=== PATIENT | female | born 1975 | race Two or more races ===

== ENCOUNTER 2024-01-29 09:10 | Inpatient (IN) | payer MEDICAID, OTHER ==
[~2024-01-29] VITALS: Ht 152.4 cm; Wt 57.2 kg
[2024-01-29] MEDS: SODIUM CHLORIDE 0.9% 1,000 ML IV ONE (09:15)
[2024-01-29 09:21] VITALS: PULSE 100; RESP 16; O2SAT 98
[2024-01-29 10:23] LABS: Anion Gap 6 (5-15); Calcium 9.6 mg/dL (8.7-10.4); Carbon Dioxide 26 mmol/L (20-30); Chloride 111 mmol/L (98-107); Potassium 4.3 mmol/L (3.5-5.1); Sodium 143 mmol/L (136-145)
[2024-01-29 10:24] LABS: Basophils # (auto) 0 10 ^3/uL (0-0.2); Basophils % (auto) 0.1 % (0.0-2.0); Eosinophils # (auto) 0.1 10 ^3/uL (0-0.8); Eosinophils % (auto) 1.3 % (0.0-7.0); Hematocrit 40.1 % (36.0-46.0); Hemoglobin 13.3 g/dL (12.2-16.2); Lymphocytes # (auto) 2.1 10 ^3/uL (0.4-5.4); Lymphocytes % (auto) 37.9 % (10.0-50.0); Mean Corpuscular Hemoglobin 34.7 pg (28.0-32.0); Mean Corpuscular Hgb Conc. 33.1 g/dL (32.0-36.0); Monocytes # (auto) 0.5 10 ^3/uL (0-1.3); Neutrophils # (auto) 2.8 10 ^3/uL (1.6-8.6); Neutrophils % (auto) 50.7 % (37.0-80.0); Nucleated Red Blood Cells % 0.1 %; Red Blood Cells 3.82 10^6/uL (4.0-5.20); Red Cell Distribution Width 13.2 % (11.8-14.3); White Blood Cell 5.5 10^3/uL (4.4-10.8)
[2024-01-29 10:28] LABS: Glucose 98 mg/dL (74-106)
[2024-01-29 10:30] LABS: BUN/Creatinine Ratio 40.5 (10.0-20.0); Blood Urea Nitrogen 15 mg/dL (9-23)
[2024-01-29] MEDS ORDERED: NITROGLYCERIN 0.4 MG SL TAB SL PRN (12:45)
[2024-01-29] MEDS ORDERED: DOCUSATE SOD 100 MG CAP PO PRN (12:45)
[2024-01-29] MEDS ORDERED: MORPHINE SULFATE INJ 2 MG/ml SYRG IV PRN (12:45)
[2024-01-29] MEDS: PANTOPRAZOLE 40 MG/10 ML VIAL INJ IV ONE (13:00)
[2024-01-29 13:40] VITALS: BP 104/54; PULSE 98; RESP 17; TEMP 98.3; O2SAT 92
[2024-01-29] MEDS: ENOXAPARIN SOD 40 MG/0.4 ML SYRINGE SC SCH (16:07)
[2024-01-29 16:52] VITALS: BP 120/58; PULSE 99; RESP 19; TEMP 98.7; O2SAT 96
[2024-01-29] MEDS: SODIUM CHLORIDE 0.9% 1,000 ML IV SCH (19:04)
[2024-01-29 21:00] VITALS: BP 105/66; PULSE 100; RESP 18; TEMP 98.5; O2SAT 96
[2024-01-30 01:00] VITALS: BP 119/63; PULSE 93; RESP 23; TEMP 98.6; O2SAT 97
[2024-01-30 05:00] VITALS: BP 116/60; PULSE 101; RESP 20; TEMP 98.3; O2SAT 95
[2024-01-30 05:57] LABS: Basophils # (auto) 0 10 ^3/uL (0-0.2); Eosinophils # (auto) 0.1 10 ^3/uL (0-0.8); Eosinophils % (auto) 1.4 % (0.0-7.0); Monocytes # (auto) 0.5 10 ^3/uL (0-1.3); Neutrophils # (auto) 2.3 10 ^3/uL (1.6-8.6)
[2024-01-30 05:59] LABS: Basophils % (auto) 0.3 % (0.0-2.0); Hematocrit 35.3 % (36.0-46.0); Hemoglobin 12.3 g/dL (12.2-16.2); Lymphocytes # (auto) 2.2 10 ^3/uL (0.4-5.4); Lymphocytes % (auto) 42.8 % (10.0-50.0); Mean Corpuscular Hemoglobin 35.4 pg (28.0-32.0); Mean Corpuscular Hgb Conc. 34.9 g/dL (32.0-36.0); Mean Corpuscular Volume 101.6 fL (80.0-100.0); Monocytes % (auto) 10.2 % (0.0-12.0); Neutrophils % (auto) 45.3 % (37.0-80.0); Nucleated Red Blood Cells % 0.2 %; Red Blood Cells 3.48 10^6/uL (4.0-5.20); White Blood Cell 5.1 10^3/uL (4.4-10.8)
[2024-01-30 06:14] LABS: Alanine Aminotransferase 15 U/L (7-40); Alkaline Phosphatase 99 U/L (46-116); Anion Gap 9 (5-15); BUN/Creatinine Ratio 65.5 (10.0-20.0); Blood Urea Nitrogen 19 mg/dL (9-23); Calcium 9.3 mg/dL (8.7-10.4); Carbon Dioxide 24 mmol/L (20-30); Chloride 112 mmol/L (98-107); Glucose 80 mg/dL (74-106); Potassium 3.7 mmol/L (3.5-5.1); Sodium 145 mmol/L (136-145)
[2024-01-30 06:15] LABS: Albumin 3.6 g/dL (3.2-4.8); Aspartate Aminotransferase 10 U/L (13-40); Bilirubin, Total 0.3 mg/dL (0.2-1.0); Total Protein 5.9 g/dL (5.7-8.2)
[2024-01-30 08:39] VITALS: BP 125/71; PULSE 98; RESP 17; TEMP 99.2; O2SAT 95
[2024-01-30] MEDS ORDERED: FOLI-119 PO (09:42)
[2024-01-30] MEDS ORDERED: TRAM50TA2 PO (09:49)
[2024-01-30] MEDS ORDERED: ESOM40CA39 PO (09:49)
[2024-01-30] MEDS ORDERED: LEVE5SOL PO (09:49)
[2024-01-30] MEDS ORDERED: CARB200T39 PO (09:49)
[2024-01-30] MEDS: PANTOPRAZOLE 40 MG/10 ML VIAL INJ IV SCH (10:20)
[2024-01-30 12:43] VITALS: BP 136/71; PULSE 104; RESP 17; TEMP 99.4; O2SAT 97
[2024-01-30] MEDS: GASTROGRAFIN 30 ML SOL ONE (15:35)
[2024-01-30 16:54] VITALS: BP 119/67; PULSE 96; RESP 16; TEMP 99.2; O2SAT 96
[2024-01-30] MEDS: MORPHINE SULFATE INJ 2 MG/ml SYRG IV PRN (20:41)
[2024-01-30 21:00] VITALS: BP 129/62; PULSE 96; RESP 18; TEMP 99; O2SAT 97
[2024-01-31] VITALS (8 sets, daily range): BP systolic 109–137; BP diastolic 54–64; PULSE 64–102; RESP 16–20; TEMP 97.7–99.7; O2SAT 94–100
[2024-01-31] MEDS ORDERED: CLINIMIX PER PHARMACY 0 ML IV SCH (11:15)
[2024-01-31] MEDS: LORazepam 2MG/ML-1ML VIAL ONE (11:51)
[2024-01-31] MEDS: levETIRAcetam 500 mg/100ml 100 ML IV ONE (12:12)
[2024-01-31 13:50] LABS: Alanine Aminotransferase 19 U/L (7-40); Albumin 3.5 g/dL (3.2-4.8); Alkaline Phosphatase 103 U/L (46-116); Anion Gap 19 (5-15); Aspartate Aminotransferase 17 U/L (13-40); BUN/Creatinine Ratio 28.1 (10.0-20.0); Bilirubin, Total 0.4 mg/dL (0.2-1.0); Calcium 8.8 mg/dL (8.7-10.4); Carbon Dioxide 11 mmol/L (20-30); Chloride 111 mmol/L (98-107); Glucose 65 mg/dL (74-106); Magnesium 1.6 mg/dL (1.6-2.6); Phosphorus 2.9 mg/dL (2.4-5.1); Potassium 3.2 mmol/L (3.5-5.1); Sodium 141 mmol/L (136-145)
[2024-01-31 13:51] LABS: Blood Urea Nitrogen 9 mg/dL (9-23); Total Protein 5.8 g/dL (5.7-8.2)
[2024-01-31] MEDS: InsuLIN REG 1unit/0.01ml Soln (100units/ml) SC SCH (18:00)
[2024-01-31] MEDS: MAGNESIUM SULFATE 1GM/100ML 100 ML IV ONE (18:35)
[2024-01-31] MEDS: POTASSIUM PHOSPHATE 22 MEQ in SODIUM CHL 0.9% 100 ML IV ONE (20:11)
[2024-01-31] MEDS: ACCU-CHEK COMFORT CURVE STRIP VI SCH (23:50)
[2024-01-31] MEDS: levETIRAcetam 500 mg/100ml 100 ML IV SCH (23:56)
[2024-02-01] VITALS (8 sets, daily range): BP systolic 104–121; BP diastolic 52–68; PULSE 67–103; RESP 17–21; TEMP 98.5–99.2; O2SAT 95–100
[2024-02-01] MEDS: DEXTROSE (50%) 50ML SYRG IV SCH (00:29)
[2024-02-01] MEDS: AMINO ACID INFUSION IN D10W 1,000 ML IV SCH (00:31)
[2024-02-01 07:52] LABS: Alanine Aminotransferase 27 U/L (7-40); Albumin 3.3 g/dL (3.2-4.8); Alkaline Phosphatase 95 U/L (46-116); Anion Gap 8 (5-15); Aspartate Aminotransferase 43 U/L (13-40); BUN/Creatinine Ratio 25.6 (10.0-20.0); Bilirubin, Total 0.3 mg/dL (0.2-1.0); Blood Urea Nitrogen 10 mg/dL (9-23); Calcium 8.1 mg/dL (8.7-10.4); Carbon Dioxide 19 mmol/L (20-30); Chloride 110 mmol/L (98-107); Glucose 95 mg/dL (74-106); Magnesium 1.6 mg/dL (1.6-2.6); Phosphorus 2.3 mg/dL (2.4-5.1); Potassium 3.9 mmol/L (3.5-5.1); Sodium 137 mmol/L (136-145); Total Protein 5.1 g/dL (5.7-8.2)
[2024-02-01] MEDS: MAGNESIUM SULFATE 1GM/100ML 100 ML IV SCH (13:21)
[2024-02-01] MEDS: POTASSIUM PHOSPHATE 22 MEQ in SODIUM CHL 0.9% 100 ML IV ONE (16:53)
[2024-02-02] VITALS (7 sets, daily range): BP systolic 105–129; BP diastolic 62–68; PULSE 78–98; RESP 18–22; TEMP 98.1–100.3; O2SAT 97–99
[2024-02-02 07:46] LABS: Alanine Aminotransferase 27 U/L (7-40); Alkaline Phosphatase 104 U/L (46-116); Anion Gap 12 (5-15); Calcium 8.4 mg/dL (8.7-10.4); Carbon Dioxide 16 mmol/L (20-30); Chloride 108 mmol/L (98-107); Glucose 111 mg/dL (74-106); Potassium 3.1 mmol/L (3.5-5.1); Sodium 136 mmol/L (136-145)
[2024-02-02 07:47] LABS: BUN/Creatinine Ratio 21.4 (10.0-20.0); Blood Urea Nitrogen 6 mg/dL (9-23); Magnesium 1.9 mg/dL (1.6-2.6)
[2024-02-02 07:48] LABS: Albumin 3.4 g/dL (3.2-4.8); Aspartate Aminotransferase 24 U/L (13-40)
[2024-02-02 07:49] LABS: Bilirubin, Total 0.3 mg/dL (0.2-1.0); Phosphorus 2.2 mg/dL (2.4-5.1); Total Protein 5.9 g/dL (5.7-8.2)
[2024-02-02 10:53] LABS: INR 1.17 (0.9-1.15); Partial Thromboplastin Time 27.3 SEC (24.5-34.5); Prothrombin Time 12.3 sec (9.3-11.8)
[2024-02-02] MEDS ORDERED: LIDOCAINE VISCOUS 2% 15ML UD ONE (14:34)
[2024-02-02] MEDS: ceFAZolin 1GM/50ML 50 ML IV ONE (14:37)
[2024-02-02] MEDS: SUCCINYLCHOLINE CHLORIDE 20 MG/ML 10ML VIAL IV ONE (14:46)
[2024-02-02] MEDS ORDERED: MIDAZOLAM HCL 2MG/2ML 2ml VIAL (1mg/ml) ONE (14:50)
[2024-02-02] MEDS ORDERED: fentaNYL CITRATE 100 MCG/2 ML VL ONE (14:50)
[2024-02-02] MEDS ORDERED: DexAMETHasone SOD PHOS 10MG/1ML VIAL INJ ONE (14:52)
[2024-02-02] MEDS ORDERED: PROPOFOL 10 MG/ML 20 ML IV ONE (14:57)
[2024-02-02] MEDS: POTASSIUM PHOSPHATE 26.4 MEQ in SODIUM CHL 0.9% 100 ML IV ONE (16:00)
[2024-02-03] VITALS (8 sets, daily range): BP systolic 90–130; BP diastolic 52–65; PULSE 86–106; RESP 17–20; TEMP 98.4–100.6; O2SAT 94–100
[2024-02-03] MEDS: ENSURE CLEAR Apple 8oz Carton GT SCH (05:56)
[2024-02-03] MEDS ORDERED: ENSURE CLEAR Apple 8oz Carton PO SCH (06:00)
[2024-02-03 07:26] LABS: Alanine Aminotransferase 30 U/L (7-40); Albumin 3.4 g/dL (3.2-4.8); Alkaline Phosphatase 98 U/L (46-116); Anion Gap 11 (5-15); BUN/Creatinine Ratio 16.1 (10.0-20.0); Blood Urea Nitrogen 5 mg/dL (9-23); Calcium 8.6 mg/dL (8.7-10.4); Carbon Dioxide 17 mmol/L (20-30); Chloride 110 mmol/L (98-107); Glucose 136 mg/dL (74-106); Magnesium 1.6 mg/dL (1.6-2.6); Potassium 2.7 mmol/L (3.5-5.1); Sodium 138 mmol/L (136-145)
[2024-02-03 07:27] LABS: Aspartate Aminotransferase 26 U/L (13-40); Bilirubin, Total 0.2 mg/dL (0.2-1.0); Phosphorus 2.2 mg/dL (2.4-5.1); Total Protein 5.6 g/dL (5.7-8.2)
[2024-02-03] MEDS: POTASSIUM EFFERVESENT TAB 25 MEQ GT ONE (09:16)
[2024-02-03] MEDS: POTASSIUM CHL 20MEQ/100ML 100 ML IV SCH (09:32)
[2024-02-03] MEDS: ONDANSETRON HCL 4 MG/2 ML VIAL IV PRN (09:37)
[2024-02-03] MEDS: MAGNESIUM SULFATE 1GM/100ML 100 ML IV ONE (17:46)
[2024-02-04] MEDS: SODIUM PHOSPHATES 20 MEQ in SODIUM CHL 0.9% 100 ML IV ONE (00:50)
[2024-02-04 05:00] VITALS: BP 131/59; PULSE 93; RESP 16; TEMP 98.4; O2SAT 96
[2024-02-04 06:35] LABS: Alanine Aminotransferase 33 U/L (7-40); Albumin 3.4 g/dL (3.2-4.8); Alkaline Phosphatase 97 U/L (46-116); Anion Gap 9 (5-15); Aspartate Aminotransferase 21 U/L (13-40); Calcium 8.5 mg/dL (8.7-10.4); Carbon Dioxide 21 mmol/L (20-30); Chloride 107 mmol/L (98-107); Glucose 114 mg/dL (74-106); Magnesium 1.8 mg/dL (1.6-2.6); Phosphorus 4.4 mg/dL (2.4-5.1); Sodium 137 mmol/L (136-145)
[2024-02-04 06:36] LABS: BUN/Creatinine Ratio 17.9 (10.0-20.0); Bilirubin, Total 0.2 mg/dL (0.2-1.0); Blood Urea Nitrogen < 5 mg/dL (9-23); Total Protein 5.6 g/dL (5.7-8.2)
[2024-02-04 09:00] VITALS: BP 110/70; PULSE 87; RESP 18; TEMP 99; O2SAT 97
[2024-02-04 13:00] VITALS: BP 110/80; PULSE 109; RESP 20; TEMP 99.1; O2SAT 96
[2024-02-04 16:39] VITALS: BP 96/51; PULSE 91; RESP 14; TEMP 97.8; O2SAT 94
[2024-02-04] MEDS: POTASSIUM CHL 20MEQ/100ML 100 ML IV SCH (17:20)
[2024-02-04] MEDS: LORazepam 2MG/ML-1ML VIAL IV PRN (19:57)
[2024-02-04 20:00] VITALS: RESP 17
[2024-02-04 21:00] VITALS: BP 134/71; PULSE 110; RESP 19; TEMP 98.7; O2SAT 100
[2024-02-05] VITALS (8 sets, daily range): BP systolic 103–136; BP diastolic 54–68; PULSE 77–91; RESP 15–20; TEMP 97.8–99; O2SAT 94–99
[2024-02-05 10:23] LABS: Alanine Aminotransferase 34 U/L (7-40); Albumin 3.6 g/dL (3.2-4.8); Alkaline Phosphatase 95 U/L (46-116); Anion Gap 6 (5-15); Aspartate Aminotransferase 18 U/L (13-40); BUN/Creatinine Ratio 18.5 (10.0-20.0); Bilirubin, Total 0.2 mg/dL (0.2-1.0); Blood Urea Nitrogen 5 mg/dL (9-23); Carbon Dioxide 23 mmol/L (20-30); Chloride 109 mmol/L (98-107); Glucose 109 mg/dL (74-106); Magnesium 1.5 mg/dL (1.6-2.6); Phosphorus 2.8 mg/dL (2.4-5.1); Potassium 3.4 mmol/L (3.5-5.1); Sodium 138 mmol/L (136-145)
[2024-02-05] MEDS ORDERED: GASTROGRAFIN 30 ML SOL ONE (12:32)
[2024-02-05] MEDS: MAGNESIUM SULFATE 1GM/100ML 100 ML IV SCH (14:34)
[2024-02-05] MEDS: POTASSIUM PHOSPHATE 26.4 MEQ in SODIUM CHL 0.9% 100 ML IV ONE (16:42)
[2024-02-05] MEDS: LACTULOSE 20Gm/30ML SOLN GT SCH (19:02)
[2024-02-05] MEDS: ENSURE CLEAR Apple 8oz Carton GT SCH (20:29)
[2024-02-05] MEDS: METOCLOPRAMIDE HCL 5MG/ml INJ 2ml VIAL IV SCH (22:52)
[2024-02-06] VITALS (8 sets, daily range): BP systolic 96–120; BP diastolic 55–67; PULSE 69–99; RESP 17–20; TEMP 97.7–98.6; O2SAT 94–99
[2024-02-06 07:49] LABS: Alanine Aminotransferase 42 U/L (7-40); Albumin 3.5 g/dL (3.2-4.8); Alkaline Phosphatase 88 U/L (46-116); Anion Gap 11 (5-15); Aspartate Aminotransferase 24 U/L (13-40); BUN/Creatinine Ratio 18.8 (10.0-20.0); Bilirubin, Total 0.3 mg/dL (0.2-1.0); Blood Urea Nitrogen 6 mg/dL (9-23); Carbon Dioxide 23 mmol/L (20-30); Chloride 107 mmol/L (98-107); Glucose 103 mg/dL (74-106); Magnesium 2.2 mg/dL (1.6-2.6); Phosphorus 4.2 mg/dL (2.4-5.1); Potassium 3.3 mmol/L (3.5-5.1); Sodium 141 mmol/L (136-145); Total Protein 5.8 g/dL (5.7-8.2)
[2024-02-06] MEDS ORDERED: FLEET ENEMA(ADULT) 135 ML PR PRN (12:15)
[2024-02-06] MEDS: POTASSIUM CHL 20MEQ/100ML 100 ML IV ONE (16:53)
[2024-02-06] MEDS: FLEET ENEMA(ADULT) 135 ML PR SCH (17:38)
[2024-02-07] VITALS (7 sets, daily range): BP systolic 105–126; BP diastolic 65–91; PULSE 69–106; RESP 15–19; TEMP 98.1–99.4; O2SAT 90–99
[2024-02-07 10:24] LABS: Potassium 3.3 mmol/L (3.5-5.1)
[2024-02-07 10:25] LABS: Calcium 9.7 mg/dL (8.7-10.4)
[2024-02-07 10:30] LABS: BUN/Creatinine Ratio 25.7 (10.0-20.0)
[2024-02-07 10:31] LABS: Magnesium 1.7 mg/dL (1.6-2.6)
[2024-02-07 10:32] LABS: Phosphorus 3.7 mg/dL (2.4-5.1)
[2024-02-07] MEDS: LACTULOSE 20Gm/30ML SOLN GT ONE (11:16)
[2024-02-07] MEDS ORDERED: Glucerna 1.2 Cal 1Liter BOTTLE GT SCH (12:00)
[2024-02-07] MEDS: OMEPRAZOLE-SOD BICARB 20 MG POWDER GT SCH (13:40)
[2024-02-07] MEDS: levETIRAcetam 500 MG/5ML ORAL SOLN UD GT SCH (13:41)
[2024-02-07] MEDS: POTASSIUM EFFERVESENT TAB 25 MEQ GT ONE (14:58)
[2024-02-07] MEDS: METOCLOPRAMIDE 10 mg/10ml ORAL soln GT SCH (14:59)
[2024-02-07] MEDS: Osmolite 1.2 Cal One Liter GT SCH (18:30)
[2024-02-07] MEDS: LACTULOSE 20Gm/30ML SOLN GT SCH (22:47)
[2024-02-08] VITALS (8 sets, daily range): BP systolic 95–116; BP diastolic 56–67; PULSE 68–108; RESP 18–22; TEMP 98.1–99.7; O2SAT 93–97
[2024-02-08 06:36] LABS: Basophils # (auto) 0 10 ^3/uL (0-0.2); Eosinophils # (auto) 0.1 10 ^3/uL (0-0.8); Lymphocytes # (auto) 1.3 10 ^3/uL (0.4-5.4); Monocytes # (auto) 0.7 10 ^3/uL (0-1.3); Neutrophils # (auto) 3.2 10 ^3/uL (1.6-8.6); Nucleated Red Blood Cells % 0.1 %
[2024-02-08 06:39] LABS: Basophils % (auto) 0.3 % (0.0-2.0); Eosinophils % (auto) 1.4 % (0.0-7.0); Hematocrit 39.8 % (36.0-46.0); Hemoglobin 13.6 g/dL (12.2-16.2); Lymphocytes % (auto) 24.5 % (10.0-50.0); Mean Corpuscular Hemoglobin 34.9 pg (28.0-32.0); Mean Corpuscular Hgb Conc. 34.3 g/dL (32.0-36.0); Mean Corpuscular Volume 101.7 fL (80.0-100.0); Monocytes % (auto) 13.2 % (0.0-12.0); Neutrophils % (auto) 60.6 % (37.0-80.0); Red Blood Cells 3.91 10^6/uL (4.0-5.20); Red Cell Distribution Width 13.5 % (11.8-14.3); White Blood Cell 5.3 10^3/uL (4.4-10.8)
[2024-02-08 06:58] LABS: Alanine Aminotransferase 65 U/L (7-40); Albumin 3.9 g/dL (3.2-4.8); Alkaline Phosphatase 94 U/L (46-116); Anion Gap 13 (5-15); Aspartate Aminotransferase 48 U/L (13-40); BUN/Creatinine Ratio 22.9 (10.0-20.0); Blood Urea Nitrogen 8 mg/dL (9-23); Calcium 9.5 mg/dL (8.7-10.4); Carbon Dioxide 21 mmol/L (20-30); Chloride 104 mmol/L (98-107); Glucose 72 mg/dL (74-106); Magnesium 1.9 mg/dL (1.6-2.6); Potassium 3.7 mmol/L (3.5-5.1); Sodium 138 mmol/L (136-145)
[2024-02-08 06:59] LABS: Bilirubin, Total 0.3 mg/dL (0.2-1.0); Phosphorus 4.3 mg/dL (2.4-5.1); Total Protein 6.4 g/dL (5.7-8.2)
[2024-02-08] MEDS: SODIUM CHLORIDE 0.9% 1,000 ML IV SCH (18:45)
[2024-02-09 01:00] VITALS: BP 103/62; PULSE 96; RESP 20; TEMP 98.8; O2SAT 95
[2024-02-09 05:00] VITALS: BP 92/60; PULSE 94; RESP 18; TEMP 98.2; O2SAT 94
[2024-02-09 06:48] LABS: Chloride 105 mmol/L (98-107); Potassium 3.5 mmol/L (3.5-5.1); Sodium 138 mmol/L (136-145)
[2024-02-09 06:49] LABS: Anion Gap 10 (5-15); Calcium 9.2 mg/dL (8.7-10.4); Carbon Dioxide 23 mmol/L (20-30)
[2024-02-09 06:54] LABS: Glucose 70 mg/dL (74-106)
[2024-02-09 06:55] LABS: BUN/Creatinine Ratio 22.6 (10.0-20.0); Blood Urea Nitrogen 7 mg/dL (9-23)
[2024-02-09 09:00] VITALS: BP 105/62; PULSE 78; RESP 17; TEMP 98.1; O2SAT 97
[2024-02-09 13:00] VITALS: BP 101/63; PULSE 90; RESP 17; TEMP 98.7; O2SAT 97
[2024-02-09] MEDS: DEXTROSE (50%) 50ML SYRG IV SCH (13:47)
[2024-02-09] MEDS ORDERED: ACCU-CHEK COMFORT CURVE STRIP VI SCH (16:15)
[2024-02-09] MEDS ORDERED: InsuLIN REG 1unit/0.01ml Soln (100units/ml) SC SCH (16:15)
[2024-02-09] MEDS: InsuLIN REG 1unit/0.01ml Soln (100units/ml) SC SCH (16:30)
[2024-02-09] MEDS: ACCU-CHEK COMFORT CURVE STRIP VI SCH (16:30)
[2024-02-09 17:00] VITALS: BP 100/58; PULSE 90; RESP 17; TEMP 98.6; O2SAT 90
[2024-02-09 22:00] VITALS: BP 116/70; PULSE 85; RESP 17; TEMP 98; O2SAT 96
[2024-02-10 01:00] VITALS: BP 110/64; PULSE 87; RESP 18; TEMP 97.4; O2SAT 95
[2024-02-10 05:00] VITALS: BP 110/64; PULSE 77; RESP 19; TEMP 98.5; O2SAT 95
[2024-02-10 09:00] VITALS: BP 111/62; PULSE 87; RESP 18; TEMP 98; O2SAT 97
[2024-02-10 11:20] LABS: Anion Gap 7 (5-15); Carbon Dioxide 26 mmol/L (20-30); Chloride 105 mmol/L (98-107); Potassium 3.4 mmol/L (3.5-5.1); Sodium 138 mmol/L (136-145)
[2024-02-10 11:21] LABS: Calcium 8.8 mg/dL (8.7-10.4)
[2024-02-10 11:26] LABS: Glucose 71 mg/dL (74-106)
[2024-02-10 11:27] LABS: BUN/Creatinine Ratio 19.2 (10.0-20.0); Blood Urea Nitrogen < 5 mg/dL (9-23)
[2024-02-10 13:00] VITALS: BP 113/68; PULSE 88; RESP 18; TEMP 97.8; O2SAT 96
[2024-02-10] MEDS: POTASSIUM CHL 20MEQ/100ML 100 ML IV ONE (16:50)
[2024-02-10 17:00] VITALS: BP 148/77; PULSE 96; RESP 18; TEMP 98.2; O2SAT 98
[2024-02-10 21:00] VITALS: BP 125/72; PULSE 81; RESP 18; TEMP 98.1; O2SAT 98
[2024-02-11] VITALS (7 sets, daily range): BP systolic 102–119; BP diastolic 55–64; PULSE 72–85; RESP 17–21; TEMP 97.6–99; O2SAT 95–99
[2024-02-11 10:54] LABS: Anion Gap 7 (5-15); Carbon Dioxide 27 mmol/L (20-30); Chloride 103 mmol/L (98-107); Potassium 3.7 mmol/L (3.5-5.1); Sodium 137 mmol/L (136-145)
[2024-02-11 10:55] LABS: Calcium 9.1 mg/dL (8.7-10.4)
[2024-02-11 11:00] LABS: Glucose 92 mg/dL (74-106)
[2024-02-11 11:01] LABS: BUN/Creatinine Ratio 17.9 (10.0-20.0); Blood Urea Nitrogen < 5 mg/dL (9-23)
== END 2024-02-11 17:45 | disposition home or self-care (01) | DRG 252 ==
LOC: EDBD 09:10 → ER 09:10 → OVERFLOW 12:40 → CENTRAL 13:34
PROVIDERS: ADMIT Nurse Practitioner Family; ATTEND Internal Medicine
PROC: 0DH63UZ Insertion of Feeding Device into Stomach, Percutaneous Approach (ICD-10-PCS; 2024-02-02)
PROC: 3E0G76Z Introduction of Nutritional Substance into Upper GI, Via Natural or Artificial Opening (ICD-10-PCS; 2024-02-02)
PROC: 0DP6XUZ Removal of Feeding Device from Stomach, External Approach (ICD-10-PCS; principal; 2024-02-02 14:45)
PROC: 02HV33Z Insertion of Infusion Device into Superior Vena Cava, Percutaneous Approach (ICD-10-PCS; 2024-02-07)
PROC: B548ZZA Ultrasonography of Superior Vena Cava, Guidance (ICD-10-PCS; 2024-02-07)
DX: K94.23 Gastrostomy malfunction (principal); E83.39 Other disorders of phosphorus metabolism; G80.0 Spastic quadriplegic cerebral palsy; E87.6 Hypokalemia; G40.909 Epilepsy, unspecified, not intractable, without status epilepticus; K21.9 Gastro-esophageal reflux disease without esophagitis; K44.9 Diaphragmatic hernia without obstruction or gangrene; E83.42 Hypomagnesemia; J98.11 Atelectasis; K59.00 Constipation, unspecified; D53.9 Nutritional anemia, unspecified; Z87.11 Personal history of peptic ulcer disease; Z74.01 Bed confinement status; Q21.0 Ventricular septal defect
CPT/HCPCS: 36415; 71045; 74018; 74021; 74176; 80048; 80053; 80069; 82962; 83735; 84100; 85025; 85610; 85730; 87081; 93971; G0378; J0330; J1100; J1815; J2250; J2405; J2470; J2704; J3480

== ENCOUNTER 2024-02-27 06:51 | Emergency (ER) | payer MEDICAID ==
[~2024-02-27] VITALS: Ht 149.9 cm
[~2024-02-27 06:51] MED LIST: CARB200T39 PO; ESOM40CA39 PO; FOLI-119 PO; LEVE5SOL PO; TRAM50TA2 PO
[2024-02-27 07:49] VITALS: PULSE 117; RESP 20; TEMP 99.5; O2SAT 100
[2024-02-27] MEDS: SODIUM CHLORIDE 0.9% 1,000 ML IV ONE ×2 (08:00→13:35)
[2024-02-27] MEDS: SODIUM CHLORIDE 0.9% 1,000 ML IVB ONE (08:00)
[2024-02-27 08:56] LABS: Basophils # (auto) 0 10 ^3/uL (0-0.2); Basophils % (auto) 0.1 % (0.0-2.0); Eosinophils # (auto) 0 10 ^3/uL (0-0.8); Eosinophils % (auto) 0.2 % (0.0-7.0); Hematocrit 35.2 % (36.0-46.0); Hemoglobin 11.4 g/dL (12.2-16.2); Lymphocytes # (auto) 1.3 10 ^3/uL (0.4-5.4); Lymphocytes % (auto) 17.9 % (10.0-50.0); Mean Corpuscular Hemoglobin 34.2 pg (28.0-32.0); Mean Corpuscular Hgb Conc. 32.3 g/dL (32.0-36.0); Mean Corpuscular Volume 105.8 fL (80.0-100.0); Monocytes # (auto) 0.5 10 ^3/uL (0-1.3); Monocytes % (auto) 7.1 % (0.0-12.0); Neutrophils # (auto) 5.4 10 ^3/uL (1.6-8.6); Neutrophils % (auto) 74.7 % (37.0-80.0); Platelet Count (auto) 305 10^3/uL (140-450); Red Blood Cells 3.33 10^6/uL (4.0-5.20); Red Cell Distribution Width 14.3 % (11.8-14.3); White Blood Cell 7.3 10^3/uL (4.4-10.8)
[2024-02-27 09:15] LABS: Alanine Aminotransferase 21 U/L (7-40); Alkaline Phosphatase 73 U/L (46-116); Anion Gap 3 (5-15); Aspartate Aminotransferase 22 U/L (13-40); Bilirubin, Total 0.2 mg/dL (0.2-1.0); Blood Urea Nitrogen 25 mg/dL (9-23); Calcium 8.2 mg/dL (8.7-10.4); Carbon Dioxide 29 mmol/L (20-30); Chloride 126 mmol/L (98-107); Glucose 92 mg/dL (74-106); Magnesium 2.1 mg/dL (1.6-2.6); Potassium 3.4 mmol/L (3.5-5.1); Sodium 158 mmol/L (136-145); Total Protein 5.1 g/dL (5.7-8.2)
[2024-02-27] MEDS: MORPHINE SULFATE INJ 2 MG/ml SYRG IV ONE (12:45)
[2024-02-27] MEDS: ONDANSETRON HCL 4 MG/2 ML VIAL IV ONE (12:45)
[2024-02-27 15:05] LABS: Urine Bacteria None Seen /hpf (None Seen)
[2024-02-27 15:22] LABS: Urine Blood 1+ /uL (Negative); Urine Clarity Clear (Clear); Urine Color Light-Yellow (Yellow); Urine Mucus FEW (None Seen); Urine Protein, UAD Negative (Negative); Urine Specific Gravity 1.013 (1.001-1.035); Urine Urobilinogen Normal (Negative); Urine WBC 7 /hpf (0 - 5); Urine pH 5.5 (5.0-9.0)
[2024-02-27] MEDS: cefTRIAXone 1GM/50ML D5W 50 ML IV ONE (16:21)
[2024-02-27 16:30] VITALS: BP 104/66; PULSE 80; RESP 20; O2SAT 96
[2024-02-27] MEDS ORDERED: CEFD300C2 PO (16:59)
[2024-02-27] MEDS ORDERED: LORA-655 PO (16:59)
== END 2024-02-27 17:12 | disposition home or self-care (01) ==
LOC: EDBD 06:51 → ER 06:54
DX: G80.9 Cerebral palsy, unspecified (principal); R10.2 Pelvic and perineal pain; E86.0 Dehydration; N39.0 Urinary tract infection, site not specified; E44.0 Moderate protein-calorie malnutrition; G40.909 Epilepsy, unspecified, not intractable, without status epilepticus; Z68.1 Body mass index [BMI] 19.9 or less, adult; Z32.02 Encounter for pregnancy test, result negative
CPT/HCPCS: 36415; 71045; 80053; 81001; 83735; 84443; 84702; 85025; 85379; 93005; 96361; 96365; 96375; 99285; J0696; J2270; J2405; J7030

== ENCOUNTER 2024-03-26 13:41 | Emergency (ER) | payer MEDICAID ==
[~2024-03-26] VITALS: Ht 147.3 cm; Wt 50.0 kg
[~2024-03-26 13:41] MED LIST changes: +CEFD300C2 PO; +LORA-655 PO
[2024-03-26] MEDS ORDERED: ESOM1CAP38 PO (15:28)
[2024-03-26] MEDS ORDERED: BISA5TAB PO (15:28)
[2024-03-26] MEDS ORDERED: CARB300C9 PO (15:28)
[2024-03-26 16:38] VITALS: BP 98/67; PULSE 115; RESP 22; TEMP 97.9; O2SAT 94
== END 2024-03-26 16:47 | disposition home or self-care (01) ==
LOC: ER 13:41
DX: G80.9 Cerebral palsy, unspecified (principal); Z76.0 Encounter for issue of repeat prescription; Z95.0 Presence of cardiac pacemaker; Z79.899 Other long term (current) drug therapy; Z98.890 Other specified postprocedural states

== ENCOUNTER 2024-04-01 12:45 | Emergency (ER) | payer MEDICAID ==
[~2024-04-01 12:45] MED LIST changes: +BISA5TAB PO; +CARB300C9 PO; +ESOM1CAP38 PO
[2024-04-01 19:15] VITALS: PULSE 97; RESP 15; O2SAT 98
[2024-04-01] MEDS: GASTROGRAFIN 30 ML SOL ONE (20:32)
[2024-04-01] MEDS: GASTROGRAFIN 30 ML SOL XX ONE (20:32)
[2024-04-01 21:00] VITALS: BP 93/67; PULSE 98; RESP 16; TEMP 98.1; O2SAT 100
== END 2024-04-01 22:20 | disposition home or self-care (01) ==
LOC: ER 12:45
DX: K56.609 Unspecified intestinal obstruction, unspecified as to partial versus complete obstruction (principal); K21.9 Gastro-esophageal reflux disease without esophagitis; G80.9 Cerebral palsy, unspecified; Z90.49 Acquired absence of other specified parts of digestive tract; Z53.1 Procedure and treatment not carried out because of patient's decision for reasons of belief and group pressure
CPT/HCPCS: 43762; 74018; 99285; Q9963

== ENCOUNTER 2024-04-03 08:38 | Inpatient (IN) | payer MEDICAID ==
[~2024-04-03] VITALS: Ht 165.1 cm; Wt 55.0 kg
[2024-04-03 09:33] VITALS: PULSE 131; RESP 19; O2SAT 99
[2024-04-03 09:48] LABS: Basophils # (auto) 0 10 ^3/uL (0-0.2); Basophils % (auto) 0.2 % (0.0-2.0); Eosinophils # (auto) 0.1 10 ^3/uL (0-0.8); Mean Corpuscular Hgb Conc. 33.7 g/dL (32.0-36.0); Monocytes # (auto) 0.6 10 ^3/uL (0-1.3); Monocytes % (auto) 6.9 % (0.0-12.0); Red Blood Cells 3.91 10^6/uL (4.0-5.20)
[2024-04-03 09:49] LABS: Eosinophils % (auto) 0.8 % (0.0-7.0); Hematocrit 41.1 % (36.0-46.0); Hemoglobin 13.8 g/dL (12.2-16.2); Lymphocytes # (auto) 1.4 10 ^3/uL (0.4-5.4); Lymphocytes % (auto) 15.1 % (10.0-50.0); Mean Corpuscular Hemoglobin 35.4 pg (28.0-32.0); Mean Corpuscular Volume 105.1 fL (80.0-100.0); Neutrophils # (auto) 7.1 10 ^3/uL (1.6-8.6); Nucleated Red Blood Cells % 0.1 %; Platelet Count (auto) 342 10^3/uL (140-450); Red Cell Distribution Width 14.2 % (11.8-14.3); White Blood Cell 9.1 10^3/uL (4.4-10.8)
[2024-04-03 10:10] LABS: Alanine Aminotransferase 18 U/L (7-40); Alkaline Phosphatase 104 U/L (46-116); Anion Gap 10 (5-15); Aspartate Aminotransferase 13 U/L (13-40); BUN/Creatinine Ratio 43.4 (10.0-20.0); Blood Urea Nitrogen 23 mg/dL (9-23); Calcium 9.4 mg/dL (8.7-10.4); Carbon Dioxide 26 mmol/L (20-30); Chloride 115 mmol/L (98-107); Glucose 173 mg/dL (74-106); Potassium 3.6 mmol/L (3.5-5.1); Sodium 151 mmol/L (136-145)
[2024-04-03 10:11] LABS: Bilirubin, Total 0.2 mg/dL (0.2-1.0); Total Protein 6.7 g/dL (5.7-8.2)
[2024-04-03] MEDS: SODIUM CHLORIDE 0.9% 1,000 ML IV ONE ×2 (11:15→12:57)
[2024-04-03] MEDS: cefTRIAXone 1GM/50ML D5W 50 ML IV ONE (11:15)
[2024-04-03] MEDS ORDERED: MORPHINE SULFATE INJ 2 MG/ml SYRG IV PRN (11:30)
[2024-04-03] MEDS ORDERED: NITROGLYCERIN 0.4 MG SL TAB SL PRN (11:30)
[2024-04-03] MEDS ORDERED: BISACODYL 5 MG EC TAB PO PRN (11:30)
[2024-04-03] MEDS: AZITHROMYCIN 500MG/ 250ML 250 ML IV ONE (12:15)
[2024-04-03] MEDS: PANTOPRAZOLE 40 MG/10 ML VIAL INJ IV ONE (12:34)
[2024-04-03] MEDS: SODIUM CHLORIDE 0.9% 1,000 ML IV SCH (13:06)
[2024-04-03 13:20] LABS: Urine Bacteria FEW /hpf (None Seen); Urine Blood Negative /uL (Negative); Urine Mucus FEW (None Seen); Urine Protein, UAD 1+ (Negative); Urine Specific Gravity 1.037 (1.001-1.035); Urine Urobilinogen 4 mg/dL (Negative); Urine WBC 13 /hpf (0 - 5)
[2024-04-03 13:24] LABS: Urine Clarity HAZY (Clear); Urine Color Amber (Yellow)
[2024-04-03] MEDS: GASTROGRAFIN 30 ML SOL ONE ×2 (13:27→20:36)
[2024-04-03 15:31] LABS: Creatinine, Urine 152.21 mg/dL (30.0-125.0)
[2024-04-03] MEDS: LORazepam 2MG/ML-1ML VIAL ONE (18:23)
[2024-04-03] MEDS: LORazepam 2MG/ML-1ML VIAL IV ONE (18:26)
[2024-04-03 19:30] VITALS: PULSE 102; RESP 18; O2SAT 99
[2024-04-03] MEDS: LORazepam 0.5 MG TAB PO SCH (21:07)
[2024-04-03 23:15] VITALS: BP 105/58; PULSE 95; RESP 16; TEMP 97.9; O2SAT 99
[2024-04-04] VITALS (10 sets, daily range): BP systolic 102–115; BP diastolic 48–67; PULSE 70–131; RESP 16–20; TEMP 97.9–99.1; O2SAT 94–100
[2024-04-04] MEDS ORDERED: VANCOMYCIN PER PHARMACY 0 MG IV SCH (06:30)
[2024-04-04 07:09] LABS: Basophils # (auto) 0 10 ^3/uL (0-0.2); Basophils % (auto) 0.2 % (0.0-2.0); Eosinophils # (auto) 0.1 10 ^3/uL (0-0.8); Eosinophils % (auto) 2.3 % (0.0-7.0); Hemoglobin 11.3 g/dL (12.2-16.2); Lymphocytes # (auto) 2.1 10 ^3/uL (0.4-5.4); Monocytes # (auto) 0.6 10 ^3/uL (0-1.3); Monocytes % (auto) 11.3 % (0.0-12.0); White Blood Cell 5.5 10^3/uL (4.4-10.8)
[2024-04-04 07:12] LABS: Hematocrit 33.4 % (36.0-46.0); Lymphocytes % (auto) 38.3 % (10.0-50.0); Mean Corpuscular Hemoglobin 35.9 pg (28.0-32.0); Mean Corpuscular Hgb Conc. 33.9 g/dL (32.0-36.0); Mean Corpuscular Volume 105.8 fL (80.0-100.0); Neutrophils # (auto) 2.7 10 ^3/uL (1.6-8.6); Neutrophils % (auto) 47.9 % (37.0-80.0); Nucleated Red Blood Cells % 0.1 %; Platelet Count (auto) 243 10^3/uL (140-450); Red Blood Cells 3.15 10^6/uL (4.0-5.20)
[2024-04-04 07:17] LABS: Alanine Aminotransferase 14 U/L (7-40); Albumin 3.2 g/dL (3.2-4.8); Alkaline Phosphatase 90 U/L (46-116); Anion Gap 9 (5-15); Aspartate Aminotransferase 13 U/L (13-40); BUN/Creatinine Ratio 30.3 (10.0-20.0); Blood Urea Nitrogen 10 mg/dL (9-23); Calcium 8.9 mg/dL (8.7-10.4); Carbon Dioxide 25 mmol/L (20-30); Chloride 115 mmol/L (98-107); Glucose 70 mg/dL (74-106); Potassium 3.5 mmol/L (3.5-5.1); Sodium 149 mmol/L (136-145)
[2024-04-04 07:18] LABS: Bilirubin, Total 0.3 mg/dL (0.2-1.0); Total Protein 5.4 g/dL (5.7-8.2)
[2024-04-04] MEDS: levETIRAcetam 500 MG/5ML ORAL SOLN UD PO SCH (10:00)
[2024-04-04] MEDS: FOLIC ACID 1 MG TAB PO SCH (10:00)
[2024-04-04] MEDS: PANTOPRAZOLE 40 MG TAB PO SCH (10:00)
[2024-04-04] MEDS ORDERED: PANTOPRAZOLE 40 MG/10 ML VIAL INJ IV SCH (10:00)
[2024-04-04] MEDS ORDERED: AZITHROMYCIN 500MG/ 250ML 250 ML IV SCH (10:00)
[2024-04-04] MEDS: VANCOMYCIN 1GM/200ML PREMIX 200 ML IV ONE (10:04)
[2024-04-04] MEDS: cefTRIAXone 1GM/50ML D5W 50 ML IV SCH (11:46)
[2024-04-04] MEDS: ENOXAPARIN SOD 40 MG/0.4 ML SYRINGE SC SCH (11:47)
[2024-04-04] MEDS: levETIRAcetam 500 MG/5ML ORAL SOLN UD PO ONE (15:15)
[2024-04-04] MEDS: PANTOPRAZOLE 40 MG/10 ML VIAL INJ IV ONE (17:03)
[2024-04-04] MEDS: Jevity 1.2 Cal/Fiber 1 Liter GT SCH (17:06)
[2024-04-04] MEDS: VANCOMYCIN 1GM/200ML PREMIX 200 ML IV SCH (17:06)
[2024-04-04] MEDS: LORazepam 2MG/ML-1ML VIAL IV PRN (18:19)
[2024-04-04] MEDS: levETIRAcetam 500 MG/5ML ORAL SOLN UD GT ONE (18:20)
[2024-04-04] MEDS: ACETAMINOPHEN 325 MG TAB PO PRN (18:27)
[2024-04-04] MEDS: carBAMazepine 200 MG/10 ML Ud ORAL Susp GT SCH (22:09)
[2024-04-04] MEDS: levETIRAcetam 500 MG/5ML ORAL SOLN UD GT SCH (23:29)
[2024-04-05] VITALS (8 sets, daily range): BP systolic 91–118; BP diastolic 51–67; PULSE 70–104; RESP 15–19; TEMP 97.5–98.9; O2SAT 92–99
[2024-04-05 07:52] LABS: Basophils # (auto) 0 10 ^3/uL (0-0.2); Basophils % (auto) 0.2 % (0.0-2.0); Eosinophils # (auto) 0.1 10 ^3/uL (0-0.8); Eosinophils % (auto) 2.1 % (0.0-7.0); Hematocrit 30.9 % (36.0-46.0); Hemoglobin 10.4 g/dL (12.2-16.2); Lymphocytes # (auto) 1.6 10 ^3/uL (0.4-5.4); Mean Corpuscular Hemoglobin 35.4 pg (28.0-32.0); Mean Corpuscular Hgb Conc. 33.7 g/dL (32.0-36.0); Mean Corpuscular Volume 105.1 fL (80.0-100.0); Monocytes # (auto) 0.7 10 ^3/uL (0-1.3); Neutrophils # (auto) 2.4 10 ^3/uL (1.6-8.6); Neutrophils % (auto) 50.7 % (37.0-80.0); Nucleated Red Blood Cells % 0.2 %; Platelet Count (auto) 267 10^3/uL (140-450); Red Blood Cells 2.94 10^6/uL (4.0-5.20); Red Cell Distribution Width 13.6 % (11.8-14.3); White Blood Cell 4.7 10^3/uL (4.4-10.8)
[2024-04-05 08:14] LABS: Anion Gap 12 (5-15); Calcium 8.6 mg/dL (8.7-10.4); Carbon Dioxide 19 mmol/L (20-30); Chloride 112 mmol/L (98-107); Sodium 143 mmol/L (136-145)
[2024-04-05 08:20] LABS: BUN/Creatinine Ratio 20.7 (10.0-20.0); Blood Urea Nitrogen 6 mg/dL (9-23); Glucose 59 mg/dL (74-106)
[2024-04-05] MEDS: PANTOPRAZOLE 40 MG/10 ML VIAL INJ IV SCH (09:29)
[2024-04-05] MEDS ORDERED: POTASSIUM CHLORIDE 40 MEQ in SOD CHL 0.45% 1,000 ML IV SCH (10:00)
[2024-04-05] MEDS ORDERED: levETIRAcetam 500 MG/5ML ORAL SOLN UD PO ONE (10:00)
[2024-04-05] MEDS ORDERED: levETIRAcetam 500 MG/5ML ORAL SOLN UD GT SCH (10:00)
[2024-04-05] MEDS: POTASSIUM EFFERVESENT TAB 25 MEQ GT ONE (12:24)
[2024-04-05 15:13] LABS: Folate (Folic Acid) 18.4 ng/mL (>5.38)
[2024-04-05] MEDS: MAGNESIUM SULFATE 1GM/100ML 100 ML IV ONE (15:53)
[2024-04-05] MEDS: METOCLOPRAMIDE 10 mg/10ml ORAL soln GT ONE (15:59)
[2024-04-05] MEDS: MUPIROCIN 2% OINT 15gm or 22gm FOR MRSA NARES EACHNOSTRI SCH (21:57)
[2024-04-05] MEDS: VANCOMYCIN 1GM/200ML PREMIX 200 ML IV SCH (21:57)
[2024-04-05] MEDS: METOCLOPRAMIDE 10 mg/10ml ORAL soln GT SCH (21:58)
[2024-04-06] VITALS (8 sets, daily range): BP systolic 86–114; BP diastolic 49–60; PULSE 70–98; RESP 16–22; TEMP 97.8–98.7; O2SAT 95–99
[2024-04-06 06:24] LABS: Carbon Dioxide 19 mmol/L (20-30); Chloride 113 mmol/L (98-107); Potassium 3.7 mmol/L (3.5-5.1); Sodium 140 mmol/L (136-145)
[2024-04-06 06:25] LABS: Calcium 8.4 mg/dL (8.7-10.4)
[2024-04-06 06:30] LABS: Glucose 75 mg/dL (74-106)
[2024-04-06 06:32] LABS: Anion Gap 8 (5-15); BUN/Creatinine Ratio 16.7 (10.0-20.0); Blood Urea Nitrogen < 5 mg/dL (9-23)
[2024-04-06 11:10] LABS: Basophils # (auto) 0 10 ^3/uL (0-0.2); Basophils % (auto) 0.2 % (0.0-2.0); Eosinophils # (auto) 0.1 10 ^3/uL (0-0.8); Hemoglobin 11.9 g/dL (12.2-16.2); Monocytes # (auto) 0.5 10 ^3/uL (0-1.3); Neutrophils # (auto) 3.1 10 ^3/uL (1.6-8.6); Nucleated Red Blood Cells % 0.1 %
[2024-04-06 11:13] LABS: Eosinophils % (auto) 2.7 % (0.0-7.0); Hematocrit 34.1 % (36.0-46.0); Mean Corpuscular Hemoglobin 36.1 pg (28.0-32.0); Mean Corpuscular Volume 103.1 fL (80.0-100.0); Monocytes % (auto) 10.9 % (0.0-12.0); Neutrophils % (auto) 65.2 % (37.0-80.0); Platelet Count (auto) 270 10^3/uL (140-450); Red Blood Cells 3.31 10^6/uL (4.0-5.20); Red Cell Distribution Width 14.1 % (11.8-14.3); White Blood Cell 4.8 10^3/uL (4.4-10.8)
[2024-04-06] MEDS: SODIUM CHLORIDE 0.9% 1,000 ML IV SCH ×2 (18:42→22:15)
[2024-04-06] MEDS: SODIUM CHLORIDE 0.9% 500 ML IV ONE (18:43)
[2024-04-06] MEDS: VANCOMYCIN 1GM/200ML PREMIX 200 ML IV SCH (22:59)
[2024-04-07] VITALS (8 sets, daily range): BP systolic 90–116; BP diastolic 48–67; PULSE 94–114; RESP 16–19; TEMP 97.1–98.9; O2SAT 96–98
[2024-04-07] MEDS: SODIUM CHLORIDE 0.9% 1,000 ML IV SCH ×2 (02:45→12:00)
[2024-04-07] MEDS ORDERED: ERGOCALCIFEROL 50,000 UNIT(1.25MG) CAP PO SCH (06:45)
[2024-04-07] MEDS: LORazepam 2MG/ML-1ML VIAL IV ONE (08:51)
[2024-04-07 11:00] LABS: Basophils # (auto) 0 10 ^3/uL (0-0.2); Basophils % (auto) 0.1 % (0.0-2.0); Eosinophils # (auto) 0.1 10 ^3/uL (0-0.8); Hemoglobin 11.2 g/dL (12.2-16.2); Mean Corpuscular Hemoglobin 35.7 pg (28.0-32.0); Red Blood Cells 3.14 10^6/uL (4.0-5.20)
[2024-04-07 11:01] LABS: Eosinophils % (auto) 1.1 % (0.0-7.0); Hematocrit 32.9 % (36.0-46.0); Lymphocytes # (auto) 0.7 10 ^3/uL (0.4-5.4); Lymphocytes % (auto) 12.4 % (10.0-50.0); Monocytes # (auto) 0.5 10 ^3/uL (0-1.3); Monocytes % (auto) 8.8 % (0.0-12.0); Neutrophils # (auto) 4.7 10 ^3/uL (1.6-8.6); Neutrophils % (auto) 77.6 % (37.0-80.0); Platelet Count (auto) 256 10^3/uL (140-450); Red Cell Distribution Width 14.1 % (11.8-14.3)
[2024-04-07 11:06] LABS: Chloride 112 mmol/L (98-107); Potassium 3.2 mmol/L (3.5-5.1); Sodium 142 mmol/L (136-145)
[2024-04-07 11:07] LABS: Anion Gap 8 (5-15); Calcium 8.2 mg/dL (8.7-10.4); Carbon Dioxide 22 mmol/L (20-31)
[2024-04-07 11:12] LABS: BUN/Creatinine Ratio 17.9 (10.0-20.0); Blood Urea Nitrogen < 5 mg/dL (9-23); Glucose 99 mg/dL (74-106)
[2024-04-07] MEDS: diphenhdrAMINE HCL 50 MG/1 ML VL IV ONE (11:55)
[2024-04-07] MEDS: POTASSIUM CHLORIDE 40 MEQ, LIDOCAINE 1% (LOCAL ANESTH.) 4 ML in SODIUM CHL 0.9% 250 ML IV ONE (22:00)
[2024-04-08] VITALS (9 sets, daily range): BP systolic 94–109; BP diastolic 49–60; PULSE 86–100; RESP 14–18; TEMP 97.6–99; O2SAT 94–99
[2024-04-08] MEDS: diphenhdrAMINE HCL 50 MG/1 ML VL IV ONE (01:01)
[2024-04-08 06:09] LABS: Basophils # (auto) 0 10 ^3/uL (0-0.2); Eosinophils # (auto) 0.2 10 ^3/uL (0-0.8); Lymphocytes # (auto) 1.2 10 ^3/uL (0.4-5.4); Neutrophils # (auto) 4.1 10 ^3/uL (1.6-8.6); Nucleated Red Blood Cells % 0.1 %; Red Blood Cells 2.98 10^6/uL (4.0-5.20); White Blood Cell 6.1 10^3/uL (4.4-10.8)
[2024-04-08 06:11] LABS: Basophils % (auto) 0.2 % (0.0-2.0); Eosinophils % (auto) 2.7 % (0.0-7.0); Hematocrit 31.1 % (36.0-46.0); Hemoglobin 10.8 g/dL (12.2-16.2); Mean Corpuscular Hemoglobin 36.4 pg (28.0-32.0); Mean Corpuscular Hgb Conc. 34.9 g/dL (32.0-36.0); Mean Corpuscular Volume 104.4 fL (80.0-100.0); Monocytes # (auto) 0.7 10 ^3/uL (0-1.3); Monocytes % (auto) 11.3 % (0.0-12.0); Neutrophils % (auto) 66.8 % (37.0-80.0); Platelet Count (auto) 243 10^3/uL (140-450)
[2024-04-08 06:17] LABS: Chloride 112 mmol/L (98-107); Potassium 3.5 mmol/L (3.5-5.1); Sodium 142 mmol/L (136-145)
[2024-04-08 06:18] LABS: Anion Gap 6 (5-15); Calcium 8.3 mg/dL (8.7-10.4); Carbon Dioxide 24 mmol/L (20-31)
[2024-04-08 06:23] LABS: Glucose 80 mg/dL (74-106)
[2024-04-08 06:26] LABS: BUN/Creatinine Ratio 17.2 (10.0-20.0); Blood Urea Nitrogen < 5 mg/dL (9-23)
[2024-04-08] MEDS: SODIUM CHLORIDE 0.9% 500 ML IV ONE (10:38)
[2024-04-08] MEDS: diphenhdrAMINE HCL 50 MG/1 ML VL IV PRN (14:01)
[2024-04-09] VITALS (8 sets, daily range): BP systolic 100–105; BP diastolic 48–69; PULSE 95–115; RESP 16–22; TEMP 97.9–99.4; O2SAT 96–99
[2024-04-09] MEDS: methylPREDNISolone SOD SUCC 40 MG/ML VL IV ONE (15:46)
[2024-04-09 16:55] LABS: Chloride 108 mmol/L (98-107); Potassium 4.2 mmol/L (3.5-5.1)
[2024-04-09 16:56] LABS: Anion Gap 5 (5-15); Carbon Dioxide 22 mmol/L (20-31)
[2024-04-09 16:57] LABS: Calcium 8.3 mg/dL (8.7-10.4)
[2024-04-09 17:02] LABS: BUN/Creatinine Ratio 21.4 (10.0-20.0); Blood Urea Nitrogen 6 mg/dL (9-23); Glucose 92 mg/dL (74-106)
[2024-04-09 17:03] LABS: Sodium 135 mmol/L (136-145)
[2024-04-10] VITALS (8 sets, daily range): BP systolic 90–108; BP diastolic 48–61; PULSE 94–115; RESP 18–20; TEMP 98–98.5; O2SAT 94–100
[2024-04-10] MEDS: levoFLOXacin 500MG 100 ML IV SCH (11:01)
[2024-04-10] MEDS: methylPREDNISolone SOD SUCC 40 MG/ML VL IV SCH (11:02)
[2024-04-10 11:05] LABS: Basophils # (auto) 0 10 ^3/uL (0-0.2); Basophils % (auto) 0.1 % (0.0-2.0); Eosinophils # (auto) 0.1 10 ^3/uL (0-0.8); Eosinophils % (auto) 1.1 % (0.0-7.0); Hematocrit 37.6 % (36.0-46.0); Hemoglobin 12.6 g/dL (12.2-16.2); Lymphocytes # (auto) 1.6 10 ^3/uL (0.4-5.4); Lymphocytes % (auto) 17.2 % (10.0-50.0); Mean Corpuscular Hemoglobin 35.9 pg (28.0-32.0); Mean Corpuscular Hgb Conc. 33.4 g/dL (32.0-36.0); Mean Corpuscular Volume 107.4 fL (80.0-100.0); Monocytes # (auto) 0.8 10 ^3/uL (0-1.3); Monocytes % (auto) 8.8 % (0.0-12.0); Neutrophils # (auto) 6.6 10 ^3/uL (1.6-8.6); Neutrophils % (auto) 72.8 % (37.0-80.0); Platelet Count (auto) 305 10^3/uL (140-450); Red Cell Distribution Width 14.8 % (11.8-14.3)
[2024-04-10 11:08] LABS: Chloride 104 mmol/L (98-107); Potassium 4.4 mmol/L (3.5-5.1); Sodium 137 mmol/L (136-145)
[2024-04-10 11:10] LABS: Anion Gap 7 (5-15); Calcium 8.9 mg/dL (8.7-10.4); Carbon Dioxide 26 mmol/L (20-31)
[2024-04-10 11:15] LABS: BUN/Creatinine Ratio 23.5 (10.0-20.0); Blood Urea Nitrogen 8 mg/dL (9-23); Glucose 86 mg/dL (74-106)
[2024-04-10] MEDS: AMOXICILLIN 200MG/5ml ORAL Susp 50ML GT SCH (21:41)
[2024-04-11] VITALS (7 sets, daily range): BP systolic 92–109; BP diastolic 50–65; PULSE 110–118; RESP 16–19; TEMP 97.9–98.7; O2SAT 95–99
[2024-04-11] MEDS: SODIUM CHLORIDE 0.9% 500 ML IV ONE (06:52)
[2024-04-11 08:07] LABS: Hemoglobin 11.3 g/dL (12.2-16.2)
[2024-04-11 08:09] LABS: Hematocrit 33.4 % (36.0-46.0); Mean Corpuscular Hemoglobin 36.6 pg (28.0-32.0); Mean Corpuscular Hgb Conc. 33.7 g/dL (32.0-36.0); Mean Corpuscular Volume 108.5 fL (80.0-100.0); Platelet Count (auto) 323 10^3/uL (140-450); Red Blood Cells 3.08 10^6/uL (4.0-5.20); White Blood Cell 10.6 10^3/uL (4.4-10.8)
[2024-04-11 08:15] LABS: Alanine Aminotransferase 18 U/L (7-40); Alkaline Phosphatase 108 U/L (46-116); Anion Gap 8 (5-15); Aspartate Aminotransferase 16 U/L (13-40); BUN/Creatinine Ratio 22.9 (10.0-20.0); Blood Urea Nitrogen 8 mg/dL (9-23); Calcium 8.6 mg/dL (8.7-10.4); Carbon Dioxide 25 mmol/L (20-31); Chloride 104 mmol/L (98-107); Glucose 113 mg/dL (74-106); Potassium 3.7 mmol/L (3.5-5.1); Sodium 137 mmol/L (136-145)
[2024-04-11 08:16] LABS: Bilirubin, Total < 0.2 mg/dL (0.2-1.0); Total Protein 5.1 g/dL (5.7-8.2)
[2024-04-11 08:19] LABS: Band Neutrophils % (manual) 0; Basophils % (manual) 0 (0.0-2.0); Blast Cells 0; Eosinophils % (manual) 0 (0-7); Metamyelocytes % 0; Myelocytes % 0; Promyelocytes % 0; Reactive Lymphocytes 0
[2024-04-11 11:38] LABS: Lymphocytes % (manual) 9 (10.0-50.0); Monocytes % (manual) 6 (0-12); Platelet Estimate Adequate
[2024-04-12] VITALS (7 sets, daily range): BP systolic 95–107; BP diastolic 45–61; PULSE 91–118; RESP 15–20; TEMP 98.4–99.4; O2SAT 96–98
[2024-04-12 10:14] LABS: Chloride 105 mmol/L (98-107); Potassium 4.3 mmol/L (3.5-5.1); Sodium 138 mmol/L (136-145)
[2024-04-12 10:15] LABS: Anion Gap 5 (5-15); Calcium 8.8 mg/dL (8.7-10.4); Carbon Dioxide 28 mmol/L (20-31)
[2024-04-12 10:20] LABS: BUN/Creatinine Ratio 21.2 (10.0-20.0); Blood Urea Nitrogen 7 mg/dL (9-23); Glucose 103 mg/dL (74-106)
[2024-04-12 10:24] LABS: Basophils # (auto) 0 10 ^3/uL (0-0.2); Basophils % (auto) 0.2 % (0.0-2.0); Eosinophils # (auto) 0.1 10 ^3/uL (0-0.8); Eosinophils % (auto) 1.5 % (0.0-7.0); Hematocrit 33.2 % (36.0-46.0); Hemoglobin 11.4 g/dL (12.2-16.2); Lymphocytes # (auto) 1.3 10 ^3/uL (0.4-5.4); Lymphocytes % (auto) 19.2 % (10.0-50.0); Mean Corpuscular Hemoglobin 36.4 pg (28.0-32.0); Mean Corpuscular Hgb Conc. 34.3 g/dL (32.0-36.0); Mean Corpuscular Volume 106.2 fL (80.0-100.0); Monocytes # (auto) 0.8 10 ^3/uL (0-1.3); Monocytes % (auto) 12.3 % (0.0-12.0); Neutrophils # (auto) 4.5 10 ^3/uL (1.6-8.6); Neutrophils % (auto) 66.8 % (37.0-80.0); Nucleated Red Blood Cells % 0.1 %; Platelet Count (auto) 322 10^3/uL (140-450); Red Blood Cells 3.13 10^6/uL (4.0-5.20); White Blood Cell 6.7 10^3/uL (4.4-10.8)
[2024-04-12] MEDS: DAPTOmycin 250 MG in SODIUM CHL 0.9% 50 ML IV SCH (23:30)
[2024-04-13] VITALS (9 sets, daily range): BP systolic 91–104; BP diastolic 45–53; PULSE 95–111; RESP 16–24; TEMP 97.6–98.7; O2SAT 95–97
[2024-04-13] MEDS ORDERED: VANCOMYCIN PER PHARMACY 0 MG IV SCH (06:30)
[2024-04-13 07:17] LABS: Chloride 106 mmol/L (98-107); Potassium 4.1 mmol/L (3.5-5.1); Sodium 138 mmol/L (136-145)
[2024-04-13 07:18] LABS: Anion Gap 4 (5-15); Carbon Dioxide 28 mmol/L (20-31)
[2024-04-13 07:19] LABS: Calcium 8.7 mg/dL (8.7-10.4)
[2024-04-13 07:23] LABS: BUN/Creatinine Ratio 24.2 (10.0-20.0); Blood Urea Nitrogen 8 mg/dL (9-23); Glucose 100 mg/dL (74-106)
[2024-04-13 07:56] LABS: White Blood Cell 5.9 10^3/uL (4.4-10.8)
[2024-04-13 08:00] LABS: Hematocrit 31.1 % (36.0-46.0); Hemoglobin 10.8 g/dL (12.2-16.2); Mean Corpuscular Hemoglobin 36.7 pg (28.0-32.0); Mean Corpuscular Hgb Conc. 34.8 g/dL (32.0-36.0); Mean Corpuscular Volume 105.5 fL (80.0-100.0); Platelet Count (auto) 308 10^3/uL (140-450); Red Blood Cells 2.95 10^6/uL (4.0-5.20); Red Cell Distribution Width 14.6 % (11.8-14.3)
[2024-04-13 08:13] LABS: Band Neutrophils % (manual) 0; Basophils % (manual) 0 (0.0-2.0); Blast Cells 0; Metamyelocytes % 0; Myelocytes % 0; Promyelocytes % 0; Reactive Lymphocytes 0
[2024-04-13 09:17] LABS: Eosinophils % (manual) 2 (0-7); Lymphocytes % (manual) 30 (10.0-50.0); Monocytes % (manual) 7 (0-12); Platelet Estimate Adequate
[2024-04-13 16:44] LABS: INR 1.02 (0.9-1.15); Partial Thromboplastin Time 30.5 SEC (24.5-34.5); Prothrombin Time 10.8 sec (9.3-11.8)
[2024-04-13] MEDS: cefTRIAXone 2GM/50ML D5W 50 ML IV SCH (18:00)
[2024-04-13] MEDS: SODIUM CHLOR 0.9% PF (SALINE LOCK) 10ML VIAL/SYR IV SCH (22:47)
[2024-04-14] VITALS (8 sets, daily range): BP systolic 96–103; BP diastolic 53–64; PULSE 96–126; RESP 16–53; TEMP 97.9–99.8; O2SAT 95–99
[2024-04-14 08:11] LABS: Anion Gap 6 (5-15); Carbon Dioxide 29 mmol/L (20-31); Chloride 106 mmol/L (98-107); Sodium 141 mmol/L (136-145)
[2024-04-14 08:13] LABS: Calcium 8.8 mg/dL (8.7-10.4)
[2024-04-14 08:17] LABS: Glucose 97 mg/dL (74-106)
[2024-04-14 08:18] LABS: BUN/Creatinine Ratio 24.3 (10.0-20.0); Blood Urea Nitrogen 9 mg/dL (9-23); Magnesium 2.1 mg/dL (1.6-2.6)
[2024-04-14 08:27] LABS: Basophils # (auto) 0 10 ^3/uL (0-0.2); Eosinophils # (auto) 0.1 10 ^3/uL (0-0.8); Lymphocytes # (auto) 1.6 10 ^3/uL (0.4-5.4); Monocytes # (auto) 0.9 10 ^3/uL (0-1.3); Nucleated Red Blood Cells % 0.2 %; White Blood Cell 6.5 10^3/uL (4.4-10.8)
[2024-04-14 08:29] LABS: Basophils % (auto) 0.2 % (0.0-2.0); Eosinophils % (auto) 1.2 % (0.0-7.0); Hematocrit 32.8 % (36.0-46.0); Hemoglobin 11.1 g/dL (12.2-16.2); Lymphocytes % (auto) 24.5 % (10.0-50.0); Mean Corpuscular Volume 105.8 fL (80.0-100.0); Neutrophils # (auto) 3.9 10 ^3/uL (1.6-8.6); Neutrophils % (auto) 60.1 % (37.0-80.0); Platelet Count (auto) 368 10^3/uL (140-450); Red Cell Distribution Width 14.5 % (11.8-14.3)
[2024-04-14] MEDS: SODIUM CHLORIDE 0.9% 1,000 ML IV SCH (19:00)
[2024-04-14] MEDS: levETIRAcetam 1000 mg/100ml 100 ML IV SCH (22:11)
[2024-04-15] VITALS (8 sets, daily range): BP systolic 92–102; BP diastolic 51–54; PULSE 81–103; RESP 17–18; TEMP 97.5–99.3; O2SAT 94–96
[2024-04-15 07:58] LABS: Carbon Dioxide 27 mmol/L (20-31); Potassium 3.8 mmol/L (3.5-5.1); Sodium 140 mmol/L (136-145)
[2024-04-15 07:59] LABS: Basophils # (auto) 0 10 ^3/uL (0-0.2); Eosinophils # (auto) 0.1 10 ^3/uL (0-0.8); Eosinophils % (auto) 2.4 % (0.0-7.0); Hemoglobin 10.4 g/dL (12.2-16.2); Lymphocytes # (auto) 1.8 10 ^3/uL (0.4-5.4); Monocytes # (auto) 0.6 10 ^3/uL (0-1.3); Neutrophils # (auto) 1.9 10 ^3/uL (1.6-8.6); Nucleated Red Blood Cells % 0.1 %; Red Cell Distribution Width 14.3 % (11.8-14.3); White Blood Cell 4.5 10^3/uL (4.4-10.8)
[2024-04-15 08:00] LABS: Calcium 8.7 mg/dL (8.7-10.4)
[2024-04-15 08:03] LABS: Basophils % (auto) 0.2 % (0.0-2.0); Hematocrit 29.8 % (36.0-46.0); Mean Corpuscular Hemoglobin 36.6 pg (28.0-32.0); Mean Corpuscular Hgb Conc. 34.8 g/dL (32.0-36.0); Mean Corpuscular Volume 105.1 fL (80.0-100.0); Monocytes % (auto) 13.3 % (0.0-12.0); Neutrophils % (auto) 43.1 % (37.0-80.0); Platelet Count (auto) 346 10^3/uL (140-450); Red Blood Cells 2.83 10^6/uL (4.0-5.20)
[2024-04-15 08:04] LABS: BUN/Creatinine Ratio 38.5 (10.0-20.0); Blood Urea Nitrogen 10 mg/dL (9-23); Glucose 77 mg/dL (74-106)
[2024-04-15 08:12] LABS: Anion Gap 6 (5-15); Chloride 107 mmol/L (98-107)
[2024-04-16] VITALS (8 sets, daily range): BP systolic 89–117; BP diastolic 50–58; PULSE 78–101; RESP 17–23; TEMP 97.2–98.9; O2SAT 96–100
[2024-04-16 07:00] LABS: Hemoglobin 10.4 g/dL (12.2-16.2)
[2024-04-16 07:02] LABS: Hematocrit 30.4 % (36.0-46.0); Mean Corpuscular Hemoglobin 36.6 pg (28.0-32.0); Mean Corpuscular Hgb Conc. 34.2 g/dL (32.0-36.0); Mean Corpuscular Volume 107.1 fL (80.0-100.0); Platelet Count (auto) 316 10^3/uL (140-450); Red Blood Cells 2.84 10^6/uL (4.0-5.20); Red Cell Distribution Width 14.5 % (11.8-14.3); White Blood Cell 4.3 10^3/uL (4.4-10.8)
[2024-04-16 07:12] LABS: Basophils % (manual) 0 (0.0-2.0); Blast Cells 0; Metamyelocytes % 0; Myelocytes % 0; Promyelocytes % 0; Reactive Lymphocytes 0
[2024-04-16 07:15] LABS: Chloride 108 mmol/L (98-107); Potassium 3.8 mmol/L (3.5-5.1); Sodium 139 mmol/L (136-145)
[2024-04-16 07:16] LABS: Anion Gap 12 (5-15); Carbon Dioxide 19 mmol/L (20-31)
[2024-04-16 07:17] LABS: Calcium 8.5 mg/dL (8.7-10.4)
[2024-04-16 07:21] LABS: Blood Urea Nitrogen 9 mg/dL (9-23)
[2024-04-16 07:25] LABS: Glucose 41 mg/dL (74-106)
[2024-04-16] MEDS ORDERED: CLINIMIX PER PHARMACY 0 ML IV SCH (07:45)
[2024-04-16] MEDS: DEXTROSE (50%) 50ML SYRG IV ONE (07:48)
[2024-04-16 07:59] LABS: Band Neutrophils % (manual) 1; Eosinophils % (manual) 3 (0-7); Lymphocytes % (manual) 41 (10.0-50.0); Macrocytosis Moderate; Monocytes % (manual) 11 (0-12); Platelet Estimate Adequate
[2024-04-16 08:41] LABS: Magnesium 1.8 mg/dL (1.6-2.6)
[2024-04-16 08:42] LABS: Phosphorus 3.6 mg/dL (2.4-5.1)
[2024-04-16] MEDS ORDERED: DEXTROSE (50%) 50ML SYRG IV SCH (10:30)
[2024-04-16] MEDS: SODIUM CHLORIDE 0.9% 250 ML IV ONE (11:36)
[2024-04-16] MEDS: LIDOCAINE 1% (LOCAL ANESTH.) PF 5ml SDV ID ONE (11:36)
[2024-04-16] MEDS: ACCU-CHEK COMFORT CURVE STRIP VI SCH ×2 (11:42→16:15)
[2024-04-16] MEDS: D5W/SOD CHLO 0.9% 1,000 ML IV SCH (11:42)
[2024-04-16] MEDS: InsuLIN REG 1unit/0.01ml Soln (100units/ml) SC SCH ×2 (11:43→16:00)
[2024-04-16] MEDS ORDERED: DEXTROSE (50%) 50ML SYRG IV PRN (15:00)
[2024-04-16] MEDS: AMINO ACID INFUSION IN D10W 1,000 ML IV SCH (16:15)
[2024-04-17] VITALS (8 sets, daily range): BP systolic 90–135; BP diastolic 6–77; PULSE 65–83; RESP 15–20; TEMP 93–98.8; O2SAT 97–100
[2024-04-17 06:44] LABS: Basophils # (auto) 0 10 ^3/uL (0-0.2); Basophils % (auto) 0.2 % (0.0-2.0); Eosinophils # (auto) 0.1 10 ^3/uL (0-0.8); Hematocrit 32.4 % (36.0-46.0); Hemoglobin 11.3 g/dL (12.2-16.2); Monocytes # (auto) 0.8 10 ^3/uL (0-1.3)
[2024-04-17 06:47] LABS: Eosinophils % (auto) 1.4 % (0.0-7.0); Lymphocytes # (auto) 1.6 10 ^3/uL (0.4-5.4); Lymphocytes % (auto) 31.7 % (10.0-50.0); Mean Corpuscular Hemoglobin 36.3 pg (28.0-32.0); Mean Corpuscular Hgb Conc. 34.7 g/dL (32.0-36.0); Mean Corpuscular Volume 104.5 fL (80.0-100.0); Monocytes % (auto) 15.5 % (0.0-12.0); Neutrophils # (auto) 2.7 10 ^3/uL (1.6-8.6); Neutrophils % (auto) 51.2 % (37.0-80.0); Nucleated Red Blood Cells % 0.3 %; Platelet Count (auto) 343 10^3/uL (140-450); White Blood Cell 5.2 10^3/uL (4.4-10.8)
[2024-04-17 07:00] LABS: Alanine Aminotransferase 13 U/L (7-40); Albumin 3.1 g/dL (3.2-4.8); Alkaline Phosphatase 94 U/L (46-116); Anion Gap 8 (5-15); Aspartate Aminotransferase 14 U/L (13-40); BUN/Creatinine Ratio 19.4 (10.0-20.0); Blood Urea Nitrogen 6 mg/dL (9-23); Calcium 8.7 mg/dL (8.7-10.4); Carbon Dioxide 22 mmol/L (20-31); Chloride 106 mmol/L (98-107); Glucose 101 mg/dL (74-106); Magnesium 1.6 mg/dL (1.6-2.6); Sodium 136 mmol/L (136-145)
[2024-04-17 07:01] LABS: Bilirubin, Total 0.2 mg/dL (0.2-1.0); Phosphorus 2.6 mg/dL (2.4-5.1); Total Protein 5.2 g/dL (5.7-8.2)
[2024-04-17] MEDS: POTASSIUM CHL 20MEQ/100ML 100 ML IV SCH (09:12)
[2024-04-17] MEDS: MAGNESIUM SULFATE 1GM/100ML 100 ML IV SCH (09:16)
[2024-04-17] MEDS ORDERED: DEXTROSE (50%) 50ML SYRG IV PRN (11:15)
[2024-04-17] MEDS: InsuLIN REG 1unit/0.01ml Soln (100units/ml) SC SCH (12:00)
[2024-04-17] MEDS: ACCU-CHEK COMFORT CURVE STRIP VI SCH (12:00)
[2024-04-18 01:00] VITALS: BP 90/64; PULSE 92; TEMP 98; O2SAT 99
[2024-04-18 05:00] VITALS: BP 118/61; PULSE 80; RESP 18; TEMP 96.9; O2SAT 96
[2024-04-18 07:46] LABS: Alanine Aminotransferase 21 U/L (7-40); Alkaline Phosphatase 96 U/L (46-116); Calcium 8.5 mg/dL (8.7-10.4); Carbon Dioxide 23 mmol/L (20-31); Chloride 106 mmol/L (98-107); Glucose 123 mg/dL (74-106); Magnesium 1.9 mg/dL (1.6-2.6); Potassium 3.3 mmol/L (3.5-5.1)
[2024-04-18 07:47] LABS: Albumin 3.3 g/dL (3.2-4.8); Anion Gap 7 (5-15); BUN/Creatinine Ratio 23.3 (10.0-20.0); Blood Urea Nitrogen 7 mg/dL (9-23); Sodium 136 mmol/L (136-145)
[2024-04-18 07:48] LABS: Aspartate Aminotransferase 33 U/L (13-40); Bilirubin, Total < 0.2 mg/dL (0.2-1.0); Phosphorus 2.2 mg/dL (2.4-5.1); Total Protein 5.5 g/dL (5.7-8.2)
[2024-04-18 09:00] VITALS: BP 119/68; PULSE 86; RESP 17; TEMP 97.9; O2SAT 94
[2024-04-18] MEDS: traMADol HCL 50 MG TAB PO PRN (11:23)
[2024-04-18 13:00] VITALS: BP 88/46; PULSE 90; RESP 18; TEMP 97.3; O2SAT 95
[2024-04-18 17:00] VITALS: BP 90/47; PULSE 87; RESP 17; TEMP 97.1; O2SAT 96
[2024-04-18] MEDS: POTASSIUM PHOSPHATE 22 MEQ in SODIUM CHL 0.9% 100 ML IV ONE (18:42)
[2024-04-18] MEDS: SODIUM CHLORIDE 0.9% 500 ML IV ONE (19:30)
[2024-04-18 21:00] VITALS: BP 92/52; PULSE 80; RESP 19; TEMP 98.2; O2SAT 95
[2024-04-18] MEDS: POTASSIUM EFFERVESENT TAB 25 MEQ GT ONE (21:20)
[2024-04-19] VITALS (7 sets, daily range): BP systolic 88–114; BP diastolic 50–65; PULSE 89–102; RESP 16–20; TEMP 97.7–98.9; O2SAT 95–99
[2024-04-19 06:11] LABS: Basophils # (auto) 0 10 ^3/uL (0-0.2); Basophils % (auto) 0.4 % (0.0-2.0); Eosinophils # (auto) 0.1 10 ^3/uL (0-0.8); Hemoglobin 10.5 g/dL (12.2-16.2); Mean Corpuscular Hgb Conc. 34.7 g/dL (32.0-36.0); Monocytes # (auto) 0.6 10 ^3/uL (0-1.3); Neutrophils # (auto) 1.5 10 ^3/uL (1.6-8.6); Nucleated Red Blood Cells % 0.2 %; White Blood Cell 4.7 10^3/uL (4.4-10.8)
[2024-04-19 06:14] LABS: Eosinophils % (auto) 2.8 % (0.0-7.0); Hematocrit 30.4 % (36.0-46.0); Lymphocytes # (auto) 2.4 10 ^3/uL (0.4-5.4); Lymphocytes % (auto) 51.7 % (10.0-50.0); Mean Corpuscular Hemoglobin 36.4 pg (28.0-32.0); Mean Corpuscular Volume 104.9 fL (80.0-100.0); Monocytes % (auto) 12.8 % (0.0-12.0); Neutrophils % (auto) 32.3 % (37.0-80.0); Platelet Count (auto) 305 10^3/uL (140-450); Red Blood Cells 2.89 10^6/uL (4.0-5.20)
[2024-04-19 06:20] LABS: Alanine Aminotransferase 22 U/L (7-40); Alkaline Phosphatase 86 U/L (46-116); Anion Gap 7 (5-15); Aspartate Aminotransferase 35 U/L (13-40); Bilirubin, Total < 0.2 mg/dL (0.2-1.0); Blood Urea Nitrogen 6 mg/dL (9-23); Calcium 8.1 mg/dL (8.7-10.4); Carbon Dioxide 22 mmol/L (20-31); Chloride 109 mmol/L (98-107); Glucose 93 mg/dL (74-106); Magnesium 1.7 mg/dL (1.6-2.6); Phosphorus 4.2 mg/dL (2.4-5.1); Sodium 138 mmol/L (136-145); Triglycerides 153 mg/dL (< 150)
[2024-04-19] MEDS: SODIUM CHLORIDE 0.9% 500 ML IV ONE (18:40)
[2024-04-20] VITALS (7 sets, daily range): BP systolic 90–123; BP diastolic 50–69; PULSE 92–113; RESP 17–20; TEMP 97.9–98.9; O2SAT 95–100
[2024-04-20] MEDS: SODIUM CHLORIDE 0.9% 250 ML IV ONE (11:00)
[2024-04-20 12:18] LABS: Basophils # (auto) 0 10 ^3/uL (0-0.2); Basophils % (auto) 0.2 % (0.0-2.0); Calcium 8.9 mg/dL (8.7-10.4); Chloride 103 mmol/L (98-107); Eosinophils # (auto) 0.1 10 ^3/uL (0-0.8); Eosinophils % (auto) 1.3 % (0.0-7.0); Hemoglobin 10.6 g/dL (12.2-16.2); Lymphocytes # (auto) 1.7 10 ^3/uL (0.4-5.4); Lymphocytes % (auto) 30.8 % (10.0-50.0); Mean Corpuscular Hemoglobin 36.1 pg (28.0-32.0); Mean Corpuscular Hgb Conc. 34.2 g/dL (32.0-36.0); Mean Corpuscular Volume 105.3 fL (80.0-100.0); Monocytes # (auto) 0.7 10 ^3/uL (0-1.3); Neutrophils % (auto) 55.7 % (37.0-80.0); Nucleated Red Blood Cells % 0.1 %; Platelet Count (auto) 356 10^3/uL (140-450); Potassium 4.2 mmol/L (3.5-5.1); Red Blood Cells 2.94 10^6/uL (4.0-5.20); Red Cell Distribution Width 14.8 % (11.8-14.3); Sodium 135 mmol/L (136-145); White Blood Cell 5.4 10^3/uL (4.4-10.8)
[2024-04-20 12:19] LABS: Anion Gap 4 (5-15); Carbon Dioxide 28 mmol/L (20-31)
[2024-04-20 12:24] LABS: BUN/Creatinine Ratio 18.5 (10.0-20.0); Blood Urea Nitrogen 5 mg/dL (9-23); Glucose 101 mg/dL (74-106)
[2024-04-21] VITALS (8 sets, daily range): BP systolic 95–110; BP diastolic 48–66; PULSE 84–117; RESP 16–21; TEMP 98.2–98.7; O2SAT 96–98
[2024-04-21 10:57] LABS: Basophils # (auto) 0 10 ^3/uL (0-0.2); Lymphocytes # (auto) 1.4 10 ^3/uL (0.4-5.4)
[2024-04-21 10:59] LABS: Basophils % (auto) 0.4 % (0.0-2.0); Eosinophils # (auto) 0.1 10 ^3/uL (0-0.8); Eosinophils % (auto) 1.2 % (0.0-7.0); Hemoglobin 11.3 g/dL (12.2-16.2); Lymphocytes % (auto) 31.1 % (10.0-50.0); Mean Corpuscular Hemoglobin 36.2 pg (28.0-32.0); Mean Corpuscular Hgb Conc. 34.1 g/dL (32.0-36.0); Monocytes # (auto) 0.5 10 ^3/uL (0-1.3); Monocytes % (auto) 12.1 % (0.0-12.0); Neutrophils # (auto) 2.5 10 ^3/uL (1.6-8.6); Neutrophils % (auto) 55.2 % (37.0-80.0); Nucleated Red Blood Cells % 0.3 %; Platelet Count (auto) 388 10^3/uL (140-450); Red Blood Cells 3.12 10^6/uL (4.0-5.20); Red Cell Distribution Width 15.1 % (11.8-14.3); White Blood Cell 4.5 10^3/uL (4.4-10.8)
[2024-04-21 11:17] LABS: Anion Gap 6 (5-15); Carbon Dioxide 28 mmol/L (20-31); Chloride 101 mmol/L (98-107); Potassium 4.2 mmol/L (3.5-5.1); Sodium 135 mmol/L (136-145)
[2024-04-21 11:23] LABS: BUN/Creatinine Ratio 25.9 (10.0-20.0); Blood Urea Nitrogen 7 mg/dL (9-23); Glucose 108 mg/dL (74-106)
[2024-04-22] VITALS (8 sets, daily range): BP systolic 82–117; BP diastolic 44–81; PULSE 79–102; RESP 16–21; TEMP 97.5–98.4; O2SAT 95–98
[2024-04-23] VITALS (8 sets, daily range): BP systolic 89–117; BP diastolic 50–92; PULSE 88–104; RESP 16–19; TEMP 97.4–99.8; O2SAT 95–99
[2024-04-23 05:25] LABS: Basophils # (auto) 0 10 ^3/uL (0-0.2); Eosinophils # (auto) 0.1 10 ^3/uL (0-0.8); Neutrophils # (auto) 2.1 10 ^3/uL (1.6-8.6)
[2024-04-23 05:27] LABS: Basophils % (auto) 0.6 % (0.0-2.0); Eosinophils % (auto) 2.7 % (0.0-7.0); Hematocrit 36.1 % (36.0-46.0); Hemoglobin 12.4 g/dL (12.2-16.2); Lymphocytes # (auto) 2.2 10 ^3/uL (0.4-5.4); Lymphocytes % (auto) 42.5 % (10.0-50.0); Mean Corpuscular Hemoglobin 36.6 pg (28.0-32.0); Mean Corpuscular Hgb Conc. 34.2 g/dL (32.0-36.0); Mean Corpuscular Volume 107.2 fL (80.0-100.0); Monocytes # (auto) 0.7 10 ^3/uL (0-1.3); Monocytes % (auto) 12.9 % (0.0-12.0); Neutrophils % (auto) 41.3 % (37.0-80.0); Nucleated Red Blood Cells % 0.3 %; Platelet Count (auto) 204 10^3/uL (140-450); Red Blood Cells 3.37 10^6/uL (4.0-5.20); Red Cell Distribution Width 15.2 % (11.8-14.3); White Blood Cell 5.2 10^3/uL (4.4-10.8)
[2024-04-23 05:30] LABS: Anion Gap 6 (5-15); Carbon Dioxide 27 mmol/L (20-31); Chloride 104 mmol/L (98-107); Potassium 4.1 mmol/L (3.5-5.1); Sodium 137 mmol/L (136-145)
[2024-04-23 05:31] LABS: Calcium 9.4 mg/dL (8.7-10.4)
[2024-04-23 05:36] LABS: BUN/Creatinine Ratio 25.8 (10.0-20.0); Blood Urea Nitrogen 8 mg/dL (9-23); Glucose 92 mg/dL (74-106)
[2024-04-24] VITALS (7 sets, daily range): BP systolic 97–112; BP diastolic 55–69; PULSE 96–110; RESP 16–20; TEMP 97.1–99.1; O2SAT 95–100
[2024-04-24 07:02] LABS: Basophils # (auto) 0 10 ^3/uL (0-0.2); Eosinophils # (auto) 0.1 10 ^3/uL (0-0.8); Eosinophils % (auto) 2.2 % (0.0-7.0); Lymphocytes # (auto) 1.6 10 ^3/uL (0.4-5.4); Neutrophils # (auto) 3.9 10 ^3/uL (1.6-8.6); White Blood Cell 6.3 10^3/uL (4.4-10.8)
[2024-04-24 07:04] LABS: Basophils % (auto) 0.4 % (0.0-2.0); Hematocrit 33.3 % (36.0-46.0); Hemoglobin 11.4 g/dL (12.2-16.2); Lymphocytes % (auto) 24.9 % (10.0-50.0); Mean Corpuscular Hemoglobin 36.3 pg (28.0-32.0); Mean Corpuscular Hgb Conc. 34.2 g/dL (32.0-36.0); Mean Corpuscular Volume 106.1 fL (80.0-100.0); Monocytes # (auto) 0.7 10 ^3/uL (0-1.3); Monocytes % (auto) 10.7 % (0.0-12.0); Neutrophils % (auto) 61.8 % (37.0-80.0); Nucleated Red Blood Cells % 0.1 %; Platelet Count (auto) 356 10^3/uL (140-450); Red Blood Cells 3.14 10^6/uL (4.0-5.20); Red Cell Distribution Width 14.9 % (11.8-14.3)
[2024-04-24 07:20] LABS: Anion Gap 6 (5-15); Carbon Dioxide 27 mmol/L (20-31); Chloride 104 mmol/L (98-107); Sodium 137 mmol/L (136-145)
[2024-04-24 07:26] LABS: BUN/Creatinine Ratio 31.4 (10.0-20.0); Blood Urea Nitrogen 11 mg/dL (9-23); Glucose 113 mg/dL (74-106)
[2024-04-25] VITALS (8 sets, daily range): BP systolic 82–100; BP diastolic 51–60; PULSE 93–108; RESP 14–19; TEMP 96.9–98.5; O2SAT 96–100
[2024-04-25] MEDS: IOHEXOL 300 MG/ML 100ML BOTTLE IJ ONE (12:45)
[2024-04-25] MEDS: SODIUM CHLORIDE 0.9% 250 ML IV ONE (18:43)
[2024-04-25] MEDS: Jevity 1.2 Cal/Fiber 1 Liter GT SCH (21:48)
[2024-04-26] VITALS (8 sets, daily range): BP systolic 89–116; BP diastolic 50–78; PULSE 102–111; RESP 13–18; TEMP 97.8–99.3; O2SAT 95–98
[2024-04-26 07:44] LABS: Chloride 107 mmol/L (98-107); Potassium 3.6 mmol/L (3.5-5.1); Sodium 138 mmol/L (136-145)
[2024-04-26 07:45] LABS: Anion Gap 5 (5-15); Calcium 7.9 mg/dL (8.7-10.4); Carbon Dioxide 26 mmol/L (20-31)
[2024-04-26 07:50] LABS: BUN/Creatinine Ratio 38.5 (10.0-20.0); Blood Urea Nitrogen 10 mg/dL (9-23); Glucose 95 mg/dL (74-106)
[2024-04-26] MEDS: FREE WATER GT SCH (19:58)
[2024-04-26] MEDS: SODIUM CHLORIDE 0.9% 250 ML IV ONE (19:59)
[2024-04-27] VITALS (7 sets, daily range): BP systolic 95–120; BP diastolic 56–80; PULSE 97–113; RESP 14–20; TEMP 97–99.1; O2SAT 95–99
[2024-04-27 05:15] LABS: Basophils # (auto) 0 10 ^3/uL (0-0.2); Basophils % (auto) 0.1 % (0.0-2.0); Eosinophils # (auto) 0.2 10 ^3/uL (0-0.8); Eosinophils % (auto) 4.5 % (0.0-7.0); Lymphocytes # (auto) 1.6 10 ^3/uL (0.4-5.4); Lymphocytes % (auto) 34.8 % (10.0-50.0); Mean Corpuscular Hemoglobin 36.6 pg (28.0-32.0); Mean Corpuscular Hgb Conc. 34.3 g/dL (32.0-36.0); Mean Corpuscular Volume 106.7 fL (80.0-100.0); Monocytes # (auto) 0.7 10 ^3/uL (0-1.3); Monocytes % (auto) 15.8 % (0.0-12.0); Neutrophils # (auto) 2.1 10 ^3/uL (1.6-8.6); Neutrophils % (auto) 44.8 % (37.0-80.0); Nucleated Red Blood Cells % 0.1 %; Platelet Count (auto) 338 10^3/uL (140-450); White Blood Cell 4.7 10^3/uL (4.4-10.8)
[2024-04-27 05:21] LABS: Chloride 103 mmol/L (98-107); Potassium 4.3 mmol/L (3.5-5.1); Sodium 136 mmol/L (136-145)
[2024-04-27 05:22] LABS: Anion Gap 5 (5-15); Carbon Dioxide 28 mmol/L (20-31)
[2024-04-27 05:27] LABS: BUN/Creatinine Ratio 26.7 (10.0-20.0); Blood Urea Nitrogen 8 mg/dL (9-23); Glucose 96 mg/dL (74-106)
[2024-04-28 05:00] VITALS: BP 106/57; PULSE 108; RESP 20; TEMP 97.1; O2SAT 96
[2024-04-28 06:55] LABS: Anion Gap 5 (5-15); Carbon Dioxide 28 mmol/L (20-31); Chloride 106 mmol/L (98-107); Potassium 4.1 mmol/L (3.5-5.1); Sodium 139 mmol/L (136-145)
[2024-04-28 06:56] LABS: Calcium 9.1 mg/dL (8.7-10.4)
[2024-04-28 07:01] LABS: BUN/Creatinine Ratio 30.6 (10.0-20.0); Blood Urea Nitrogen 11 mg/dL (9-23); Glucose 96 mg/dL (74-106)
[2024-04-28 07:24] LABS: Basophils # (auto) 0 10 ^3/uL (0-0.2); Basophils % (auto) 0.2 % (0.0-2.0); Eosinophils # (auto) 0.2 10 ^3/uL (0-0.8); Eosinophils % (auto) 3.8 % (0.0-7.0); Hematocrit 32.1 % (36.0-46.0); Hemoglobin 10.9 g/dL (12.2-16.2); Lymphocytes # (auto) 1.5 10 ^3/uL (0.4-5.4); Mean Corpuscular Hemoglobin 36.4 pg (28.0-32.0); Mean Corpuscular Hgb Conc. 34.1 g/dL (32.0-36.0); Mean Corpuscular Volume 106.8 fL (80.0-100.0); Monocytes # (auto) 0.7 10 ^3/uL (0-1.3); Monocytes % (auto) 14.9 % (0.0-12.0); Neutrophils # (auto) 2.2 10 ^3/uL (1.6-8.6); Neutrophils % (auto) 49.1 % (37.0-80.0); Nucleated Red Blood Cells % 0.1 %; Platelet Count (auto) 353 10^3/uL (140-450); Red Blood Cells 3.01 10^6/uL (4.0-5.20); White Blood Cell 4.6 10^3/uL (4.4-10.8)
[2024-04-28 09:00] VITALS: BP 104/55; PULSE 96; RESP 17; TEMP 98.7; O2SAT 94
[2024-04-28 13:00] VITALS: BP 104/58; PULSE 91; RESP 17; TEMP 98; O2SAT 95
[2024-04-28] MEDS: FREE WATER GT SCH (14:00)
[2024-04-28 17:00] VITALS: BP 104/60; PULSE 101; RESP 17; TEMP 98.6; O2SAT 97
[2024-04-28 20:00] VITALS: PULSE 95; RESP 17
[2024-04-28 21:00] VITALS: BP 100/52; PULSE 95; RESP 17; TEMP 97.2; O2SAT 98
[2024-04-29 01:06] VITALS: BP 108/56; PULSE 88; RESP 16; TEMP 97.2; O2SAT 99
[2024-04-29 05:00] VITALS: BP 89/49; PULSE 84; RESP 16; TEMP 98.8; O2SAT 99
[2024-04-29 09:00] VITALS: BP 87/45; PULSE 100; RESP 18; TEMP 97.7; O2SAT 95
[2024-04-29] MEDS ORDERED: SODIUM CHLORIDE 0.9% 500 ML IV ONE (09:15)
[2024-04-29 13:00] VITALS: BP 96/41; PULSE 93; RESP 16; TEMP 97.4; O2SAT 97
[2024-04-29 17:00] VITALS: BP 89/51; PULSE 92; RESP 16; TEMP 97.2; O2SAT 95
[2024-04-29 22:00] VITALS: BP 107/59; PULSE 91; RESP 18; TEMP 97.1; O2SAT 100
[2024-04-30 01:00] VITALS: BP 103/66; PULSE 91; RESP 19; TEMP 97; O2SAT 97
[2024-04-30 05:00] VITALS: BP 114/65; PULSE 86; RESP 19; TEMP 97; O2SAT 97
[2024-04-30 08:44] VITALS: BP 112/64; PULSE 99; RESP 19; TEMP 98.2; O2SAT 100
[2024-04-30 09:36] LABS: Basophils # (auto) 0 10 ^3/uL (0-0.2); Basophils % (auto) 0.2 % (0.0-2.0); Eosinophils # (auto) 0.2 10 ^3/uL (0-0.8); Eosinophils % (auto) 3.3 % (0.0-7.0); Hematocrit 36.3 % (36.0-46.0); Hemoglobin 12.5 g/dL (12.2-16.2); Lymphocytes % (auto) 19.4 % (10.0-50.0); Mean Corpuscular Hemoglobin 36.3 pg (28.0-32.0); Mean Corpuscular Hgb Conc. 34.4 g/dL (32.0-36.0); Mean Corpuscular Volume 105.5 fL (80.0-100.0); Monocytes # (auto) 0.7 10 ^3/uL (0-1.3); Monocytes % (auto) 12.5 % (0.0-12.0); Neutrophils # (auto) 3.4 10 ^3/uL (1.6-8.6); Neutrophils % (auto) 64.6 % (37.0-80.0); Nucleated Red Blood Cells % 0.1 %; Platelet Count (auto) 398 10^3/uL (140-450); Red Blood Cells 3.44 10^6/uL (4.0-5.20); Red Cell Distribution Width 14.5 % (11.8-14.3); White Blood Cell 5.3 10^3/uL (4.4-10.8)
[2024-04-30 09:43] LABS: Chloride 103 mmol/L (98-107); Potassium 4.5 mmol/L (3.5-5.1); Sodium 136 mmol/L (136-145)
[2024-04-30 09:44] LABS: Anion Gap 5 (5-15); Calcium 9.2 mg/dL (8.7-10.4); Carbon Dioxide 28 mmol/L (20-31)
[2024-04-30 09:49] LABS: BUN/Creatinine Ratio 29.4 (10.0-20.0); Blood Urea Nitrogen 10 mg/dL (9-23); Glucose 106 mg/dL (74-106)
[2024-04-30 12:53] VITALS: BP 115/68; PULSE 98; RESP 19; TEMP 96.9; O2SAT 99
[2024-04-30 17:00] VITALS: BP 105/62; PULSE 104; RESP 19; TEMP 99.2; O2SAT 98
[2024-04-30] MEDS: traMADol HCL 50 MG TAB PEG PRN (18:52)
[2024-04-30 21:00] VITALS: BP 110/63; PULSE 101; RESP 18; O2SAT 98
[2024-05-01 05:00] VITALS: BP 106/60; PULSE 82; RESP 18; O2SAT 96
[2024-05-01 09:00] VITALS: BP 151/61; PULSE 103; RESP 20; TEMP 98; O2SAT 97
[2024-05-01 13:00] VITALS: BP 96/55; PULSE 93; RESP 20; TEMP 98.3; O2SAT 97
[2024-05-01 17:00] VITALS: BP 91/60; PULSE 108; RESP 20; TEMP 98.3; O2SAT 98
[2024-05-01 21:00] VITALS: BP 93/48; PULSE 105; RESP 20; O2SAT 94
[2024-05-02 01:00] VITALS: BP 100/56; PULSE 98; RESP 20; O2SAT 99
[2024-05-02 05:00] VITALS: BP 108/62; PULSE 111; RESP 21; TEMP 97; O2SAT 95
[2024-05-02 08:00] VITALS: BP 143/54; PULSE 106; PULSE 71; RESP 18; TEMP 97.8; O2SAT 96; O2SAT 97
[2024-05-02 08:10] LABS: Basophils # (auto) 0 10 ^3/uL (0-0.2); Hemoglobin 11.4 g/dL (12.2-16.2); Lymphocytes # (auto) 1.3 10 ^3/uL (0.4-5.4); Monocytes # (auto) 0.5 10 ^3/uL (0-1.3); Neutrophils # (auto) 1.9 10 ^3/uL (1.6-8.6); Nucleated Red Blood Cells % 0.1 %; White Blood Cell 3.9 10^3/uL (4.4-10.8)
[2024-05-02 08:12] LABS: Basophils % (auto) 0.5 % (0.0-2.0); Eosinophils # (auto) 0.2 10 ^3/uL (0-0.8); Eosinophils % (auto) 3.9 % (0.0-7.0); Hematocrit 33.5 % (36.0-46.0); Lymphocytes % (auto) 34.4 % (10.0-50.0); Mean Corpuscular Hemoglobin 36.6 pg (28.0-32.0); Mean Corpuscular Hgb Conc. 34.1 g/dL (32.0-36.0); Mean Corpuscular Volume 107.1 fL (80.0-100.0); Monocytes % (auto) 12.2 % (0.0-12.0); Platelet Count (auto) 400 10^3/uL (140-450); Red Blood Cells 3.13 10^6/uL (4.0-5.20); Red Cell Distribution Width 14.8 % (11.8-14.3)
[2024-05-02 08:26] LABS: Anion Gap 6 (5-15); Carbon Dioxide 27 mmol/L (20-31); Chloride 103 mmol/L (98-107); Potassium 4.2 mmol/L (3.5-5.1); Sodium 136 mmol/L (136-145)
[2024-05-02 08:27] LABS: Calcium 9.2 mg/dL (8.7-10.4)
[2024-05-02 08:32] LABS: BUN/Creatinine Ratio 24.3 (10.0-20.0); Blood Urea Nitrogen 9 mg/dL (9-23); Glucose 102 mg/dL (74-106)
[2024-05-02 13:00] VITALS: BP 104/59; PULSE 111; RESP 20; TEMP 98.6; O2SAT 96
[2024-05-02 16:49] VITALS: BP 102/52; PULSE 107; RESP 21; TEMP 98; O2SAT 95
[2024-05-02 21:00] VITALS: BP 119/58; PULSE 104; RESP 17; TEMP 98.4; O2SAT 96
[2024-05-03] VITALS (7 sets, daily range): BP systolic 99–109; BP diastolic 49–59; PULSE 92–116; RESP 16–20; TEMP 97.4–98.4; O2SAT 95–96
[2024-05-03 06:20] LABS: Basophils # (auto) 0 10 ^3/uL (0-0.2); Basophils % (auto) 0.3 % (0.0-2.0); Eosinophils # (auto) 0.2 10 ^3/uL (0-0.8); Hemoglobin 11.1 g/dL (12.2-16.2); Lymphocytes # (auto) 1.9 10 ^3/uL (0.4-5.4); Monocytes # (auto) 0.6 10 ^3/uL (0-1.3); Neutrophils # (auto) 2.1 10 ^3/uL (1.6-8.6); White Blood Cell 4.9 10^3/uL (4.4-10.8)
[2024-05-03 06:22] LABS: Eosinophils % (auto) 4.2 % (0.0-7.0); Hematocrit 32.4 % (36.0-46.0); Lymphocytes % (auto) 38.5 % (10.0-50.0); Mean Corpuscular Hemoglobin 36.4 pg (28.0-32.0); Mean Corpuscular Hgb Conc. 34.2 g/dL (32.0-36.0); Mean Corpuscular Volume 106.4 fL (80.0-100.0); Monocytes % (auto) 12.7 % (0.0-12.0); Neutrophils % (auto) 44.3 % (37.0-80.0); Nucleated Red Blood Cells % 0.1 %; Platelet Count (auto) 365 10^3/uL (140-450); Red Blood Cells 3.05 10^6/uL (4.0-5.20); Red Cell Distribution Width 14.6 % (11.8-14.3)
[2024-05-03 06:39] LABS: Alanine Aminotransferase 27 U/L (7-40); Albumin 3.3 g/dL (3.2-4.8); Alkaline Phosphatase 101 U/L (46-116); Anion Gap 6 (5-15); Aspartate Aminotransferase 27 U/L (13-40); BUN/Creatinine Ratio 28.6 (10.0-20.0); Bilirubin, Total < 0.2 mg/dL (0.2-1.0); Blood Urea Nitrogen 10 mg/dL (9-23); Calcium 9.2 mg/dL (8.7-10.4); Carbon Dioxide 27 mmol/L (20-31); Chloride 103 mmol/L (98-107); Glucose 79 mg/dL (74-106); Potassium 4.1 mmol/L (3.5-5.1); Sodium 136 mmol/L (136-145); Total Protein 5.7 g/dL (5.7-8.2)
[2024-05-04 05:00] VITALS: BP 109/62; PULSE 110; RESP 19; TEMP 98.6; O2SAT 96
[2024-05-04 06:19] LABS: Basophils # (auto) 0 10 ^3/uL (0-0.2); Basophils % (auto) 0.2 % (0.0-2.0); Eosinophils # (auto) 0.1 10 ^3/uL (0-0.8); Lymphocytes # (auto) 1.5 10 ^3/uL (0.4-5.4); Monocytes # (auto) 0.7 10 ^3/uL (0-1.3); Nucleated Red Blood Cells % 0.1 %; Red Blood Cells 2.96 10^6/uL (4.0-5.20); White Blood Cell 4.9 10^3/uL (4.4-10.8)
[2024-05-04 06:21] LABS: Eosinophils % (auto) 2.8 % (0.0-7.0); Hematocrit 31.5 % (36.0-46.0); Hemoglobin 10.9 g/dL (12.2-16.2); Lymphocytes % (auto) 31.2 % (10.0-50.0); Mean Corpuscular Hemoglobin 36.9 pg (28.0-32.0); Mean Corpuscular Hgb Conc. 34.7 g/dL (32.0-36.0); Mean Corpuscular Volume 106.5 fL (80.0-100.0); Monocytes % (auto) 14.2 % (0.0-12.0); Neutrophils # (auto) 2.5 10 ^3/uL (1.6-8.6); Neutrophils % (auto) 51.6 % (37.0-80.0); Platelet Count (auto) 389 10^3/uL (140-450); Red Cell Distribution Width 14.2 % (11.8-14.3)
[2024-05-04 06:29] LABS: Anion Gap 3 (5-15); Carbon Dioxide 28 mmol/L (20-31); Chloride 105 mmol/L (98-107); Potassium 4.3 mmol/L (3.5-5.1); Sodium 136 mmol/L (136-145)
[2024-05-04 06:35] LABS: BUN/Creatinine Ratio 21.9 (10.0-20.0); Blood Urea Nitrogen 7 mg/dL (9-23); Glucose 101 mg/dL (74-106)
[2024-05-04 06:36] LABS: Magnesium 1.9 mg/dL (1.6-2.6)
[2024-05-04 09:04] VITALS: BP 95/56; PULSE 113; RESP 20; TEMP 99.8; O2SAT 96
[2024-05-04 13:03] VITALS: BP 103/61; PULSE 98; RESP 20; TEMP 98.8; O2SAT 96
[2024-05-04] MEDS: MAGNESIUM SULFATE 1GM/100ML 100 ML IV ONE (15:05)
[2024-05-04 17:18] VITALS: BP 107/61; PULSE 104; RESP 20; TEMP 98.8; O2SAT 98
[2024-05-04 20:05] VITALS: RESP 18
[2024-05-04 20:53] VITALS: BP 115/52; PULSE 96; RESP 20; TEMP 98; O2SAT 98
[2024-05-05 00:50] VITALS: BP 114/58; PULSE 103; RESP 20; TEMP 97.6; O2SAT 96
[2024-05-05 04:49] VITALS: BP 113/63; PULSE 110; RESP 20; TEMP 98.4; O2SAT 94
[2024-05-05 06:48] LABS: Anion Gap 6 (5-15); Calcium 8.8 mg/dL (8.7-10.4); Carbon Dioxide 27 mmol/L (20-31); Chloride 105 mmol/L (98-107); Potassium 3.9 mmol/L (3.5-5.1); Sodium 138 mmol/L (136-145)
[2024-05-05 06:54] LABS: BUN/Creatinine Ratio 19.4 (10.0-20.0); Blood Urea Nitrogen 7 mg/dL (9-23); Creatine Kinase IFCC < 15 U/L (34-145); Glucose 77 mg/dL (74-106)
[2024-05-05 06:58] LABS: Basophils # (auto) 0 10 ^3/uL (0-0.2); Basophils % (auto) 0.2 % (0.0-2.0); Eosinophils # (auto) 0.1 10 ^3/uL (0-0.8); Eosinophils % (auto) 3.4 % (0.0-7.0); Hematocrit 32.2 % (36.0-46.0); Hemoglobin 10.7 g/dL (12.2-16.2); Lymphocytes # (auto) 1.5 10 ^3/uL (0.4-5.4); Lymphocytes % (auto) 37.4 % (10.0-50.0); Mean Corpuscular Hemoglobin 36.1 pg (28.0-32.0); Mean Corpuscular Hgb Conc. 33.4 g/dL (32.0-36.0); Mean Corpuscular Volume 108.2 fL (80.0-100.0); Monocytes # (auto) 0.5 10 ^3/uL (0-1.3); Monocytes % (auto) 12.5 % (0.0-12.0); Neutrophils # (auto) 1.8 10 ^3/uL (1.6-8.6); Neutrophils % (auto) 46.5 % (37.0-80.0); Nucleated Red Blood Cells % 0.1 %; Platelet Count (auto) 370 10^3/uL (140-450); Red Blood Cells 2.98 10^6/uL (4.0-5.20); Red Cell Distribution Width 14.4 % (11.8-14.3); White Blood Cell 3.9 10^3/uL (4.4-10.8)
[2024-05-05 08:20] VITALS: BP 95/53; PULSE 91; RESP 16; TEMP 98.8; O2SAT 95
[2024-05-05 12:00] VITALS: BP 98/53; PULSE 89; RESP 16; TEMP 98.4; O2SAT 94
[2024-05-05 16:00] VITALS: BP 94/48; PULSE 95; RESP 20; TEMP 98.6; O2SAT 94
[2024-05-05 21:00] VITALS: BP 108/69; PULSE 95; RESP 18; TEMP 97.5; O2SAT 97
[2024-05-05] MEDS: METOCLOPRAMIDE 10 mg/10ml ORAL soln ONE (23:42)
[2024-05-06] VITALS (7 sets, daily range): BP systolic 96–105; BP diastolic 51–72; PULSE 92–105; RESP 17–20; TEMP 97.4–98.3; O2SAT 96–97
[2024-05-06 06:08] LABS: Anion Gap 5 (5-15); Carbon Dioxide 26 mmol/L (20-31); Chloride 107 mmol/L (98-107); Sodium 138 mmol/L (136-145)
[2024-05-06 06:09] LABS: Calcium 8.9 mg/dL (8.7-10.4)
[2024-05-06 06:14] LABS: BUN/Creatinine Ratio 21.2 (10.0-20.0); Blood Urea Nitrogen 7 mg/dL (9-23); Glucose 101 mg/dL (74-106)
[2024-05-06 06:15] LABS: Basophils # (auto) 0 10 ^3/uL (0-0.2); Eosinophils # (auto) 0.1 10 ^3/uL (0-0.8); Nucleated Red Blood Cells % 0.3 %; White Blood Cell 4.1 10^3/uL (4.4-10.8)
[2024-05-06 06:18] LABS: Basophils % (auto) 0.3 % (0.0-2.0); Eosinophils % (auto) 2.9 % (0.0-7.0); Hematocrit 31.1 % (36.0-46.0); Lymphocytes % (auto) 49.7 % (10.0-50.0); Mean Corpuscular Hemoglobin 37.7 pg (28.0-32.0); Mean Corpuscular Hgb Conc. 35.3 g/dL (32.0-36.0); Monocytes # (auto) 0.6 10 ^3/uL (0-1.3); Monocytes % (auto) 14.3 % (0.0-12.0); Neutrophils # (auto) 1.3 10 ^3/uL (1.6-8.6); Neutrophils % (auto) 32.8 % (37.0-80.0); Platelet Count (auto) 364 10^3/uL (140-450); Red Blood Cells 2.91 10^6/uL (4.0-5.20); Red Cell Distribution Width 14.3 % (11.8-14.3)
[2024-05-06] MEDS: cefTRIAXone 2GM/50ML D5W 50 ML IV SCH (20:28)
[2024-05-06] MEDS: DAPTOmycin 250 MG in SODIUM CHL 0.9% 50 ML IV SCH (21:00)
[2024-05-07] VITALS (8 sets, daily range): BP systolic 95–105; BP diastolic 54–64; PULSE 80–102; RESP 17–20; TEMP 98.3–99.1; O2SAT 95–99
[2024-05-07 07:17] LABS: Basophils # (auto) 0 10 ^3/uL (0-0.2); Basophils % (auto) 0.2 % (0.0-2.0); Eosinophils # (auto) 0.1 10 ^3/uL (0-0.8); Hematocrit 32.9 % (36.0-46.0); Hemoglobin 11.2 g/dL (12.2-16.2); Lymphocytes # (auto) 1.4 10 ^3/uL (0.4-5.4); Neutrophils # (auto) 1.7 10 ^3/uL (1.6-8.6); Nucleated Red Blood Cells % 0.1 %
[2024-05-07 07:20] LABS: Eosinophils % (auto) 3.4 % (0.0-7.0); Lymphocytes % (auto) 36.6 % (10.0-50.0); Mean Corpuscular Hemoglobin 37.3 pg (28.0-32.0); Mean Corpuscular Hgb Conc. 34.1 g/dL (32.0-36.0); Mean Corpuscular Volume 109.4 fL (80.0-100.0); Monocytes # (auto) 0.6 10 ^3/uL (0-1.3); Monocytes % (auto) 14.5 % (0.0-12.0); Neutrophils % (auto) 45.3 % (37.0-80.0); Platelet Count (auto) 375 10^3/uL (140-450); Red Cell Distribution Width 14.2 % (11.8-14.3); White Blood Cell 3.9 10^3/uL (4.4-10.8)
[2024-05-07 07:31] LABS: Anion Gap 6 (5-15); Carbon Dioxide 26 mmol/L (20-31); Chloride 105 mmol/L (98-107); Sodium 137 mmol/L (136-145)
[2024-05-07 07:32] LABS: Calcium 9.4 mg/dL (8.7-10.4)
[2024-05-07 07:38] LABS: BUN/Creatinine Ratio 17.6 (10.0-20.0); Blood Urea Nitrogen 6 mg/dL (9-23); Glucose 101 mg/dL (74-106)
[2024-05-08] VITALS (8 sets, daily range): BP systolic 94–117; BP diastolic 51–68; PULSE 81–104; RESP 16–19; TEMP 98.1–98.4; O2SAT 96–100
[2024-05-08 06:31] LABS: Basophils # (auto) 0 10 ^3/uL (0-0.2); Basophils % (auto) 0.3 % (0.0-2.0); Eosinophils # (auto) 0.1 10 ^3/uL (0-0.8); Lymphocytes # (auto) 1.8 10 ^3/uL (0.4-5.4); Mean Corpuscular Hgb Conc. 34.5 g/dL (32.0-36.0); Monocytes # (auto) 0.5 10 ^3/uL (0-1.3); Neutrophils # (auto) 1.8 10 ^3/uL (1.6-8.6)
[2024-05-08 06:34] LABS: Hematocrit 33.7 % (36.0-46.0); Hemoglobin 11.6 g/dL (12.2-16.2); Lymphocytes % (auto) 42.4 % (10.0-50.0); Mean Corpuscular Hemoglobin 37.3 pg (28.0-32.0); Monocytes % (auto) 11.9 % (0.0-12.0); Neutrophils % (auto) 42.4 % (37.0-80.0); Nucleated Red Blood Cells % 0.1 %; Platelet Count (auto) 373 10^3/uL (140-450); Red Blood Cells 3.12 10^6/uL (4.0-5.20); White Blood Cell 4.2 10^3/uL (4.4-10.8)
[2024-05-08 06:38] LABS: Anion Gap 8 (5-15); Carbon Dioxide 25 mmol/L (20-31); Chloride 106 mmol/L (98-107); Potassium 3.9 mmol/L (3.5-5.1); Sodium 139 mmol/L (136-145)
[2024-05-08 06:44] LABS: BUN/Creatinine Ratio 21.9 (10.0-20.0); Blood Urea Nitrogen 7 mg/dL (9-23); Glucose 77 mg/dL (74-106)
[2024-05-08] MEDS ORDERED: MORPHINE SULFATE INJ 2 MG/ml SYRG IV ONE (11:15)
[2024-05-08] MEDS: ONDANSETRON HCL 4 MG/2 ML VIAL IV PRN (16:42)
[2024-05-08] MEDS: D5W/SOD CHL 0.45% 1,000 ML IV SCH (17:37)
[2024-05-08] MEDS: carBAMazepine 200 MG/10 ML Ud ORAL Susp GT SCH (22:00)
[2024-05-08] MEDS: carBAMazepine 200 MG TAB PO SCH (23:36)
[2024-05-09] VITALS (7 sets, daily range): BP systolic 84–103; BP diastolic 44–61; PULSE 78–102; RESP 12–20; TEMP 97.4–99.1; O2SAT 94–97
[2024-05-09] MEDS: SODIUM CHLORIDE 0.9% 250 ML IV ONE ×2 (09:08→09:45)
[2024-05-09 11:07] LABS: Anion Gap 7 (5-15); Carbon Dioxide 24 mmol/L (20-31); Chloride 106 mmol/L (98-107); Potassium 3.9 mmol/L (3.5-5.1); Sodium 137 mmol/L (136-145)
[2024-05-09 11:08] LABS: Calcium 9.1 mg/dL (8.7-10.4)
[2024-05-09 11:13] LABS: BUN/Creatinine Ratio 18.8 (10.0-20.0); Blood Urea Nitrogen 6 mg/dL (9-23); Glucose 72 mg/dL (74-106)
[2024-05-10] VITALS (7 sets, daily range): BP systolic 89–110; BP diastolic 47–66; PULSE 92–110; RESP 16–17; TEMP 97.9–99; O2SAT 93–98
[2024-05-10 07:05] LABS: Basophils # (auto) 0 10 ^3/uL (0-0.2); Eosinophils # (auto) 0 10 ^3/uL (0-0.8); Lymphocytes # (auto) 1.4 10 ^3/uL (0.4-5.4); Monocytes # (auto) 0.5 10 ^3/uL (0-1.3); Neutrophils # (auto) 2.5 10 ^3/uL (1.6-8.6); Red Cell Distribution Width 13.8 % (11.8-14.3); White Blood Cell 4.5 10^3/uL (4.4-10.8)
[2024-05-10 07:09] LABS: Basophils % (auto) 0.1 % (0.0-2.0); Hematocrit 31.6 % (36.0-46.0); Hemoglobin 10.7 g/dL (12.2-16.2); Lymphocytes % (auto) 32.2 % (10.0-50.0); Mean Corpuscular Hemoglobin 36.4 pg (28.0-32.0); Monocytes % (auto) 11.9 % (0.0-12.0); Neutrophils % (auto) 54.8 % (37.0-80.0); Platelet Count (auto) 362 10^3/uL (140-450); Red Blood Cells 2.95 10^6/uL (4.0-5.20)
[2024-05-10 07:12] LABS: Anion Gap 11 (5-15); Calcium 8.8 mg/dL (8.7-10.4); Carbon Dioxide 22 mmol/L (20-31); Chloride 105 mmol/L (98-107); Sodium 138 mmol/L (136-145)
[2024-05-10 07:19] LABS: Glucose 103 mg/dL (74-106)
[2024-05-10 07:20] LABS: BUN/Creatinine Ratio 13.5 (10.0-20.0); Blood Urea Nitrogen < 5 mg/dL (9-23)
[2024-05-10] MEDS: POTASSIUM CHL 20MEQ/100ML 100 ML IV SCH (09:45)
[2024-05-10] MEDS: POTASSIUM CHL 20MEQ/100ML 100 ML IV ONE (17:16)
[2024-05-10] MEDS ORDERED: Jevity 1.2 Cal/Fiber 1 Liter GT SCH (20:00)
[2024-05-10] MEDS: DAPTOmycin 250 MG in SODIUM CHL 0.9% 50 ML IV SCH (21:00)
[2024-05-11 01:06] VITALS: BP 145/81; PULSE 118; RESP 18; TEMP 97.9; O2SAT 99
[2024-05-11 05:00] VITALS: BP 107/76; PULSE 113; RESP 18; TEMP 99; O2SAT 98
[2024-05-11 09:00] VITALS: BP 99/56; PULSE 87; RESP 16; TEMP 97.7; O2SAT 97
[2024-05-11 12:25] LABS: Chloride 104 mmol/L (98-107); Potassium 4.3 mmol/L (3.5-5.1); Sodium 137 mmol/L (136-145)
[2024-05-11 12:28] LABS: Anion Gap 6 (5-15); Carbon Dioxide 27 mmol/L (20-31)
[2024-05-11 12:29] LABS: Calcium 9.6 mg/dL (8.7-10.4)
[2024-05-11 12:34] LABS: BUN/Creatinine Ratio 13.9 (10.0-20.0); Blood Urea Nitrogen < 5 mg/dL (9-23); Glucose 97 mg/dL (74-106)
[2024-05-11 12:57] VITALS: BP 122/65; PULSE 87; RESP 17; TEMP 97.9; O2SAT 93
[2024-05-11 13:00] VITALS: BP 122/65; PULSE 87; RESP 17; TEMP 97.9; O2SAT 93
[2024-05-11] MEDS ORDERED: LEVE100012 PO (17:03)
[2024-05-11] MEDS ORDERED: CARB400T3 PO (17:03)
== END 2024-05-11 18:16 | disposition home or self-care (01) | DRG 720 ==
LOC: ER 08:38 → EDBD 08:38 → TELE 11:27 → TELE-CENTR 23:02 → CENTRAL 04-06 17:14 → TELE-CENTR 04-12 11:24 → CENTRAL 04-15 12:08
PROVIDERS: ADMIT Internal Medicine Geriatric Medicine; ATTEND Internal Medicine Geriatric Medicine
PROC: 05H933Z Insertion of Infusion Device into Right Brachial Vein, Percutaneous Approach (ICD-10-PCS; 2024-04-03)
PROC: B54MZZA Ultrasonography of Right Upper Extremity Veins, Guidance (ICD-10-PCS; 2024-04-03)
PROC: 05H933Z Insertion of Infusion Device into Right Brachial Vein, Percutaneous Approach (ICD-10-PCS; 2024-04-06)
PROC: B54MZZA Ultrasonography of Right Upper Extremity Veins, Guidance (ICD-10-PCS; 2024-04-06)
PROC: 02HV33Z Insertion of Infusion Device into Superior Vena Cava, Percutaneous Approach (ICD-10-PCS; principal; 2024-04-13)
PROC: B548ZZA Ultrasonography of Superior Vena Cava, Guidance (ICD-10-PCS; 2024-04-13)
DX: A41.89 Other specified sepsis (principal); G82.50 Quadriplegia, unspecified; L89.323 Pressure ulcer of left buttock, stage 3; E44.0 Moderate protein-calorie malnutrition; E87.0 Hyperosmolality and hypernatremia; F72 Severe intellectual disabilities; K94.23 Gastrostomy malfunction; G40.209 Localization-related (focal) (partial) symptomatic epilepsy and epileptic syndromes with complex partial seizures, not intractable, without status epilepticus; N39.0 Urinary tract infection, site not specified; E86.0 Dehydration; E87.6 Hypokalemia; K21.9 Gastro-esophageal reflux disease without esophagitis; Z66 Do not resuscitate; E83.42 Hypomagnesemia; K59.00 Constipation, unspecified; R19.00 Intra-abdominal and pelvic swelling, mass and lump, unspecified site; E16.2 Hypoglycemia, unspecified; Z90.49 Acquired absence of other specified parts of digestive tract; L89.151 Pressure ulcer of sacral region, stage 1; Z74.01 Bed confinement status; Z68.1 Body mass index [BMI] 19.9 or less, adult; Z79.899 Other long term (current) drug therapy; Z95.0 Presence of cardiac pacemaker; Z88.8 Allergy status to other drugs, medicaments and biological substances; Z98.2 Presence of cerebrospinal fluid drainage device; Z78.9 Other specified health status
CPT/HCPCS: 36415; 36569; 71045; 72193; 74018; 76856; 76937; 80048; 80053; 80202; 81001; 82306; 82550; 82570; 82607; 82746; 82962; 83605; 83735; 84100; 84132; 84295; 84300; 84439; 84443; 84478; 84702; 85007; 85025; 85027; 85610; 85730; 87040; 87077; 87081; 87086; 87186; 87205; 93005; 93306; 93971; 95819; 96365; 96375; 99291; G0378; J1956; J2001; J2405; J2470; J3480

== ENCOUNTER 2024-05-24 11:51 | Inpatient (IN) | payer MEDICAID ==
[~2024-05-24] VITALS: Ht 152.4 cm; Wt 42.2 kg
[~2024-05-24 11:51] MED LIST changes: +CARB400T3 PO; +LEVE100012 PO
--- NOTE | 2024-05-24 12:09 | ED.PDOC ---
SOB-HPI HPI Comments HPI: POOR HISTORIAN 48-year-old female brought in by ambulance from home for low oxygen/shortness of breath. Pulse ox at home was in the 88%. Patient was placed on supplemental oxygen her oxygenation improved. Per EMS, patient was recently admitted for sepsis. She felt warm to touch with questionable fever. No other acute symptoms. Patient has history of cerebral palsy and quadriplegic nonverbal. Vitals: Temp:98.8 F Heart rate: 112 RR: 14 BP: 92/63 02 sat: 97% on room air PMH:cerebral palsy, seizures, VSD, quadriplegia, GERD, PSH: Cholecystectomy, Hernia Repair, Social history: DENIES tobacco use, DENIES ETOH use, DENIES drug use Meds: CARBAMAZEPINE, TRAMADOL, KEPPRA, PANTOPRAZOLE, Allergies: VANCOMYCIN REVIEW OF SYSTEMS: CONSTITUTIONAL: Denies acute: fever, diaphoresis, chills, generalized weakness. HEAD: Denies acute: headache, photophobia Eyes: Denies acute: Double vision, vision loss, eye pain, eye discharge. EARS: Denies acute: tinnitus, hearing loss, ear discharge, ear pain, THROAT: Denies acute: sore throat, swelling, difficulty swallowing , pain with swallowing, change in voice. NECK: Denies acute: neck pain, neck swelling, stiff neck. HEART: Denies acute : chest pain, palpitations, LUNGS: Denies acute: wheezing, cough, hemoptysis ABDOMEN: Denies acute: abdominal pain, Nausea, Vomiting, diarrhea, melena , hematemesis, hematochezia SKIN: Denies acute: rash, redness, lesions, itchiness. EXTREMITIES: Denies acute: calf pain, numbness, tingling, weakness, denies pain in extremity. Denies acute: Low back pain. Neuro: Denies acute: focal neurological deficit, motor or sensory focal neurological deficit, tremors, seizure like activity, confusion, dizziness, change in mental status, loss of bowel or bladder function, cauda equina like symptoms. : Denies acute: dysuria, hematuria, flank pain, increase in urinary frequency. PSYCH: Denies acute: hallucination, suicidal ideation, homicidal ideation. FEMALE: Denies acute: abnormal vaginal bleeding, foul odor, unusual discharge. PHYSICAL EXAM: General: no acute distress, awake Head: normocephalic, atraumatic. Neck: supple, trachea is midline, no swelling. Throat: Normal phonation. Eyes:, no erythema, no purulent discharge, no proptosis, no icterus. Heart: regular rate, regular rhythm, no significant murmur appreciated. Lungs: no apparent respiratory distress, No wheezing, no rhonchi, no crackles. No stridors Clear to auscultation bilaterally. Abdomen: non tender to palpation, non distended, soft, no guarding, no rebound, + bowel sounds. Neuro: Awake, Skin: no petechia, no purpura, no cyanosis, non-pale, not jaundice. Lower extremities: --no - Pitting edema no deformity, no focal swelling, no calf TTP. Patient has history of cerebral palsy bed ridden with all four extremities noted contractures at baseline. Face: no apparent facial droop. Chief Complaint: Shortness of Breath Time Seen by MD: 11:54 Primary Care Provider: NONE Reviewed notes: Research Anthropologist Notes, Medications, Allergies Information Source: Patient, Emergency Med Personnel Mode of Arrival: EMS Brought in by: EMS Past Medical History PAST MEDICAL HISTORY: GERD, Seizures Past Medical History (Other): CEREBRAL PALSY, Surgical History: Cholecystectomy, Hernia Repair, Pacemaker, Denies all surgeries PAPER REEL OPERATOR History: No Pertinent PAPER REEL OPERATOR History Family History Family History: Unknown Social History Smoker: Non-Smoker Alcohol: Denies ETOH Use Drugs: Denies Drug Use Lives In: Home Was a procedure done? Was a procedure done?: No Differential Dx Differential Diagnosis: Other (DDx include ACS, unstable angina, anxiety, PE, pneumothroax, neoplasm, cardiac ischemia, COPD, asthma, CHF, pleural effusion, tobacco abuse, pneumonia, hypoxia, hypercapnia, anemia., infection/sepsis., pulmonary edema. Asthma, Cardiac tamponade, infection.) X-Ray, Labs, Meds, VS Vital Signs Date Time Temp Pulse Resp B/P (MAP) Pulse Ox O2 Delivery O2 Flow Rate FiO2 05/24/24 15:02 98.3 118 22 93/59 96 0.0 21 98.3 05/24/24 14:00 103 20 98 Room Air* 0 21 05/24/24 13:28 98.3 118 24 93/59 (70) 96 98.3 05/24/24 12:35 117 05/24/24 12:29 14 97 Room Air* 0 21 21 05/24/24 11:59 98.8 112 16 92/63 (73) 95 Lab Test 05/24/24 14:03 05/24/24 12:50 Range/Units Troponin I High Sensitivity < 3 L < 3 L </=34 ng/L White Blood Count 11.6 H 4.4-10.8 10^3/uL Red Blood Count 3.85 L 4.0-5.20 10^6/uL Hemoglobin 14.3 12.2-16.2 g/dL Hematocrit 42.4 36.0-46.0 % Mean Corpuscular Volume 110.2 H 80.0-100.0 fL Mean Corpuscular Hemoglobin 37.1 H 28.0-32.0 pg Mean Corpuscular Hemoglobin Concent 33.6 32.0-36.0 g/dL Red Cell Distribution Width 13.6 11.8-14.3 % Platelet Count 303 140-450 10^3/uL Mean Platelet Volume 7.1 6.9-10.8 fL Neutrophils (%) (Auto) 74.1 37.0-80.0 % Lymphocytes (%) (Auto) 16.8 10.0-50.0 % Monocytes (%) (Auto) 8.2 0.0-12.0 % Eosinophils (%) (Auto) 0.8 0.0-7.0 % Basophils (%) (Auto) 0.1 0.0-2.0 % Neutrophils # (Auto) 8.6 1.6-8.6 10 ^3/uL Lymphocytes # (Auto) 1.9 0.4-5.4 10 ^3/uL Monocytes # (Auto) 0.9 0-1.3 10 ^3/uL Eosinophils # (Auto) 0.1 0-0.8 10 ^3/uL Basophils # (Auto) 0 0-0.2 10 ^3/uL Nucleated Red Blood Cells 0.0 % Sodium Level 150 H 136-145 mmol/L Potassium Level 4.4 3.5-5.1 mmol/L Chloride Level 114 H 98-107 mmol/L Carbon Dioxide Level 31 20-31 mmol/L Anion Gap 5 5-15 Blood Urea Nitrogen 27 H 9-23 mg/dL Creatinine 0.49 L 0.550-1.02 mg/dL Glomerular Filtration Rate Calc 116 >90 mL/min BUN/Creatinine Ratio 55.1 H 10.0-20.0 Serum Glucose 124 H 74-106 mg/dL Lactic Acid Level 2.2 *H 0.4-2.0 mmol/L Calcium Level 9.7 8.7-10.4 mg/dL Magnesium Level 2.3 1.6-2.6 mg/dL Total Bilirubin 0.2 0.2-1.0 mg/dL Aspartate Amino Transferase (AST) 22 13-40 U/L Alanine Aminotransferase (ALT) 28 7-40 U/L Alkaline Phosphatase 143 H 46-116 U/L B-Type Natriuretic Peptide 3.41 0-100 pg/mL Total Protein 6.9 5.7-8.2 g/dL Albumin 4.2 3.2-4.8 g/dL Beta HCG, Quantitative 0.4 L 1.5-4.2 mIU/mL Current Medications Medications (Trade) Dose Ordered Sig/Krysten Route Start Time Stop Time Status Last Admin Albuterol (Ventolin Medneb) 2.5 mg ONCE ONCE NEB 05/24/24 12:15 05/24/24 12:16 DC 05/24/24 12:29 Ipratropium [place] (Atrovent Medneb) 1 mg ONCE ONCE NEB 05/24/24 12:15 05/24/24 12:16 DC 05/24/24 12:29 Methylprednisolone Sodium Succinate (Solu Medrol) 125 mg ONCE ONCE IV 05/24/24 12:15 05/24/24 12:16 DC 05/24/24 12:15 Sodium Chloride 1,000 ml @ 1,000 mls/hr Q1H ONCE IV 05/24/24 12:15 05/24/24 13:15 DC 05/24/24 12:39 Ceftriaxone Sodium 50 ml @ 100 mls/hr ONCE ONCE IV 05/24/24 13:00 05/24/24 13:29 DC 05/24/24 13:35 Lactated Ringer's 1,000 ml @ 75 mls/hr [id number] IV 05/24/24 14:45 05/24/24 15:[address] [address] Ph: [phone] DIAGNOSTIC IMAGING Diagnostic Imaging Report : [id number] Signed PATIENT: PATY CALHOUN ACCT: [id number] UNIT: [id number] : 1975 LOC: ER ROOM / BED: / AGE / SEX: 48 / F ADM STATUS: REG ER SERVICE 1202 ORDERING PHYSICIAN: BRITTANI TRAN DO PROCEDURE(s): CXRP - CHEST PORTABLE REASON: sob ORDER NUMBER(s): [id number], ACCESSION NUMBER(s): [id number] CLINICAL INFORMATION: 48 years old, Female; shortness of breath. TECHNIQUE: Single AP portable chest radiograph was obtained. COMPARISON: XY CHEST PORTABLE on DOS: 04/03/24, XY CHEST PORTABLE on DOS: 02/27/24, XY CHEST XRAY 1 VIEW on DOS: 02/07/24 FINDINGS: Lungs: The patient's chin overlies the lung apices, partially obscuring visualization. No focal consolidation, pneumothorax, or pleural effusion visualized. Cardiac: Heart size is within normal limits. Pulmonary vasculature: Unremarkable. Mediastinum/mayte: Unremarkable. Bones: Left shoulder dislocation, similar in appearance compared to the prior exam. Other: Stimulator device in the left chest wall with leads extending to the left side of the neck. IMPRESSION: 1. No evidence of acute disease in the chest. 2. Left shoulder dislocation, unchanged compared to multiple prior exams. 3. Nonacute findings as described above. ATED BY: DINO EDGAR DO DICTATED DATE/TIME: 05/24/241534 SIGNED BY: DINO EDGAR DO SIGNED DATE/TIME: 05/24/241534 CC: Time of 1ST Reevaluation: 20:45 Reevaluation 1ST: Improved Patient Education/Counseling: Other (PT HAS CEREBRAL PALSY) Family Education/Counseling: No Family Present Comments Patient presented with the above HPI.---respiratory distress---workup was initiated. patient was found with the above mentioned diagnosis. Patient was given: DuoNeb treatment, Solu-Medrol, normal saline bolus, Rocephin 1 g IV for suspected pneumonia Patient ED course and VS have been stabilized. Patient has been reassessed in the ED and remained in a stable condition. Patient has been observed in the ED adequate length of time to insure improvement/stability. patient was admitted to the medicine team for further evaluation and treatment of their presentation. All the reports of any imaging studies that were ordered by myself were reviewed by myself. Departure 1 Departure Time of Disposition: 12:49 Impression: Primary Impression: Hypoxemia Additional Impressions: Fever Hypernatremia Disposition: ADMITTED INPATIENT Admit to: Tele Condition: Guarded Discharged With: Self Critical Care Note Critical Care Time?: Yes (35 min-critical care time only) Heart Score Heart Score: Heart Score Response (Comments) Value History Slightly Suspicious 0 EKG Normal 0 Age 45-64 1 Risk Factors 1 or 2 risk factors 1 Troponin Normal limit 0 Total 2 I personally scribed for BRITTANI TRAN DO ([email or web address]) on 05/24/24 at 12:08. Electronically submitted by Hattie Scott (Estify). I personally scribed for BRITTANI TRAN DO ([email or web address]) on 05/24/24 at 12:45. Electronically submitted by Hattie Scott ([employer]). I personally scribed for BRITTANI TRAN DO ([email or web address]) on 05/24/24 at 20:46. Electronically submitted by Hattie Scott ([employer]). BRITTANI TRAN DO May 24, 2024 12:08
[2024-05-24] MEDS: methylPREDNISolone SOD SUCC 125 MG/2 ML VL IV ONE (12:15)
[2024-05-24] MEDS: IPRATROPIUM BROM 0.5 MG/2.5ML INH SOL NEB ONE (12:29)
[2024-05-24] MEDS: ALBUTEROL SULF 2.5 MG/0.5ML(0.5%) NEB SOLN NEB ONE (12:29)
[2024-05-24] MEDS: SODIUM CHLORIDE 0.9% 1,000 ML IV ONE (12:39)
[2024-05-24 13:12] LABS: Basophils # (auto) 0 10 ^3/uL (0-0.2); Eosinophils # (auto) 0.1 10 ^3/uL (0-0.8)
[2024-05-24 13:14] LABS: Basophils % (auto) 0.1 % (0.0-2.0); Eosinophils % (auto) 0.8 % (0.0-7.0); Hematocrit 42.4 % (36.0-46.0); Hemoglobin 14.3 g/dL (12.2-16.2); Lymphocytes # (auto) 1.9 10 ^3/uL (0.4-5.4); Lymphocytes % (auto) 16.8 % (10.0-50.0); Mean Corpuscular Hemoglobin 37.1 pg (28.0-32.0); Mean Corpuscular Hgb Conc. 33.6 g/dL (32.0-36.0); Mean Corpuscular Volume 110.2 fL (80.0-100.0); Monocytes # (auto) 0.9 10 ^3/uL (0-1.3); Monocytes % (auto) 8.2 % (0.0-12.0); Neutrophils # (auto) 8.6 10 ^3/uL (1.6-8.6); Neutrophils % (auto) 74.1 % (37.0-80.0); Platelet Count (auto) 303 10^3/uL (140-450); Red Blood Cells 3.85 10^6/uL (4.0-5.20); Red Cell Distribution Width 13.6 % (11.8-14.3); White Blood Cell 11.6 10^3/uL (4.4-10.8)
[2024-05-24 13:31] LABS: Alanine Aminotransferase 28 U/L (7-40); Albumin 4.2 g/dL (3.2-4.8); Alkaline Phosphatase 143 U/L (46-116); Anion Gap 5 (5-15); Aspartate Aminotransferase 22 U/L (13-40); BUN/Creatinine Ratio 55.1 (10.0-20.0); Bilirubin, Total 0.2 mg/dL (0.2-1.0); Blood Urea Nitrogen 27 mg/dL (9-23); Calcium 9.7 mg/dL (8.7-10.4); Carbon Dioxide 31 mmol/L (20-31); Chloride 114 mmol/L (98-107); Glucose 124 mg/dL (74-106); Magnesium 2.3 mg/dL (1.6-2.6); Potassium 4.4 mmol/L (3.5-5.1); Sodium 150 mmol/L (136-145); Total Protein 6.9 g/dL (5.7-8.2)
[2024-05-24] MEDS: cefTRIAXone 1GM/50ML D5W 50 ML IV ONE (13:35)
[2024-05-24 13:51] LABS: Lactic Acid w/Reflex 2.2 mmol/L (0.4-2.0)
[2024-05-24 14:00] VITALS: PULSE 103; RESP 20; O2SAT 98
[2024-05-24] MEDS ORDERED: DOCUSATE SOD 100 MG CAP PO PRN (14:45)
[2024-05-24] MEDS ORDERED: ALBUTEROL SULF 2.5 MG/0.5ML(0.5%) NEB SOLN NEB PRN (14:45)
[2024-05-24] MEDS ORDERED: ACETAMINOPHEN 325 MG TAB PO PRN (14:45)
[2024-05-24] MEDS ORDERED: HYDROcodone-ACET 5/325MG TAB PO PRN (14:45)
[2024-05-24] MEDS ORDERED: ONDANSETRON HCL 4 MG/2 ML VIAL IV PRN (14:45)
[2024-05-24] MEDS ORDERED: IPRATROPIUM BROM 0.5 MG/2.5ML INH SOL NEB PRN (14:45)
[2024-05-24 15:02] VITALS: BP 93/59; PULSE 118; RESP 22; TEMP 98.3; O2SAT 96
[2024-05-24] MEDS: LACTATED RINGER'S 1,000 ML IV SCH (15:08)
--- NOTE | 2024-05-24 15:29 | DVHHP2 ---
History of Present Illness Reason for Visit: Acute respiratory failure with hypoxia History of Present Illness The patient is a 48 years old female quadriplegia nonverbal with past medical history of cerebral palsy, seizures, VSD, and GERD who presented to [facility] ED accompanied by sister for evaluation of shortness of breaths. As reported by sister, patient was having difficulty breathing associated with weakness so EMS were called. When director industrial nursing arrived on the scene, the patient's O2 saturation was 88% and was placed on oxygen which improved oxygen saturation to 97% en route to our facility ED. patient was seen and evaluated in the ED, laboratory data shows WBC 11.6, platelets 303, sodium 150, potassium 4.4, BUN 27, creatinine 0.49, GFR 116, glucose 124, troponin 3, lactic acid 2.2 trending down to 1.0, blood pressure 93/59, heart rate 112 trending down to 103, temperature 98.3 F, O2 saturation 97% on oxygen. Patient was started on IV antibiotic regimen Rocephin, given IV fluid lactated ringer, please see medication orders section in the computer. On my assessment, patient remains nonverbal, no diaphoresis, no palpitations, currently on oxygen, no diarrhea, no nausea, no vomiting, no fever, no chills. Patient was admitted for further evaluation and medical management. Past Medical History Cerebral palsy, Seizures, VSD, Quadriplegia, GERD, Past Surgical History Cholecystectomy, Hernia Repair, Family History Reviewed, noncontributory to the management of this case. Past Social History The patient lives at home, denies smoking, alcohol or illicit drugs abuse. Review of Systems Constitutional: Yes: Weakness; No: Fever, Chills, Sweats, Malaise, Other Eyes: No: Pain, Vision change, Conjunctivae inflammation, Eyelid inflammation, Other, Redness ENT: No: Ear pain, Ear discharge, Nose pain, Nose discharge, Nose congestion, Mouth pain, Mouth swelling, Throat pain, Throat swelling, Other Respiratory: Shortness of breath; No: Cough, Dry, SOB with excertion, Wheezing, Hemoptysis, Pleuritic Pain, Sputum, Wheezing, Other Cardiovascular: No: Chest Pain, Palpitations, Orthopnea, Paroxysmal Noc. Dyspnea, Edema, Lt Headedness, Other Gastrointestinal: No: Nausea, Vomiting, Abdominal Pain, Diarrhea, Constipation, Melena, Hematochezia, Other Genitourinary: No Dysuria, No Frequency, No Incontinence, No Hematuria, No Retention, No Other Musculoskeletal: No: other, neck pain, shoulder pain, arm pain, back pain, hand pain, leg pain, foot pain Skin: No: Rash, Lesions, Jaundice, Bruising, Other Neurological: Weakness, Other (Quadriplegia); No: Numbness, Incoordination, Change in speech, Confusion, Seizures Allergies: Coded Allergies: Vancomycin (Verified Adverse Reaction, Unknown, 05/01/24) fever, sweating, erythema from vanco infusion Medications Current Medications Medications Dose Ordered Sig/Krysten Route Start Time Stop Time Status Last Admin Dose Admin Ceftriaxone Sodium 50 ml @ 100 mls/hr DAILY@09 IV 05/25/24 09:00 Methylprednisolone Sodium Succinate 40 mg BID IV 05/24/24 22:00 Albuterol 2.5 mg Q4HPRN PRN NEB 05/24/24 14:45 Ipratropium [place] 0.5 mg Q4HPRN PRN NEB 05/24/24 14:45 Lactated Ringer's 1,000 ml @ 75 mls/hr [id number] IV 05/24/24 14:45 05/24/24 15:08 75 MLS/HR Levetiracetam 100 ml @ 400 mls/hr BID IV 05/24/24 22:00 Lorazepam 0.5 mg Q8HP PRN IV 05/24/24 14:45 Acetaminophen/ Hydrocodone Bitart 1 tab Q4HP PRN PO 05/24/24 14:45 Ondansetron HCl 4 mg Q4HP PRN IV 05/24/24 14:45 Docusate Sodium 100 mg BIDPRN PRN PO 05/24/24 14:45 Acetaminophen 500 mg Q6HP PRN PO 05/24/24 14:45 Exam Vital Signs Vital Signs Date Time Temp Pulse Resp B/P (MAP) Pulse Ox O2 Delivery O2 Flow Rate FiO2 05/24/24 15:02 98.3 118 22 93/59 96 0.0 21 98.3 05/24/24 12:29 Room Air* General Appearance: Alert, Cooperative, No acute distress, Other (Oriented x1) HEENT: Atraumatic, PERRLA, EOMI, Mucous membr. moist/pink Respiratory: Clear to auscultation, Normal air movement Cardiovascular: Regular rate, Normal S1, Normal S2, No murmurs Abdominal: Normal bowel sounds, Soft, No tenderness, No hepatospenomegaly, No masses, Other (G-tube in place) Extremities: No clubbing, No cyanosis, No edema, Normal pulses, No tenderness/swelling Neuro: Normal tone, Sensation intact, Other (Generalized weakness) Psych/Mental Status: Mental status NL, Mood NL Labs/Xrays Labs Test 05/24/24 14:03 05/24/24 12:50 Range/Units Troponin I High Sensitivity < 3 L </=34 ng/L White Blood Count 11.6 H 4.4-10.8 10^3/uL Red Blood Count 3.85 L 4.0-5.20 10^6/uL Hemoglobin 14.3 12.2-16.2 g/dL Hematocrit 42.4 36.0-46.0 % Mean Corpuscular Volume 110.2 H 80.0-100.0 fL Mean Corpuscular Hemoglobin 37.1 H 28.0-32.0 pg Mean Corpuscular Hemoglobin Concent 33.6 32.0-36.0 g/dL Red Cell Distribution Width 13.6 11.8-14.3 % Platelet Count 303 140-450 10^3/uL Mean Platelet Volume 7.1 6.9-10.8 fL Neutrophils (%) (Auto) 74.1 37.0-80.0 % Lymphocytes (%) (Auto) 16.8 10.0-50.0 % Monocytes (%) (Auto) 8.2 0.0-12.0 % Eosinophils (%) (Auto) 0.8 0.0-7.0 % Basophils (%) (Auto) 0.1 0.0-2.0 % Neutrophils # (Auto) 8.6 1.6-8.6 10 ^3/uL Lymphocytes # (Auto) 1.9 0.4-5.4 10 ^3/uL Monocytes # (Auto) 0.9 0-1.3 10 ^3/uL Eosinophils # (Auto) 0.1 0-0.8 10 ^3/uL Basophils # (Auto) 0 0-0.2 10 ^3/uL Nucleated Red Blood Cells 0.0 % Sodium Level 150 H 136-145 mmol/L Potassium Level 4.4 3.5-5.1 mmol/L Chloride Level 114 H 98-107 mmol/L Carbon Dioxide Level 31 20-31 mmol/L Anion Gap 5 5-15 Blood Urea Nitrogen 27 H 9-23 mg/dL Creatinine 0.49 L 0.550-1.02 mg/dL Glomerular Filtration Rate Calc 116 >90 mL/min BUN/Creatinine Ratio 55.1 H 10.0-20.0 Serum Glucose 124 H 74-106 mg/dL Lactic Acid Level 2.2 *H 0.4-2.0 mmol/L Calcium Level 9.7 8.7-10.4 mg/dL Magnesium Level 2.3 1.6-2.6 mg/dL Total Bilirubin 0.2 0.2-1.0 mg/dL Aspartate Amino Transferase (AST) 22 13-40 U/L Alanine Aminotransferase (ALT) 28 7-40 U/L Alkaline Phosphatase 143 H 46-116 U/L B-Type Natriuretic Peptide 3.41 0-100 pg/mL Total Protein 6.9 5.7-8.2 g/dL Albumin 4.2 3.2-4.8 g/dL Beta HCG, Quantitative 0.4 L 1.5-4.2 mIU/mL PATIENT: PATY CALHOUN ACCT: [id number] UNIT: [id number] : 1975 LOC: ER ROOM / BED: / AGE / SEX: 48 / F ADM STATUS: REG ER SERVICE 1202 ORDERING PHYSICIAN: BRITTANI TRAN DO PROCEDURE(s): CXRP - CHEST PORTABLE REASON: sob ORDER NUMBER(s): [id number], ACCESSION NUMBER(s): [id number] CLINICAL INFORMATION: 48 years old, Female; shortness of breath. TECHNIQUE: Single AP portable chest radiograph was obtained. COMPARISON: XY CHEST PORTABLE on DOS: 04/03/24, XY CHEST PORTABLE on DOS: 02/27/24, XY CHEST XRAY 1 VIEW on DOS: 02/07/24 FINDINGS: Lungs: The patient's chin overlies the lung apices, partially obscuring visualization. No focal consolidation, pneumothorax, or pleural effusion visualized. Cardiac: Heart size is within normal limits. Pulmonary vasculature: Unremarkable. Mediastinum/mayte: Unremarkable. Bones: Left shoulder dislocation, similar in appearance compared to the prior exam. Other: Stimulator device in the left chest wall with leads extending to the left side of the neck. IMPRESSION: 1. No evidence of acute disease in the chest. 2. Left shoulder dislocation, unchanged compared to multiple prior exams. 3. Nonacute findings as described above. Assessment/Plan Assessment/Plan Generalized weakness Hypernatremia Leukocytosis, unspecified Acute respiratory distress Plan 1. Admit to telemetry unit 2. Breathing treatment 3. Pain control management 4. IV antibiotic management 5. Management of fluids and electrolytes 6. Consultation for hospitalist 7. Diagnostic test chest x-ray 8. DVT prophylaxis-on SCDs 9. Repeat labs CBC, CMP in a.m. 10. Home medication reviewed and reconciled 11. Continue with current medical management 12. Treatment plan discussed with patient and RN. Patient verbalized understanding. Plan discussed with: Patient, Other (RN) My Orders Orders - LONDON JC DNP Procedure Category Date Status Time Ceftriaxone 1gm/50ml PHA 05/25/24 In Process D5w (Rocephin) 09:00 Methylprednisolone PHA 05/24/24 In Process Sod Succ (Solu Medrol 22:00 Albuterol Medneb PHA 05/24/24 In Process (Ventolin Medneb) 14:45 Ipratropium Medneb PHA 05/24/24 In Process (Atrovent Medneb) 14:45 *Consult CONS 05/24/24 Transmitted / 14:33 Lactated Ringer's PHA 05/24/24 In Process 14:45 Levetiracetam 1000 PHA 05/24/24 In Process Mg/100ml (Levetiracet 22:00 Lorazepam 2mg/Ml Inj PHA 05/24/24 In Process (Ativan Inj) 14:45 Allergies TIFFANY 05/24/24 In Process 14:33 Code Status CODE 05/24/24 Transmitted 14:33 Oxygen Per Hour RT 05/24/24 Transmitted 14:33 Hydrocodone-Acet PHA 05/24/24 In Process 5/325mg Tab ([place] 14:45 Ondansetron Hcl PHA 05/24/24 In Process (Zofran) 14:45 Docusate Sodium PHA 05/24/24 In Process Capsule (Colace 14:45 Fall Risk Precautions TIFFANY 05/24/[address] 14:33 Complete Blood Count LAB 05/25/24 Verified 04:00 Comprehensive LAB 05/25/24 Verified Metabolic Panel 04:00 Cardiac DIET 05/24/24 Transmitted Diet-2gna,Lofat,Lochol Dinner Condition: Serious TIFFANY 05/24/24 In Process 14:33 Acetaminophen Tablet PHA 05/24/24 In Process (Tylenol Tablet) 14:45 Sequential TIFFANY 05/24/24 In Process Compression Device Problem List: (1) Generalized weakness (2) Hypernatremia (3) Acute respiratory distress (4) Leukocytosis, unspecified Date of Service: May 24, 2024 Billing Provider: LONDON JC DNP Common Visit Codes: 08328-[id number] INP/OBS CARE (HIGH) LONDON JC DNP May 24, 2024 15:29
[2024-05-24] MEDS ORDERED: NITROGLYCERIN 0.4 MG SL TAB SL PRN (15:30)
[2024-05-24] MEDS ORDERED: MORPHINE SULFATE INJ 2 MG/ml SYRG IV PRN (15:30)
--- NOTE | 2024-05-24 15:38 | DVH ---
CLINICAL INFORMATION: 48 years old, Female; shortness of breath. TECHNIQUE: Single AP portable chest radiograph was obtained. COMPARISON: XY CHEST PORTABLE on DOS: 04/03/24, XY CHEST PORTABLE on DOS: 02/27/24, XY CHEST XRAY 1 VIE W on DOS: 02/07/24 FINDINGS: Lungs: The patient's chin overlies the lung apices, partially obscuring visualization. No focal cons olidation, pneumothorax, or pleural effusion visualized. Cardiac: Heart size is within normal limits. Pulmonary vasculature: Unremarkable. Mediastinum/mayte: Unremarkable. Bones: Left shoulder dislocation, similar in appearance compared to the prior exam. Other: Stimulator device in the left chest wall with leads extending to the left side of the neck. IMPRESSION: 1. No evidence of acute disease in the chest. 2. Left shoulder dislocation, unchanged compared to multiple prior exams. 3. Nonacute findings as described above.
[2024-05-24 17:45] LABS: COVID19 ANTIGEN SOFIA FIA NEGATIVE (NEGATIVE)
--- NOTE | 2024-05-24 18:57 | DVHINCON2 ---
Date of service: May 24, 2024 Referring Physician ROMAINE Milan. Reason for Consultation Hypoxia History of Present Illness 40-year-old woman history of cerebral palsy, seizure disorder, VSD, quadriplegia, GERD who presented due to hypoxia and shortness of breath. At home per caregiver she was found to have a pulse oximetry reading of 78%. She had bluish lips per family member. She was initiated on supplemental oxygen. EMS was called. She has a recent admission due to sepsis. History obtained from RN, DIRECTOR OF PHILANTHROPY caring for patient. History also obtained from family member at bedside. Pulmonary consultation is called for evaluation of acute hypoxic respiratory failure. Review of systems: 14 point review of systems negative unless otherwise noted above. Past medical history: Cerebral palsy, seizure disorder, VSD, quadriplegia, GERD Past surgical history: Cholecystectomy, hernia repair Medications: Reviewed Allergies: Vancomycin Family history: No family history of premature CAD. No family history of lung disease Social history: Nonsmoker. No alcohol or illicit drug use. Allergies: Coded Allergies: Vancomycin (Verified Adverse Reaction, Unknown, 05/01/24) fever, sweating, erythema from vanco infusion Home Meds Active Scripts Carbamazepine (Carbamazepine Er) 400 Mg Tab, 600 MG PO BID for 30 Days, #60 TAB Prov:MARY FLOWERS RESIDENT 05/11/24 Levetiracetam (Keppra) 1,000 Mg Tab, 1 TAB PO BID for 30 Days, #60 TAB 5 Refills Prov:MARY FLOWERS RESIDENT 05/11/24 Bisacodyl (Ex-Lax Ultra) 5 Mg Tab, 5 MG PO DAILY PRN, #60 TAB 2 Refills Take 2 tablets (10 mg) via G tube Daily Prov:JOHN BENAVIDEZ MD 03/26/24 Carbamazepine (CARBAMAZEPINE ER) 300 Mg Cap, 300 MG PO BID PRN, #120 CAP 2 Refills Take 2 capsules (600 mg) BID (morning and night) via G tube Prov:JOHN BENAVIDEZ MD 03/26/24 Esomeprazole Magnesium (Esomeprazole Magnesium) 40 Mg Cap, 40 MG PO DAILY, #30 CAP 3 Refills Take 1 capsule via G tube every afternoon (3pm) Prov:JOHN BENAVIDEZ MD 03/26/24 Lorazepam (Ativan) 0.5 Mg Tab, 0.5 MG PO BID for 30 Days, #60 TAB Prov:LONG PALACIOS MD 02/27/24 Cefdinir (Cefdinir) 300 Mg Cap, 1 CAP PO BID for 7 Days, #14 CAP Prov:LONG PALACIOS MD 02/27/24 Reported Medications Tramadol Hcl (Tramadol Hcl) 50 Mg Tab, 50 MG PO Q8HP PRN for PAIN SCALE 1 THRU 6, MG 01/30/24 Levetiracetam (Levetiracetam) 100 Mg/Ml Estela, 100 MG PO, ML 01/30/24 Esomeprazole Magnesium Trihydr (Nexium) 40 Mg Cap, 40 MG PO, CAP 01/30/24 Carbamazepine (Carbamazepine Er) 200 Mg Tab, 200 MG PO, TAB 01/30/24 Folic Acid (Folic Acid) 1 Mg Tab, 1 MG PO DAILY for 30 Days, MG 01/30/24 Current Medications Current Medications Medications (Trade) Dose Ordered Sig/Krysten Route PRN Reason Start Time Stop Time Status Last Admin Ceftriaxone Sodium 50 ml @ 100 mls/hr DAILY@09 IV 05/25/24 09:00 Methylprednisolone Sodium Succinate (Solu Medrol) 40 mg BID IV 05/24/24 22:00 Albuterol (Ventolin Medneb) 2.5 mg Q4HPRN PRN NEB SHORTNESS OF BREATH 05/24/24 14:45 Ipratropium [place] (Atrovent Medneb) 0.5 mg Q4HPRN PRN NEB SHORTNESS OF BREATH 05/24/24 14:45 Lactated Ringer's 1,000 ml @ 75 mls/hr [id number] IV 05/24/24 14:45 05/24/24 15:08 Levetiracetam 100 ml @ 400 mls/hr BID IV 05/24/24 22:00 Lorazepam (Ativan Inj) 0.5 mg Q8HP PRN IV ANXIETY 05/24/24 14:45 Acetaminophen/ Hydrocodone Bitart ([place] 5/325MG Tab) 1 tab Q4HP PRN PO MODERATE PAIN (4-6 PAIN SCALE) 05/24/24 14:45 Ondansetron HCl (Zofran) 4 mg Q4HP PRN IV NAUSEA / VOMITING 05/24/24 14:45 Docusate Sodium (Colace Capsule) 100 mg BIDPRN PRN PO FOR CONSTIPATION 05/24/24 14:45 Acetaminophen (Tylenol Tablet) 500 mg Q6HP PRN PO PAIN SCALE 1-3 OR TEMP>100.4 05/24/24 14:45 Nitroglycerin (Ntrostat Sublingual) 0.4 mg Q5MINP PRN SL FOR CHEST PAIN 05/24/24 15:30 Morphine Sulfate 2 mg Q30M PRN IV FOR CHEST PAIN 05/24/24 15:30 Vital Signs Vital Signs Date Time Temp Pulse Resp B/P (MAP) Pulse Ox O2 Delivery O2 Flow Rate FiO2 05/24/24 17:35 103 21 167/83 (111) 98 05/24/24 15:02 98.3 0.0 21 98.3 05/24/24 14:00 Room Air* Physical Exam Gen.: Patient lying in bed in no apparent distress. On supplemental oxygen. Head: Normocephalic, atraumatic Eyes: EOMI/PERRLA. Ears: Normal hearing. Normal anatomy. Neck/trachea: Trachea midline, supple. Nose: Normal external anatomy. Mouth: Moist mucous membranes. Chest: Decreased air entry bilaterally. No wheezing or rhonchi. Cardio vascular: Positive S1, positive S2. Regular rate and rhythm. Abdomen: Positive bowel sounds in all 4 quadrants. Soft, non-tender, non- distended. : Deferred. Rectal: Deferred Skin: Warm, dry. Intact Extremities: 2+ radial pulses bilaterally. No lower extremity edema. Neuro: Awake, alert. No gross motor or sensory deficits. Cranial nerves II through XII intact. Gait not assessed. Contracted Labs/Diagnostic Data Labs Test 05/24/24 16:23 05/24/24 16:10 05/24/24 16:08 05/24/24 12:50 Range/Units SARS-CoV-2 Antigen (Rapid) Negative NEGATIVE Troponin I High Sensitivity < 3 L </=34 ng/L Lactic Acid Level 1.0 0.4-2.0 mmol/L White Blood Count 11.6 H 4.4-10.8 10^3/uL Red Blood Count 3.85 L 4.0-5.20 10^6/uL Hemoglobin 14.3 12.2-16.2 g/dL Hematocrit 42.4 36.0-46.0 % Mean Corpuscular Volume 110.2 H 80.0-100.0 fL Mean Corpuscular Hemoglobin 37.1 H 28.0-32.0 pg Mean Corpuscular Hemoglobin Concent 33.6 32.0-36.0 g/dL Red Cell Distribution Width 13.6 11.8-14.3 % Platelet Count 303 140-450 10^3/uL Mean Platelet Volume 7.1 6.9-10.8 fL Neutrophils (%) (Auto) 74.1 37.0-80.0 % Lymphocytes (%) (Auto) 16.8 10.0-50.0 % Monocytes (%) (Auto) 8.2 0.0-12.0 % Eosinophils (%) (Auto) 0.8 0.0-7.0 % Basophils (%) (Auto) 0.1 0.0-2.0 % Neutrophils # (Auto) 8.6 1.6-8.6 10 ^3/uL Lymphocytes # (Auto) 1.9 0.4-5.4 10 ^3/uL Monocytes # (Auto) 0.9 0-1.3 10 ^3/uL Eosinophils # (Auto) 0.1 0-0.8 10 ^3/uL Basophils # (Auto) 0 0-0.2 10 ^3/uL Nucleated Red Blood Cells 0.0 % Sodium Level 150 H 136-145 mmol/L Potassium Level 4.4 3.5-5.1 mmol/L Chloride Level 114 H 98-107 mmol/L Carbon Dioxide Level 31 20-31 mmol/L Anion Gap 5 5-15 Blood Urea Nitrogen 27 H 9-23 mg/dL Creatinine 0.49 L 0.550-1.02 mg/dL Glomerular Filtration Rate Calc 116 >90 mL/min BUN/Creatinine Ratio 55.1 H 10.0-20.0 Serum Glucose 124 H 74-106 mg/dL Calcium Level 9.7 8.7-10.4 mg/dL Magnesium Level 2.3 1.6-2.6 mg/dL Total Bilirubin 0.2 0.2-1.0 mg/dL Aspartate Amino Transferase (AST) 22 13-40 U/L Alanine Aminotransferase (ALT) 28 7-40 U/L Alkaline Phosphatase 143 H 46-116 U/L B-Type Natriuretic Peptide 3.41 0-100 pg/mL Total Protein 6.9 5.7-8.2 g/dL Albumin 4.2 3.2-4.8 g/dL Beta HCG, Quantitative 0.4 L 1.5-4.2 mIU/mL Assessment Impression: Acute hypoxic respiratory failure Fever Hypernatremia Functional quadriplegia Cerebral palsy Plan: CXR- No acute opacities. No pleural effusion. No Pneumothorax. Saturating well on 2 liters/minute via nasal cannula Keep O2 saturation above 92%. Head of bed elevation Aspiration precautions Antiepileptics Empiric antibiotics Send cultures. Bronchodilators as needed. IV steroids IV fluid hydration GI prophylaxis-Protonix Prognosis: Guarded given multiple comorbidities. Rest of plan per hospitalist and other consultants. Thank you ROMAINE Milna for allowing me to participate in this patient's care. Further recommendations will depend on patient's clinical course. Please do not hesitate to contact me if you have any questions or concerns. This medical document was created using an electronic medical record system with [employer] dictation system. Although this document has been carefully reviewed, there may still be some phonetic and typographical errors. These areas are purely typographical due to imperfections of the software programs, and do not reflect any compromise in the patient's medical care. Plan discussed with: Other (CORINE Arzola, ROMAINE, Sister) LADONNA BALLESTEROS MD May 24, 2024 18:57
[2024-05-24 19:28] VITALS: PULSE 99; RESP 20; O2SAT 99
[2024-05-24 19:50] VITALS: O2SAT 95
--- NOTE | 2024-05-24 20:24 | ECG ---
[facility] Test Date: 2024-05-24 Test Time: 12:35:28 Pat Name: PATY CALHOUN Department: ER Room: 0215T Gender: F User Experience Architect: SHELLEY : 1975 Requested By: BRITTANI TRAN Order Number: [id number] Reading MD: Mustapha Daniels Measurements Intervals [place] Rate: 117 P: 77 W[place]: 148 QRS: 117 QRSD: 93 T: 33 QT: 326 QTc: 455 Interpretive Statements Sinus tachycardia Left posterior fascicular block Baseline wander in lead(s) V3,V4,V5,V6 Electronically Signed On 06-02-2024 12:55:59 PST by Mustapha Daniels Please click the below link to view image of tracing.
[2024-05-24] MEDS: levETIRAcetam 1000 mg/100ml 100 ML IV SCH (22:19)
[2024-05-24] MEDS: methylPREDNISolone SOD SUCC 40 MG/ML VL IV SCH (22:19)
[2024-05-25] MEDS: LORazepam 2MG/ML-1ML VIAL IV PRN (05:04)
[2024-05-25 05:20] VITALS: O2SAT 98
[2024-05-25 08:00] VITALS: PULSE 103; RESP 20; O2SAT 92
[2024-05-25 09:35] LABS: Basophils # (auto) 0 10 ^3/uL (0-0.2); Basophils % (auto) 0.1 % (0.0-2.0); Eosinophils # (auto) 0 10 ^3/uL (0-0.8); Monocytes # (auto) 0.6 10 ^3/uL (0-1.3)
[2024-05-25 09:37] LABS: Eosinophils % (auto) 0.3 % (0.0-7.0); Hematocrit 35.3 % (36.0-46.0); Hemoglobin 11.8 g/dL (12.2-16.2); Lymphocytes # (auto) 2.4 10 ^3/uL (0.4-5.4); Lymphocytes % (auto) 34.5 % (10.0-50.0); Mean Corpuscular Hemoglobin 36.2 pg (28.0-32.0); Mean Corpuscular Hgb Conc. 33.6 g/dL (32.0-36.0); Neutrophils % (auto) 57.1 % (37.0-80.0); Platelet Count (auto) 255 10^3/uL (140-450); Red Blood Cells 3.26 10^6/uL (4.0-5.20); Red Cell Distribution Width 13.1 % (11.8-14.3)
[2024-05-25 09:50] LABS: Alanine Aminotransferase 17 U/L (7-40); Albumin 3.7 g/dL (3.2-4.8); Alkaline Phosphatase 115 U/L (46-116); Anion Gap 8 (5-15); Aspartate Aminotransferase 12 U/L (13-40); BUN/Creatinine Ratio 44.1 (10.0-20.0); Blood Urea Nitrogen 15 mg/dL (9-23); Calcium 9.7 mg/dL (8.7-10.4); Carbon Dioxide 24 mmol/L (20-31); Chloride 115 mmol/L (98-107); Glucose 78 mg/dL (74-106); Potassium 3.6 mmol/L (3.5-5.1); Sodium 147 mmol/L (136-145)
[2024-05-25 09:51] LABS: Bilirubin, Total 0.2 mg/dL (0.2-1.0); Total Protein 6.3 g/dL (5.7-8.2)
[2024-05-25] MEDS: cefTRIAXone 1GM/50ML D5W 50 ML IV SCH (09:57)
[2024-05-25] MEDS: PANTOPRAZOLE 40 MG/10 ML VIAL INJ IV SCH (09:58)
--- NOTE | 2024-05-25 14:43 | DVHPN2 ---
Subjective Patient lethargic, aphasic Reviewed: Care Plan, H&P, Labs, Medications Changes from previous H/P or p: No Changes General: Per HPI Eyes: No Pain, No Vision change, No Conjunctivae inflammation, No Eyelid inflammation, No Other, No Redness ENT: No Ear pain, No Ear discharge, No Nose pain, No Nose discharge, No Nose congestion, No Mouth pain, No Mouth swelling, No Throat pain, No Throat swelling, No Other Cardiovascular: No Chest Pain, No Palpitations, No Orthopnea, No Paroxysmal Noc. Dyspnea, No Edema, No Lt Headedness, No Other Respiratory: No Cough, No Dry; Shortness of breath; No SOB with excertion, No Wheezing, No Hemoptysis, No Pleuritic Pain, No Sputum, No Other Gastrointestinal: No Nausea, No Vomiting, No Abdominal Pain, No Diarrhea, No Constipation, No Melena, No Hematochezia, No Other Genitourinary: No Dysuria, No Frequency, No Incontinence, No Hematuria, No Retention, No Other Musculoskeletal: No other, No neck pain, No shoulder pain, No arm pain, No back pain, No hand pain, No leg pain, No foot pain Skin: No Rash, No Lesions, No Jaundice, No Bruising, No Other Objective Vitals Vital Signs Date Time Temp Pulse Resp B/P (MAP) Pulse Ox O2 Delivery O2 Flow Rate FiO2 05/25/24 10:00 99 20 108/65 (79) 94 05/25/24 08:00 Nasal Cannula* 2 28 05/25/24 08:00 98.2 98.2 Intake/Output Intake and Output 05/25/24 07:00 Intake Total 2550 ml Balance 2550 ml Intake IV Total 2550 ml General Appearance: Alert, Oriented X3, Cooperative, No acute distress HEENT: Atraumatic, PERRLA Lungs: Clear to auscultation, Normal air movement Cardiovascular: Normal S1, Normal S2 Abdomen: Normal bowel sounds Musculoskeletal: Normal sensory function, Normal motor function Neuro: Normal gait, Normal speech Psych/Mental Status: Mental status NL, Mood NL Medications Current Medications Medications Dose Ordered Sig/Krysten Route Start Time Stop Time Status Last Admin Dose Admin Ceftriaxone Sodium 50 ml @ 100 mls/hr DAILY@09 IV 05/25/24 09:00 05/25/24 09:57 100 MLS/HR Methylprednisolone Sodium Succinate 40 mg BID IV 05/24/24 22:00 05/25/24 09:58 40 MG Albuterol 2.5 mg Q4HPRN PRN NEB 05/24/24 14:45 Ipratropium [place] 0.5 mg Q4HPRN PRN NEB 05/24/24 14:45 Lactated Ringer's 1,000 ml @ 75 mls/hr [id number] IV 05/24/24 14:45 05/25/24 04:13 75 MLS/HR Levetiracetam 100 ml @ 400 mls/hr BID IV 05/24/24 22:00 05/25/24 09:59 400 MLS/HR Lorazepam 0.5 mg Q8HP PRN IV 05/24/24 14:45 05/25/24 05:04 0.5 MG Acetaminophen/ Hydrocodone Bitart 1 tab Q4HP PRN PO 05/24/24 14:45 Ondansetron HCl 4 mg Q4HP PRN IV 05/24/24 14:45 Docusate Sodium 100 mg BIDPRN PRN PO 05/24/24 14:45 Acetaminophen 500 mg Q6HP PRN PO 05/24/24 14:45 Nitroglycerin 0.4 mg Q5MINP PRN SL 05/24/24 15:30 Morphine Sulfate 2 mg Q30M PRN IV 05/24/24 15:30 Pantoprazole Sodium 40 mg DAILY IV 05/25/24 10:00 05/25/24 09:58 40 MG Laboratory Results Laboratory Tests 05/25/24 09:28 Chemistry Test 05/25/24 09:28 Albumin 3.7 g/dL (3.2-4.8) Calcium Level 9.7 mg/dL (8.7-10.4) Total Protein 6.3 g/dL (5.7-8.2) LFT Test 05/25/24 09:28 Alanine Aminotransferase (ALT) 17 U/L (7-40) Alkaline Phosphatase 115 U/L (46-116) Aspartate Amino Transferase (AST) 12 U/L (13-40) L Total Bilirubin 0.2 mg/dL (0.2-1.0) Microbiology Microbiology Date/Time Source Procedure Growth Status 05/24/24 12:50 Blood Blood Culture - Preliminary Resulted Labs and/or images reviewed: Labs reviewed by me, Image(s) reviewed by me Assessment/Plan Assessment/Plan Impression: -sepsis -blood culture with Gram-positive cocci, history of MRSA of the wound -cerebral palsy -left shoulder dislocation -aphasia -seizure disorder -GERD -quadriplegia Plan: -thompson cultures -continue IV hydration -start Jevity at 30 mL/hour -pain management -continue Rocephin, add Zyvox -repeat labs in a.m. -PUD, DVT prophylaxis Total time spent with patient discussing and formulating plan of care: 35 minutes. This medical document was created using an electronic medical record system with [employer] dictation system. Although this document has been carefully reviewed, there may still be some phonetic and typographical errors. These areas are purely typographical due to imperfections of the software programs, and do not reflect any compromise in the patient's medical care. Plan discussed with: Patient, Other (RN) My Orders Orders - CHRISTINA PARRY NP Procedure Category Date Status Time Wound Culture W/ Gs TREY 05/25/24 Uncollected 14:36 Basic Metabolic Panel LAB 05/26/24 Verified 04:00 Complete Blood Count LAB 05/25/24 Verified 14:36 Nutritional PHA 05/25/24 Verified Supplements (Jevity 14:45 Linzeolid 600 Mg Ivpb PHA 05/25/24 Verified 22:00 Tramadol Hcl (Ultram) PHA 05/25/24 Verified 14:45 Date of Service: May 25, 2024 Billing Provider: CHRISTINA PARRY NP Common Visit Codes: [id number] INP/OBS CARE(HIGH) CHRISTINA PARRY NP May 25, 2024 14:43
[2024-05-25] MEDS ORDERED: traMADol HCL 50 MG TAB PO PRN (14:45)
[2024-05-25] MEDS ORDERED: Jevity 1.2 Cal/Fiber 1 Liter GT SCH (14:45)
[2024-05-25 15:11] LABS: Basophils # (auto) 0 10 ^3/uL (0-0.2); Eosinophils # (auto) 0 10 ^3/uL (0-0.8); Lymphocytes # (auto) 0.8 10 ^3/uL (0.4-5.4); Lymphocytes % (auto) 14.9 % (10.0-50.0); Monocytes # (auto) 0.1 10 ^3/uL (0-1.3)
[2024-05-25 15:13] LABS: Basophils % (auto) 0.2 % (0.0-2.0); Hematocrit 38.2 % (36.0-46.0); Mean Corpuscular Hemoglobin 37.1 pg (28.0-32.0); Mean Corpuscular Volume 109.2 fL (80.0-100.0); Monocytes % (auto) 2.3 % (0.0-12.0); Neutrophils # (auto) 4.5 10 ^3/uL (1.6-8.6); Neutrophils % (auto) 82.6 % (37.0-80.0); Nucleated Red Blood Cells % 0.1 %; Platelet Count (auto) 263 10^3/uL (140-450); Red Cell Distribution Width 12.7 % (11.8-14.3); White Blood Cell 5.4 10^3/uL (4.4-10.8)
[2024-05-25 17:58] VITALS: O2SAT 99
[2024-05-25 19:41] VITALS: PULSE 86; RESP 18; O2SAT 99
--- NOTE | 2024-05-25 20:03 | DVHPN2 ---
Progress Note - Dictate Date Seen: May 25, 2024 Medical Necessity Reason Pt with a Central, PICC or Fol: No Subjective Patient seen and examined at bedside. Remains on supplemental oxygen Overnight events reviewed. vital signs Vital Sign Date Time Temp Pulse Resp B/P (MAP) Pulse Ox O2 Delivery O2 Flow Rate FiO2 05/25/24 19:45 86 18 90/56 (67) 05/25/24 19:41 99 Nasal Cannula* 2 28 05/25/24 19:39 98.4 98.4 Total Intake and Output 05/24/24 05/24/24 05/25/24 15:00 23:00 07:00 Intake Total 1100 ml 525 ml 925 ml Balance 1100 ml 525 ml 925 ml medications Current Medications Medications Dose Ordered Sig/Krysten Route Start Time Stop Time Status Last Admin Dose Admin Ceftriaxone Sodium 50 ml @ 100 mls/hr DAILY@09 IV 05/25/24 09:00 05/25/24 09:57 100 MLS/HR Methylprednisolone Sodium Succinate 40 mg BID IV 05/24/24 22:00 05/25/24 09:58 40 MG Albuterol 2.5 mg Q4HPRN PRN NEB 05/24/24 14:45 Ipratropium [place] 0.5 mg Q4HPRN PRN NEB 05/24/24 14:45 Lactated Ringer's 1,000 ml @ 75 mls/hr [id number] IV 05/24/24 14:45 05/25/24 04:13 75 MLS/HR Levetiracetam 100 ml @ 400 mls/hr BID IV 05/24/24 22:00 05/25/24 09:59 400 MLS/HR Lorazepam 0.5 mg Q8HP PRN IV 05/24/24 14:45 05/25/24 18:41 0.5 MG Acetaminophen/ Hydrocodone Bitart 1 tab Q4HP PRN PO 05/24/24 14:45 Ondansetron HCl 4 mg Q4HP PRN IV 05/24/24 14:45 Docusate Sodium 100 mg BIDPRN PRN PO 05/24/24 14:45 Acetaminophen 500 mg Q6HP PRN PO 05/24/24 14:45 Nitroglycerin 0.4 mg Q5MINP PRN SL 05/24/24 15:30 Pantoprazole Sodium 40 mg DAILY IV 05/25/24 10:00 05/25/24 09:58 40 MG Enteral Nutritional Formula 1,000 ml 30ML/HR GT 05/25/24 14:45 Linezolid 300 ml @ 150 mls/hr Q12HR IV 05/25/24 22:00 Tramadol HCl 50 mg Q6HP PRN PO 05/25/24 14:45 Enoxaparin Sodium 30 mg DAILY SC 05/26/24 10:00 objective Gen.: Patient lying in bed in no apparent distress. On supplemental oxygen. Head: Normocephalic, atraumatic. Eyes: EOMI/PERRLA. Ears: Normal hearing. Normal anatomy. Neck/trachea: Trachea midline, supple. Nose: Normal external anatomy. Mouth: Moist mucous membranes. Chest: Decreased air entry bilaterally. No wheezing or rhonchi. Cardiovascular: Positive S1, positive S2. Regular rate and rhythm. Abdomen: Positive bowel sounds in all 4 quadrants. Soft, non-tender, non- distended. : Deferred. Rectal: Deferred. Skin: Warm, dry. Intact. Extremities: 2+ radial pulses bilaterally. No lower extremity edema. Neuro: Awake, alert, oriented x3. No gross motor or sensory deficits. Cranial nerves II through XII intact. Gait not assessed. laboratory and microbiology Laboratory Tests 05/25/24 14:54 05/25/24 09:28 Test 05/25/24 09:28 Range/Units Serum Glucose 78 74-106 mg/dL Assessment/Plan Impression: Acute hypoxic respiratory failure Fever Hypernatremia Functional quadriplegia Cerebral palsy Events: Pt with hypoxia, remains on supplemental O2 at 2 LPM NC Taper O2 as tolerated Blood culture positive - GPC in clusters. Aspiration pneumonia Continue antibiotics Continue steroids Anxiolytic. Labs and imaging reviewed. Rest of plan as noted below. Plan: CXR- No acute opacities. No pleural effusion. No Pneumothorax. Saturating well on 2 liters/minute via nasal cannula Keep O2 saturation above 92%. Head of bed elevation Aspiration precautions Antiepileptics Empiric antibiotics Send cultures. Bronchodilators as needed. IV steroids IV fluid hydration GI prophylaxis-Protonix Prognosis: Guarded given multiple comorbidities. Rest of plan per hospitalist and other consultants. Thank you ROMAINE Milan for allowing me to participate in this patient's care. Further recommendations will depend on patient's clinical course. Please do not hesitate to contact me if you have any questions or concerns. This medical document was created using an electronic medical record system with [employer] dictation system. Although this document has been carefully reviewed, there may still be some phonetic and typographical errors. These areas are purely typographical due to imperfections of the software programs, and do not reflect any compromise in the patient's medical care. Dietary Evaluation Review Comments: 1) Consider EN nutrition Jevity 1.2 @ 40 ml/hr x24 hours as tolerated 2) If pt remains NPO >7 days consider TPN to meet at least 75% of estimated needs 3) Continue current plan of care Expected Outcomes/Goals: 1) Pt to receive nutrition support within 7 days of NPO status 2) F/U in 2-3 days Plan discussed with: Patient, Other (RN Mary) LADONNA BALLESTEROS MD May 25, 2024 20:03
[2024-05-25] MEDS: LINEZOLID 600MG/300ML 300 ML IV SCH (22:17)
[2024-05-26] VITALS (10 sets, daily range): BP systolic 94–116; BP diastolic 52–62; PULSE 86–107; RESP 18–21; TEMP 97.5–98; O2SAT 96–100
[2024-05-26 07:05] LABS: Anion Gap 15 (5-15); Calcium 9.1 mg/dL (8.7-10.4); Carbon Dioxide 20 mmol/L (20-31); Chloride 109 mmol/L (98-107); Potassium 3.1 mmol/L (3.5-5.1); Sodium 144 mmol/L (136-145)
[2024-05-26 07:11] LABS: BUN/Creatinine Ratio 56.7 (10.0-20.0); Blood Urea Nitrogen 17 mg/dL (9-23); Glucose 53 mg/dL (74-106)
[2024-05-26] MEDS ORDERED: traMADol HCL 50 MG TAB GT PRN (09:15)
--- NOTE | 2024-05-26 09:41 | DVHPN2 ---
Subjective Patient more awake today. Responding to verbal stimuli. Aphasic. Reviewed: Care Plan, H&P, Labs, Medications Changes from previous H/P or p: No Changes General: Per HPI Eyes: No Pain, No Vision change, No Conjunctivae inflammation, No Eyelid inflammation, No Other, No Redness ENT: No Ear pain, No Ear discharge, No Nose pain, No Nose discharge, No Nose congestion, No Mouth pain, No Mouth swelling, No Throat pain, No Throat swelling, No Other Cardiovascular: No Chest Pain, No Palpitations, No Orthopnea, No Paroxysmal Noc. Dyspnea, No Edema, No Lt Headedness, No Other Respiratory: No Cough, No Dry; Shortness of breath; No SOB with excertion, No Wheezing, No Hemoptysis, No Pleuritic Pain, No Sputum, No Other Gastrointestinal: No Nausea, No Vomiting, No Abdominal Pain, No Diarrhea, No Constipation, No Melena, No Hematochezia, No Other Genitourinary: No Dysuria, No Frequency, No Incontinence, No Hematuria, No Retention, No Other Musculoskeletal: No other, No neck pain, No shoulder pain, No arm pain, No back pain, No hand pain, No leg pain, No foot pain Skin: No Rash, No Lesions, No Jaundice, No Bruising, No Other Objective Vitals Vital Signs Date Time Temp Pulse Resp B/P (MAP) Pulse Ox O2 Delivery O2 Flow Rate FiO2 05/26/24 08:59 97.6 107 20 96/60 (72) 100 97.6 05/26/24 00:43 Nasal Cannula* 2 28 Intake/Output Intake and Output 05/26/24 07:00 Intake Total 1525 ml Balance 1525 ml Intake Oral 0 ml IV Total 1525 ml # Voids 1 General Appearance: Alert, Oriented X3, Cooperative, No acute distress HEENT: Atraumatic, PERRLA Lungs: Clear to auscultation, Normal air movement Cardiovascular: Normal S1, Normal S2 Abdomen: Normal bowel sounds Musculoskeletal: Normal sensory function, Normal motor function Neuro: Normal gait, Normal speech Psych/Mental Status: Mental status NL, Mood NL Medications Current Medications Medications Dose Ordered Sig/Krysten Route Start Time Stop Time Status Last Admin Dose Admin Ceftriaxone Sodium 50 ml @ 100 mls/hr DAILY@09 IV 05/25/24 09:00 05/25/24 09:57 100 MLS/HR Methylprednisolone Sodium Succinate 40 mg BID IV 05/24/24 22:00 05/25/24 22:18 40 MG Albuterol 2.5 mg Q4HPRN PRN NEB 05/24/24 14:45 Ipratropium [place] 0.5 mg Q4HPRN PRN NEB 05/24/24 14:45 Levetiracetam 100 ml @ 400 mls/hr BID IV 05/24/24 22:00 05/25/24 22:17 400 MLS/HR Lorazepam 0.5 mg Q8HP PRN IV 05/24/24 14:45 05/26/24 06:49 0.5 MG Acetaminophen/ Hydrocodone Bitart 1 tab Q4HP PRN PO 05/24/24 14:45 Ondansetron HCl 4 mg Q4HP PRN IV 05/24/24 14:45 Docusate Sodium 100 mg BIDPRN PRN PO 05/24/24 14:45 Acetaminophen 500 mg Q6HP PRN PO 05/24/24 14:45 Nitroglycerin 0.4 mg Q5MINP PRN SL 05/24/24 15:30 Pantoprazole Sodium 40 mg DAILY IV 05/25/24 10:00 05/25/24 09:58 40 MG Enteral Nutritional Formula 1,000 ml 30ML/HR GT 05/25/24 14:45 Linezolid 300 ml @ 150 mls/hr Q12HR IV 05/25/24 22:00 05/25/24 22:17 150 MLS/HR Enoxaparin Sodium 30 mg DAILY SC 05/26/24 10:00 Tramadol HCl 50 mg Q6HP PRN GT 05/26/24 09:15 Laboratory Results Laboratory Tests 05/25/24 14:54 05/26/24 05:50 Chemistry Test 05/26/24 05:50 Calcium Level 9.1 mg/dL (8.7-10.4) Microbiology Microbiology Date/Time Source Procedure Growth Status 05/24/24 12:50 Blood Blood Culture - Preliminary Resulted Labs and/or images reviewed: Labs reviewed by me, Image(s) reviewed by me Assessment/Plan Assessment/Plan Impression: -sepsis -blood culture with Gram-positive cocci, history of MRSA of the wound -cerebral palsy -left shoulder dislocation -aphasia -seizure disorder -GERD -quadriplegia Plan: -thompson cultures: Preliminary reviewed. -stop IV fluids hemorrhage -Jevity at 30 mL/hour -pain management -continue Rocephin, and Zyvox -repeat labs in a.m. -PUD, DVT prophylaxis Total time spent with patient discussing and formulating plan of care: 35 minutes. This medical document was created using an electronic medical record system with [employer] dictation system. Although this document has been carefully reviewed, there may still be some phonetic and typographical errors. These areas are purely typographical due to imperfections of the software programs, and do not reflect any compromise in the patient's medical care. Plan discussed with: Patient, Other (rn) My Orders Orders - CHRISTINA PARRY NP Procedure Category Date Status Time Wound Culture W/ Gs TREY 05/25/24 Uncollected 14:36 Nutritional PHA 05/25/24 In Process Supplements (Jevity 14:45 Linezolid 600mg/300ml PHA 05/25/24 In Process (Zyvox) 22:00 Enoxaparin Sodium PHA 05/26/24 In Process (Lovenox) 10:00 Mrsa Screen TREY 05/26/24 In Process 08:25 Blood Culture TREY 05/26/24 Logged 09:11 Tramadol Hcl (Ultram) PHA 05/26/24 In Process 09:15 Date of Service: May 26, 2024 Billing Provider: CHRISTINA PARRY NP Common Visit Codes: [id number] INP/OBS CARE(HIGH) CHRISTINA PARRY NP May 26, 2024 09:41
[2024-05-26] MEDS: ENOXAPARIN SOD 30 MG/0.3 ML SYRINGE SC SCH (10:20)
[2024-05-26] MEDS: POTASSIUM EFFERVESENT TAB 25 MEQ GT ONE (10:31)
[2024-05-26] MEDS ORDERED: LORazepam 2MG/ML-1ML VIAL IV PRN (12:45)
--- NOTE | 2024-05-26 18:40 | DVHPN2 ---
Progress Note - Dictate Date Seen: May 26, 2024 Medical Necessity Reason Pt with a Central, PICC or Fol: No Subjective Patient seen and examined at bedside. Remains on supplemental oxygen Overnight events reviewed. vital signs Vital Sign Date Time Temp Pulse Resp B/P (MAP) Pulse Ox O2 Delivery O2 Flow Rate FiO2 05/26/24 18:34 99 Nasal Cannula* 2 28 05/26/24 17:16 97.6 101 21 116/59 (78) 97.6 Total Intake and Output 05/25/24 05/25/24 05/26/24 15:00 23:00 07:00 Intake Total 225 ml 1300 ml Balance 225 ml 1300 ml medications Current Medications Medications Dose Ordered Sig/Krysten Route Start Time Stop Time Status Last Admin Dose Admin Ceftriaxone Sodium 50 ml @ 100 mls/hr DAILY@09 IV 05/25/24 09:00 05/26/24 10:20 100 MLS/HR Methylprednisolone Sodium Succinate 40 mg BID IV 05/24/24 22:00 05/26/24 10:19 40 MG Albuterol 2.5 mg Q4HPRN PRN NEB 05/24/24 14:45 Ipratropium [place] 0.5 mg Q4HPRN PRN NEB 05/24/24 14:45 Levetiracetam 100 ml @ 400 mls/hr BID IV 05/24/24 22:00 05/26/24 12:34 400 MLS/HR Lorazepam 0.5 mg Q8HP PRN IV 05/24/24 14:45 05/26/24 10:31 0.5 MG Acetaminophen/ Hydrocodone Bitart 1 tab Q4HP PRN PO 05/24/24 14:45 Ondansetron HCl 4 mg Q4HP PRN IV 05/24/24 14:45 Docusate Sodium 100 mg BIDPRN PRN PO 05/24/24 14:45 Acetaminophen 500 mg Q6HP PRN PO 05/24/24 14:45 Nitroglycerin 0.4 mg Q5MINP PRN SL 05/24/24 15:30 Pantoprazole Sodium 40 mg DAILY IV 05/25/24 10:00 05/26/24 10:19 40 MG Enteral Nutritional Formula 1,000 ml 30ML/HR GT 05/25/24 14:45 Linezolid 300 ml @ 150 mls/hr Q12HR IV 05/25/24 22:00 05/26/24 12:34 150 MLS/HR Enoxaparin Sodium 30 mg DAILY SC 05/26/24 10:00 05/26/24 10:20 30 MG Tramadol HCl 50 mg Q6HP PRN GT 05/26/24 09:15 Lorazepam 1 mg Q5MINP PRN IV 05/26/24 12:45 objective Gen.: Patient lying in bed in no apparent distress. On supplemental oxygen. Head: Normocephalic, atraumatic. Eyes: EOMI/PERRLA. Ears: Normal hearing. Normal anatomy. Neck/trachea: Trachea midline, supple. Nose: Normal external anatomy. Mouth: Moist mucous membranes. Chest: Decreased air entry bilaterally. No wheezing or rhonchi. Cardiovascular: Positive S1, positive S2. Regular rate and rhythm. Abdomen: Positive bowel sounds in all 4 quadrants. Soft, non-tender, non- distended. : Deferred. Rectal: Deferred. Skin: Warm, dry. Intact. Extremities: 2+ radial pulses bilaterally. No lower extremity edema. Neuro: Awake, alert, oriented x3. No gross motor or sensory deficits. Cranial nerves II through XII intact. Gait not assessed. laboratory and microbiology Laboratory Tests 05/26/24 05:50 05/25/24 14:54 Test 05/26/24 05:50 Range/Units Serum Glucose 53 L 74-106 mg/dL Assessment/Plan Impression: Acute hypoxic respiratory failure Fever Hypernatremia Functional quadriplegia Cerebral palsy Events: Remains on supplemental O2 at 2 LPM NC Taper O2 as tolerated Blood culture positive - pus contaminant Continue antibiotics - linezolid and ceftriaxone Continue steroids Head of bed elevation Aspiration precautions. Anxiolytic. Labs and imaging reviewed. Rest of plan as noted below. Plan: CXR- No acute opacities. No pleural effusion. No Pneumothorax. Saturating well on 2 liters/minute via nasal cannula Keep O2 saturation above 92%. Head of bed elevation Aspiration precautions Antiepileptics Empiric antibiotics Send cultures. Bronchodilators as needed. IV steroids IV fluid hydration GI prophylaxis-Protonix Prognosis: Guarded given multiple comorbidities. Rest of plan per hospitalist and other consultants. Thank you ROMAINE Milan for allowing me to participate in this patient's care. Further recommendations will depend on patient's clinical course. Please do not hesitate to contact me if you have any questions or concerns. This medical document was created using an electronic medical record system with [employer] dictation system. Although this document has been carefully reviewed, there may still be some phonetic and typographical errors. These areas are purely typographical due to imperfections of the software programs, and do not reflect any compromise in the patient's medical care. Dietary Evaluation Review Comments: 1) Consider EN nutrition Jevity 1.2 @ 40 ml/hr x24 hours as tolerated 2) If pt remains NPO >7 days consider TPN to meet at least 75% of estimated needs 3) Continue current plan of care Expected Outcomes/Goals: 1) Pt to receive nutrition support within 7 days of NPO status 2) F/U in 2-3 days Plan discussed with: Patient, Other (RN Sean) LADONNA BALLESTEROS MD May 26, 2024 18:40
[2024-05-27] VITALS (10 sets, daily range): BP systolic 92–117; BP diastolic 57–77; PULSE 77–94; RESP 17–19; TEMP 97.4–99.7; O2SAT 97–100
--- NOTE | 2024-05-27 10:15 | DVHPN2 ---
Subjective Patient more awake today. Responding to verbal stimuli. Aphasic. Reviewed: Care Plan, H&P, Labs, Medications Changes from previous H/P or p: No Changes General: Per HPI Eyes: No Pain, No Vision change, No Conjunctivae inflammation, No Eyelid inflammation, No Other, No Redness ENT: No Ear pain, No Ear discharge, No Nose pain, No Nose discharge, No Nose congestion, No Mouth pain, No Mouth swelling, No Throat pain, No Throat swelling, No Other Cardiovascular: No Chest Pain, No Palpitations, No Orthopnea, No Paroxysmal Noc. Dyspnea, No Edema, No Lt Headedness, No Other Respiratory: No Cough, No Dry; Shortness of breath; No SOB with excertion, No Wheezing, No Hemoptysis, No Pleuritic Pain, No Sputum, No Other Gastrointestinal: No Nausea, No Vomiting, No Abdominal Pain, No Diarrhea, No Constipation, No Melena, No Hematochezia, No Other Genitourinary: No Dysuria, No Frequency, No Incontinence, No Hematuria, No Retention, No Other Musculoskeletal: No other, No neck pain, No shoulder pain, No arm pain, No back pain, No hand pain, No leg pain, No foot pain Skin: No Rash, No Lesions, No Jaundice, No Bruising, No Other Objective Vitals Vital Signs Date Time Temp Pulse Resp B/P (MAP) Pulse Ox O2 Delivery O2 Flow Rate FiO2 05/27/24 09:00 99.1 89 19 92/59 (70) 97 99.1 05/27/24 08:40 Room Air* 0 21 Intake/Output Intake and Output 05/27/24 07:00 Intake Total 900 ml Balance 900 ml Intake Oral 0 ml IV Total 900 ml # Voids 3 General Appearance: Alert, Oriented X3, Cooperative, No acute distress HEENT: Atraumatic, PERRLA Lungs: Clear to auscultation, Normal air movement Cardiovascular: Normal S1, Normal S2 Abdomen: Normal bowel sounds Musculoskeletal: Normal sensory function, Normal motor function Neuro: Normal gait, Normal speech Psych/Mental Status: Mental status NL, Mood NL Medications Current Medications Medications Dose Ordered Sig/Krysten Route Start Time Stop Time Status Last Admin Dose Admin Ceftriaxone Sodium 50 ml @ 100 mls/hr DAILY@09 IV 05/25/24 09:00 05/27/24 09:16 100 MLS/HR Methylprednisolone Sodium Succinate 40 mg BID IV 05/24/24 22:00 05/27/24 09:16 40 MG Albuterol 2.5 mg Q4HPRN PRN NEB 05/24/24 14:45 Ipratropium [place] 0.5 mg Q4HPRN PRN NEB 05/24/24 14:45 Levetiracetam 100 ml @ 400 mls/hr BID IV 05/24/24 22:00 05/26/24 22:34 400 MLS/HR Lorazepam 0.5 mg Q8HP PRN IV 05/24/24 14:45 05/27/24 02:47 0.5 MG Acetaminophen/ Hydrocodone Bitart 1 tab Q4HP PRN PO 05/24/24 14:45 Ondansetron HCl 4 mg Q4HP PRN IV 05/24/24 14:45 Docusate Sodium 100 mg BIDPRN PRN PO 05/24/24 14:45 Acetaminophen 500 mg Q6HP PRN PO 05/24/24 14:45 Nitroglycerin 0.4 mg Q5MINP PRN SL 05/24/24 15:30 Pantoprazole Sodium 40 mg DAILY IV 05/25/24 10:00 05/27/24 09:17 40 MG Enteral Nutritional Formula 1,000 ml 30ML/HR GT 05/25/24 14:45 Linezolid 300 ml @ 150 mls/hr Q12HR IV 05/25/24 22:00 05/26/24 22:33 150 MLS/HR Enoxaparin Sodium 30 mg DAILY SC 05/26/24 10:00 05/27/24 09:17 30 MG Tramadol HCl 50 mg Q6HP PRN GT 05/26/24 09:15 Lorazepam 1 mg Q5MINP PRN IV 05/26/24 12:45 Laboratory Results Laboratory Tests 05/25/24 14:54 05/26/24 05:50 Microbiology Microbiology Date/Time Source Procedure Growth Status 05/24/24 12:50 Blood Blood Culture - Preliminary Resulted Labs and/or images reviewed: Labs reviewed by me, Image(s) reviewed by me Assessment/Plan Assessment/Plan Impression: -sepsis -blood culture with Gram-positive cocci, history of MRSA of the wound -cerebral palsy -left shoulder dislocation -aphasia -seizure disorder -GERD -quadriplegia Plan: Events: No events overnight. Patient without seizure activity. Afebrile. Leukocytosis improved. Repeat blood culture pending -thompson cultures: Preliminary reviewed. -Jevity at 30 mL/hour -pain management -continue Rocephin, and Zyvox -repeat labs in a.m. -PUD, DVT prophylaxis Total time spent with patient discussing and formulating plan of care: 35 minutes. This medical document was created using an electronic medical record system with [employer] dictation system. Although this document has been carefully reviewed, there may still be some phonetic and typographical errors. These areas are purely typographical due to imperfections of the software programs, and do not reflect any compromise in the patient's medical care. Plan discussed with: Patient, Other (RN) My Orders Orders - CHRISTINA PARRY NP Procedure Category Date Status Time Lorazepam 2mg/Ml Inj PHA 05/26/24 In Process (Ativan Inj) 12:45 Apply Z-Guard TIFFANY 05/26/24 In Process 10:20 Basic Metabolic Panel LAB 05/27/24 Logged 08:56 Complete Blood Count LAB 05/27/24 Logged 08:56 Date of Service: May 27, 2024 Billing Provider: CHRISTINA PARRY NP Common Visit Codes: [id number] INP/OBS CARE(HIGH) CHRISTINA PARRY NP May 27, 2024 10:15
[2024-05-27 11:21] LABS: Chloride 105 mmol/L (98-107); Potassium 4.5 mmol/L (3.5-5.1); Sodium 137 mmol/L (136-145)
[2024-05-27 11:22] LABS: Anion Gap 8 (5-15); Carbon Dioxide 24 mmol/L (20-31)
[2024-05-27 11:23] LABS: Calcium 9.1 mg/dL (8.7-10.4)
[2024-05-27 11:28] LABS: BUN/Creatinine Ratio 25.8 (10.0-20.0); Blood Urea Nitrogen 8 mg/dL (9-23); Glucose 113 mg/dL (74-106)
[2024-05-27 13:03] LABS: Basophils # (auto) 0 10 ^3/uL (0-0.2); Eosinophils # (auto) 0 10 ^3/uL (0-0.8); Hemoglobin 12.2 g/dL (12.2-16.2); Monocytes # (auto) 0.1 10 ^3/uL (0-1.3); Neutrophils # (auto) 2.7 10 ^3/uL (1.6-8.6); Nucleated Red Blood Cells % 0.2 %; Red Blood Cells 3.35 10^6/uL (4.0-5.20)
[2024-05-27 13:04] LABS: Eosinophils % (auto) 0.2 % (0.0-7.0); Hematocrit 35.3 % (36.0-46.0); Lymphocytes # (auto) 0.6 10 ^3/uL (0.4-5.4); Lymphocytes % (auto) 16.6 % (10.0-50.0); Mean Corpuscular Hemoglobin 36.6 pg (28.0-32.0); Mean Corpuscular Hgb Conc. 34.6 g/dL (32.0-36.0); Mean Corpuscular Volume 105.6 fL (80.0-100.0); Monocytes % (auto) 3.8 % (0.0-12.0); Neutrophils % (auto) 79.4 % (37.0-80.0); Platelet Count (auto) 285 10^3/uL (140-450); Red Cell Distribution Width 12.2 % (11.8-14.3); White Blood Cell 3.3 10^3/uL (4.4-10.8)
--- NOTE | 2024-05-27 18:45 | DVHPN2 ---
Progress Note - Dictate Date Seen: May 27, 2024 Medical Necessity Reason Pt with a Central, PICC or Fol: No Subjective Patient seen and examined at bedside. Off supplemental oxygen, breathing comfortably on room air. Overnight events reviewed. vital signs Vital Sign Date Time Temp Pulse Resp B/P (MAP) Pulse Ox O2 Delivery O2 Flow Rate FiO2 05/27/24 17:00 98.6 86 19 116/69 (85) 97 98.6 05/27/24 08:40 Room Air* 0 21 Total Intake and Output 05/26/24 05/26/24 05/27/24 15:00 23:00 07:00 Intake Total 500 ml 0 ml 400 ml Balance 500 ml 0 ml 400 ml medications Current Medications Medications Dose Ordered Sig/Krysten Route Start Time Stop Time Status Last Admin Dose Admin Ceftriaxone Sodium 50 ml @ 100 mls/hr DAILY@09 IV 05/25/24 09:00 05/27/24 09:16 100 MLS/HR Methylprednisolone Sodium Succinate 40 mg BID IV 05/24/24 22:00 05/27/24 09:16 40 MG Levetiracetam 100 ml @ 400 mls/hr BID IV 05/24/24 22:00 05/27/24 11:49 400 MLS/HR Lorazepam 0.5 mg Q8HP PRN IV 05/24/24 14:45 05/27/24 02:47 0.5 MG Acetaminophen/ Hydrocodone Bitart 1 tab Q4HP PRN PO 05/24/24 14:45 Ondansetron HCl 4 mg Q4HP PRN IV 05/24/24 14:45 Docusate Sodium 100 mg BIDPRN PRN PO 05/24/24 14:45 Acetaminophen 500 mg Q6HP PRN PO 05/24/24 14:45 Nitroglycerin 0.4 mg Q5MINP PRN SL 05/24/24 15:30 Pantoprazole Sodium 40 mg DAILY IV 05/25/24 10:00 05/27/24 09:17 40 MG Enteral Nutritional Formula 1,000 ml 30ML/HR GT 05/25/24 14:45 Linezolid 300 ml @ 150 mls/hr Q12HR IV 05/25/24 22:00 05/27/24 12:00 150 MLS/HR Enoxaparin Sodium 30 mg DAILY SC 05/26/24 10:00 05/27/24 09:17 30 MG Tramadol HCl 50 mg Q6HP PRN GT 05/26/24 09:15 Lorazepam 1 mg Q5MINP PRN IV 05/26/24 12:45 objective Gen.: Patient lying in bed in no apparent distress. Breathing on room air. Head: Normocephalic, atraumatic. Eyes: EOMI/PERRLA. Ears: Normal hearing. Normal anatomy. Neck/trachea: Trachea midline, supple. Nose: Normal external anatomy. Mouth: Moist mucous membranes. Chest: Decreased air entry bilaterally. No wheezing or rhonchi. Cardiovascular: Positive S1, positive S2. Regular rate and rhythm. Abdomen: Positive bowel sounds in all 4 quadrants. Soft, non-tender, non- distended. : Deferred. Rectal: Deferred. Skin: Warm, dry. Intact. Extremities: 2+ radial pulses bilaterally. No lower extremity edema. Neuro: Awake, alert, oriented x3. No gross motor or sensory deficits. Cranial nerves II through XII intact. Gait not assessed. laboratory and microbiology Laboratory Tests 05/27/24 12:30 05/27/24 10:53 Test 05/27/24 10:53 Range/Units Serum Glucose 113 H 74-106 mg/dL Assessment/Plan Impression: Acute hypoxic respiratory failure Fever Hypernatremia Functional quadriplegia Cerebral palsy Events: Currently off supplemental O2 - breathing on room air. Sats maintained. Continue antibiotics - linezolid and ceftriaxone Continue steroids Head of bed elevation Aspiration precautions. Tube feeds for nutritional support Anxiolytic. Disposition per hospitalist. Labs and imaging reviewed. Rest of plan as noted below. Plan: CXR- No acute opacities. No pleural effusion. No Pneumothorax. Supplemental oxygen PRN Keep O2 saturation above 92%. Head of bed elevation Aspiration precautions Antiepileptics Empiric antibiotics Send cultures. Bronchodilators as needed. IV steroids IV fluid hydration GI prophylaxis-Protonix Prognosis: Guarded given multiple comorbidities. Rest of plan per hospitalist and other consultants. Thank you ROMAINE Milan for allowing me to participate in this patient's care. Further recommendations will depend on patient's clinical course. Please do not hesitate to contact me if you have any questions or concerns. This medical document was created using an electronic medical record system with [employer] system. Although this document has been carefully reviewed, there may still be some phonetic and typographical errors. These areas are purely typographical due to imperfections of the software programs, and do not reflect any compromise in the patient's medical care. Dietary Evaluation Review Comments: 1) Consider EN nutrition Jevity 1.2 @ 40 ml/hr x24 hours as tolerated 2) If pt remains NPO >7 days consider TPN to meet at least 75% of estimated needs 3) Continue current plan of care Expected Outcomes/Goals: 1) Pt to receive nutrition support within 7 days of NPO status 2) F/U in 2-3 days Plan discussed with: Patient, Other (CORINE Mccauley) LADONNA BALLESTEROS MD May 27, 2024 18:45
[2024-05-28] VITALS (8 sets, daily range): BP systolic 101–135; BP diastolic 54–76; PULSE 73–89; RESP 16–19; TEMP 97.4–98.4; O2SAT 95–99
--- NOTE | 2024-05-28 15:25 | DVHPN2 ---
Subjective Patient more awake today. Responding to verbal stimuli. Aphasic. Reviewed: Care Plan, H&P, Labs, Medications Changes from previous H/P or p: No Changes General: Per HPI Eyes: No Pain, No Vision change, No Conjunctivae inflammation, No Eyelid inflammation, No Other, No Redness ENT: No Ear pain, No Ear discharge, No Nose pain, No Nose discharge, No Nose congestion, No Mouth pain, No Mouth swelling, No Throat pain, No Throat swelling, No Other Cardiovascular: No Chest Pain, No Palpitations, No Orthopnea, No Paroxysmal Noc. Dyspnea, No Edema, No Lt Headedness, No Other Respiratory: No Cough, No Dry; Shortness of breath; No SOB with excertion, No Wheezing, No Hemoptysis, No Pleuritic Pain, No Sputum, No Other Gastrointestinal: No Nausea, No Vomiting, No Abdominal Pain, No Diarrhea, No Constipation, No Melena, No Hematochezia, No Other Genitourinary: No Dysuria, No Frequency, No Incontinence, No Hematuria, No Retention, No Other Musculoskeletal: No other, No neck pain, No shoulder pain, No arm pain, No back pain, No hand pain, No leg pain, No foot pain Skin: No Rash, No Lesions, No Jaundice, No Bruising, No Other Objective Vitals Vital Signs Date Time Temp Pulse Resp B/P (MAP) Pulse Ox O2 Delivery O2 Flow Rate FiO2 05/28/24 12:30 98.4 77 17 104/66 (79) 96 98.4 05/27/24 08:40 Room Air* 0 21 Intake/Output Intake and Output 05/28/24 07:00 Intake Total 1210 ml Balance 1210 ml IV Total 850 ml Tube Feeding 360 ml # Voids 6 # Bowel Movements 3 General Appearance: Alert, Oriented X3, Cooperative, No acute distress HEENT: Atraumatic, PERRLA Lungs: Clear to auscultation, Normal air movement Cardiovascular: Normal S1, Normal S2 Abdomen: Normal bowel sounds Musculoskeletal: Normal sensory function, Normal motor function Neuro: Normal gait, Normal speech Psych/Mental Status: Mental status NL, Mood NL Medications Current Medications Medications Dose Ordered Sig/Krysten Route Start Time Stop Time Status Last Admin Dose Admin Ceftriaxone Sodium 50 ml @ 100 mls/hr DAILY@09 IV 05/25/24 09:00 05/28/24 08:44 100 MLS/HR Methylprednisolone Sodium Succinate 40 mg BID IV 05/24/24 22:00 05/28/24 11:50 40 MG Levetiracetam 100 ml @ 400 mls/hr BID IV 05/24/24 22:00 05/28/24 10:30 400 MLS/HR Lorazepam 0.5 mg Q8HP PRN IV 05/24/24 14:45 05/27/24 02:47 0.5 MG Acetaminophen/ Hydrocodone Bitart 1 tab Q4HP PRN PO 05/24/24 14:45 Ondansetron HCl 4 mg Q4HP PRN IV 05/24/24 14:45 Docusate Sodium 100 mg BIDPRN PRN PO 05/24/24 14:45 Acetaminophen 500 mg Q6HP PRN PO 05/24/24 14:45 Nitroglycerin 0.4 mg Q5MINP PRN SL 05/24/24 15:30 Pantoprazole Sodium 40 mg DAILY IV 05/25/24 10:00 05/28/24 11:51 40 MG Enteral Nutritional Formula 1,000 ml 30ML/HR GT 05/25/24 14:45 Linezolid 300 ml @ 150 mls/hr Q12HR IV 05/25/24 22:00 05/28/24 10:29 150 MLS/HR Enoxaparin Sodium 30 mg DAILY SC 05/26/24 10:00 05/28/24 11:51 30 MG Tramadol HCl 50 mg Q6HP PRN GT 05/26/24 09:15 Lorazepam 1 mg Q5MINP PRN IV 05/26/24 12:45 Laboratory Results Laboratory Tests 05/27/24 10:53 05/27/24 12:30 Microbiology Microbiology Date/Time Source Procedure Growth Status 05/26/24 19:04 Blood Blood Culture - Preliminary NO GROWTH AFTER 24 HOURS OF INCUBATION. Resulted 05/26/24 05:00 Nose MRSA Screen - Final Complete Labs and/or images reviewed: Labs reviewed by me, Image(s) reviewed by me Assessment/Plan Assessment/Plan Impression: -sepsis -blood culture with Gram-positive cocci, history of MRSA of the wound -cerebral palsy -left shoulder dislocation -aphasia -seizure disorder -GERD -quadriplegia Plan: Events: Primary nurse reports that G-tube is clogged despite nursing interventions. -start LR at 50 mL/hour -GI consultation for G-tube replacement -thompson cultures: Preliminary reviewed. -pain management -continue Rocephin, and Zyvox. Repeat blood culture negative after 24 hours. -repeat labs in a.m. -PUD, DVT prophylaxis Total time spent with patient discussing and formulating plan of care: 35 minutes. This medical document was created using an electronic medical record system with [employer] dictation system. Although this document has been carefully reviewed, there may still be some phonetic and typographical errors. These areas are purely typographical due to imperfections of the software programs, and do not reflect any compromise in the patient's medical care. Plan discussed with: Patient, Other (RN) My Orders Orders - CHRISTINA PARRY NP Procedure Category Date Status Time * Gi D[facility] [place] [facility] CONS 05/28/24 Transmitted 15:20 Morphine Sulfate PHA 05/28/24 Transmitted Injection 15:30 Lactated Ringers Lr PHA 05/28/24 Transmitted 15:30 Date of Service: May 28, 2024 Billing Provider: CHRISTINA PARRY NP Common Visit Codes: [id number] INP/OBS CARE(HIGH) CHRISTINA PARRY NP May 28, 2024 15:25
[2024-05-28] MEDS ORDERED: MORPHINE SULFATE INJ 2 MG/ml SYRG IV PRN (15:30)
[2024-05-28] MEDS: LACTATED RINGER'S 1,000 ML IV SCH (15:30)
--- NOTE | 2024-05-28 21:53 | DVHPN2 ---
Progress Note - Dictate Date Seen: May 28, 2024 Medical Necessity Reason Pt with a Central, PICC or Fol: No Subjective Patient seen and examined at bedside. Breathing comfortably on room air. Overnight events reviewed. vital signs Vital Sign Date Time Temp Pulse Resp B/P (MAP) Pulse Ox O2 Delivery O2 Flow Rate FiO2 05/28/24 17:00 98.1 79 18 101/64 (76) 97 98.1 05/27/24 08:40 Room Air* 0 21 Total Intake and Output 05/27/24 05/27/24 05/28/24 15:00 23:00 07:00 Intake Total 450 ml 100 ml 660 ml Balance 450 ml 100 ml 660 ml medications Current Medications Medications Dose Ordered Sig/Krysten Route Start Time Stop Time Status Last Admin Dose Admin Ceftriaxone Sodium 50 ml @ 100 mls/hr DAILY@09 IV 05/25/24 09:00 05/28/24 08:44 100 MLS/HR Levetiracetam 100 ml @ 400 mls/hr BID IV 05/24/24 22:00 05/28/24 21:37 400 MLS/HR Lorazepam 0.5 mg Q8HP PRN IV 05/24/24 14:45 05/27/24 02:47 0.5 MG Acetaminophen/ Hydrocodone Bitart 1 tab Q4HP PRN PO 05/24/24 14:45 Ondansetron HCl 4 mg Q4HP PRN IV 05/24/24 14:45 Docusate Sodium 100 mg BIDPRN PRN PO 05/24/24 14:45 Acetaminophen 500 mg Q6HP PRN PO 05/24/24 14:45 Nitroglycerin 0.4 mg Q5MINP PRN SL 05/24/24 15:30 Pantoprazole Sodium 40 mg DAILY IV 05/25/24 10:00 05/28/24 11:51 40 MG Enteral Nutritional Formula 1,000 ml 30ML/HR GT 05/25/24 14:45 Linezolid 300 ml @ 150 mls/hr Q12HR IV 05/25/24 22:00 05/28/24 21:37 150 MLS/HR Enoxaparin Sodium 30 mg DAILY SC 05/26/24 10:00 05/28/24 11:51 30 MG Tramadol HCl 50 mg Q6HP PRN GT 05/26/24 09:15 Lorazepam 1 mg Q5MINP PRN IV 05/26/24 12:45 Morphine Sulfate 1 mg Q4HP PRN IV 05/28/24 15:30 Lactated Ringer's 1,000 ml @ 50 mls/hr Q20H IV 05/28/24 15:30 05/28/24 15:30 50 MLS/HR objective Gen.: Patient lying in bed in no apparent distress. Breathing on room air. Head: Normocephalic, atraumatic. Eyes: EOMI/PERRLA. Ears: Normal hearing. Normal anatomy. Neck/trachea: Trachea midline, supple. Nose: Normal external anatomy. Mouth: Moist mucous membranes. Chest: Decreased air entry bilaterally. No wheezing or rhonchi. Cardiovascular: Positive S1, positive S2. Regular rate and rhythm. Abdomen: Positive bowel sounds in all 4 quadrants. Soft, non-tender, non- distended. : Deferred. Rectal: Deferred. Skin: Warm, dry. Intact. Extremities: 2+ radial pulses bilaterally. No lower extremity edema. Neuro: Awake, alert, oriented x3. No gross motor or sensory deficits. Cranial nerves II through XII intact. Gait not assessed. laboratory and microbiology Laboratory Tests 05/27/24 12:30 05/27/24 10:53 Test 05/27/24 10:53 Range/Units Serum Glucose 113 H 74-106 mg/dL Assessment/Plan Impression: Acute hypoxic respiratory failure Fever Hypernatremia Functional quadriplegia Cerebral palsy Events: Breathing on room air. No respiratory distress. Continue antibiotics - linezolid and ceftriaxone Continue steroids Follow up cultures Head of bed elevation Aspiration precautions. Tube feeds for nutritional support Anxiolytic. Disposition per hospitalist. Labs and imaging reviewed. Rest of plan as noted below. Plan: CXR- No acute opacities. No pleural effusion. No Pneumothorax. Supplemental oxygen PRN Keep O2 saturation above 92%. Head of bed elevation Aspiration precautions Antiepileptics Empiric antibiotics Send cultures. Bronchodilators as needed. IV steroids IV fluid hydration GI prophylaxis-Protonix Prognosis: Guarded given multiple comorbidities. Rest of plan per hospitalist and other consultants. Thank you ROMAINE Milan for allowing me to participate in this patient's care. Further recommendations will depend on patient's clinical course. Please do not hesitate to contact me if you have any questions or concerns. This medical document was created using an electronic medical record system with [employer] dictation system. Although this document has been carefully reviewed, there may still be some phonetic and typographical errors. These areas are purely typographical due to imperfections of the software programs, and do not reflect any compromise in the patient's medical care. Dietary Evaluation Review Comments: 1) Consider EN nutrition Jevity 1.2 @ 40 ml/hr x24 hours as tolerated 2) If pt remains NPO >7 days consider TPN to meet at least 75% of estimated needs 3) Continue current plan of care Expected Outcomes/Goals: 1) Pt to receive nutrition support within 7 days of NPO status 2) F/U in 2-3 days Plan discussed with: Patient, Other (CORINE Montanez) LADONNA BALLESTEROS MD May 28, 2024 21:52
--- NOTE | 2024-05-28 22:22 | DVHINCON2 ---
Date of service: May 28, 2024 Referring Physician Matteo Mendiola Reason for Consultation Malfunction of G-tube History of Present Illness 40-year-old woman history of cerebral palsy, seizure disorder, VSD, quadriplegia, GERD who presented due to hypoxia and shortness of breath. At home per caregiver she was found to have a pulse oximetry reading of 78%. She had bluish lips per family member. She was initiated on supplemental oxygen. EMS was called. She has a recent admission due to sepsis. Was called patient's G-tube was clogged and malfunctioning she had similar issues with the G-tube during the last admission which was taken care by Dr. Iam Loza at bedside Allergies: Coded Allergies: Vancomycin (Verified Adverse Reaction, Unknown, 05/01/24) fever, sweating, erythema from vanco infusion Home Meds Active Scripts Carbamazepine (Carbamazepine Er) 400 Mg Tab, 600 MG PO BID for 30 Days, #60 TAB Prov:MARY FLOWERS RESIDENT 05/11/24 Levetiracetam (Keppra) 1,000 Mg Tab, 1 TAB PO BID for 30 Days, #60 TAB 5 Refills Prov:MARY FLOWERS RESIDENT 05/11/24 Bisacodyl (Ex-Lax Ultra) 5 Mg Tab, 5 MG PO DAILY PRN, #60 TAB 2 Refills Take 2 tablets (10 mg) via G tube Daily Prov:JOHN BENAVIDEZ MD 03/26/24 Carbamazepine (CARBAMAZEPINE ER) 300 Mg Cap, 300 MG PO BID PRN, #120 CAP 2 Refills Take 2 capsules (600 mg) BID (morning and night) via G tube Prov:JOHN BENVAIDEZ MD 03/26/24 Esomeprazole Magnesium (Esomeprazole Magnesium) 40 Mg Cap, 40 MG PO DAILY, #30 CAP 3 Refills Take 1 capsule via G tube every afternoon (3pm) Prov:JOHN BENAVIDEZ MD 03/26/24 Lorazepam (Ativan) 0.5 Mg Tab, 0.5 MG PO BID for 30 Days, #60 TAB Prov:LONG PALACIOS MD 02/27/24 Cefdinir (Cefdinir) 300 Mg Cap, 1 CAP PO BID for 7 Days, #14 CAP Prov:LONG PALACIOS MD 02/27/24 Reported Medications Tramadol Hcl (Tramadol Hcl) 50 Mg Tab, 50 MG PO Q8HP PRN for PAIN SCALE 1 THRU 6, MG 01/30/24 Levetiracetam (Levetiracetam) 100 Mg/Ml Estela, 100 MG PO, ML 01/30/24 Esomeprazole Magnesium Trihydr (Nexium) 40 Mg Cap, 40 MG PO, CAP 01/30/24 Carbamazepine (Carbamazepine Er) 200 Mg Tab, 200 MG PO, TAB 01/30/24 Folic Acid (Folic Acid) 1 Mg Tab, 1 MG PO DAILY for 30 Days, MG 01/30/24 Current Medications Current Medications Medications (Trade) Dose Ordered Sig/Krysten Route PRN Reason Start Time Stop Time Status Last Admin Morphine Sulfate 1 mg Q4HP PRN IV SEVERE PAIN (7-10 PAIN SCALE) 05/28/24 15:30 Lactated Ringer's 1,000 ml @ 50 mls/hr Q20H IV 05/28/24 15:30 05/28/24 15:30 Vital Signs Vital Signs Date Time Temp Pulse Resp B/P (MAP) Pulse Ox O2 Delivery O2 Flow Rate FiO2 05/28/24 17:00 98.1 79 18 101/64 (76) 97 98.1 05/27/24 08:40 Room Air* 0 21 Physical Exam Gen.: Patient lying in bed in no apparent distress. On supplemental oxygen.cerebral palsy Head: Normocephalic, atraumatic Eyes: EOMI/PERRLA.. Chest: Decreased air entry bilaterally. No wheezing or rhonchi. Cardio vascular: Positive S1, positive S2. Regular rate and rhythm. Abdomen: Positive bowel sounds in all 4 quadrants. Soft, non-tender, non- distended.; G-tube site clean Extremities with contractures Labs/Diagnostic Data Labs Test 05/27/24 12:30 05/27/24 10:53 05/26/24 12:49 05/25/24 09:28 Range/Units White Blood Count 3.3 #L 4.4-10.8 10^3/uL Red Blood Count 3.35 L 4.0-5.20 10^6/uL Hemoglobin 12.2 12.2-16.2 g/dL Hematocrit 35.3 L 36.0-46.0 % Mean Corpuscular Volume 105.6 H 80.0-100.0 fL Mean Corpuscular Hemoglobin 36.6 H 28.0-32.0 pg Mean Corpuscular Hemoglobin Concent 34.6 32.0-36.0 g/dL Red Cell Distribution Width 12.2 11.8-14.3 % Platelet Count 285 140-450 10^3/uL Mean Platelet Volume 7.3 6.9-10.8 fL Neutrophils (%) (Auto) 79.4 37.0-80.0 % Lymphocytes (%) (Auto) 16.6 10.0-50.0 % Monocytes (%) (Auto) 3.8 0.0-12.0 % Eosinophils (%) (Auto) 0.2 0.0-7.0 % Basophils (%) (Auto) 0.0 0.0-2.0 % Neutrophils # (Auto) 2.7 1.6-8.6 10 ^3/uL Lymphocytes # (Auto) 0.6 0.4-5.4 10 ^3/uL Monocytes # (Auto) 0.1 0-1.3 10 ^3/uL Eosinophils # (Auto) 0 0-0.8 10 ^3/uL Basophils # (Auto) 0 0-0.2 10 ^3/uL Nucleated Red Blood Cells 0.2 % Sodium Level 137 # 136-145 mmol/L Potassium Level 4.5 3.5-5.1 mmol/L Chloride Level 105 98-107 mmol/L Carbon Dioxide Level 24 20-31 mmol/L Anion Gap 8 5-15 Blood Urea Nitrogen 8 L 9-23 mg/dL Creatinine 0.31 L 0.550-1.02 mg/dL Glomerular Filtration Rate Calc 130 >90 mL/min BUN/Creatinine Ratio 25.8 H 10.0-20.0 Serum Glucose 113 H 74-106 mg/dL Calcium Level 9.1 8.7-10.4 mg/dL POC Glucose 107 H 70-106 mg/dl Total Bilirubin 0.2 0.2-1.0 mg/dL Aspartate Amino Transferase (AST) 12 L 13-40 U/L Alanine Aminotransferase (ALT) 17 7-40 U/L Alkaline Phosphatase 115 46-116 U/L Total Protein 6.3 5.7-8.2 g/dL Albumin 3.7 3.2-4.8 g/dL Test 05/24/24 16:23 05/24/24 16:10 05/24/24 16:08 05/24/24 12:50 Range/Units SARS-CoV-2 Antigen (Rapid) Negative NEGATIVE Troponin I High Sensitivity < 3 L </=34 ng/L Lactic Acid Level 1.0 0.4-2.0 mmol/L Magnesium Level 2.3 1.6-2.6 mg/dL B-Type Natriuretic Peptide 3.41 0-100 pg/mL Beta HCG, Quantitative 0.4 L 1.5-4.2 mIU/mL Microbiology Date/Time Source Procedure Growth Status 05/26/24 19:04 Blood Blood Culture - Preliminary NO GROWTH AFTER 48 HOURS OF INCUBATION. Resulted 05/26/24 05:00 Nose MRSA Screen - Final Complete CXR IMPRESSION: 1. No evidence of acute disease in the chest. 2. Left shoulder dislocation, unchanged compared to multiple prior exams. 3. Nonacute findings as described above. Problems(with codes): (1) Malfunction of gastrostomy tube (2) Generalized weakness (3) Acute respiratory distress (4) Hypoxemia Plan/Recommendation Plan Continue supportive care for now Replace or clog PEG tube at bedside I will follow Plan discussed with: Other (None) ROMA LOZA MD May 28, 2024 22:22
[2024-05-29] VITALS (8 sets, daily range): BP systolic 104–118; BP diastolic 55–69; PULSE 92–106; RESP 16–20; TEMP 96.9–98.9; O2SAT 83–100
[2024-05-29 09:21] LABS: INR 1.18 (0.9-1.15); Partial Thromboplastin Time 21.6 SEC (24.5-34.5); Prothrombin Time 12.4 sec (9.3-11.8)
--- NOTE | 2024-05-29 10:09 | DVHPN2 ---
Subjective Patient more awake today. Responding to verbal stimuli. Aphasic. Reviewed: Care Plan, H&P, Labs, Medications Changes from previous H/P or p: No Changes General: Per HPI Eyes: No Pain, No Vision change, No Conjunctivae inflammation, No Eyelid inflammation, No Other, No Redness ENT: No Ear pain, No Ear discharge, No Nose pain, No Nose discharge, No Nose congestion, No Mouth pain, No Mouth swelling, No Throat pain, No Throat swelling, No Other Cardiovascular: No Chest Pain, No Palpitations, No Orthopnea, No Paroxysmal Noc. Dyspnea, No Edema, No Lt Headedness, No Other Respiratory: No Cough, No Dry; Shortness of breath; No SOB with excertion, No Wheezing, No Hemoptysis, No Pleuritic Pain, No Sputum, No Other Gastrointestinal: No Nausea, No Vomiting, No Abdominal Pain, No Diarrhea, No Constipation, No Melena, No Hematochezia, No Other Genitourinary: No Dysuria, No Frequency, No Incontinence, No Hematuria, No Retention, No Other Musculoskeletal: No other, No neck pain, No shoulder pain, No arm pain, No back pain, No hand pain, No leg pain, No foot pain Skin: No Rash, No Lesions, No Jaundice, No Bruising, No Other Objective Vitals Vital Signs Date Time Temp Pulse Resp B/P (MAP) Pulse Ox O2 Delivery O2 Flow Rate FiO2 05/29/24 08:30 98.8 106 16 113/69 (84) 99 98.8 05/27/24 08:40 Room Air* 0 21 Intake/Output Intake and Output 05/29/24 07:00 Intake Total 1125 ml Balance 1125 ml Intake Oral 0 ml IV Total 1125 ml # Voids 4 # Bowel Movements 3 General Appearance: Alert, Oriented X3, Cooperative, No acute distress HEENT: Atraumatic, PERRLA Lungs: Clear to auscultation, Normal air movement Cardiovascular: Normal S1, Normal S2 Abdomen: Normal bowel sounds Musculoskeletal: Normal sensory function, Normal motor function Neuro: Normal gait, Normal speech Psych/Mental Status: Mental status NL, Mood NL Medications Current Medications Medications Dose Ordered Sig/Krysten Route Start Time Stop Time Status Last Admin Dose Admin Ceftriaxone Sodium 50 ml @ 100 mls/hr DAILY@09 IV 05/25/24 09:00 05/28/24 08:44 100 MLS/HR Levetiracetam 100 ml @ 400 mls/hr BID IV 05/24/24 22:00 05/28/24 21:37 400 MLS/HR Lorazepam 0.5 mg Q8HP PRN IV 05/24/24 14:45 05/27/24 02:47 0.5 MG Acetaminophen/ Hydrocodone Bitart 1 tab Q4HP PRN PO 05/24/24 14:45 Ondansetron HCl 4 mg Q4HP PRN IV 05/24/24 14:45 Docusate Sodium 100 mg BIDPRN PRN PO 05/24/24 14:45 Acetaminophen 500 mg Q6HP PRN PO 05/24/24 14:45 Nitroglycerin 0.4 mg Q5MINP PRN SL 05/24/24 15:30 Pantoprazole Sodium 40 mg DAILY IV 05/25/24 10:00 05/28/24 11:51 40 MG Enteral Nutritional Formula 1,000 ml 30ML/HR GT 05/25/24 14:45 Enoxaparin Sodium 30 mg DAILY SC 05/26/24 10:00 05/28/24 11:51 30 MG Tramadol HCl 50 mg Q6HP PRN GT 05/26/24 09:15 Lorazepam 1 mg Q5MINP PRN IV 05/26/24 12:45 Morphine Sulfate 1 mg Q4HP PRN IV 05/28/24 15:30 Lactated Ringer's 1,000 ml @ 50 mls/hr Q20H IV 05/28/24 15:30 05/28/24 15:30 50 MLS/HR Laboratory Results Laboratory Tests 05/27/24 10:53 05/27/24 12:30 Coagulation Test 05/29/24 08:44 Prothrombin Time 12.4 sec (9.3-11.8) H Prothrombin Time INR 1.18 (0.9-1.15) H Activated Partial Thromboplast Time 21.6 SEC (24.5-34.5) L Microbiology Microbiology Date/Time Source Procedure Growth Status 05/26/24 19:04 Blood Blood Culture - Preliminary NO GROWTH AFTER 48 HOURS OF INCUBATION. Resulted 05/26/24 05:00 Nose MRSA Screen - Final Complete Labs and/or images reviewed: Labs reviewed by me, Image(s) reviewed by me Assessment/Plan Assessment/Plan Impression: -sepsis -blood culture with Gram-positive cocci, history of MRSA of the wound -cerebral palsy -left shoulder dislocation -aphasia -seizure disorder -GERD -quadriplegia Plan: Events: Patient remains afebrile. GI consultation pending for replacement of gastric tube. Second blood culture with no growth. Initial culture finalized with probable contaminated species. Deescalate antibiotics. -start LR at 50 mL/hour -GI consultation for G-tube replacement -thompson cultures: Preliminary reviewed. -pain management -continue Rocephin -hold Lovenox until patient has PEG exchange -PUD, DVT prophylaxis Total time spent with patient discussing and formulating plan of care: 35 minutes. This medical document was created using an electronic medical record system with [employer] dictation system. Although this document has been carefully reviewed, there may still be some phonetic and typographical errors. These areas are purely typographical due to imperfections of the software programs, and do not reflect any compromise in the patient's medical care. Plan discussed with: Patient, Other (RN) My Orders Orders - CHRISTINA PARRY NP Procedure Category Date Status Time * Gi [facility] [employer] Attendant CONS 05/28/24 Transmitted 15:20 Morphine Sulfate PHA 05/28/24 In Process Injection 15:30 Lactated Ringer's PHA 05/28/24 In Process 15:30 Date of Service: May 29, 2024 Billing Provider: CHRISTINA PARRY NP Common Visit Codes: [id number] INP/OBS CARE(HIGH) CHRISTINA PARRY NP May 29, 2024 10:08
--- NOTE | 2024-05-29 10:34 | DVHINCON2 ---
Date of service: May 29, 2024 Allergies: Coded Allergies: Vancomycin (Verified Adverse Reaction, Unknown, 05/01/24) fever, sweating, erythema from vanco infusion Home Meds Active Scripts Carbamazepine (Carbamazepine Er) 400 Mg Tab, 600 MG PO BID for 30 Days, #60 TAB Prov:MARY FLOWERS RESIDENT 05/11/24 Levetiracetam (Keppra) 1,000 Mg Tab, 1 TAB PO BID for 30 Days, #60 TAB 5 Refills Prov:MARY FLOWERS RESIDENT 05/11/24 Bisacodyl (Ex-Lax Ultra) 5 Mg Tab, 5 MG PO DAILY PRN, #60 TAB 2 Refills Take 2 tablets (10 mg) via G tube Daily Prov:JOHN BENAVIDEZ MD 03/26/24 Carbamazepine (CARBAMAZEPINE ER) 300 Mg Cap, 300 MG PO BID PRN, #120 CAP 2 Refills Take 2 capsules (600 mg) BID (morning and night) via G tube Prov:JOHN BENAVIDEZ MD 03/26/24 Esomeprazole Magnesium (Esomeprazole Magnesium) 40 Mg Cap, 40 MG PO DAILY, #30 CAP 3 Refills Take 1 capsule via G tube every afternoon (3pm) Prov:JOHN BENAVIDEZ MD 03/26/24 Lorazepam (Ativan) 0.5 Mg Tab, 0.5 MG PO BID for 30 Days, #60 TAB Prov:LONG PALACIOS MD 02/27/24 Cefdinir (Cefdinir) 300 Mg Cap, 1 CAP PO BID for 7 Days, #14 CAP Prov:LONG PALACIOS MD 02/27/24 Reported Medications Tramadol Hcl (Tramadol Hcl) 50 Mg Tab, 50 MG PO Q8HP PRN for PAIN SCALE 1 THRU 6, MG 01/30/24 Levetiracetam (Levetiracetam) 100 Mg/Ml Estela, 100 MG PO, ML 01/30/24 Esomeprazole Magnesium Trihydr (Nexium) 40 Mg Cap, 40 MG PO, CAP 01/30/24 Carbamazepine (Carbamazepine Er) 200 Mg Tab, 200 MG PO, TAB 01/30/24 Folic Acid (Folic Acid) 1 Mg Tab, 1 MG PO DAILY for 30 Days, MG 01/30/24 Current Medications Current Medications Medications (Trade) Dose Ordered Sig/Krysten Route PRN Reason Start Time Stop Time Status Last Admin Morphine Sulfate 1 mg Q4HP PRN IV SEVERE PAIN (7-10 PAIN SCALE) 05/28/24 15:30 Lactated Ringer's 1,000 ml @ 50 mls/hr Q20H IV 05/28/24 15:30 05/28/24 15:30 Vital Signs Vital Signs Date Time Temp Pulse Resp B/P (MAP) Pulse Ox O2 Delivery O2 Flow Rate FiO2 05/29/24 08:30 98.8 106 16 113/69 (84) 99 98.8 05/27/24 08:40 Room Air* 0 21 Labs/Diagnostic Data Labs Test 05/29/24 08:44 05/27/24 12:30 05/27/24 10:53 05/26/24 12:49 Range/Units Prothrombin Time 12.4 H 9.3-11.8 sec Prothrombin Time INR 1.18 H 0.9-1.15 Activated Partial Thromboplast Time 21.6 L 24.5-34.5 SEC White Blood Count 3.3 #L 4.4-10.8 10^3/uL Red Blood Count 3.35 L 4.0-5.20 10^6/uL Hemoglobin 12.2 12.2-16.2 g/dL Hematocrit 35.3 L 36.0-46.0 % Mean Corpuscular Volume 105.6 H 80.0-100.0 fL Mean Corpuscular Hemoglobin 36.6 H 28.0-32.0 pg Mean Corpuscular Hemoglobin Concent 34.6 32.0-36.0 g/dL Red Cell Distribution Width 12.2 11.8-14.3 % Platelet Count 285 140-450 10^3/uL Mean Platelet Volume 7.3 6.9-10.8 fL Neutrophils (%) (Auto) 79.4 37.0-80.0 % Lymphocytes (%) (Auto) 16.6 10.0-50.0 % Monocytes (%) (Auto) 3.8 0.0-12.0 % Eosinophils (%) (Auto) 0.2 0.0-7.0 % Basophils (%) (Auto) 0.0 0.0-2.0 % Neutrophils # (Auto) 2.7 1.6-8.6 10 ^3/uL Lymphocytes # (Auto) 0.6 0.4-5.4 10 ^3/uL Monocytes # (Auto) 0.1 0-1.3 10 ^3/uL Eosinophils # (Auto) 0 0-0.8 10 ^3/uL Basophils # (Auto) 0 0-0.2 10 ^3/uL Nucleated Red Blood Cells 0.2 % Sodium Level 137 # 136-145 mmol/L Potassium Level 4.5 3.5-5.1 mmol/L Chloride Level 105 98-107 mmol/L Carbon Dioxide Level 24 20-31 mmol/L Anion Gap 8 5-15 Blood Urea Nitrogen 8 L 9-23 mg/dL Creatinine 0.31 L 0.550-1.02 mg/dL Glomerular Filtration Rate Calc 130 >90 mL/min BUN/Creatinine Ratio 25.8 H 10.0-20.0 Serum Glucose 113 H 74-106 mg/dL Calcium Level 9.1 8.7-10.4 mg/dL POC Glucose 107 H 70-106 mg/dl Test 05/25/24 09:28 05/24/24 16:23 05/24/24 16:10 05/24/24 16:08 Range/Units Total Bilirubin 0.2 0.2-1.0 mg/dL Aspartate Amino Transferase (AST) 12 L 13-40 U/L Alanine Aminotransferase (ALT) 17 7-40 U/L Alkaline Phosphatase 115 46-116 U/L Total Protein 6.3 5.7-8.2 g/dL Albumin 3.7 3.2-4.8 g/dL SARS-CoV-2 Antigen (Rapid) Negative NEGATIVE Troponin I High Sensitivity < 3 L </=34 ng/L Lactic Acid Level 1.0 0.4-2.0 mmol/L Test 05/24/24 12:50 Range/Units Magnesium Level 2.3 1.6-2.6 mg/dL B-Type Natriuretic Peptide 3.41 0-100 pg/mL Beta HCG, Quantitative 0.4 L 1.5-4.2 mIU/mL Microbiology Date/Time Source Procedure Growth Status 05/26/24 19:04 Blood Blood Culture - Preliminary NO GROWTH AFTER 48 HOURS OF INCUBATION. Resulted 05/26/24 05:00 Nose MRSA Screen - Final Complete Assessment [id number] G TUBE MALFUNCTION CEREBRAL PALSY REMOVE NON FUNCTIONING G TUBE REPLACE WITH FUNCTIONAL G TUBE NO COMPLICATIONS NURSE AT BEDSIDE Plan discussed with: Other LORENZO LOZA MD May 29, 2024 10:34
--- NOTE | 2024-05-29 11:52 | DVHINCON2 ---
DATE OF CONSULTATION: 05/29/2024 HISTORY OF PRESENT ILLNESS: The patient is 48 years old with history of cerebral palsy, not able to give history. Most of the information obtained from the chart and records. Seizure disorder, VSD, quadriplegia, GERD, presenting with shortness of breath and having malfunction of the G-tube. I was asked to see regarding placement of the G-tube. PAST MEDICAL HISTORY: Refer to records. PAST SURGICAL HISTORY: As above. PHYSICAL EXAMINATION: VITAL SIGNS: Afebrile, stable signs. HEENT: With no evidence of pallor, cyanosis or jaundice. NECK: Supple, nontender with no thyromegaly, lymphadenopathy. CHEST AND LUNGS: Clear. HEART: Within normal limits. ABDOMEN: Soft with a G-tube in place. NEUROLOGIC: Not assessed. EXTREMITIES: Not assessed. CLINICAL IMPRESSION: Malfunctioning G-tube. PLAN: Will be to consider replacement. Benefits and risks discussed, consented and the patient was prepared for the procedure. MD MIREYA Epps/STEVEN TID: [id number] RECEIPT: [id number] cc: Dr. Bjorn Lay
--- NOTE | 2024-05-29 13:59 | DVHPN2 ---
Progress Note - Dictate Date Seen: May 29, 2024 Medical Necessity Reason Pt with a Central, PICC or Fol: No Subjective No new complaints PEG tube was replaced by Dr Iam Figueredo 20 Fr gastrostomy tube was placed vital signs Vital Sign Date Time Temp Pulse Resp B/P (MAP) Pulse Ox O2 Delivery O2 Flow Rate FiO2 05/29/24 13:15 96.9 101 16 111/59 (76) 98 96.9 05/27/24 08:40 Room Air* 0 21 Total Intake and Output 05/28/24 05/28/24 05/29/24 15:00 23:00 07:00 Intake Total 275 ml 850 ml Balance 275 ml 850 ml medications Current Medications Medications Dose Ordered Sig/Krysten Route Start Time Stop Time Status Last Admin Dose Admin Ceftriaxone Sodium 50 ml @ 100 mls/hr DAILY@09 IV 05/25/24 09:00 05/29/24 09:00 100 MLS/HR Levetiracetam 100 ml @ 400 mls/hr BID IV 05/24/24 22:00 05/29/24 11:19 400 MLS/HR Lorazepam 0.5 mg Q8HP PRN IV 05/24/24 14:45 05/29/24 10:34 0.5 MG Acetaminophen/ Hydrocodone Bitart 1 tab Q4HP PRN PO 05/24/24 14:45 Ondansetron HCl 4 mg Q4HP PRN IV 05/24/24 14:45 Docusate Sodium 100 mg BIDPRN PRN PO 05/24/24 14:45 Acetaminophen 500 mg Q6HP PRN PO 05/24/24 14:45 Nitroglycerin 0.4 mg Q5MINP PRN SL 05/24/24 15:30 Pantoprazole Sodium 40 mg DAILY IV 05/25/24 10:00 05/29/24 11:19 40 MG Enteral Nutritional Formula 1,000 ml 30ML/HR GT 05/25/24 14:45 Tramadol HCl 50 mg Q6HP PRN GT 05/26/24 09:15 Lorazepam 1 mg Q5MINP PRN IV 05/26/24 12:45 Morphine Sulfate 1 mg Q4HP PRN IV 05/28/24 15:30 objective Gen.: Patient lying in bed in no apparent distress. On supplemental oxygen.cerebral palsy Head: Normocephalic, atraumatic Eyes: EOMI/PERRLA.. Chest: Decreased air entry bilaterally. No wheezing or rhonchi. Cardio vascular: Positive S1, positive S2. Regular rate and rhythm. Abdomen: Positive bowel sounds in all 4 quadrants. Soft, non-tender, non- distended.; G-tube site clean Extremities with contractures laboratory and microbiology Laboratory Tests 05/27/24 12:30 05/27/24 10:53 Test 05/27/24 10:53 Range/Units Serum Glucose 113 H 74-106 mg/dL Problems(with codes): (1) Malfunction of gastrostomy tube (2) Generalized weakness (3) Stage I decubitus ulcer and pressure area (4) Gastrostomy tube obstruction (5) Seizure Prognosis PLAN Ok to resume GT feedings Continue supportive care Dietary Evaluation Review Comments: 1) Consider EN nutrition Jevity 1.2 @ 40 ml/hr x24 hours as tolerated 2) If pt remains NPO >7 days consider TPN to meet at least 75% of estimated needs 3) Continue current plan of care Expected Outcomes/Goals: 1) Pt to receive nutrition support within 7 days of NPO status 2) F/U in 2-3 days Plan discussed with: Other (Nurse and Dr Iam Figueredo) ROMA FIGUEREDO MD May 29, 2024 13:59
--- NOTE | 2024-05-29 21:37 | DVHPN2 ---
Progress Note - Dictate Date Seen: May 29, 2024 Medical Necessity Reason Pt with a Central, PICC or Fol: No Subjective Patient seen and examined at bedside. Breathing comfortably on room air. Overnight events reviewed. vital signs Vital Sign Date Time Temp Pulse Resp B/P (MAP) Pulse Ox O2 Delivery O2 Flow Rate FiO2 05/29/24 20:00 95 20 Room Air* 0 21 05/29/24 17:00 98.7 111/55 (73) 100 98.7 Total Intake and Output 05/28/24 05/28/24 05/29/24 14:59 22:59 06:59 Intake Total 275 ml 850 ml Balance 275 ml 850 ml medications Current Medications Medications Dose Ordered Sig/Krysten Route Start Time Stop Time Status Last Admin Dose Admin Ceftriaxone Sodium 50 ml @ 100 mls/hr DAILY@09 IV 05/25/24 09:00 05/29/24 09:00 100 MLS/HR Levetiracetam 100 ml @ 400 mls/hr BID IV 05/24/24 22:00 05/29/24 20:58 400 MLS/HR Lorazepam 0.5 mg Q8HP PRN IV 05/24/24 14:45 05/29/24 10:34 0.5 MG Acetaminophen/ Hydrocodone Bitart 1 tab Q4HP PRN PO 05/24/24 14:45 Ondansetron HCl 4 mg Q4HP PRN IV 05/24/24 14:45 Docusate Sodium 100 mg BIDPRN PRN PO 05/24/24 14:45 Acetaminophen 500 mg Q6HP PRN PO 05/24/24 14:45 Nitroglycerin 0.4 mg Q5MINP PRN SL 05/24/24 15:30 Pantoprazole Sodium 40 mg DAILY IV 05/25/24 10:00 05/29/24 11:19 40 MG Enteral Nutritional Formula 1,000 ml 30ML/HR GT 05/25/24 14:45 Tramadol HCl 50 mg Q6HP PRN GT 05/26/24 09:15 Lorazepam 1 mg Q5MINP PRN IV 05/26/24 12:45 Morphine Sulfate 1 mg Q4HP PRN IV 05/28/24 15:30 objective Gen.: Patient lying in bed in no apparent distress. Breathing on room air. Head: Normocephalic, atraumatic. Eyes: EOMI/PERRLA. Ears: Normal hearing. Normal anatomy. Neck/trachea: Trachea midline, supple. Nose: Normal external anatomy. Mouth: Moist mucous membranes. Chest: Decreased air entry bilaterally. No wheezing or rhonchi. Cardiovascular: Positive S1, positive S2. Regular rate and rhythm. Abdomen: Positive bowel sounds in all 4 quadrants. Soft, non-tender, non- distended. : Deferred. Rectal: Deferred. Skin: Warm, dry. Intact. Extremities: 2+ radial pulses bilaterally. No lower extremity edema. Neuro: Awake, alert, oriented x3. No gross motor or sensory deficits. Cranial nerves II through XII intact. Gait not assessed. laboratory and microbiology Laboratory Tests 05/27/24 12:30 05/27/24 10:53 Test 05/27/24 10:53 Range/Units Serum Glucose 113 H 74-106 mg/dL Assessment/Plan Impression: Acute hypoxic respiratory failure Fever Hypernatremia Functional quadriplegia Cerebral palsy Events: Breathing on room air. No respiratory distress. Continue antibiotics Head of bed elevation Aspiration precautions. Tube feeds for nutritional support Disposition per hospitalist. Labs and imaging reviewed. Rest of plan as noted below. Plan: CXR- No acute opacities. No pleural effusion. No Pneumothorax. Supplemental oxygen PRN Keep O2 saturation above 92%. Head of bed elevation Aspiration precautions Antiepileptics Empiric antibiotics Send cultures. Bronchodilators as needed. IV steroids IV fluid hydration GI prophylaxis-Protonix Prognosis: Guarded given multiple comorbidities. Rest of plan per hospitalist and other consultants. Thank you ROMAINE Milan for allowing me to participate in this patient's care. Further recommendations will depend on patient's clinical course. Please do not hesitate to contact me if you have any questions or concerns. This medical document was created using an electronic medical record system with [employer] dictation system. Although this document has been carefully reviewed, there may still be some phonetic and typographical errors. These areas are purely typographical due to imperfections of the software programs, and do not reflect any compromise in the patient's medical care. Dietary Evaluation Review Comments: 1) Consider EN nutrition Jevity 1.2 @ 40 ml/hr x24 hours as tolerated 2) If pt remains NPO >7 days consider TPN to meet at least 75% of estimated needs 3) Continue current plan of care Expected Outcomes/Goals: 1) Pt to receive nutrition support within 7 days of NPO status 2) F/U in 2-3 days Plan discussed with: Patient, Other (CORINE Barnes) LADONNA BALLESTEROS MD May 29, 2024 21:37
[2024-05-30 01:29] VITALS: BP 124/70; PULSE 128; RESP 20; TEMP 98.9; O2SAT 98
--- NOTE | 2024-05-30 05:36 | DVHOP ---
DATE OF SURGERY: 05/29/2024 PREPROCEDURE DIAGNOSIS: Malfunction G-tube. POSTPROCEDURE DIAGNOSIS: Malfunction G-tube. PROCEDURE: Removal of the G-tube and replacement with a size 20 G-tube. SURGEON: Manpreet Figueredo MD STENOTYPE MACHINE OPERATOR: None. ANESTHESIA: At the bedside. DESCRIPTION OF PROCEDURE: The patient was prepped and draped in the usual sterile fashion in the supine position and the old G-tube was taken out after the bulb was decompressed and the opening was clearly found without any problem. The size 20 G-tube was replaced back and the bulb was inflated with 10 mL of saline and the flange of the G-tube was approximated with the abdominal wall. The tube was flushed and irrigated with no complications and was ready for use. MD MIREYA Epps/STEVEN/SANTOSH TID: [id number] RECEIPT: [id number] cc: Alireza Milan
[2024-05-30 08:00] VITALS: PULSE 101
[2024-05-30 09:11] VITALS: BP 100/58; PULSE 107; RESP 16; TEMP 98.4; O2SAT 96
[2024-05-30 12:57] VITALS: BP 96/54; PULSE 110; RESP 18; TEMP 99.3; O2SAT 100
--- NOTE | 2024-05-30 13:07 | DVHDS2 ---
Discharge Summary Date of Admission May 24, 2024 at 15:28 Date of Discharge: May 30, 2024 Admitting Diagnosis Generalized weakness Labs/Diagnostic Data: Laboratory Results Test 05/29/24 08:44 05/27/24 12:30 05/27/24 10:53 05/26/24 12:49 Prothrombin Time 12.4 sec (9.3-11.8) Prothrombin Time INR 1.18 (0.9-1.15) Activated Partial Thromboplast Time 21.6 SEC (24.5-34.5) White Blood Count 3.3 10^3/uL (4.4-10.8) Red Blood Count 3.35 10^6/uL (4.0-5.20) Hemoglobin 12.2 g/dL (12.2-16.2) Hematocrit 35.3 % (36.0-46.0) Mean Corpuscular Volume 105.6 fL (80.0-100.0) Mean Corpuscular Hemoglobin 36.6 pg (28.0-32.0) Mean Corpuscular Hemoglobin Concent 34.6 g/dL (32.0-36.0) Red Cell Distribution Width 12.2 % (11.8-14.3) Platelet Count 285 10^3/uL (140-450) Mean Platelet Volume 7.3 fL (6.9-10.8) Neutrophils (%) (Auto) 79.4 % (37.0-80.0) Lymphocytes (%) (Auto) 16.6 % (10.0-50.0) Monocytes (%) (Auto) 3.8 % (0.0-12.0) Eosinophils (%) (Auto) 0.2 % (0.0-7.0) Basophils (%) (Auto) 0.0 % (0.0-2.0) Neutrophils # (Auto) 2.7 10 ^3/uL (1.6-8.6) Lymphocytes # (Auto) 0.6 10 ^3/uL (0.4-5.4) Monocytes # (Auto) 0.1 10 ^3/uL (0-1.3) Eosinophils # (Auto) 0 10 ^3/uL (0-0.8) Basophils # (Auto) 0 10 ^3/uL (0-0.2) Nucleated Red Blood Cells 0.2 % Sodium Level 137 mmol/L (136-145) Potassium Level 4.5 mmol/L (3.5-5.1) Chloride Level 105 mmol/L (98-107) Carbon Dioxide Level 24 mmol/L (20-31) Anion Gap 8 (5-15) Blood Urea Nitrogen 8 mg/dL (9-23) Creatinine 0.31 mg/dL (0.550-1.02) Glomerular Filtration Rate Calc 130 mL/min (>90) BUN/Creatinine Ratio 25.8 (10.0-20.0) Serum Glucose 113 mg/dL (74-106) Calcium Level 9.1 mg/dL (8.7-10.4) POC Glucose 107 mg/dl (70-106) Test 05/25/24 09:28 05/24/24 16:23 05/24/24 16:10 05/24/24 16:08 Total Bilirubin 0.2 mg/dL (0.2-1.0) Aspartate Amino Transferase (AST) 12 U/L (13-40) Alanine Aminotransferase (ALT) 17 U/L (7-40) Alkaline Phosphatase 115 U/L (46-116) Total Protein 6.3 g/dL (5.7-8.2) Albumin 3.7 g/dL (3.2-4.8) SARS-CoV-2 Antigen (Rapid) Negative (NEGATIVE) Troponin I High Sensitivity < 3 ng/L (</=34) Lactic Acid Level 1.0 mmol/L (0.4-2.0) Test 05/24/24 12:50 Magnesium Level 2.3 mg/dL (1.6-2.6) B-Type Natriuretic Peptide 3.41 pg/mL (0-100) Beta HCG, Quantitative 0.4 mIU/mL (1.5-4.2) Other Laboratory Tests 05/27/24 12:30 05/27/24 10:53 Brief Hx & Hospital Course: History of Present Illness The patient is a 48 years old female quadriplegia nonverbal with past medical history of cerebral palsy, seizures, VSD, and GERD who presented to [facility] ED accompanied by sister for evaluation of shortness of breaths. As reported by sister, patient was having difficulty breathing associated with weakness so EMS were called. When registered nurse teacher arrived on the scene, the patient's O2 saturation was 88% and was placed on oxygen which improved oxygen saturation to 97% en route to our facility ED. patient was seen and evaluated in the ED, laboratory data shows WBC 11.6, platelets 303, sodium 150, potassium 4.4, BUN 27, creatinine 0.49, GFR 116, glucose 124, troponin 3, lactic acid 2.2 trending down to 1.0, blood pressure 93/59, heart rate 112 trending down to 103, temperature 98.3 F, O2 saturation 97% on oxygen. Patient was started on IV antibiotic regimen Rocephin, given IV fluid lactated ringer, please see medication orders section in the computer. On my assessment, patient remains nonverbal, no diaphoresis, no palpitations, currently on oxygen, no diarrhea, no nausea, no vomiting, no fever, no chills. Patient was admitted for further evaluation and medical management. Course of hospitalization: Patient was assessed in the emergency room to be lethargic, with elevated white blood cell count. Patient was started on empiric antibiotic therapy given her history of MDRO. Blood culture came back positive for Staphylococcus epidermis. Repeat blood culture was negative. Patient's white blood cell count improved. The patient's mentation also returned back to baseline. Nurses found the patient was G-tube to be extremely difficult to get medications and feeding through. GI and surgical consultation has been obtained for which G-tube was replaced bedside yesterday. Patient will be discharged home and continue all previous home medications. The patient was had adequate treatment for possible bacteremia. Initial blood culture possibly contaminated. She was instructed to continue all previous home medications and follow up with her PCP in 1-2 weeks. Physical examination General: Alert . Aphasic. Eyes: EOMI. Anicteric. HENT: Moist mucous membranes. Lungs: Clear to auscultation bilaterally. No accessory muscle use. Cardiovascular: Regular rate and rhythm. No murmur. No JVD. Abdomen: Soft, non-tender and non-distended. No palpable masses. G-tube Extremities: No edema. Non-tender. Skin: No rashes or lesions. Warm. Neurologic: No focal neurological deficits. CN II-XII grossly intact, but not individually tested. Psychiatric: Cooperative. Appropriate mood and affect. Total time spent with patient discussing and formulating plan of care: 35 minutes. This medical document was created using an electronic medical record system with [employer] dictation system. Although this document has been carefully reviewed, there may still be some phonetic and typographical errors. These areas are purely typographical due to imperfections of the software programs, and do not reflect any compromise in the patient's medical care. Consults/Reason for consult Gastroenterology: PEG tube replaced Condition at Discharge: Fair Final Diagnosis/Problems List Sepsis Secondary Diagnosis: -sepsis -blood culture with Gram-positive cocci, history of MRSA of the wound -cerebral palsy -left shoulder dislocation -aphasia -malfunctioning PEG tube -seizure disorder -GERD -quadriplegia Discharge Disposition: Home Discharge Instruct/Medications Diet: See Comment Diet comment: Continue feeding via G-tube as previously ordered by PCP Activity: No Restrictions, As Tolerated Medications: Continue all previous home medications 36 Discharge Statement: "Patient was advised to return to the ER or call 911 if any headaches, dizziness, shortness of breath, chest pain, abdominal pain, bleeding, fevers, or worsening of medical condition. Patient was counseled about treatment plan, medications, possible side effects, patientverbalized understanding. All questions were answered to the best of my ability. This discharge took greater then 30 minutes in planning, reviewing documentation, counseling the patient, and discussing with other team members." ASSESSMENT ASSESSMENT Assessment Sepsis Date of Service: May 30, 2024 Billing Provider: CHRISTINA PARRY NP Common Visit Codes: 00410-HVQ/OBS DISCH DAY >30min CHRISTINA PARRY NP May 30, 2024 13:07
--- NOTE | 2024-05-30 23:15 | DVHPN2 ---
Progress Note - Dictate Date Seen: May 30, 2024 Medical Necessity Reason Pt with a Central, PICC or Fol: No Subjective Patient seen and examined at bedside. Breathing comfortably on room air. Overnight events reviewed. vital signs Vital Sign Date Time Temp Pulse Resp B/P (MAP) Pulse Ox O2 Delivery O2 Flow Rate FiO2 05/30/24 12:57 99.3 110 18 96/54 (68) 100 99.3 05/30/24 08:00 Room Air* 0 21 Total Intake and Output 05/29/24 05/29/24 05/30/24 15:00 23:00 07:00 Intake Total 100 ml 0 ml Balance 100 ml 0 ml objective Gen.: Patient lying in bed in no apparent distress. Breathing on room air. Head: Normocephalic, atraumatic. Eyes: EOMI/PERRLA. Ears: Normal hearing. Normal anatomy. Neck/trachea: Trachea midline, supple. Nose: Normal external anatomy. Mouth: Moist mucous membranes. Chest: Decreased air entry bilaterally. No wheezing or rhonchi. Cardiovascular: Positive S1, positive S2. Regular rate and rhythm. Abdomen: Positive bowel sounds in all 4 quadrants. Soft, non-tender, non- distended. : Deferred. Rectal: Deferred. Skin: Warm, dry. Intact. Extremities: 2+ radial pulses bilaterally. No lower extremity edema. Neuro: Awake, alert, oriented x3. No gross motor or sensory deficits. Cranial nerves II through XII intact. Gait not assessed. laboratory and microbiology Laboratory Tests 05/27/24 12:30 05/27/24 10:53 Test 05/27/24 10:53 Range/Units Serum Glucose 113 H 74-106 mg/dL Assessment/Plan Impression: Acute hypoxic respiratory failure Fever Hypernatremia Functional quadriplegia Cerebral palsy Events: Breathing on room air. No respiratory distress. Patient is stable for discharge from the pulmonary standpoint. Completed antibiotic course. Head of bed elevation Aspiration precautions. Disposition per hospitalist. Labs and imaging reviewed. Rest of plan as noted below. Plan: CXR- No acute opacities. No pleural effusion. No Pneumothorax. Supplemental oxygen PRN Keep O2 saturation above 92%. Head of bed elevation Aspiration precautions Antiepileptics Empiric antibiotics Send cultures. Bronchodilators as needed. IV steroids IV fluid hydration GI prophylaxis-Protonix Prognosis: Guarded given multiple comorbidities. Rest of plan per hospitalist and other consultants. Thank you [employer] Bjorn for allowing me to participate in this patient's care. Further recommendations will depend on patient's clinical course. Please do not hesitate to contact me if you have any questions or concerns. This medical document was created using an electronic medical record system with [employer] system. Although this document has been carefully reviewed, there may still be some phonetic and typographical errors. These areas are purely typographical due to imperfections of the software programs, and do not reflect any compromise in the patient's medical care. Dietary Evaluation Review Comments: 1) Consider EN nutrition Jevity 1.2 @ 40 ml/hr x24 hours as tolerated 2) If pt remains NPO >7 days consider TPN to meet at least 75% of estimated needs 3) Continue current plan of care Expected Outcomes/Goals: 1) Pt to receive nutrition support within 7 days of NPO status 2) F/U in 2-3 days Plan discussed with: Patient, Other (RN) LADONNA BALLESTEROS MD May 30, 2024 23:15
== END 2024-05-30 16:56 | disposition home or self-care (01) | DRG 720 ==
LOC: EDUNIT# 11:51 → ER 11:51 → EDBD 11:51 → TELE 15:28 → TELE-CENTR 05-25 23:53
PROVIDERS: ADMIT Nurse Practitioner Family; ATTEND Nurse Practitioner Acute Care
PROC: 05H933Z Insertion of Infusion Device into Right Brachial Vein, Percutaneous Approach (ICD-10-PCS; 2024-05-24)
PROC: B54MZZA Ultrasonography of Right Upper Extremity Veins, Guidance (ICD-10-PCS; 2024-05-24)
PROC: 0DP6XUZ Removal of Feeding Device from Stomach, External Approach (ICD-10-PCS; principal; 2024-05-29)
PROC: 0DH60UZ Insertion of Feeding Device into Stomach, Open Approach (ICD-10-PCS; 2024-05-29)
DX: A41.9 Sepsis, unspecified organism (principal); J96.01 Acute respiratory failure with hypoxia; J69.0 Pneumonitis due to inhalation of food and vomit; G93.41 Metabolic encephalopathy; R53.2 Functional quadriplegia; K94.23 Gastrostomy malfunction; E87.0 Hyperosmolality and hypernatremia; R47.01 Aphasia; Z20.822 Contact with and (suspected) exposure to COVID-19; G40.909 Epilepsy, unspecified, not intractable, without status epilepticus; G80.9 Cerebral palsy, unspecified; K21.9 Gastro-esophageal reflux disease without esophagitis; S43.085A Other dislocation of left shoulder joint, initial encounter; Z79.899 Other long term (current) drug therapy; Z90.49 Acquired absence of other specified parts of digestive tract; Z86.14 Personal history of Methicillin resistant Staphylococcus aureus infection; X58.XXXA Exposure to other specified factors, initial encounter; Y93.89 Activity, other specified; Y92.89 Other specified places as the place of occurrence of the external cause; Y99.8 Other external cause status; Z88.1 Allergy status to other antibiotic agents
CPT/HCPCS: 36415; 71045; 80048; 80053; 82962; 83605; 83735; 83880; 84484; 84702; 85025; 85610; 85730; 87040; 87077; 87081; 87186; 87426; 93005; 94640; 99291; G0378; J2470

== ENCOUNTER → 2024-06-15 | Outpatient (CLI) | payer MEDICAID ==
[2024-06-15 16:41] LABS: Basophils # (auto) 0 10 ^3/uL (0-0.2); Basophils % (auto) 0.1 % (0.0-2.0); Eosinophils # (auto) 0.2 10 ^3/uL (0-0.8); Eosinophils % (auto) 3.8 % (0.0-7.0); Hemoglobin 13.4 g/dL (12.2-16.2); Lymphocytes # (auto) 2.2 10 ^3/uL (0.4-5.4); Lymphocytes % (auto) 39.3 % (10.0-50.0); Mean Corpuscular Hemoglobin 35.3 pg (28.0-32.0); Mean Corpuscular Hgb Conc. 33.5 g/dL (32.0-36.0); Mean Corpuscular Volume 105.2 fL (80.0-100.0); Monocytes # (auto) 0.6 10 ^3/uL (0-1.3); Monocytes % (auto) 10.2 % (0.0-12.0); Neutrophils # (auto) 2.7 10 ^3/uL (1.6-8.6); Neutrophils % (auto) 46.6 % (37.0-80.0); Nucleated Red Blood Cells % 0.1 %; Platelet Count (auto) 212 10^3/uL (140-450); Red Cell Distribution Width 12.8 % (11.8-14.3); White Blood Cell 5.7 10^3/uL (4.4-10.8)
[2024-06-15 16:48] LABS: Alanine Aminotransferase 27 U/L (7-40); Albumin 3.8 g/dL (3.2-4.8); Anion Gap 5 (5-15); Aspartate Aminotransferase 14 U/L (13-40); BUN/Creatinine Ratio 46.8 (10.0-20.0); Blood Urea Nitrogen 22 mg/dL (9-23); Calcium 9.8 mg/dL (8.7-10.4); Glucose 84 mg/dL (74-106); Potassium 4.1 mmol/L (3.5-5.1)
[2024-06-15 16:49] LABS: Total Protein 6.2 g/dL (5.7-8.2)
[2024-06-15 16:53] LABS: Alkaline Phosphatase 123 U/L (46-116); Bilirubin, Total 0.2 mg/dL (0.2-1.0); Carbon Dioxide 32 mmol/L (20-31); Chloride 109 mmol/L (98-107); Sodium 146 mmol/L (136-145)
== END | disposition home or self-care (01) ==
LOC: LAB 16:11
PROVIDERS: ATTEND Internal Medicine
DX: Z09 Encounter for follow-up examination after completed treatment for conditions other than malignant neoplasm (principal); A41.89 Other specified sepsis
CPT/HCPCS: 36415; 80053; 85025

== ENCOUNTER 2024-07-15 12:55 | Inpatient (IN) | payer MEDICAID ==
[~2024-07-15] VITALS: Ht 149.9 cm; Wt 43.7 kg
[2024-07-15] MEDS: IBUPROFEN 100MG/5ML ORAL SUSP 100 MG/5 ML UD PO ONE (13:32)
--- NOTE | 2024-07-15 15:31 | ED.PDOC ---
SOB-HPI HPI Comments 48 y.o female BIB mother, presents to the ED for a chief complaint of SOB associated with fever and congestion that started 3 days ago. Mother reports patient has been running a low grade fever of 101 F and pulse oximetry at home yesterday read SPO2 at 79-80% RA. Patient is not on home oxygen, SPO2 retested upon ED arrival which read in the 80's RA. Patient was placed on 3 Liters via NC with SPO2 increasing to 97%. Mother reports patient had a medical history of Cerebral Palsy, GERD, seizures, SXHX of a pacemaker and G-tube localized to the left upper quadrant. Chief Complaint: Shortness of Breath Time Seen by MD: 15:12 Primary Care Provider: BRYON Bowman notes: Nurses Notes, Medications, Allergies Information Source: Relative Mode of Arrival: Wheelchair Severity: Moderate Timing: Days (3) Duration: Since onset PE Risk Factors: None History of: None Modifying Factors: Nothing Associated Signs and Symptoms: Fever, Nasal Congestion Past Medical History PAST MEDICAL HISTORY: GERD, Seizures Past Medical History (Other): CP Surgical History: Cholecystectomy, Hernia Repair, Pacemaker Surgical History (Other): GTube QUESTIONED DOCUMENTS EXAMINER History: No Pertinent QUESTIONED DOCUMENTS EXAMINER History Family History Family History: Unknown Social History Smoker: Non-Smoker Alcohol: Denies ETOH Use Drugs: Denies Drug Use Lives In: Home Constitutional: reports: fever; denies: chills, diaphoresis, fatigue, malaise, sweats, weakness, others EENTM: reports: nose congestion; denies: blurred vision, double vision, ear bleeding, ear discharge, ear drainage, ear pain, ear ringing, eye pain, eye redness, hearing loss, mouth pain, mouth swelling, nasal discharge, nose blee ding, nose pain, photophobia, tearing, throat pain, throat swelling, voice changes, others Respiratory: reports: SOB at rest, shortness of breath, SOB with excertion; denies: cough, hemoptysis, orthopnea, stridor, wheezing, others Cardiovascular: denies: chest pain, dizzy spells, diaphoresis, Dyspnea on exertion, edema, irregular heart beat, left arm pain, lightheadedness, palpitations, PND, syncope, others Gastrointestinal: denies: abdomen distended, abdominal pain, blood streaked bowels, constipated, diarrhea, dysphagia, difficulty swallowing, hematemesis, melena, nausea, poor appetite, poor fluid intake, rectal bleeding, rectal pain, vomiting, others Genitourinary: denies: abnormal vagina bleeding, burning, dyspareunia, dysuria, flank pain, frequency, hematuria, incontinence, pain, , vagina discharge, urgency, others Neurological: denies: dizziness, fainting, headache, left sided numbness, left sided weakness, numbness, paresthesia, pre-existing deficit, right sided numbness, right sided weakness, seizure, speech problems, tingling, tremors, weakness, others Musculoskeletal: denies: back pain, gout, joint pain, joint swelling, muscle pain, muscle stiffness, neck pain, others Integumetry: denies: bruises, change in color, change in hair/nails, dryness, laceration, lesions, lumps, rash, wounds, others Allergic/Immunocompromised: denies: Difficulty Healing, Frequent Infections, Hives, Itching, others Hematologic/Lymphatic: denies: anemia, blood clots, easy bleeding, easy bruising, swollen glands, others Endocrine: denies: excessive hunger, excessive sweating, excessive thirst, excessive urination, flushing, intolerance to cold, intolerance to heat, unexplained weight gain, unexplained weight loss, others Psychiatric: denies: anxiety, bipolar disorder, depression, hopeless, panic disorder, schizophrenia, sleepless, suicidal, others All Other Systems: Reviewed and Negative Physical Exam Exam Comments Patient with a cerebral palsy he has multiple deformity complaining of shortness of breath and fever General Appearance: Mild Distress HEENT: Normal ENT Inspection, PERRL/EOMI Neck: Full Range of Motion, Non-Tender Respiratory: Crackles, Decreased Breath Sounds, Expiration, Inspiration, No Respiratory Distress Cardiovascular: No Murmur, Normal Peripheral Pulses, Regular Rate/Rhythm Breast Exam: Deferred Gastrointestinal: No Organomegaly, Non Tender, No Pulsatile Mass, Normal Bowel Sounds, Soft Genitalia: Deferred Pelvic: Deferred Rectal: Deferred Extremities: No calf tenderness, Normal capillary refill, Normal inspection, Normal range of motion, Non-tender, No pedal edema Neurologic: Alert, Depressed Affect, Motor Weakness, Speech Problem, Other (Spastic deformities) Cerebellar Function: NOT DONE Reflexes: NOT DONE Skin: Dry, Normal Color, Warm Peripheral Pulses: 1+ carotid (R), 1+ carotid (L) Lymphatic: No Adenopathy Was a procedure done? Was a procedure done?: No Differential Dx Differential Diagnosis: Bronchitis, Hyponatremia, Pneumonia, Respiratory Distress, URI X-Ray, Labs, Meds, VS Vital Signs Date Time Temp Pulse Resp B/P (MAP) Pulse Ox O2 Delivery O2 Flow Rate FiO2 07/15/24 14:30 98.0 98.0 07/15/24 14:29 98.0 07/15/24 13:32 98.5 07/15/24 13:27 103.0 121 22 93/58 (70) 97 07/15/24 13:22 98.5 119 20 93/58 (70) 95 98.5 07/15/24 13:22 119 20 95 Nasal Cannula 2.0 Lab Test 07/15/24 17:46 07/15/24 16:00 Range/Units Urine Color Light-yellow Yellow Urine Clarity Clear Clear Urine pH 5.5 5.0-9.0 Urine Specific [place] 1.010 1.001-1.035 Urine Protein Negative Negative Urine Ketones 1+ H Negative Urine Blood Negative Negative /uL Urine Nitrite Negative Negative Urine Bilirubin Negative Negative Urine Urobilinogen Normal Negative mg/dL Urine Leukocyte Esterase Negative Negative /uL Urine RBC 1 0 - 4 /hpf Urine WBC 1 0 - 5 /hpf Urine Squamous Epithelial Cells None seen <5 /hpf Urine Bacteria None seen None Seen /hpf Urine Glucose Normal Normal mg/dL White Blood Count 7.6 4.4-10.8 10^3/uL Red Blood Count 3.73 L 4.0-5.20 10^6/uL Hemoglobin 13.5 12.2-16.2 g/dL Hematocrit 39.1 36.0-46.0 % Mean Corpuscular Volume 104.7 H 80.0-100.0 fL Mean Corpuscular Hemoglobin 36.3 H 28.0-32.0 pg Mean Corpuscular Hemoglobin Concent 34.6 32.0-36.0 g/dL Red Cell Distribution Width 13.0 11.8-14.3 % Platelet Count 302 140-450 10^3/uL Mean Platelet Volume 5.8 L 6.9-10.8 fL Neutrophils (%) (Auto) 74.9 37.0-80.0 % Lymphocytes (%) (Auto) 15.2 10.0-50.0 % Monocytes (%) (Auto) 9.8 0.0-12.0 % Eosinophils (%) (Auto) 0.0 0.0-7.0 % Basophils (%) (Auto) 0.1 0.0-2.0 % Neutrophils # (Auto) 5.7 1.6-8.6 10 ^3/uL Lymphocytes # (Auto) 1.1 0.4-5.4 10 ^3/uL Monocytes # (Auto) 0.7 0-1.3 10 ^3/uL Eosinophils # (Auto) 0 0-0.8 10 ^3/uL Basophils # (Auto) 0 0-0.2 10 ^3/uL Nucleated Red Blood Cells 0.1 % Sodium Level 133 L 136-145 mmol/L Potassium Level 4.0 3.5-5.1 mmol/L Chloride Level 102 98-107 mmol/L Carbon Dioxide Level 23 20-31 mmol/L Anion Gap 8 5-15 Blood Urea Nitrogen 11 9-23 mg/dL Creatinine 0.44 L 0.550-1.02 mg/dL Glomerular Filtration Rate Calc 119 >90 mL/min BUN/Creatinine Ratio 25.0 H 10.0-20.0 Serum Glucose 100 74-106 mg/dL Calcium Level 9.6 8.7-10.4 mg/dL Magnesium Level 2.1 1.6-2.6 mg/dL Lipase 42 12-53 U/L Current Medications Medications (Trade) Dose Ordered Sig/Krysten Route Start Time Stop Time Status Last Admin Ibuprofen (MOTRIN 100MG/5 mL ORAL SUSP) 491 mg ONCE ONCE PO 07/15/24 13:15 07/15/24 13:16 DC 07/15/24 13:32 X-Ray, Labs, Meds, VS Comment Seen in the emergency department eventful patient with a cerebral palsy came to the emergency department complaining of shortness of breath and little irritability CBC is normal Urine is normal BNP negative Magnesium 2.1 Lipase 42 Chest x-ray is normal Patient will be discharged home to follow up with her PCP Time of 1ST Reevaluation: 15:27 Reevaluation 1ST: Unchanged Patient Education/Counseling: Other Family Education/Counseling: Diagnosis, Treatment, Prognosis Departure 1 Departure Time of Disposition: 18:30 Impression: Primary Impression: Cerebral palsy Additional Impressions: Dehydration determined by examination Generalized weakness Disposition: 01 HOME / SELF CARE / HOMELESS Condition: Fair Additional Instructions: You need to follow up with your PCP Discharged With: Relative (Mother) Critical Care Note Critical Care Time?: No Stability Stability form required: No Heart Score Heart Score: Heart Score Response (Comments) Value History N/A 0 EKG N/A 0 Age <45 0 Risk Factors 1 or 2 risk factors 1 Troponin N/A 0 Total 1 I personally scribed for LONG PALACIOS MD ([email or web address]) on 07/15/24 at 15:31. Electronically submitted by Cheryl Cobian ([facility]). LONG PALACIOS MD Jul 15, 2024 15:31
--- NOTE | 2024-07-15 16:10 | DVH ---
CHEST RADIOGRAPH Indication: sob Technique: Single frontal view of the chest was obtained COMPARISON: XY CHEST PORTABLE on DOS: 05/24/24, XY CHEST PORTABLE on DOS: 04/03/24, XY CHEST PORTABLE on DOS: 02/27/24, XY CHEST XRAY 1 VIEW on DOS: 02/07/24 FINDINGS: Lines and Tubes: Left vagal stimulator device. Lungs: Mild congestion low lung volumes. Pleura: No effusion. No pneumothorax. Cardiomediastinal contours: Unremarkable Bones: Unremarkable IMPRESSION: Mild congestion and low lung volumes.
[2024-07-15 16:17] LABS: Basophils # (auto) 0 10 ^3/uL (0-0.2); Basophils % (auto) 0.1 % (0.0-2.0); Eosinophils # (auto) 0 10 ^3/uL (0-0.8); Lymphocytes # (auto) 1.1 10 ^3/uL (0.4-5.4); Neutrophils # (auto) 5.7 10 ^3/uL (1.6-8.6); Nucleated Red Blood Cells % 0.1 %; White Blood Cell 7.6 10^3/uL (4.4-10.8)
[2024-07-15 16:19] LABS: Hematocrit 39.1 % (36.0-46.0); Hemoglobin 13.5 g/dL (12.2-16.2); Lymphocytes % (auto) 15.2 % (10.0-50.0); Mean Corpuscular Hemoglobin 36.3 pg (28.0-32.0); Mean Corpuscular Hgb Conc. 34.6 g/dL (32.0-36.0); Mean Corpuscular Volume 104.7 fL (80.0-100.0); Monocytes # (auto) 0.7 10 ^3/uL (0-1.3); Monocytes % (auto) 9.8 % (0.0-12.0); Neutrophils % (auto) 74.9 % (37.0-80.0); Platelet Count (auto) 302 10^3/uL (140-450); Red Blood Cells 3.73 10^6/uL (4.0-5.20)
[2024-07-15 16:24] LABS: Chloride 102 mmol/L (98-107)
[2024-07-15 16:25] LABS: Anion Gap 8 (5-15); Calcium 9.6 mg/dL (8.7-10.4); Carbon Dioxide 23 mmol/L (20-31)
[2024-07-15 16:27] LABS: Sodium 133 mmol/L (136-145)
[2024-07-15 16:30] LABS: Blood Urea Nitrogen 11 mg/dL (9-23); Glucose 100 mg/dL (74-106); Lipase 42 U/L (12-53)
[2024-07-15 16:31] LABS: Magnesium 2.1 mg/dL (1.6-2.6)
[2024-07-15 17:50] LABS: Urine Bacteria None Seen /hpf (None Seen)
[2024-07-15 18:10] LABS: Urine Blood Negative /uL (Negative); Urine Clarity Clear (Clear); Urine Color Light-Yellow (Yellow); Urine Protein, UAD Negative (Negative); Urine Squamous Epithelial Cell None Seen /hpf (<5); Urine Urobilinogen Normal (Negative); Urine WBC 1 /hpf (0 - 5); Urine pH 5.5 (5.0-9.0)
[2024-07-15] MEDS: LORazepam 2MG/ML-1ML VIAL IV ONE (21:15)
[2024-07-15] MEDS ORDERED: levETIRAcetam 1000 mg/100ml 100 ML IV ONE (21:15)
[2024-07-15] MEDS: IPRATROPIUM BROM 0.5 MG/2.5ML INH SOL NEB ONE (21:15)
[2024-07-15] MEDS: ALBUTEROL SULF 2.5 MG/0.5ML(0.5%) NEB SOLN NEB ONE (21:15)
[2024-07-15 21:39] LABS: COVID19 ANTIGEN SOFIA FIA NEGATIVE (NEGATIVE); Rapid Influenza A Negative (Negative); Rapid Influenza B Negative (Negative)
[2024-07-15] MEDS: IPRATROPIUM BROM 0.5 MG/2.5ML INH SOL ONE (21:39)
[2024-07-15] MEDS: ALBUTEROL SULF 2.5 MG/0.5ML(0.5%) NEB SOLN ONE (21:40)
--- NOTE | 2024-07-15 22:27 | DVHHPRES ---
History of Present Illness Resident Creating Document: CACHORRO IVY RESIDENT History of Present Illness Patient is 48-year-old female with past medical history of cerebral palsy, seizures, VSD, quadriplegia, GERD who brought to the hospital by sister with a chief complaint of acute onset of cough, shortness of breath and fever in past one day. As per sister patient is more anxious and that prompted her visit to emergency department. On further evaluation in emergency department, patient found to be hypoxic started on oxygen via nasal cannula 3-4 L patient is started saturating around 92-96 L improved from 80% saturation. Plan was for discharging patient from emergency department however patient started having seizure-like activity lasted less than 1 minute therefore patient will be admitted to the hospital for further evaluation. Patient has been known to us from clinic, patient has chronic history of seizure usually she gets few minutes of seizure every 5-10 days on Keppra and carbamazepine via G-tube. Patient is always anxious and nonverbal, however no any other signs of acute distress. Past Medical History cerebral palsy, seizures, VSD, quadriplegia, GERD Family History: None Smoke: No ALCOHOL: none Drugs: None Lives: with Family Review of Systems Review of Systems ROS can not be obtained given patient is nonverbal. Allergies: Coded Allergies: Vancomycin (Verified Adverse Reaction, Unknown, 05/01/24) fever, sweating, erythema from vanco infusion Exam Vital Signs Vital Signs Date Time Temp Pulse Resp B/P (MAP) Pulse Ox O2 Delivery O2 Flow Rate FiO2 07/15/24 21:48 22 96 Nasal Cannula* 2 28 07/15/24 19:32 130 106/54 (71) 07/15/24 14:30 98.0 98.0 Exam Patient is always anxious, nonverbal. General Appearance: Patient has thinned stretcher, wheelchair-bound. Head Exam: Normal inspection Neck Exam: Normal inspection. Non-tender. Normal alignment Pulmonary/Respiratory: Chest non-tender. Clear bilateral breath sounds Cardiovascular/Chest: Regular rate and rhythm. No murmurs. No JVD. Peripheral Pulses: 2+ Radial (R). 2+ Radial (L). 2+ Pedal (R). 2+ Pedal (L) Abdominal Exam: Normal bowel sounds. Soft. Nontender. No hepatospenomegaly. No masses Ankle Exam: Negative ankle edema Lower extremities: Negative lower extremity edema Neuro/Mental Status: Cranial and no intake, being anxious. Labs/Xrays Labs Test 07/15/24 20:00 07/15/24 17:46 07/15/24 16:00 Range/Units Influenza Type A Antigen Negative Negative Influenza Type B Antigen Negative Negative SARS-CoV-2 Antigen (Rapid) Negative NEGATIVE Urine Color Light-yellow Yellow Urine Clarity Clear Clear Urine pH 5.5 5.0-9.0 Urine Specific [place] 1.010 1.001-1.035 Urine Protein Negative Negative Urine Ketones 1+ H Negative Urine Blood Negative Negative /uL Urine Nitrite Negative Negative Urine Bilirubin Negative Negative Urine Urobilinogen Normal Negative mg/dL Urine Leukocyte Esterase Negative Negative /uL Urine RBC 1 0 - 4 /hpf Urine WBC 1 0 - 5 /hpf Urine Squamous Epithelial Cells None seen <5 /hpf Urine Bacteria None seen None Seen /hpf Urine Glucose Normal Normal mg/dL White Blood Count 7.6 4.4-10.8 10^3/uL Red Blood Count 3.73 L 4.0-5.20 10^6/uL Hemoglobin 13.5 12.2-16.2 g/dL Hematocrit 39.1 36.0-46.0 % Mean Corpuscular Volume 104.7 H 80.0-100.0 fL Mean Corpuscular Hemoglobin 36.3 H 28.0-32.0 pg Mean Corpuscular Hemoglobin Concent 34.6 32.0-36.0 g/dL Red Cell Distribution Width 13.0 11.8-14.3 % Platelet Count 302 140-450 10^3/uL Mean Platelet Volume 5.8 L 6.9-10.8 fL Neutrophils (%) (Auto) 74.9 37.0-80.0 % Lymphocytes (%) (Auto) 15.2 10.0-50.0 % Monocytes (%) (Auto) 9.8 0.0-12.0 % Eosinophils (%) (Auto) 0.0 0.0-7.0 % Basophils (%) (Auto) 0.1 0.0-2.0 % Neutrophils # (Auto) 5.7 1.6-8.6 10 ^3/uL Lymphocytes # (Auto) 1.1 0.4-5.4 10 ^3/uL Monocytes # (Auto) 0.7 0-1.3 10 ^3/uL Eosinophils # (Auto) 0 0-0.8 10 ^3/uL Basophils # (Auto) 0 0-0.2 10 ^3/uL Nucleated Red Blood Cells 0.1 % Sodium Level 133 L 136-145 mmol/L Potassium Level 4.0 3.5-5.1 mmol/L Chloride Level 102 98-107 mmol/L Carbon Dioxide Level 23 20-31 mmol/L Anion Gap 8 5-15 Blood Urea Nitrogen 11 9-23 mg/dL Creatinine 0.44 L 0.550-1.02 mg/dL Glomerular Filtration Rate Calc 119 >90 mL/min BUN/Creatinine Ratio 25.0 H 10.0-20.0 Serum Glucose 100 74-106 mg/dL Calcium Level 9.6 8.7-10.4 mg/dL Magnesium Level 2.1 1.6-2.6 mg/dL Lipase 42 12-53 U/L Assessment/Plan Assessment/Plan Seizure disorder Severe dehydration Cerebral palsy Generalized weakness Severe protein malnutrition Healing sacral ulcer. GERD Plan/recommendation -IV hydration with normal saline 100 mL/hour. -IV Keppra 1000 mg once daily -carbamazepine 600 mg b.i.d. via G-tube -Neurology and nutritional consult -head CT scan to rule out any structural mass or hemorrhage. -PUD prophylaxis with Protonix -DVT prophylaxis with Lovenox Goals of care has been discussed before, DNI DNR Plan discussed with Dr. Riggs Plan discussed with: Other (SISTER) My Orders Orders - CACHORRO IVY RESIDENT Procedure Category Date Status Time Admit ADMIT 07/15/24 Verified 22:21 Nitroglycerin PHA 07/15/24 Verified Sublingual (Ntrostat 22:30 Morphine Sulfate PHA 07/15/24 Verified Injection 22:30 Levetiracetam Ivpb PHA 07/16/24 Verified Keppra 10:00 Date of Service: Jul 15, 2024 Billing Provider: ISELA RIGGS MD Common Visit Codes: [id number] INP/OBS CARE (HIGH) CACHORRO IVY RESIDENT Jul 15, 2024 22:27 ISELA RIGGS MD Jul 18, 2024 20:04
[2024-07-15] MEDS ORDERED: LORazepam 0.5 MG TAB PO PRN (22:30)
[2024-07-15] MEDS ORDERED: NITROGLYCERIN 0.4 MG SL TAB SL PRN (22:30)
[2024-07-15] MEDS ORDERED: MORPHINE SULFATE INJ 2 MG/ml SYRG IV PRN ×2 (22:30)
[2024-07-15] MEDS: carBAMazepine 200 MG TAB PO ONE (22:30)
[2024-07-15] MEDS: levETIRAcetam 500 MG TAB PO ONE (23:53)
[2024-07-16] MEDS: ACETAMINOPHEN 325 MG TAB PO PRN (01:56)
[2024-07-16] MEDS: levETIRAcetam 500 MG/5ML ORAL SOLN UD GT ONE (05:21)
[2024-07-16] MEDS: cefTRIAXone 1GM/50ML D5W 50 ML IV ONE ×2 (05:24→14:27)
[2024-07-16] MEDS: PANTOPRAZOLE 40 MG/10 ML VIAL INJ IV ONE (05:24)
[2024-07-16] MEDS: SODIUM CHLORIDE 0.9% 1,000 ML IV SCH (05:25)
[2024-07-16] MEDS: LORazepam 0.5 MG TAB PO ONE (05:59)
[2024-07-16] MEDS: ONDANSETRON HCL 4 MG/2 ML VIAL IV ONE (05:59)
[2024-07-16] MEDS: SODIUM CHLORIDE 0.9% 1,000 ML IV ONE (06:05)
--- NOTE | 2024-07-16 06:29 | DVH ---
EXAM: CT HEAD WITHOUT CONTRAST INDICATION: seizure TECHNIQUE: CT of the head without intravenous contrast. Radiation Dose : 1. Head: CT Dose: CTDI volume is 57 mGy. Dose-length product is 1003 mGy*cm The dose indicators for CT are the volume Computed Tomography (CT) Dose Index (CTDIvol) and the Dose Length Product (DLP), and are measured in units of mGy and mGy-cm, respectively. These indicators are not patient dose, but values generated from the CT scanner acquisition factors. The report includes radiation exposure data for exposures received during this examination. COMPARISON: None FINDINGS: There is no evidence of acute intracranial hemorrhage, extra-axial collection, mass effect, midline s hift, herniation or hydrocephalus. The ventricles, sulci and cisterns are age appropriate. The gomes-white differentiation is intact. The visualized paranasal sinuses and mastoid air cells are clear. The surrounding soft tissues and osseous structures are unremarkable. IMPRESSION: No acute intracranial abnormality. Radiation optimization: All CT scans at this facility use at least one of these dose optimization abdias hniques: automated exposure control mA and/or kV adjustment per patient size (includes targeted exam s where dose is matched to clinical indication) or iterative reconstruction.
[2024-07-16] MEDS: AZITHROMYCIN 500MG/ 250ML 250 ML IV ONE (07:05)
[2024-07-16 08:00] VITALS: PULSE 89; RESP 15; O2SAT 96
[2024-07-16] MEDS: levETIRAcetam 1000 mg/100ml 100 ML IV SCH (10:16)
[2024-07-16] MEDS: PANTOPRAZOLE 40 MG/10 ML VIAL INJ IV SCH (10:16)
[2024-07-16] MEDS: carBAMazepine 200 MG TAB PO SCH (10:16)
[2024-07-16] MEDS: ENOXAPARIN SOD 40 MG/0.4 ML SYRINGE SC SCH (10:17)
[2024-07-16] MEDS: Glucerna Carbsteady SHAKE Vanilla 8oz GT SCH (10:17)
[2024-07-16 11:41] LABS: Urine Bacteria None Seen /hpf (None Seen)
[2024-07-16 11:47] LABS: Urine Blood TRACE /uL (Negative); Urine Clarity Turbid (Clear); Urine Color Yellow (Yellow); Urine Mucus FEW (None Seen); Urine Protein, UAD 1+ (Negative); Urine Specific Gravity 1.029 (1.001-1.035); Urine Squamous Epithelial Cell MOD /hpf (<5); Urine Urobilinogen Normal (Negative); Urine WBC 121 /hpf (0 - 5); Urine pH 5.5 (5.0-9.0)
--- NOTE | 2024-07-16 12:57 | DVHPN2 ---
Subjective chart reviwed/sleeping well Changes from previous H/P or p: No Changes Objective Vitals Vital Signs Date Time Temp Pulse Resp B/P (MAP) Pulse Ox O2 Delivery O2 Flow Rate FiO2 07/16/24 10:00 92 16 94/51 (65) 96 07/16/24 08:00 Nasal Cannula* 2 28 07/16/24 08:00 98.6 98.6 Intake/Output Intake and Output 07/16/24 07:00 Intake Total 60 ml Balance 60 ml Intake IV Total 60 ml General Appearance: Alert, Oriented X3, Cooperative, No acute distress Lungs: Clear to auscultation Abdomen: Normal bowel sounds, Soft, No tenderness, No hepatospenomegaly Neuro: Other (sleeping now/does respond to noxious stimulii) Medications Current Medications Medications Dose Ordered Sig/Krysten Route Start Time Stop Time Status Last Admin Dose Admin Levetiracetam 100 ml @ 400 mls/hr DAILY IV 07/16/24 10:00 07/16/24 10:16 400 MLS/HR Carbamazepine 400 mg BID PO 07/16/24 10:00 07/16/24 10:16 400 MG Sodium Chloride 1,000 ml @ 60 mls/hr [id number] IV 07/15/24 22:30 07/16/24 05:25 60 MLS/HR Pantoprazole Sodium 40 mg DAILY IV 07/16/24 10:00 07/16/24 10:16 40 MG Acetaminophen 650 mg Q6HPRN PRN PO 07/16/24 01:45 07/16/24 01:56 650 MG Enteral Nutritional Formula 240 ml TIDWM GT 07/16/24 08:00 07/16/24 10:17 240 ML Enoxaparin Sodium 40 mg DAILY SC 07/16/24 10:00 07/16/24 10:17 40 MG Laboratory Results Laboratory Tests 07/15/24 16:00 Chemistry Test 07/15/24 16:00 Calcium Level 9.6 mg/dL (8.7-10.4) Magnesium Level 2.1 mg/dL (1.6-2.6) Lipid panel Test 07/15/24 16:00 Lipase 42 U/L (12-53) Urinalysis Test 07/16/24 09:30 Urine Color Yellow (Yellow) Urine Clarity Turbid (Clear) H Urine pH 5.5 (5.0-9.0) Urine Specific [place] 1.029 (1.001-1.035) Urine Protein 1+ (Negative) H Urine Ketones 2+ (Negative) H Urine Blood Trace /uL (Negative) H Urine Nitrite Negative (Negative) Urine Bilirubin Negative (Negative) Urine Urobilinogen Normal mg/dL (Negative) Urine Leukocyte Esterase 3+ /uL (Negative) Urine RBC 5 /hpf (0 - 4) Urine WBC 121 /hpf (0 - 5) Urine Squamous Epithelial Cells Mod /hpf (<5) Urine Bacteria None seen /hpf (None Seen) Urine Mucus Few (None Seen) Urine Glucose Normal mg/dL (Normal) Assessment/Plan Assessment/Plan sepsis- thompson culture/cxr reviwed/added empiric antibiotics/check for flu and covid/ breakthru seizures- stable/adjust meds/consult neurology cerebral palsy quadriplegia/paraplegia at baseline with contractures extremities- at baseline peg tube status- start tube feeds gerd stable Plan discussed with: Other Date of Service: Jul 16, 2024 Billing Provider: SHERIN COATS MD Common Visit Codes: [id number] INP/OBS CARE(HIGH) SHERIN COATS MD Jul 16, 2024 12:57
[2024-07-16] MEDS ORDERED: AZITHROMYCIN 500MG/ 250ML 250 ML IV ONE (13:00)
[2024-07-16 20:00] VITALS: PULSE 98; RESP 25; O2SAT 96
[2024-07-17 09:09] LABS: Basophils # (auto) 0 10 ^3/uL (0-0.2); Basophils % (auto) 0.1 % (0.0-2.0); Eosinophils # (auto) 0 10 ^3/uL (0-0.8); Hematocrit 40.1 % (36.0-46.0); Hemoglobin 13.4 g/dL (12.2-16.2); Lymphocytes # (auto) 0.8 10 ^3/uL (0.4-5.4); Lymphocytes % (auto) 9.1 % (10.0-50.0); Mean Corpuscular Hemoglobin 35.7 pg (28.0-32.0); Mean Corpuscular Hgb Conc. 33.5 g/dL (32.0-36.0); Mean Corpuscular Volume 106.7 fL (80.0-100.0); Monocytes # (auto) 0.9 10 ^3/uL (0-1.3); Monocytes % (auto) 10.9 % (0.0-12.0); Neutrophils # (auto) 6.6 10 ^3/uL (1.6-8.6); Neutrophils % (auto) 79.9 % (37.0-80.0); Platelet Count (auto) 274 10^3/uL (140-450); Red Blood Cells 3.75 10^6/uL (4.0-5.20); Red Cell Distribution Width 13.4 % (11.8-14.3); White Blood Cell 8.2 10^3/uL (4.4-10.8)
[2024-07-17] MEDS: cefTRIAXone 1GM/50ML D5W 50 ML IV SCH (09:09)
[2024-07-17 09:17] LABS: Chloride 105 mmol/L (98-107); Potassium 4.4 mmol/L (3.5-5.1); Sodium 136 mmol/L (136-145)
[2024-07-17 09:18] LABS: Calcium 9.6 mg/dL (8.7-10.4)
[2024-07-17 09:23] LABS: Anion Gap 16 (5-15); BUN/Creatinine Ratio 21.3 (10.0-20.0); Blood Urea Nitrogen 10 mg/dL (9-23); Carbon Dioxide 15 mmol/L (20-31); Glucose 56 mg/dL (74-106)
[2024-07-17] MEDS: AZITHROMYCIN 500MG/ 250ML 250 ML IV SCH (10:34)
--- NOTE | 2024-07-17 10:55 | DVHPN2 ---
Subjective chart reviwed/sleeping well Changes from previous H/P or p: No Changes, Changes (alert ans awake today) Objective Vitals Vital Signs Date Time Temp Pulse Resp B/P (MAP) Pulse Ox O2 Delivery O2 Flow Rate FiO2 07/17/24 10:24 100.2 106 24 103/55 (71) 97 100.2 07/16/24 20:00 Nasal Cannula* 2 28 Intake/Output Intake and Output 07/17/24 07:00 Intake Total 1810 ml Balance 1810 ml Intake IV Total 1810 ml General Appearance: Alert, Oriented X3, Cooperative, No acute distress Lungs: Clear to auscultation Abdomen: Normal bowel sounds, Soft, No tenderness, No hepatospenomegaly Neuro: Other (sleeping now/does respond to noxious stimulii) Medications Current Medications Medications Dose Ordered Sig/Krysten Route Start Time Stop Time Status Last Admin Dose Admin Levetiracetam 100 ml @ 400 mls/hr DAILY IV 07/16/24 10:00 07/17/24 10:35 400 MLS/HR Carbamazepine 400 mg BID PO 07/16/24 10:00 07/17/24 10:35 400 MG Sodium Chloride 1,000 ml @ 60 mls/hr [id number] IV 07/15/24 22:30 07/17/24 07:50 60 MLS/HR Pantoprazole Sodium 40 mg DAILY IV 07/16/24 10:00 07/17/24 10:34 40 MG Acetaminophen 650 mg Q6HPRN PRN PO 07/16/24 01:45 07/17/24 08:47 650 MG Enteral Nutritional Formula 240 ml TIDWM GT 07/16/24 08:00 07/17/24 10:35 240 ML Enoxaparin Sodium 40 mg DAILY SC 07/16/24 10:00 07/17/24 10:34 40 MG Ceftriaxone Sodium 50 ml @ 100 mls/hr DAILY@09 IV 07/17/24 09:00 07/17/24 09:09 100 MLS/HR Azithromycin 250 ml @ 125 mls/hr DAILY IV 07/17/24 10:00 07/17/24 10:34 125 MLS/HR Laboratory Results Laboratory Tests 07/17/24 08:46 Chemistry Test 07/17/24 08:46 Calcium Level 9.6 mg/dL (8.7-10.4) Urinalysis Test 07/16/24 09:30 Urine Color Yellow (Yellow) Urine Clarity Turbid (Clear) H Urine pH 5.5 (5.0-9.0) Urine Specific [place] 1.029 (1.001-1.035) Urine Protein 1+ (Negative) H Urine Ketones 2+ (Negative) H Urine Blood Trace /uL (Negative) H Urine Nitrite Negative (Negative) Urine Bilirubin Negative (Negative) Urine Urobilinogen Normal mg/dL (Negative) Urine Leukocyte Esterase 3+ /uL (Negative) Urine RBC 5 /hpf (0 - 4) Urine WBC 121 /hpf (0 - 5) Urine Squamous Epithelial Cells Mod /hpf (<5) Urine Bacteria None seen /hpf (None Seen) Urine Mucus Few (None Seen) Urine Glucose Normal mg/dL (Normal) Microbiology Microbiology Date/Time Source Procedure Growth Status 07/16/24 10:18 Blood Blood Culture - Preliminary NO GROWTH AFTER 24 HOURS OF INCUBATION. Resulted 07/16/24 09:30 Voided Urine Urine Culture - Preliminary Resulted Labs and/or images reviewed: Labs reviewed by me Assessment/Plan Assessment/Plan sepsis- thompson culture/cxr reviwed/added empiric antibiotics/check for flu and covid/ breakthru seizures- stable/adjust meds/consult neurology cerebral palsy quadriplegia/paraplegia at baseline with contractures extremities- at baseline peg tube status- start tube feeds gerd stable Plan discussed with: Other My Orders Orders - SHERIN COATS MD Procedure Category Date Status Time Urine Bacterial TREY 07/16/24 In Process Culture 12:47 Ceftriaxone 1gm/50ml PHA 07/17/24 In Process D5w (Rocephin) 09:00 Azithromycin 500mg/ PHA 07/17/24 In Process 250ml (Zithromax 50 10:00 Tube Feeding DIET 07/16/24 Transmitted Lunch Free Water TIFFANY 07/16/24 In Process 12:57 Date of Service: Jul 17, 2024 Billing Provider: SHERIN COATS MD Common Visit Codes: [id number] INP/OBS CARE(HIGH) SHERIN COATS MD Jul 17, 2024 10:55
[2024-07-17] MEDS: Glucerna Carbsteady SHAKE Vanilla 8oz GT SCH (12:18)
[2024-07-17] MEDS: SODIUM CHLORIDE 0.9% 1,000 ML IV SCH (12:51)
[2024-07-17 17:28] VITALS: BP 124/75; PULSE 86; RESP 18; TEMP 98.6; O2SAT 95
[2024-07-17 17:40] VITALS: BP 106/62; PULSE 116; RESP 22; O2SAT 93
[2024-07-17 21:00] VITALS: BP 107/54; PULSE 114; RESP 20; TEMP 99.6; O2SAT 90
[2024-07-18] VITALS (7 sets, daily range): BP systolic 95–118; BP diastolic 47–64; PULSE 83–111; RESP 16–20; TEMP 98.3–100.6; O2SAT 92–97
[2024-07-18 07:35] LABS: Basophils # (auto) 0 10 ^3/uL (0-0.2); Eosinophils # (auto) 0 10 ^3/uL (0-0.8); Eosinophils % (auto) 0.1 % (0.0-7.0); Hematocrit 34.7 % (36.0-46.0); Hemoglobin 11.9 g/dL (12.2-16.2); Lymphocytes % (auto) 23.4 % (10.0-50.0); Mean Corpuscular Hemoglobin 35.4 pg (28.0-32.0); Mean Corpuscular Hgb Conc. 34.2 g/dL (32.0-36.0); Mean Corpuscular Volume 103.4 fL (80.0-100.0); Monocytes # (auto) 0.7 10 ^3/uL (0-1.3); Monocytes % (auto) 15.5 % (0.0-12.0); Neutrophils # (auto) 2.6 10 ^3/uL (1.6-8.6); Nucleated Red Blood Cells % 0.1 %; Platelet Count (auto) 243 10^3/uL (140-450); Red Blood Cells 3.36 10^6/uL (4.0-5.20); Red Cell Distribution Width 12.9 % (11.8-14.3); White Blood Cell 4.3 10^3/uL (4.4-10.8)
[2024-07-18 07:37] LABS: Alanine Aminotransferase 22 U/L (7-40); Albumin 3.5 g/dL (3.2-4.8); Alkaline Phosphatase 102 U/L (46-116); Anion Gap 11 (5-15); Calcium 8.7 mg/dL (8.7-10.4); Chloride 104 mmol/L (98-107)
[2024-07-18 07:38] LABS: Aspartate Aminotransferase 30 U/L (13-40); Total Protein 5.8 g/dL (5.7-8.2)
[2024-07-18 07:48] LABS: BUN/Creatinine Ratio 13.2 (10.0-20.0); Bilirubin, Total 0.2 mg/dL (0.2-1.0); Blood Urea Nitrogen < 5 mg/dL (9-23); Carbon Dioxide 20 mmol/L (20-31); Glucose 67 mg/dL (74-106); Potassium 3.4 mmol/L (3.5-5.1); Sodium 135 mmol/L (136-145)
[2024-07-18] MEDS ORDERED: Glucerna 1.2 Cal 1Liter BOTTLE GT SCH (08:00)
[2024-07-18] MEDS: Glucerna Carbsteady SHAKE Stawberry 8oz GT SCH (08:00)
--- NOTE | 2024-07-18 11:52 | DVHPN2 ---
Reviewed: Care Plan, H&P, Labs, Medications, Previous Orders, Radiology Changes from previous H/P or p: No Changes Objective Vitals Vital Signs Date Time Temp Pulse Resp B/P (MAP) Pulse Ox O2 Delivery O2 Flow Rate FiO2 07/18/24 09:00 99.3 110 16 104/53 (70) 94 99.3 07/17/24 20:00 Nasal Cannula* 3 32 Intake/Output Intake and Output 07/18/24 07:00 Intake Total 1157 ml Output Total 700 ml Balance 457 ml Intake Oral 0 ml IV Total 1157 ml Output Urine Total 700 ml General Appearance: Alert, Oriented X3, Cooperative, No acute distress Lungs: Clear to auscultation Abdomen: Normal bowel sounds, Soft, No tenderness, No hepatospenomegaly Neuro: Other (sleeping now/does respond to noxious stimulii) Medications Current Medications Medications Dose Ordered Sig/Krysten Route Start Time Stop Time Status Last Admin Dose Admin Levetiracetam 100 ml @ 400 mls/hr DAILY IV 07/16/24 10:00 07/17/24 10:35 400 MLS/HR Carbamazepine 400 mg BID PO 07/16/24 10:00 07/17/24 22:26 400 MG Pantoprazole Sodium 40 mg DAILY IV 07/16/24 10:00 07/17/24 10:34 40 MG Acetaminophen 650 mg Q6HPRN PRN PO 07/16/24 01:45 07/17/24 20:35 650 MG Enoxaparin Sodium 40 mg DAILY SC 07/16/24 10:00 07/18/24 09:34 40 MG Ceftriaxone Sodium 50 ml @ 100 mls/hr DAILY@09 IV 07/17/24 09:00 07/18/24 08:20 100 MLS/HR Azithromycin 250 ml @ 125 mls/hr DAILY IV 07/17/24 10:00 07/18/24 09:46 125 MLS/HR Sodium Chloride 1,000 ml @ 60 mls/hr [id number] IV 07/17/24 11:00 07/18/24 09:46 60 MLS/HR Enteral Nutritional Formula 1,000 ml 40ML/HR GT 07/18/24 08:00 Cancel Enteral Nutritional Formula 240 ml TIDWM GT 07/18/24 08:00 Laboratory Results Laboratory Tests 07/18/24 06:18 Chemistry Test 07/18/24 06:18 Albumin 3.5 g/dL (3.2-4.8) Calcium Level 8.7 mg/dL (8.7-10.4) Total Protein 5.8 g/dL (5.7-8.2) LFT Test 07/18/24 06:18 Alanine Aminotransferase (ALT) 22 U/L (7-40) Alkaline Phosphatase 102 U/L (46-116) Aspartate Amino Transferase (AST) 30 U/L (13-40) Total Bilirubin 0.2 mg/dL (0.2-1.0) Urinalysis Test 07/16/24 09:30 Urine Color Yellow (Yellow) Urine Clarity Turbid (Clear) H Urine pH 5.5 (5.0-9.0) Urine Specific [place] 1.029 (1.001-1.035) Urine Protein 1+ (Negative) H Urine Ketones 2+ (Negative) H Urine Blood Trace /uL (Negative) H Urine Nitrite Negative (Negative) Urine Bilirubin Negative (Negative) Urine Urobilinogen Normal mg/dL (Negative) Urine Leukocyte Esterase 3+ /uL (Negative) Urine RBC 5 /hpf (0 - 4) Urine WBC 121 /hpf (0 - 5) Urine Squamous Epithelial Cells Mod /hpf (<5) Urine Bacteria None seen /hpf (None Seen) Urine Mucus Few (None Seen) Urine Glucose Normal mg/dL (Normal) Microbiology Microbiology Date/Time Source Procedure Growth Status 07/16/24 10:18 Blood Blood Culture - Preliminary NO GROWTH AFTER 48 HOURS OF INCUBATION. Resulted 07/16/24 09:30 Voided Urine Urine Culture - Preliminary Resulted Labs and/or images reviewed: Labs reviewed by me, Image(s) reviewed by me Assessment/Plan Assessment/Plan Sepsis secondary to urinary tract infection : Rocephin Possible aspiration pneumonia: Azithromycin Breakthrough seizures: Continue Keppra History of cerebral palsy History of quadriplegia paraplegia Contractures GERD stable Status post PEG tube Patient's sister at the bedside and discharge plan discussed with the patient sister Plan discussed with: Patient Date of Service: Jul 18, 2024 Billing Provider: GUERO ELDER MD Common Visit Codes: [id number] INP/OBS CARE(HIGH) GUERO ELDER MD Jul 18, 2024 11:52
[2024-07-18] MEDS ORDERED: LEVE100012 PO (11:54)
[2024-07-18] MEDS ORDERED: CIPR-173 PO (11:54)
[2024-07-18] MEDS ORDERED: CARB300C9 PO (11:54)
[2024-07-18] MEDS ORDERED: AZIT500T66 PO (11:54)
--- NOTE | 2024-07-18 11:59 | DVHDS2 ---
Discharge Summary Date of Admission Jul 15, 2024 at 22:21 Date of Discharge: Jul 18, 2024 Admitting Diagnosis Breakthrough seizures Wounds: None Labs/Diagnostic Data: Laboratory Results Test 07/18/24 06:18 07/16/24 09:30 07/16/24 05:00 07/15/24 20:00 White Blood Count 4.3 10^3/uL (4.4-10.8) Red Blood Count 3.36 10^6/uL (4.0-5.20) Hemoglobin 11.9 g/dL (12.2-16.2) Hematocrit 34.7 % (36.0-46.0) Mean Corpuscular Volume 103.4 fL (80.0-100.0) Mean Corpuscular Hemoglobin 35.4 pg (28.0-32.0) Mean Corpuscular Hemoglobin Concent 34.2 g/dL (32.0-36.0) Red Cell Distribution Width 12.9 % (11.8-14.3) Platelet Count 243 10^3/uL (140-450) Mean Platelet Volume 6.1 fL (6.9-10.8) Neutrophils (%) (Auto) 61.0 % (37.0-80.0) Lymphocytes (%) (Auto) 23.4 % (10.0-50.0) Monocytes (%) (Auto) 15.5 % (0.0-12.0) Eosinophils (%) (Auto) 0.1 % (0.0-7.0) Basophils (%) (Auto) 0.0 % (0.0-2.0) Neutrophils # (Auto) 2.6 10 ^3/uL (1.6-8.6) Lymphocytes # (Auto) 1.0 10 ^3/uL (0.4-5.4) Monocytes # (Auto) 0.7 10 ^3/uL (0-1.3) Eosinophils # (Auto) 0 10 ^3/uL (0-0.8) Basophils # (Auto) 0 10 ^3/uL (0-0.2) Nucleated Red Blood Cells 0.1 % Sodium Level 135 mmol/L (136-145) Potassium Level 3.4 mmol/L (3.5-5.1) Chloride Level 104 mmol/L (98-107) Carbon Dioxide Level 20 mmol/L (20-31) Anion Gap 11 (5-15) Blood Urea Nitrogen < 5 mg/dL (9-23) Creatinine 0.38 mg/dL (0.550-1.02) Glomerular Filtration Rate Calc 124 mL/min (>90) BUN/Creatinine Ratio 13.2 (10.0-20.0) Serum Glucose 67 mg/dL (74-106) Calcium Level 8.7 mg/dL (8.7-10.4) Total Bilirubin 0.2 mg/dL (0.2-1.0) Aspartate Amino Transferase (AST) 30 U/L (13-40) Alanine Aminotransferase (ALT) 22 U/L (7-40) Alkaline Phosphatase 102 U/L (46-116) Total Protein 5.8 g/dL (5.7-8.2) Albumin 3.5 g/dL (3.2-4.8) Urine Color Yellow (Yellow) Urine Clarity Turbid (Clear) Urine pH 5.5 (5.0-9.0) Urine Specific [place] 1.029 (1.001-1.035) Urine Protein 1+ (Negative) Urine Ketones 2+ (Negative) Urine Blood Trace /uL (Negative) Urine Nitrite Negative (Negative) Urine Bilirubin Negative (Negative) Urine Urobilinogen Normal mg/dL (Negative) Urine Leukocyte Esterase 3+ /uL (Negative) Urine RBC 5 /hpf (0 - 4) Urine WBC 121 /hpf (0 - 5) Urine Squamous Epithelial Cells Mod /hpf (<5) Urine Bacteria None seen /hpf (None Seen) Urine Mucus Few (None Seen) Urine Glucose Normal mg/dL (Normal) Lactic Acid Level 0.8 mmol/L (0.4-2.0) Influenza Type A Antigen Negative (Negative) Influenza Type B Antigen Negative (Negative) SARS-CoV-2 Antigen (Rapid) Negative (NEGATIVE) Test 07/15/24 16:00 Magnesium Level 2.1 mg/dL (1.6-2.6) Lipase 42 U/L (12-53) Other Laboratory Tests 07/18/24 06:18 Brief Hx & Hospital Course: Patient was originally taken care of by 48-year-old female with a history of quadriplegia cerebral palsy paraplegia bedridden contractures PEG tube feedings moved from [facility] burden by sister for breakthrough seizures she normally takes Keppra and carbamazepine which she ran out. The patient was given these medications after admission and no more seizures. Possible aspiration pneumonia and UTI treated with a azithromycin and Rocephin being discharged home on Cipro for UTI azithromycin for pneumonia. Refill prescriptions for Keppra and carbamazepine she will follow up with her PCP Dr. Cohen. Her sister and caregiver at the bedside. Consults/Reason for consult None Operations or Procedures CT head Condition at Discharge: Fair Final Diagnosis/Problems List Sepsis secondary to urinary tract infection : Rocephin Possible aspiration pneumonia: Azithromycin Breakthrough seizures: Continue Keppra History of cerebral palsy History of quadriplegia paraplegia Contractures GERD stable Status post PEG tube Discharge Disposition: Home Discharge Instruct/Medications Diet: Regular Activity: Bed rest Follow Up/Referral: Follow up with your primary Dr Dr. Cohen Medications: Keppra Carbamazepine Cipro Azithromycin Transmitted to the pharmacy 35 (Time taken for discharge summary 35 minutes) Discharge Statement: "Patient was advised to return to the ER or call 911 if any headaches, dizziness, shortness of breath, chest pain, abdominal pain, bleeding, fevers, or worsening of medical condition. Patient was counseled about treatment plan, medications, possible side effects, patientverbalized understanding. All questions were answered to the best of my ability. This discharge took greater then 30 minutes in planning, reviewing documentation, counseling the patient, and discussing with other team members." ASSESSMENT ASSESSMENT Hospital Course Improved Assessment Sepsis secondary to urinary tract infection : Rocephin Possible aspiration pneumonia: Azithromycin Breakthrough seizures: Continue Keppra History of cerebral palsy History of quadriplegia paraplegia Contractures GERD stable Status post PEG tube Date of Service: Jul 18, 2024 Billing Provider: GUERO ELDER MD Common Visit Codes: [id number] DISCH DAY >30min GUERO ELDER MD Jul 18, 2024 11:59
[2024-07-18] MEDS ORDERED: LORazepam 2MG/ML-1ML VIAL IV PRN (13:00)
[2024-07-18 14:22] LABS: Base Excess -0.4 mmol/L (-2.0-3.0)
[2024-07-18] MEDS: ACETAMINOPHEN 650 mg PER 20.3 mL UD GT ONE (17:48)
== END 2024-07-18 23:00 | disposition home or self-care (01) | DRG 720 ==
LOC: ER 12:55 → OVERFLOW 22:21 → CENTRAL 07-17 17:20
PROVIDERS: ADMIT Student in an Organized Health Care Education/Training Program; ATTEND Family Medicine
DX: A41.9 Sepsis, unspecified organism (principal); J96.00 Acute respiratory failure, unspecified whether with hypoxia or hypercapnia; J69.0 Pneumonitis due to inhalation of food and vomit; G82.50 Quadriplegia, unspecified; E44.1 Mild protein-calorie malnutrition; E86.0 Dehydration; N30.00 Acute cystitis without hematuria; G40.909 Epilepsy, unspecified, not intractable, without status epilepticus; L98.499 Non-pressure chronic ulcer of skin of other sites with unspecified severity; K21.9 Gastro-esophageal reflux disease without esophagitis; Z93.1 Gastrostomy status; Z74.01 Bed confinement status; Z79.899 Other long term (current) drug therapy; Z68.1 Body mass index [BMI] 19.9 or less, adult; Z90.49 Acquired absence of other specified parts of digestive tract
CPT/HCPCS: 36415; 36600; 70450; 71045; 80048; 80053; 81001; 82805; 83605; 83690; 83735; 85025; 87040; 87086; 87426; 87804; 94640; G0378; J2405; J2470

== ENCOUNTER 2024-07-21 16:44 | Inpatient (IN) | payer MEDICAID ==
[~2024-07-21] VITALS: Ht 147.3 cm; Wt 40.0 kg
[~2024-07-21 16:44] MED LIST changes: +AZIT500T66 PO; +CIPR-173 PO
[2024-07-21] MEDS: SODIUM CHLORIDE 0.9% 500 ML IV ONE (17:00)
[2024-07-21 17:15] VITALS: PULSE 101; RESP 16; O2SAT 92
--- NOTE | 2024-07-21 17:37 | DVH ---
CHEST RADIOGRAPH Indication: sz, Gtube dislodge Technique: Single frontal view of the chest was obtained Comparison: XY CHEST PORTABLE on DOS: 07/15/24, XY CHEST PORTABLE on DOS: 05/24/24, XY CHEST PORTABLE o n DOS: 04/03/24 FINDINGS: Lines and Tubes: None Lungs: Clear Pleura: No effusion. No pneumothorax. Cardiomediastinal contours: Unremarkable Bones: Unremarkable IMPRESSION: Clear lungs.
[2024-07-21] MEDS: levETIRAcetam 500 mg/100ml 100 ML IV ONE (18:30)
--- NOTE | 2024-07-21 18:50 | DVH ---
CT BRAIN WITHOUT CONTRAST HISTORY: seizure, GTube dislodge/traumatic TECHNIQUE: Axial scans were obtained from the skull base through the vertex without contrast. [place] l and coronal reformats were generated. One or more of the following radiation dose reduction techniq ues were used for this examination: automated exposure control, adjustment of the mA and/or kV accord ing to patient size, use of iterative reconstruction technique. COMPARISON: CT HEAD WITHOUT CONTRAST on DOS: 07/16/24 FINDINGS: No acute intracranial hemorrhage or evidence of large vessel territorial infarction identified at thi s time. No midline shift. The basilar cisterns are patent. The visualized paranasal sinuses and mastoid air cells are clear. No grossly displaced calvarial frac ture is identified. IMPRESSION: No acute intracranial findings.
--- NOTE | 2024-07-21 18:56 | DVH ---
Exam: CT CT AB PEL WO CON-NO ORAL OR IV History: sz/ G tube dislodge traumatic Comparison Study: None available at time of dictation. Technique: Multidetector spiral CT of the abdomen was performed from lung bases to pubic symphysis. Imaging was performed without IV contrast. Axial, coronal and sagittal multiplanar reformats were ob tained from the axial data set by the technologist. Radiation Dose : 1. Abdomen/Pelvis: CTDIvol 5 mGy, DLP 251 mGy*cm. Findings: Evaluation of solid organs is limited due to lack of intravenous contrast use. Lung Bases: Small bilateral posterior lower lobe consolidations, left side greater than right Liver: The liver is normal in size. No focal lesions. Gallbladder and Biliary Tree: Cholecystectomy. Spleen: Unremarkable Pancreas: The pancreas is grossly normal in appearance. Adrenal Glands: Unremarkable Kidneys: Kidneys are grossly normal without calculi or hydronephrosis. Bladder: Grossly unremarkable for degree of distention. Bowel: The stomach is grossly normal in appearance. Small bowel and colon are normal in caliber and d istribution. The appendix is not visualized; however, no secondary findings of acute appendicitis id entified. Ascites: Absent Lymphadenopathy: No mesenteric, retroperitoneal or periportal lymphadenopathy. Abdominal Wall and Mesentery: Unremarkable. Vasculature: The visualized abdominal aorta is normal in size and caliber. Evaluation of abdominal a nd pelvic vessels is limited due to lack of intravenous contrast. Pelvic Organs: Unremarkable Musculoskeletal: No aggressive focal bony lesions, acute fractures or dislocation. Moderate degenerat abbey changes of the right hip joint. Possible right-sided hip dysplasia. IMPRESSION: Bilateral medial posterior lower lobe consolidations, left side greater than right concerning for asp iration or pneumonia. No G-tube is visualized within the gastric lumen. Small tract visualized in the left paramedian anter ior abdominal wall likely from prior g-tube placement. Ancillary findings as described above. END IMPRESSION:
[2024-07-21 19:13] VITALS: PULSE 105; RESP 30; O2SAT 93
[2024-07-21 20:06] LABS: Basophils # (auto) 0 10 ^3/uL (0-0.2); Basophils % (auto) 0.3 % (0.0-2.0); Eosinophils # (auto) 0 10 ^3/uL (0-0.8); Eosinophils % (auto) 0.8 % (0.0-7.0); Nucleated Red Blood Cells % 0.1 %
--- NOTE | 2024-07-21 20:08 | ED.PDOC ---
HPI (NEURO) HPI Comments HPI: Poor Historian. Past Medcial History: GERD, epilepsy, cerebral palsy, quadriplegia Past Surgical History: REVIEW OF SYSTEMS: CONSTITUTIONAL: Denies acute: fever, diaphoresis, chills, HEAD: Denies acute: headache, photophobia Eyes: Denies acute: Double vision, vision loss, eye pain, eye discharge. EARS: Denies acute: tinnitus, hearing loss, ear discharge, ear pain, THROAT: Denies acute: sore throat, swelling, difficulty swallowing , pain with swallowing, change in voice. NECK: Denies acute: neck pain, neck swelling, stiff neck. HEART: Denies acute : chest pain, palpitations, LUNGS: Denies acute: SOB, wheezing, cough, hemoptysis ABDOMEN: Denies acute: abdominal pain, Nausea, Vomiting, diarrhea, melena , hematemesis, hematochezia SKIN: Denies acute: rash, redness, lesions, itchiness. EXTREMITIES: Denies acute: calf pain, numbness, tingling, weakness, denies pain in extremity. Denies acute: Low back pain. Neuro: Denies acute: focal neurological deficit, motor or sensory focal neurological deficit, dizziness, loss of bowel or bladder function, cauda equina like symptoms. : Denies acute: dysuria, hematuria, flank pain, increase in urinary frequency. PSYCH: Denies acute: hallucination, suicidal ideation, homicidal ideation. FEMALE: Denies acute: abnormal vaginal bleeding, foul odor, unusual discharge. PHYSICAL EXAM: General: no acute distress, awake and alert. Head: normocephalic, atraumatic. Neck: supple, trachea is midline, no swelling. Eyes:, no erythema, no purulent discharge, no proptosis, no icterus. Heart: regular rate, regular rhythm, no significant murmur appreciated. Lungs: no apparent respiratory distress, No wheezing, no rhonchi, no crackles. No stridors Clear to auscultation bilaterally. Abdomen: non tender to palpation, non distended, soft, no guarding, no rebound, + bowel sounds. Noted the stoma site of the G-tube has some bleeding. The G-tube is accompanying the patient and the balloon bulb is already inflated. This was a traumatic dislodging of the G tube 20 [place] Patient is wearing a diaper Neuro: Awake, Alert, appears to be at baseline. Skin: no petechia, no purpura, no cyanosis, non-pale, not jaundice. Lower extremities: --no - Pitting edema no deformity, no focal swelling, no calf TTP. Noted multiple baseline contractures of upper and lower extremities. Makes eye contact. moves all four extremities. Face: no apparent facial droop. 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: No Pertinent BEAMING MACHINE OPERATOR History Family History Family History: Unknown Social History Smoker: Non-Smoker Alcohol: Denies ETOH Use Drugs: Denies Drug Use Lives In: Home X-Ray, Labs, Meds, VS Vital Signs Date Time Temp Pulse Resp B/P (MAP) Pulse Ox O2 Delivery O2 Flow Rate FiO2 07/21/24 20:00 105 29 102/62 (75) 94 07/21/24 20:00 103 07/21/24 19:13 105 30 93 Nasal Cannula* 4 36 07/21/24 19:13 96.9 105 30 96/59 (71) 93 96.9 07/21/24 18:00 103 16 96/59 (71) 96 07/21/24 17:15 102 07/21/24 17:15 110 16 98/63 (75) 94 07/21/24 17:15 101 16 92 Nasal Cannula* 4 36 07/21/24 16:53 98.3 103 16 97/66 (76) 94 Lab Test 07/21/24 20:51 07/21/24 19:43 07/21/24 19:00 07/21/24 16:59 Range/Units Troponin I High Sensitivity < 3 L < 3 L </=34 ng/L White Blood Count 6.0 # 4.4-10.8 10^3/uL Red Blood Count 3.33 L 4.0-5.20 10^6/uL Hemoglobin 12.0 L 12.2-16.2 g/dL Hematocrit 34.8 L 36.0-46.0 % Mean Corpuscular Volume 104.4 H 80.0-100.0 fL Mean Corpuscular Hemoglobin 35.8 H 28.0-32.0 pg Mean Corpuscular Hemoglobin Concent 34.3 32.0-36.0 g/dL Red Cell Distribution Width 12.9 11.8-14.3 % Platelet Count 310 140-450 10^3/uL Mean Platelet Volume 6.7 L 6.9-10.8 fL Neutrophils (%) (Auto) 57.4 37.0-80.0 % Lymphocytes (%) (Auto) 30.6 10.0-50.0 % Monocytes (%) (Auto) 10.9 0.0-12.0 % Eosinophils (%) (Auto) 0.8 0.0-7.0 % Basophils (%) (Auto) 0.3 0.0-2.0 % Neutrophils # (Auto) 3.5 1.6-8.6 10 ^3/uL Lymphocytes # (Auto) 1.8 0.4-5.4 10 ^3/uL Monocytes # (Auto) 0.7 0-1.3 10 ^3/uL Eosinophils # (Auto) 0 0-0.8 10 ^3/uL Basophils # (Auto) 0 0-0.2 10 ^3/uL Nucleated Red Blood Cells 0.1 % Platelet Estimate Adequate Sodium Level 140 # 136-145 mmol/L Potassium Level 4.4 3.5-5.1 mmol/L Chloride Level 106 98-107 mmol/L Carbon Dioxide Level 25 20-31 mmol/L Anion Gap 9 5-15 Blood Urea Nitrogen 14 9-23 mg/dL Creatinine 0.33 L 0.550-1.02 mg/dL Glomerular Filtration Rate Calc 128 >90 mL/min BUN/Creatinine Ratio 42.4 H 10.0-20.0 Serum Glucose 85 74-106 mg/dL Lactic Acid Level 0.8 0.4-2.0 mmol/L Calcium Level 8.8 8.7-10.4 mg/dL Magnesium Level 2.0 1.6-2.6 mg/dL Total Bilirubin 0.2 0.2-1.0 mg/dL Aspartate Amino Transferase (AST) 26 13-40 U/L Alanine Aminotransferase (ALT) 17 7-40 U/L Alkaline Phosphatase 96 46-116 U/L Creatine Kinase 20 L 34-145 U/L B-Type Natriuretic Peptide 23.21 0-100 pg/mL Total Protein 5.8 5.7-8.2 g/dL Albumin 3.5 3.2-4.8 g/dL Beta HCG, Quantitative 0.6 L 1.5-4.2 mIU/mL Influenza Type A Antigen Negative Negative Influenza Type B Antigen Negative Negative SARS-CoV-2 Antigen (Rapid) Negative NEGATIVE Levetiracetam Level Pending Current Medications Medications (Trade) Dose Ordered Sig/Krysten Route Start Time Stop Time Status Last Admin Levetiracetam 100 ml @ 400 mls/hr ONCE ONCE IV 07/21/24 17:00 07/21/24 17:47 DC 07/21/24 18:30 Sodium Chloride 500 ml @ 500 mls/hr Q1H ONCE IV 07/21/24 17:00 07/21/24 17:59 DC 07/21/24 17:00 Piperacillin Sod/ Tazobactam Sod 100 ml @ 100 mls/hr ONCE ONCE IV 07/21/24 20:15 07/21/24 21:14 DC 07/21/24 21:29 CT BRAIN WITHOUT CONTRAST HISTORY: seizure, GTube dislodge/traumatic TECHNIQUE: Axial scans were obtained from the skull base through the vertex without contrast. [place]l and coronal reformats were generated. One or more of the following radiation dose reduction techniques were used for this examination: automated exposure control, adjustment of the mA and/or kV according to patient size, use of iterative reconstruction technique. COMPARISON: CT HEAD WITHOUT CONTRAST on DOS: 07/16/24 FINDINGS: No acute intracranial hemorrhage or evidence of large vessel territorial infarction identified at this time. No midline shift. The basilar cisterns are patent. The visualized paranasal sinuses and mastoid air cells are clear. No grossly displaced calvarial fracture is identified. IMPRESSION: No acute intracranial findings. Exam: CT CT AB PEL WO CON-NO ORAL OR IV History: sz/ G tube dislodge traumatic Comparison Study: None available at time of dictation. Technique: Multidetector spiral CT of the abdomen was performed from lung bases to pubic symphysis. Imaging was performed without IV contrast. Axial, coronal and sagittal multiplanar reformats were obtained from the axial data set by the technologist. Radiation Dose : 1. Abdomen/Pelvis: CTDIvol 5 mGy, DLP 251 mGy*cm. Findings: Evaluation of solid organs is limited due to lack of intravenous contrast use. Lung Bases: Small bilateral posterior lower lobe consolidations, left side greater than right Liver: The liver is normal in size. No focal lesions. Gallbladder and Biliary Tree: Cholecystectomy. Spleen: Unremarkable Pancreas: The pancreas is grossly normal in appearance. Adrenal Glands: Unremarkable Kidneys: Kidneys are grossly normal without calculi or hydronephrosis. Bladder: Grossly unremarkable for degree of distention. Bowel: The stomach is grossly normal in appearance. Small bowel and colon are normal in caliber and distribution. The appendix is not visualized; however, no secondary findings of acute appendicitis identified. Ascites: Absent Lymphadenopathy: No mesenteric, retroperitoneal or periportal lymphadenopathy. Abdominal Wall and Mesentery: Unremarkable. Vasculature: The visualized abdominal aorta is normal in size and caliber. Evaluation of abdominal and pelvic vessels is limited due to lack of intravenous contrast. Pelvic Organs: Unremarkable Musculoskeletal: No aggressive focal bony lesions, acute fractures or dislocation. Moderate degenerative changes of the right hip joint. Possible right-sided hip dysplasia. IMPRESSION: Bilateral medial posterior lower lobe consolidations, left side greater than right concerning for aspiration or pneumonia. No G-tube is visualized within the gastric lumen. Small tract visualized in the left paramedian anterior abdominal wall likely from prior g-tube placement. Ancillary findings as described above. CHEST RADIOGRAPH Indication: sz, Gtube dislodge Technique: Single frontal view of the chest was obtained Comparison: XY CHEST PORTABLE on DOS: 07/15/24, XY CHEST PORTABLE on DOS: 05/24/24, XY CHEST PORTABLE on DOS: 04/03/24 FINDINGS: Lines and Tubes: None Lungs: Clear Pleura: No effusion. No pneumothorax. Cardiomediastinal contours: Unremarkable Bones: Unremarkable IMPRESSION: Clear lungs. Departure 1 Departure Time of Disposition: 20:07 Impression: Primary Impression: Seizure Additional Impressions: Aspiration pneumonia Gastrojejunostomy tube dislodgement Disposition: ADMITTED INPATIENT Admit to: Tele Condition: Guarded Discharged With: Self I personally scribed for BRITTANI TRAN DO ([email or web address]) on 07/22/24 at 01:05. Electronically submitted by Kale Monte ([facility]). BRITTANI TRAN DO Jul 21, 2024 20:08
[2024-07-21 20:10] LABS: Hematocrit 34.8 % (36.0-46.0); Lymphocytes # (auto) 1.8 10 ^3/uL (0.4-5.4); Lymphocytes % (auto) 30.6 % (10.0-50.0); Mean Corpuscular Hemoglobin 35.8 pg (28.0-32.0); Mean Corpuscular Hgb Conc. 34.3 g/dL (32.0-36.0); Mean Corpuscular Volume 104.4 fL (80.0-100.0); Monocytes # (auto) 0.7 10 ^3/uL (0-1.3); Monocytes % (auto) 10.9 % (0.0-12.0); Neutrophils # (auto) 3.5 10 ^3/uL (1.6-8.6); Neutrophils % (auto) 57.4 % (37.0-80.0); Red Blood Cells 3.33 10^6/uL (4.0-5.20); Red Cell Distribution Width 12.9 % (11.8-14.3)
[2024-07-21 20:24] LABS: Alanine Aminotransferase 17 U/L (7-40); Albumin 3.5 g/dL (3.2-4.8); Alkaline Phosphatase 96 U/L (46-116); Anion Gap 9 (5-15); Aspartate Aminotransferase 26 U/L (13-40); BUN/Creatinine Ratio 42.4 (10.0-20.0); Blood Urea Nitrogen 14 mg/dL (9-23); Calcium 8.8 mg/dL (8.7-10.4); Carbon Dioxide 25 mmol/L (20-31); Chloride 106 mmol/L (98-107); Glucose 85 mg/dL (74-106); Potassium 4.4 mmol/L (3.5-5.1); Sodium 140 mmol/L (136-145)
[2024-07-21 20:25] LABS: Bilirubin, Total 0.2 mg/dL (0.2-1.0); Creatine Kinase IFCC 20 U/L (34-145); Total Protein 5.8 g/dL (5.7-8.2)
[2024-07-21 20:25] LABS: COVID19 ANTIGEN SOFIA FIA NEGATIVE (NEGATIVE); Rapid Influenza A Negative (Negative); Rapid Influenza B Negative (Negative)
[2024-07-21 21:28] LABS: Platelet Count (auto) 310 10^3/uL (140-450); Platelet Estimate Adequate
[2024-07-21] MEDS: PIPERACILLIN-TAZOB 3.375GM 100 ML IV ONE (21:29)
[2024-07-21] MEDS ORDERED: levETIRAcetam 500 mg/100ml 100 ML IV SCH (21:45)
[2024-07-21] MEDS: ALBUTEROL SULF 2.5 MG/0.5ML(0.5%) NEB SOLN NEB ONE (22:15)
[2024-07-21] MEDS: IPRATROPIUM BROM 0.5 MG/2.5ML INH SOL NEB ONE (22:16)
[2024-07-21] MEDS: D5W/SOD CHL 0.45% 1,000 ML IV ONE (22:18)
[2024-07-21 23:15] VITALS: BP 93/55; PULSE 103; RESP 28; O2SAT 94
[2024-07-21 23:50] VITALS: PULSE 106; RESP 24; O2SAT 95
[2024-07-21] MEDS: IPRATROPIUM BROM 0.5 MG/2.5ML INH SOL NEB SCH (23:53)
[2024-07-21] MEDS: ALBUTEROL SULF 2.5 MG/0.5ML(0.5%) NEB SOLN NEB SCH (23:53)
[2024-07-21 23:54] VITALS: PULSE 105; RESP 25; O2SAT 97
[2024-07-22] VITALS (16 sets, daily range): BP systolic 76–102; BP diastolic 43–58; PULSE 79–102; RESP 16–19; TEMP 97.3–98.9; O2SAT 18–100
[2024-07-22 02:32] LABS: Red Blood Cells 3.13 10^6/uL (4.0-5.20); Red Cell Distribution Width 12.8 % (11.8-14.3); White Blood Cell 5.5 10^3/uL (4.4-10.8)
[2024-07-22 02:33] LABS: Hematocrit 32.2 % (36.0-46.0); Hemoglobin 11.1 g/dL (12.2-16.2); Mean Corpuscular Hemoglobin 35.4 pg (28.0-32.0); Mean Corpuscular Hgb Conc. 34.4 g/dL (32.0-36.0); Mean Corpuscular Volume 102.9 fL (80.0-100.0); Platelet Count (auto) 325 10^3/uL (140-450)
[2024-07-22 02:38] LABS: Alanine Aminotransferase 14 U/L (7-40); Albumin 3.4 g/dL (3.2-4.8); Alkaline Phosphatase 89 U/L (46-116); Anion Gap 6 (5-15); Aspartate Aminotransferase 14 U/L (13-40); BUN/Creatinine Ratio 31.3 (10.0-20.0); Blood Urea Nitrogen 10 mg/dL (9-23); Calcium 8.8 mg/dL (8.7-10.4); Carbon Dioxide 26 mmol/L (20-31); Chloride 106 mmol/L (98-107); Glucose 106 mg/dL (74-106); Sodium 138 mmol/L (136-145); Total Protein 5.9 g/dL (5.7-8.2)
[2024-07-22 02:44] LABS: Bilirubin, Total 0.2 mg/dL (0.2-1.0); Potassium 3.5 mmol/L (3.5-5.1)
[2024-07-22 02:47] LABS: Basophils % (manual) 0 (0.0-2.0); Metamyelocytes % 0; Myelocytes % 0; Promyelocytes % 0; Reactive Lymphocytes 0
[2024-07-22] MEDS ORDERED: LORazepam 2MG/ML-1ML VIAL IV PRN (03:45)
[2024-07-22 04:27] LABS: Band Neutrophils % (manual) 3; Blast Cells 1; Eosinophils % (manual) 1 (0-7); Lymphocytes % (manual) 29 (10.0-50.0); Macrocytosis Slight; Monocytes % (manual) 17 (0-12); Platelet Estimate Adequate; Stomatocytes Moderate
[2024-07-22 04:54] LABS: INR 1.04 (0.9-1.15); Partial Thromboplastin Time 30.3 SEC (24.5-34.5)
--- NOTE | 2024-07-22 05:05 | DVHHPRES ---
History of Present Illness Resident Creating Document: JACQUELINE LOPEZ RESIDENT History of Present Illness Patient is a 48-year-old female with a past medical history as described below was brought to the ED via EMS for G-tube dislodgement after a seizure witnessed by her sister. Patient is nonverbal and history is received from her sister (Pam) who reports that patient was recently discharged from the facility after being admitted for acute hypoxic respiratory failure likely due to pneumonia and sent on ciprofloxacin and azithromycin. Sister reports that around 4:00 a.m. in the evening today the patient had a seizure during which she pulled out her G-tube, no bleeding was noted from the site of G-tube. Patient was sent home on oxygen 2 L/min after the previous hospitalization but SpO2 was less than 86%, currently she is requiring higher oxygen at 4-5 liters/minute. Patient lying in bed in a flexed posture with flexion at the hip joint, knee joint and with the hands in flexion and feet in plantar flexion. Past medical history:cerebral palsy, seizures, VSD, quadriplegia, GERD Past surgical history: Cholecystectomy, Hernia Repair, Pacemaker Social history: No smoking, alcohol, drug abuse. Patient is taken care by her sister at home. Home medications: Keppra 1000 mg b.i.d., carbamazepine 400 mg b.i.d., omeprazole 40 mg q.d. via G-tube Review of Systems Review of Systems Patient was nonverbal and does not respond to commands. Allergies: Coded Allergies: Vancomycin (Verified Adverse Reaction, Unknown, 05/01/24) fever, sweating, erythema from vanco infusion Medications Current Medications Medications Dose Ordered Sig/Krysten Route Start Time Stop Time Status Last Admin Dose Admin Albuterol 2.5 mg Q6HR NEB 07/22/24 00:00 07/21/24 23:53 2.5 MG Ipratropium [place] 0.5 mg Q6HR NEB 07/22/24 00:00 07/21/24 23:53 0.5 MG Levetiracetam 100 ml @ 400 mls/hr BID IV 07/22/24 10:00 Pantoprazole Sodium 40 mg DAILY IV 07/22/24 10:00 Enoxaparin Sodium 40 mg DAILY SC 07/22/24 10:00 Piperacillin Sod/ Tazobactam Sod 100 ml @ 25 mls/hr Q8HR IV 07/22/24 06:00 Lorazepam 1 mg Q6HP PRN IV 07/22/24 03:45 Lorazepam 1 mg Q5MINP PRN IV 07/22/24 03:45 Exam Vital Signs Vital Signs Date Time Temp Pulse Resp B/P (MAP) Pulse Ox O2 Delivery O2 Flow Rate FiO2 07/22/24 01:50 Nasal Cannula* 2 28 07/22/24 01:49 97.3 102 17 87/58 (68) 93 97.3 Exam Physical Examination Constitutional: Patient is nonverbal, does not follow commands and is disoriented in all spheres. Sitting comfortably in bed with mild respiratory distress having elevated respiratory rate. Gen - no pallor, no icterus, no cyanosis, no clubbing, no LAD, no edema . Skin - Patients skin is warm and dry. HEENT - normocephalic, atraumatic, dry mucous membranes. Neck - full ROM, no LAD, no JVD Pulmonary - bilateral equal air entry with right-sided coarse scattered crackles, no wheezing, no stridor, increased respiratory rate, mild accessory muscle use cardiovascular - normal S1,S2 heard. no murmurs heard. GI - G-tube dislodged and insertion site covered with a sterile gauze, soft abdomen. Bowel sounds normoactive Labs/Xrays Labs Test 07/22/24 04:10 07/22/24 02:05 07/21/24 20:51 07/21/24 19:43 Range/Units White Blood Count 5.5 4.4-10.8 10^3/uL Red Blood Count 3.13 L 4.0-5.20 10^6/uL Hemoglobin 11.1 L 12.2-16.2 g/dL Hematocrit 32.2 L 36.0-46.0 % Mean Corpuscular Volume 102.9 H 80.0-100.0 fL Mean Corpuscular Hemoglobin 35.4 H 28.0-32.0 pg Mean Corpuscular Hemoglobin Concent 34.4 32.0-36.0 g/dL Red Cell Distribution Width 12.8 11.8-14.3 % Platelet Count 325 140-450 10^3/uL Mean Platelet Volume 6.3 L 6.9-10.8 fL Neutrophils (%) (Auto) 37.0-80.0 % Lymphocytes (%) (Auto) 10.0-50.0 % Monocytes (%) (Auto) 0.0-12.0 % Basophils (%) (Auto) 0.0-2.0 % Neutrophils # (Auto) 1.6-8.6 10 ^3/uL Lymphocytes # (Auto) 0.4-5.4 10 ^3/uL Monocytes # (Auto) 0-1.3 10 ^3/uL Differential Total Cells Counted 100.0 100 Neutrophils % (Manual) 49 37.0-80.0 Band Neutrophils % (Manual) 3 Lymphocytes % (Manual) 29 10.0-50.0 Monocytes % (Manual) 17 H 0-12 Eosinophils % (Manual) 1 0-7 Basophils % (Manual) 0 0.0-2.0 Metamyelocytes % (manual) 0 Myelocytes % (Manual) 0 Promyelocytes % (Manual) 0 Blast Cells % (Manual) 1 Reactive Lymphocytes 0 Platelet Estimate Adequate Macrocytosis Slight Stomatocytes Moderate Sodium Level 138 136-145 mmol/L Potassium Level 3.5 3.5-5.1 mmol/L Chloride Level 106 98-107 mmol/L Carbon Dioxide Level 26 20-31 mmol/L Anion Gap 6 5-15 Blood Urea Nitrogen 10 9-23 mg/dL Creatinine 0.32 L 0.550-1.02 mg/dL Glomerular Filtration Rate Calc 129 >90 mL/min BUN/Creatinine Ratio 31.3 H 10.0-20.0 Serum Glucose 106 74-106 mg/dL Calcium Level 8.8 8.7-10.4 mg/dL Total Bilirubin 0.2 0.2-1.0 mg/dL Aspartate Amino Transferase (AST) 14 13-40 U/L Alanine Aminotransferase (ALT) 14 7-40 U/L Alkaline Phosphatase 89 46-116 U/L Total Protein 5.9 5.7-8.2 g/dL Albumin 3.4 3.2-4.8 g/dL Thyroid Stimulating Hormone (TSH) 1.89 0.55-4.78 uIU/mL Troponin I High Sensitivity < 3 L </=34 ng/L Eosinophils (%) (Auto) 0.8 0.0-7.0 % Eosinophils # (Auto) 0 0-0.8 10 ^3/uL Basophils # (Auto) 0 0-0.2 10 ^3/uL Nucleated Red Blood Cells 0.1 % Lactic Acid Level 0.8 0.4-2.0 mmol/L Magnesium Level 2.0 1.6-2.6 mg/dL Creatine Kinase 20 L 34-145 U/L B-Type Natriuretic Peptide 23.21 0-100 pg/mL Beta HCG, Quantitative 0.6 L 1.5-4.2 mIU/mL Test 07/21/24 19:00 07/21/24 16:59 Range/Units Influenza Type A Antigen Negative Negative Influenza Type B Antigen Negative Negative SARS-CoV-2 Antigen (Rapid) Negative NEGATIVE Assessment/Plan Assessment/Plan Acute hypoxic respiratory failure likely due to pneumonia pneumonia likely community-acquired suspected aspiration pneumonia - CT shows bilateral medial posterior lower lobe consolidations, left side greater than right concerning for aspiration - COVID and influenza negative - on 4 L O2 via NC - 500 mL bolus NS given - on Zosyn 3.375 g IV q.8 hours - albuterol 2.5 and ipratropium 0.5 med neb q.6 hours - running D5 half NS at 75 mL/hour - sputum culture pending History of cerebral palsy History of seizure disorder G-tube dislodgement - patient was started on D5 half NS - NPO - surgery consulted - started on Keppra 1000 mg b.i.d. IV - lorazepam p.r.n. for seizure - at home patient on carbamazepine 400 mg b.i.d. through G-tube, carbamazepine IV formulation is not available in [facility], medication is held - Protonix 40 mg IV daily Goals of care discussed with the patient's sister pam for over 25 minutes. Code status: DNR Plan discussed with Dr. Slater Plan discussed with: Patient My Orders Orders - JACQUELINE LOPEZ RESIDENT Procedure Category Date Status Time Admit ADMIT 07/21/24 Transmitted 21:44 Oxygen By Nasal RT 07/21/24 Transmitted Cannula 21:44 Notify Of Changes TIFFANY 07/21/24 In Process From Base 21:44 Agricultural Economist For TIFFANY 07/21/24 In Process 24 Hours 21:44 Emergency Dysrhythmia TIFFANY 07/21/24 In Process Protocol 21:44 Stat Ekg For Chest TIFFANY 07/21/24 In Process Pain 21:44 Code Status CODE 07/21/24 Transmitted 21:44 Albuterol Medneb PHA 07/22/24 In Process (Ventolin Medneb) 00:00 Ipratropium Medneb PHA 07/22/24 In Process (Atrovent Medneb) 00:00 Levetiracetam 1000 PHA 07/22/24 In Process Mg/100ml (Levetiracet 10:00 Pantoprazole PHA 07/22/24 In Process (Protonix) 10:00 * Surgical Consult CONS 07/21/24 Transmitted D5w/Sod Chl 0.45% PHA 07/21/24 In Process (D5w 1/2ns) 21:45 Enoxaparin Sodium PHA 07/22/24 In Process (Lovenox) 10:00 Respiratory Culture TREY 07/22/24 Uncollected W/ Gs 03:38 PTPTT LAB 07/22/24 In Process 03:38 Piperacillin-Tazob PHA 07/22/24 In Process 3.375gm (Zosyn 3.375g 06:00 Npo (Nothing By DIET 07/22/24 Transmitted Mouth) Diet Breakfast Lorazepam 2mg/Ml Inj PHA 07/22/24 In Process (Ativan Inj) 03:45 Lorazepam 2mg/Ml Inj PHA 07/22/24 In Process (Ativan Inj) 03:45 Date of Service: Jul 21, 2024 Billing Provider: ISELA SLATER MD Common Visit Codes: [id number] INP/OBS CARE (HIGH) JACQUELINE LOPEZ RESIDENT Jul 22, 2024 05:05 ISELA SLATER MD Jul 22, 2024 20:52
[2024-07-22] MEDS: PIPERACILLIN-TAZOB 3.375GM 100 ML IV SCH (06:09)
--- NOTE | 2024-07-22 07:49 | ECG ---
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
[2024-07-22] MEDS: PANTOPRAZOLE 40 MG/10 ML VIAL INJ IV SCH (09:57)
[2024-07-22] MEDS: ENOXAPARIN SOD 40 MG/0.4 ML SYRINGE SC SCH (09:58)
[2024-07-22] MEDS: levETIRAcetam 1000 mg/100ml 100 ML IV SCH (09:58)
--- NOTE | 2024-07-22 14:35 | DVHINCON2 ---
Date of service: Jul 22, [address] Gordon Reason for Consultation Breakthrough seizures History of Present Illness Ms. Garland is a 48 years old female with a history of cerebral palsy, mental retardation, quadriplegia, GERD, seizure disorder, the patient was admitted to the [facility] on 07/21/24 with a chief complaint of G-tube dislodgement after a seizure attack. She was nonverbal, The history is obtained from the her sister and chart review I saw her on 04/04/2024 for seizure The patient was has a history of cerebral palsy, mental retardation, quadriplegia, she was history of seizure, in that she has spells event with brief jerking in the arms, left leg lasting for about 30 seconds, her seizure relates the problem is worse recently, because she has seizure attack 2-3 times during daytime and twice in the night, to once or twice weekly before. She was on Keppra 1000 mg b.i.d., carbamazepine 400 mg b.i.d. (her sister gave her 600 b.i.d.) WBC/HB/PLT/MCV, 07/22/2024: 5.5/11.1/325/102.9 CMP, 07/22/2024: Unremarkable Vitamin B12, 04/05/24: 790 Folic acid, 04/05/2024: 18.4 TSH, 07/22/2024: 1.89 CT head, 07/21/2024: No acute intracranial findings Past Medical History Cerebral palsy, GERD, seizure Past Surgical History Cholecystectomy, hernia repair, pacemaker insertion, G-tube Family History: Patient reports no known family medical history. Family History Noncontributory Social History Smoker: Non-Smoker Alcohol: Denies ETOH Use Drugs: Denies Drug Use Lives In: Home Allergies: Coded Allergies: Vancomycin (Verified Adverse Reaction, Unknown, 05/01/24) fever, sweating, erythema from vanco infusion Home Meds Active Scripts Ciprofloxacin Hcl (Cipro) 500 Mg Tab, 1 TAB PO BID, #14 TAB Prov:GUERO ELDER MD 07/18/24 Azithromycin (Azithromycin) 500 Mg Tab, 1 TAB PO DAILY, #7 TAB Prov:GUERO ELDER MD 07/18/24 Levetiracetam (Keppra) 1,000 Mg Tab, 1 TAB PO BID, #180 TAB 5 Refills Prov:GUERO ELDER MD 07/18/24 Carbamazepine (CARBAMAZEPINE ER) 300 Mg Cap, 600 MG PO BID, #180 CAP Prov:GUERO ELDER MD 07/18/24 Carbamazepine (Carbamazepine Er) 400 Mg Tab, 600 MG PO BID for 30 Days, #60 TAB Prov:MARY FLOWERS [facility] 05/11/24 Levetiracetam (Keppra) 1,000 Mg Tab, 1 TAB PO BID for 30 Days, #60 TAB 5 Refills Prov:MARY FLOWERS [facility] 05/11/24 Bisacodyl (Ex-Lax Ultra) 5 Mg Tab, 5 MG PO DAILY PRN, #60 TAB 2 Refills Take 2 tablets (10 mg) via G tube Daily Prov:JOHN BENAVIDEZ MD 03/26/24 Carbamazepine (CARBAMAZEPINE ER) 300 Mg Cap, 300 MG PO BID PRN, #120 CAP 2 Refills Take 2 capsules (600 mg) BID (morning and night) via G tube Prov:JOHN BENAVIDEZ MD 03/26/24 Esomeprazole Magnesium (Esomeprazole Magnesium) 40 Mg Cap, 40 MG PO DAILY, #30 CAP 3 Refills Take 1 capsule via G tube every afternoon (3pm) Prov:JOHN BENAVIDEZ MD 03/26/24 Lorazepam (Ativan) 0.5 Mg Tab, 0.5 MG PO BID for 30 Days, #60 TAB Prov:LONG PALACIOS MD 02/27/24 Cefdinir (Cefdinir) 300 Mg Cap, 1 CAP PO BID for 7 Days, #14 CAP Prov:LONG PALACIOS MD 02/27/24 Reported Medications Tramadol Hcl (Tramadol Hcl) 50 Mg Tab, 50 MG PO Q8HP PRN for PAIN SCALE 1 THRU 6, MG 01/30/24 Levetiracetam (Levetiracetam) 100 Mg/Ml Estela, 100 MG PO, ML 01/30/24 Esomeprazole Magnesium Trihydr (Nexium) 40 Mg Cap, 40 MG PO, CAP 01/30/24 Carbamazepine (Carbamazepine Er) 200 Mg Tab, 200 MG PO, TAB 01/30/24 Folic Acid (Folic Acid) 1 Mg Tab, 1 MG PO DAILY for 30 Days, MG 7/20/24 Current Medications Current Medications Medications (Trade) Dose Ordered Sig/Krysten Route PRN Reason Start Time Stop Time Status Last Admin Albuterol (Ventolin Medneb) 2.5 mg Q6HR NEB 07/22/24 00:00 07/22/24 11:45 Ipratropium [place] (Atrovent Medneb) 0.5 mg Q6HR NEB 07/22/24 00:00 07/22/24 11:45 Levetiracetam 100 ml @ 400 mls/hr ONCE IV 07/21/24 21:45 07/21/24 22:06 DC Levetiracetam 100 ml @ 400 mls/hr BID IV 07/22/24 10:00 07/22/24 09:58 Pantoprazole Sodium (Protonix) 40 mg DAILY IV 07/22/24 10:00 07/22/24 09:57 Enoxaparin Sodium (Lovenox) 40 mg DAILY SC 07/22/24 10:00 07/22/24 09:58 Piperacillin Sod/ Tazobactam Sod 100 ml @ 25 mls/hr Q8HR IV 07/22/24 06:00 07/22/24 06:09 Lorazepam (Ativan Inj) 1 mg Q6HP PRN IV ANXIETY 07/22/24 03:45 Lorazepam (Ativan Inj) 1 mg Q5MINP PRN IV SEIZURES 07/22/24 03:45 Review of Systems Unobtainable Vital Signs Vital Signs Date Time Temp Pulse Resp B/P (MAP) Pulse Ox O2 Delivery O2 Flow Rate FiO2 07/22/24 13:00 98.9 101 18 91/54 (66) 97 98.9 07/22/24 11:45 Nasal Cannula* 2 28 Physical Exam GENERAL EXAM: General: the patient is well developed and nourished. No acute distress. HEENT: Normocephalic, neck is supple, no carotid bruits. No mass. RESPIRATORY: Normal respiratory effort with symmetrical lung expansion. Lungs clear to auscultation. CARDIOVASCULAR: Regular rate and rhythm with no murmurs. S1, S2. ABDOMEN: Soft, nontender, normal bowel sound NEUROLOGICAL: MENTAL STATUS: Awake, she does not remember my verbal stimuli SPEECH, LANGUAGE, HIGHER CORTICAL FUNCTION: No vocalization CRANIAL NERVES: #2: Intact visual mcnair to confrontation (visual thread). #3,4,6: Pupils are equal, round and reactive. EOMs full and conjugate #5: Facial sensation intact in all three divisions bilaterally. Mandibular strength intact. #7: Facial muscles symmetrical and strength intact. #8: Deferred #9,10: Deferred #11: Deferred #12: Deferred SENSATION: Okay to touch and pinprick MOTOR: All extremities are on the developed, no spontaneous movement REFLEXES: Deep tendon reflexes are symmetrical. No pathological reflexes. CEREBELLAR/COORDINATION: Deferred GAIT/STATION: deferred Labs/Diagnostic Data Labs Test 07/22/24 04:10 07/22/24 02:05 07/21/24 20:51 07/21/24 19:43 Range/Units Prothrombin Time 11.0 9.3-11.8 sec Prothrombin Time INR 1.04 0.9-1.15 Activated Partial Thromboplast Time 30.3 24.5-34.5 SEC White Blood Count 5.5 4.4-10.8 10^3/uL Red Blood Count 3.13 L 4.0-5.20 10^6/uL Hemoglobin 11.1 L 12.2-16.2 g/dL Hematocrit 32.2 L 36.0-46.0 % Mean Corpuscular Volume 102.9 H 80.0-100.0 fL Mean Corpuscular Hemoglobin 35.4 H 28.0-32.0 pg Mean Corpuscular Hemoglobin Concent 34.4 32.0-36.0 g/dL Red Cell Distribution Width 12.8 11.8-14.3 % Platelet Count 325 140-450 10^3/uL Mean Platelet Volume 6.3 L 6.9-10.8 fL Neutrophils (%) (Auto) 37.0-80.0 % Lymphocytes (%) (Auto) 10.0-50.0 % Monocytes (%) (Auto) 0.0-12.0 % Basophils (%) (Auto) 0.0-2.0 % Neutrophils # (Auto) 1.6-8.6 10 ^3/uL Lymphocytes # (Auto) 0.4-5.4 10 ^3/uL Monocytes # (Auto) 0-1.3 10 ^3/uL Differential Total Cells Counted 100.0 100 Neutrophils % (Manual) 49 37.0-80.0 Band Neutrophils % (Manual) 3 Lymphocytes % (Manual) 29 10.0-50.0 Monocytes % (Manual) 17 H 0-12 Eosinophils % (Manual) 1 0-7 Basophils % (Manual) 0 0.0-2.0 Metamyelocytes % (manual) 0 Myelocytes % (Manual) 0 Promyelocytes % (Manual) 0 Blast Cells % (Manual) 1 Reactive Lymphocytes 0 Platelet Estimate Adequate Macrocytosis Slight Stomatocytes Moderate Sodium Level 138 136-145 mmol/L Potassium Level 3.5 3.5-5.1 mmol/L Chloride Level 106 98-107 mmol/L Carbon Dioxide Level 26 20-31 mmol/L Anion Gap 6 5-15 Blood Urea Nitrogen 10 9-23 mg/dL Creatinine 0.32 L 0.550-1.02 mg/dL Glomerular Filtration Rate Calc 129 >90 mL/min BUN/Creatinine Ratio 31.3 H 10.0-20.0 Serum Glucose 106 74-106 mg/dL Calcium Level 8.8 8.7-10.4 mg/dL Total Bilirubin 0.2 0.2-1.0 mg/dL Aspartate Amino Transferase (AST) 14 13-40 U/L Alanine Aminotransferase (ALT) 14 7-40 U/L Alkaline Phosphatase 89 46-116 U/L Total Protein 5.9 5.7-8.2 g/dL Albumin 3.4 3.2-4.8 g/dL Thyroid Stimulating Hormone (TSH) 1.89 0.55-4.78 uIU/mL Troponin I High Sensitivity < 3 L </=34 ng/L Eosinophils (%) (Auto) 0.8 0.0-7.0 % Eosinophils # (Auto) 0 0-0.8 10 ^3/uL Basophils # (Auto) 0 0-0.2 10 ^3/uL Nucleated Red Blood Cells 0.1 % Lactic Acid Level 0.8 0.4-2.0 mmol/L Magnesium Level 2.0 1.6-2.6 mg/dL Creatine Kinase 20 L 34-145 U/L B-Type Natriuretic Peptide 23.21 0-100 pg/mL Beta HCG, Quantitative 0.6 L 1.5-4.2 mIU/mL Test 07/21/24 19:00 07/21/24 16:59 Range/Units Influenza Type A Antigen Negative Negative Influenza Type B Antigen Negative Negative SARS-CoV-2 Antigen (Rapid) Negative NEGATIVE Assessment Seizure disorder Grand mal seizure Partial complex seizure Severe mental retardation Quadriplegia Cerebral palsy Plan/Recommendation Monitoring Supportive treatment Telemetry Keppra 1000 mg b.i.d. Carbamazepine 600 mg b.i.d. Vimpat 50mg Bid Ativan for seizure breakthrough More recommendation per clinical course Progress: Poor This medical document was created using an electronic medical record system with bTendo dictation system. Although this document has been carefully reviewed, there may still be some phonetic and typographical errors. These areas are purely typographical due to imperfections of the software programs, and do not reflect any compromise in the patient's medical care Plan discussed with: Other ENRIQUE LATHAM MD Jul 22, 2024 14:35
--- NOTE | 2024-07-22 15:40 | DVHPNRES ---
Progress Note Date Seen: Jul 22, 2024 Resident Creating Document: CARMELINA BORREGO PORTER Has the PT tested + for MRSA If YES, has PT been informed?: No Medical Necessity Reason Pt with a Central, PICC or Fol: No Subjective Review of Systems The patient is a 48-year-old female with a past medical history as described below who was brought to the ED via EMS for G-tube dislodgement after a seizure witnessed by her sister. The patient is nonverbal, and the history is received from her sister, Pam, who reports that the patient was recently discharged from the facility after being admitted for acute hypoxic respiratory failure, likely due to pneumonia, and was sent home on ciprofloxacin and azithromycin. Pam reports that around 4:00 a.m. today, the patient had a seizure during which she pulled out her G-tube; no bleeding was noted from the G-tube site. The patient was sent home on oxygen at 2 L/min after the previous hospitalization, but her SpO2 was less than 86%. Currently, she is requiring higher oxygen at 4-5 L/min. The patient is lying in bed in a flexed posture with flexion at the hip joint, knee joint, and with the hands in flexion and feet in plantar flexion. Past medical history:cerebral palsy, seizures, VSD, quadriplegia, GERD Past surgical history: Cholecystectomy, Hernia Repair, Pacemaker Social history: No smoking, alcohol, drug abuse. Patient is taken care by her sister at home. Home medications: Keppra 1000 mg b.i.d., carbamazepine 400 mg b.i.d., omeprazole 40 mg q.d. via G-tube Today, patient seen and examined at the bedside. Patient is lying on the bed with no respiratory distress. Patient reports: No new complaints Changes from previous H/P or p: No Changes, Changes Objective vital signs Vital Sign Date Time Temp Pulse Resp B/P (MAP) Pulse Ox O2 Delivery O2 Flow Rate FiO2 07/22/24 13:00 98.9 101 18 91/54 (66) 97 98.9 07/22/24 11:45 Nasal Cannula* 2 28 Total Intake and Output 07/21/24 07/21/24 07/22/24 15:00 23:00 07:00 Intake Total 100 ml 633 ml Balance 100 ml 633 ml medications Current Medications Medications Dose Ordered Sig/Krysten Route Start Time Stop Time Status Last Admin Dose Admin Albuterol 2.5 mg Q6HR NEB 07/22/24 00:00 07/22/24 11:45 2.5 MG Ipratropium [place] 0.5 mg Q6HR NEB 07/22/24 00:00 07/22/24 11:45 0.5 MG Levetiracetam 100 ml @ 400 mls/hr BID IV 07/22/24 10:00 07/22/24 09:58 400 MLS/HR Pantoprazole Sodium 40 mg DAILY IV 07/22/24 10:00 07/22/24 09:57 40 MG Enoxaparin Sodium 40 mg DAILY SC 07/22/24 10:00 07/22/24 09:58 40 MG Piperacillin Sod/ Tazobactam Sod 100 ml @ 25 mls/hr Q8HR IV 07/22/24 06:00 07/22/24 06:09 25 MLS/HR Lorazepam 1 mg Q6HP PRN IV 07/22/24 03:45 Lorazepam 1 mg Q5MINP PRN IV 07/22/24 03:45 Carbamazepine 600 mg BID PO 07/22/24 22:00 UNV Patient Own Medication 5 ml BID GT 07/22/24 22:00 UNV Examination Constitutional: Patient is nonverbal, does not follow commands and is disoriented in all spheres. Sitting comfortably in bed with mild respiratory distress having elevated respiratory rate. Gen - no pallor, no icterus, no cyanosis, no clubbing, no LAD, no edema . Skin - Patients skin is warm and dry. HEENT - normocephalic, atraumatic, dry mucous membranes. Neck - full ROM, no LAD, no JVD Pulmonary - bilateral equal air entry with right-sided coarse scattered crackles, no wheezing, no stridor, increased respiratory rate, mild accessory muscle use cardiovascular - normal S1,S2 heard. no murmurs heard. GI - G-tube dislodged and insertion site covered with a sterile gauze, soft abdomen. Bowel sounds normoactive laboratory and microbiology Laboratory Tests 07/22/24 02:05 Test 07/22/24 02:05 Range/Units Serum Glucose 106 74-106 mg/dL Labs and/or images reviewed: Labs reviewed by me, Image(s) reviewed by me Problem List/Assessment/Plan Problem List/Assessment/Plan Acute hypoxic respiratory failure likely due to pneumonia/aspiration Pneumonia, likely due to Gram-positive/Gram-negative/viral possible aspiration pneumonia- CT shows bilateral medial posterior lower lobe consolidations, left side greater than right concerning for aspiration COVID and influenza negative Check MRSA nares, sputum culture Empiric antibiotic Zosyn IV narrow saline Breathing treatment Seizure disorder Grand mal seizure Partial complex seizure Severe mental retardation Quadriplegia History of cerebral palsy History of seizure disorder G-tube dislodgement Neurology consulted, recommended Keppra, carbamazepine and Vimpat, Ativan for the seizure breakthrough Surgery consulted for the G-tube placement NPO Moderate anemia, macrocytic Monitoring DIET: NPO until placement of G-tube DVT PROPHYLAXIS: Lovenox GI PROPHYLAXIS:: Protonix BOWEL REGIMEN: Colace as needed CODE STATUS: Goal of care discussed with the sister at the bedside, for more than 27 minute, full code DISPOSITION: Telemetry Patient's status discussed with the patient's sister. Case discussed with Dr. Dr. Marquez Plan discussed with: Patient, Other (Sister, RN) My Orders My Orders Orders - CARMELINA BORREGO RESDIDANIELLE Procedure Category Date Status Time * Neurology Consult CONS 07/22/24 Transmitted 12:01 Date of Service: Jul 22, 2024 Billing Provider: ODETTE PINTO MD Common Visit Codes: [id number] INP/OBS CARE(HIGH) CARMELINA BORREGO RESDIENT Jul 22, 2024 15:40 ODETTE PINTO MD Jul 25, 2024 11:32
[2024-07-22] MEDS ORDERED: ENOXAPARIN SOD 40 MG/0.4 ML SYRINGE SC ONE (16:30)
--- NOTE | 2024-07-22 17:51 | DVHINCON2 ---
Date of service: Jul 22, 2024 Family History: Patient reports no known family medical history. Allergies: Coded Allergies: Vancomycin (Verified Adverse Reaction, Unknown, 05/01/24) fever, sweating, erythema from vanco infusion Home Meds Active Scripts Ciprofloxacin Hcl (Cipro) 500 Mg Tab, 1 TAB PO BID, #14 TAB Prov:GUERO ELDER MD 07/18/24 Azithromycin (Azithromycin) 500 Mg Tab, 1 TAB PO DAILY, #7 TAB Prov:GUERO ELDER MD 07/18/24 Levetiracetam (Keppra) 1,000 Mg Tab, 1 TAB PO BID, #180 TAB 5 Refills Prov:GUERO ELDER MD 07/18/24 Carbamazepine (CARBAMAZEPINE ER) 300 Mg Cap, 600 MG PO BID, #180 CAP Prov:GUERO ELDER MD 07/18/24 Carbamazepine (Carbamazepine Er) 400 Mg Tab, 600 MG PO BID for 30 Days, #60 TAB Prov:MARY FLOWERS RESIDENT 05/11/24 Levetiracetam (Keppra) 1,000 Mg Tab, 1 TAB PO BID for 30 Days, #60 TAB 5 Refills Prov:MARY FLOWERS RESIDENT 05/11/24 Bisacodyl (Ex-Lax Ultra) 5 Mg Tab, 5 MG PO DAILY PRN, #60 TAB 2 Refills Take 2 tablets (10 mg) via G tube Daily Prov:JOHN BENAVIDEZ MD 03/26/24 Carbamazepine (CARBAMAZEPINE ER) 300 Mg Cap, 300 MG PO BID PRN, #120 CAP 2 Refills Take 2 capsules (600 mg) BID (morning and night) via G tube Prov:JOHN BENAVIDEZ MD 03/26/24 Esomeprazole Magnesium (Esomeprazole Magnesium) 40 Mg Cap, 40 MG PO DAILY, #30 CAP 3 Refills Take 1 capsule via G tube every afternoon (3pm) Prov:JOHN BENAVIDEZ MD 03/26/24 Lorazepam (Ativan) 0.5 Mg Tab, 0.5 MG PO BID for 30 Days, #60 TAB Prov:LONG PALACIOS MD 02/27/24 Cefdinir (Cefdinir) 300 Mg Cap, 1 CAP PO BID for 7 Days, #14 CAP Prov:LONG PALACIOS MD 02/27/24 Reported Medications Tramadol Hcl (Tramadol Hcl) 50 Mg Tab, 50 MG PO Q8HP PRN for PAIN SCALE 1 THRU 6, MG 01/30/24 Levetiracetam (Levetiracetam) 100 Mg/Ml Estela, 100 MG PO, ML 01/30/24 Esomeprazole Magnesium Trihydr (Nexium) 40 Mg Cap, 40 MG PO, CAP 01/30/24 Carbamazepine (Carbamazepine Er) 200 Mg Tab, 200 MG PO, TAB 01/30/24 Folic Acid (Folic Acid) 1 Mg Tab, 1 MG PO DAILY for 30 Days, MG 01/30/24 Current Medications Current Medications Medications (Trade) Dose Ordered Sig/Krysten Route PRN Reason Start Time Stop Time Status Last Admin Albuterol (Ventolin Medneb) 2.5 mg Q6HR NEB 07/22/24 00:00 07/22/24 11:45 Ipratropium [place] (Atrovent Medneb) 0.5 mg Q6HR NEB 07/22/24 00:00 07/22/24 11:45 Levetiracetam 100 ml @ 400 mls/hr ONCE IV 07/21/24 21:45 07/21/24 22:06 DC Levetiracetam 100 ml @ 400 mls/hr BID IV 07/22/24 10:00 07/22/24 09:58 Pantoprazole Sodium (Protonix) 40 mg DAILY IV 07/22/24 10:00 07/22/24 09:57 Enoxaparin Sodium (Lovenox) 40 mg DAILY SC 07/22/24 10:00 07/22/24 16:34 DC 07/22/24 09:58 Piperacillin Sod/ Tazobactam Sod 100 ml @ 25 mls/hr Q8HR IV 07/22/24 06:00 07/22/24 15:51 Lorazepam (Ativan Inj) 1 mg Q6HP PRN IV ANXIETY 07/22/24 03:45 Lorazepam (Ativan Inj) 1 mg Q5MINP PRN IV SEIZURES 07/22/24 03:45 Carbamazepine (TEGretol ORAL SUSPENSION) 600 mg BID PO 07/22/24 22:00 Lacosamide (Vimpat) 50 mg BID GT 07/22/24 22:00 Enoxaparin Sodium (Lovenox) 30 mg DAILY SC 07/23/24 10:00 Vital Signs Vital Signs Date Time Temp Pulse Resp B/P (MAP) Pulse Ox O2 Delivery O2 Flow Rate FiO2 07/22/24 17:00 98.6 85 16 76/43 (54) 98 98.6 07/22/24 11:45 Nasal Cannula* 2 28 Labs/Diagnostic Data Labs Test 07/22/24 04:10 07/22/24 02:05 07/21/24 20:51 07/21/24 19:43 Range/Units Prothrombin Time 11.0 9.3-11.8 sec Prothrombin Time INR 1.04 0.9-1.15 Activated Partial Thromboplast Time 30.3 24.5-34.5 SEC White Blood Count 5.5 4.4-10.8 10^3/uL Red Blood Count 3.13 L 4.0-5.20 10^6/uL Hemoglobin 11.1 L 12.2-16.2 g/dL Hematocrit 32.2 L 36.0-46.0 % Mean Corpuscular Volume 102.9 H 80.0-100.0 fL Mean Corpuscular Hemoglobin 35.4 H 28.0-32.0 pg Mean Corpuscular Hemoglobin Concent 34.4 32.0-36.0 g/dL Red Cell Distribution Width 12.8 11.8-14.3 % Platelet Count 325 140-450 10^3/uL Mean Platelet Volume 6.3 L 6.9-10.8 fL Neutrophils (%) (Auto) 37.0-80.0 % Lymphocytes (%) (Auto) 10.0-50.0 % Monocytes (%) (Auto) 0.0-12.0 % Basophils (%) (Auto) 0.0-2.0 % Neutrophils # (Auto) 1.6-8.6 10 ^3/uL Lymphocytes # (Auto) 0.4-5.4 10 ^3/uL Monocytes # (Auto) 0-1.3 10 ^3/uL Differential Total Cells Counted 100.0 100 Neutrophils % (Manual) 49 37.0-80.0 Band Neutrophils % (Manual) 3 Lymphocytes % (Manual) 29 10.0-50.0 Monocytes % (Manual) 17 H 0-12 Eosinophils % (Manual) 1 0-7 Basophils % (Manual) 0 0.0-2.0 Metamyelocytes % (manual) 0 Myelocytes % (Manual) 0 Promyelocytes % (Manual) 0 Blast Cells % (Manual) 1 Reactive Lymphocytes 0 Platelet Estimate Adequate Macrocytosis Slight Stomatocytes Moderate Sodium Level 138 136-145 mmol/L Potassium Level 3.5 3.5-5.1 mmol/L Chloride Level 106 98-107 mmol/L Carbon Dioxide Level 26 20-31 mmol/L Anion Gap 6 5-15 Blood Urea Nitrogen 10 9-23 mg/dL Creatinine 0.32 L 0.550-1.02 mg/dL Glomerular Filtration Rate Calc 129 >90 mL/min BUN/Creatinine Ratio 31.3 H 10.0-20.0 Serum Glucose 106 74-106 mg/dL Calcium Level 8.8 8.7-10.4 mg/dL Total Bilirubin 0.2 0.2-1.0 mg/dL Aspartate Amino Transferase (AST) 14 13-40 U/L Alanine Aminotransferase (ALT) 14 7-40 U/L Alkaline Phosphatase 89 46-116 U/L Total Protein 5.9 5.7-8.2 g/dL Albumin 3.4 3.2-4.8 g/dL Thyroid Stimulating Hormone (TSH) 1.89 0.55-4.78 uIU/mL Troponin I High Sensitivity < 3 L </=34 ng/L Eosinophils (%) (Auto) 0.8 0.0-7.0 % Eosinophils # (Auto) 0 0-0.8 10 ^3/uL Basophils # (Auto) 0 0-0.2 10 ^3/uL Nucleated Red Blood Cells 0.1 % Lactic Acid Level 0.8 0.4-2.0 mmol/L Magnesium Level 2.0 1.6-2.6 mg/dL Creatine Kinase 20 L 34-145 U/L B-Type Natriuretic Peptide 23.21 0-100 pg/mL Beta HCG, Quantitative 0.6 L 1.5-4.2 mIU/mL Test 07/21/24 19:00 07/21/24 16:59 Range/Units Influenza Type A Antigen Negative Negative Influenza Type B Antigen Negative Negative SARS-CoV-2 Antigen (Rapid) Negative NEGATIVE Assessment [id number] DISPLACED G TUBE FOLLOWING SEIZURE EVENT UNABLE TO GIVE HISTORY CEREBRAL PALSY CONSIDER G TUBE REPLACEMENT AT BEDSIDE FAMILY AND NURSE AT BEDSIDE Plan discussed with: Other LORENZO LOZA MD Jul 22, 2024 17:51
--- NOTE | 2024-07-22 20:35 | DVHINCON2 ---
DATE OF CONSULTATION: 07/22/2024 HISTORY OF PRESENT ILLNESS: A 48 years old, unable to give history, most of the information obtained from the family and the nursing staff and records. A 48 years old, coming in now with a displaced G-tube by the EMS after a seizure that was witnessed by the sister or the family and she is nonverbal. Most of the information obtained from the chart. She also was admitted for acute hypoxic respiratory failure due to pneumonia, was sent on ciprofloxacin and azithromycin and she recently had a seizure, following that she pulled out her G-tube. I was asked to see her for a G-tube placement. PAST MEDICAL HISTORY: Cerebral palsy, seizures, quadriplegia, GERD. SURGICAL HISTORY: Cholecystectomy, hernia repair, pacemaker. PHYSICAL EXAMINATION: VITAL SIGNS: Afebrile, stable signs. HEENT: With no evidence of pallor, cyanosis, or jaundice. NECK: Supple, nontender with no thyromegaly, lymphadenopathy. CHEST AND LUNGS: Clear. HEART: Within normal limits. ABDOMEN: Soft with a displaced G-tube at the opening noticed. NEUROLOGIC: Not assessed. EXTREMITIES: Not assessed. CLINICAL IMPRESSION: Displaced gastrostomy tube. PLAN: Will be to consider placement of the G-tube at the bedside. Benefits, risks discussed. Family present. MD MIREYA Epps/FLACO TID: [id number] RECEIPT: [id number] cc: Dr. Riggs
[2024-07-22] MEDS: LACOSAMIDE 50 MG TAB GT SCH (21:15)
[2024-07-22] MEDS: carBAMazepine 200 MG/10 ML Ud ORAL Susp PO SCH (21:35)
[2024-07-23] VITALS (20 sets, daily range): BP systolic 90–102; BP diastolic 43–58; PULSE 59–100; RESP 14–20; TEMP 97.9–98.7; O2SAT 92–100
[2024-07-23] MEDS: LORazepam 2MG/ML-1ML VIAL IV PRN (03:20)
[2024-07-23 05:55] LABS: Red Cell Distribution Width 12.9 % (11.8-14.3); White Blood Cell 3.9 10^3/uL (4.4-10.8)
[2024-07-23 05:59] LABS: Hematocrit 32.4 % (36.0-46.0); Hemoglobin 11.1 g/dL (12.2-16.2); Mean Corpuscular Hgb Conc. 34.3 g/dL (32.0-36.0); Mean Corpuscular Volume 105.2 fL (80.0-100.0); Platelet Count (auto) 352 10^3/uL (140-450); Red Blood Cells 3.08 10^6/uL (4.0-5.20)
[2024-07-23 06:04] LABS: Anion Gap 7 (5-15); Chloride 106 mmol/L (98-107); Potassium 3.5 mmol/L (3.5-5.1); Sodium 140 mmol/L (136-145)
[2024-07-23 06:05] LABS: Basophils % (manual) 0 (0.0-2.0); Blast Cells 0; Metamyelocytes % 0; Myelocytes % 0; Promyelocytes % 0
[2024-07-23 06:16] LABS: Alanine Aminotransferase 14 U/L (7-40); Albumin 3.5 g/dL (3.2-4.8); Alkaline Phosphatase 93 U/L (46-116); Aspartate Aminotransferase 16 U/L (13-40); Bilirubin, Total 0.4 mg/dL (0.2-1.0); Blood Urea Nitrogen 7 mg/dL (9-23); Calcium 9.1 mg/dL (8.7-10.4); Carbon Dioxide 27 mmol/L (20-31); Glucose 82 mg/dL (74-106); Total Protein 5.9 g/dL (5.7-8.2)
[2024-07-23 08:26] LABS: Band Neutrophils % (manual) 1; Eosinophils % (manual) 3 (0-7); Lymphocytes % (manual) 49 (10.0-50.0); Monocytes % (manual) 15 (0-12); Reactive Lymphocytes 4
[2024-07-23 08:27] LABS: Large Platelets FEW; Macrocytosis Slight; Platelet Estimate Adequa
[2024-07-23] MEDS: ENOXAPARIN SOD 30 MG/0.3 ML SYRINGE SC SCH (10:00)
--- NOTE | 2024-07-23 10:00 | DVHPNRES ---
Progress Note Date Seen: Jul 24, 2024 Resident Creating Document: ODETTE PINTO MD Has the PT tested + for MRSA If YES, has PT been informed?: No Medical Necessity Reason Pt with a Central, PICC or Fol: No Objective vital signs Vital Sign Date Time Temp Pulse Resp B/P (MAP) Pulse Ox O2 Delivery O2 Flow Rate FiO2 07/23/24 08:53 98.3 59 17 90/43 (59) 98 98.3 07/23/24 06:42 Nasal Cannula 2.0 07/23/24 06:41 28 Total Intake and Output 07/22/24 07/22/24 07/23/24 15:00 23:00 07:00 Intake Total 983 ml 77 ml 0 ml Output Total 1 ml Balance 983 ml 77 ml -1 ml medications Current Medications Medications Dose Ordered Sig/Krysten Route Start Time Stop Time Status Last Admin Dose Admin Albuterol 2.5 mg Q6HR NEB 07/22/24 00:00 07/23/24 06:37 2.5 MG Ipratropium [place] 0.5 mg Q6HR NEB 07/22/24 00:00 07/23/24 06:37 0.5 MG Levetiracetam 100 ml @ 400 mls/hr BID IV 07/22/24 10:00 07/22/24 21:27 400 MLS/HR Pantoprazole Sodium 40 mg DAILY IV 07/22/24 10:00 07/22/24 09:57 40 MG Piperacillin Sod/ Tazobactam Sod 100 ml @ 25 mls/hr Q8HR IV 07/22/24 06:00 07/23/24 05:55 25 MLS/HR Lorazepam 1 mg Q6HP PRN IV 07/22/24 03:45 07/23/24 03:20 1 MG Lorazepam 1 mg Q5MINP PRN IV 07/22/24 03:45 Carbamazepine 600 mg BID PO 07/22/24 22:00 Lacosamide 50 mg BID GT 07/22/24 22:00 Enoxaparin Sodium 30 mg DAILY SC 07/23/24 10:00 Examination Constitutional: Patient is nonverbal, does not follow commands and is disoriented in all spheres. Sitting comfortably in bed with mild respiratory distress having elevated respiratory rate. [place] for the age-appropriate height. Contractures noted diffusely. Gen - no pallor, no icterus, no cyanosis, no clubbing, no LAD, no edema . Skin - Patients skin is warm and dry. HEENT - normocephalic, atraumatic, dry mucous membranes. Neck - full ROM, no LAD, no JVD Pulmonary - bilateral equal air entry with right-sided coarse scattered crackles, no wheezing, no stridor, increased respiratory rate, mild accessory muscle use cardiovascular - normal S1,S2 heard. no murmurs heard. GI - G-tube dislodged and insertion site covered with a sterile gauze, soft abdomen. Bowel sounds normoactive. Reviewed with the patient with the presence of female covering machine operator helper. Had bedside caregiver/sister present. laboratory and microbiology Laboratory Tests 07/23/24 05:00 Test 07/23/24 05:00 Range/Units Serum Glucose 82 74-106 mg/dL Labs and/or images reviewed: Labs reviewed by me, Image(s) reviewed by me Problem List/Assessment/Plan Problem List/Assessment/Plan Hospitalization summary/ Assessment: A 48-year-old nonverbal female with a history of cerebral palsy, seizures, VSD, quadriplegia, and GERD was brought to the ED for G-tube dislodgement after a seizure. Her sister, Pam, reported that the patient was recently discharged after treatment for acute hypoxic respiratory failure, likely due to pneumonia, and was on ciprofloxacin and azithromycin. The patient, who requires higher oxygen levels (4-5 L/min) due to low SpO2, had a seizure around 4:00 a.m. and pulled out her G-tube. She is currently lying in bed with no respiratory distress. Her past surgical history includes cholecystectomy, hernia repair, and pacemaker insertion. She lives with her sister, who cares for her, and has no history of smoking, alcohol, or drug abuse. Home medications include Keppra, carbamazepine, and omeprazole via G- tube. Plan: # Pneumonia, likely due to Gram-positive/Gram-negative/possible aspiration pneumonia: CT shows bilateral medial posterior lower lobe consolidations, left side greater than right concerning for aspiration # Acute hypoxic respiratory failure likely due to pneumonia/aspiration: Improving oxygen need. # viral causes of pneumonia ruled out: COVID influenza negative # microcytic anemia with H&H stable: Baseline hemoglobin around 11-12, macrocytosis, continue folate and vitamin B12. # recent G-tube dislodgement mechanically, likely to seizure: After family discussion, surgery consulted, new G-tube placement pending today. # seizure disorder: Known GCS, partial complex seizure Check for CK, Keppra levels. No acute intracranial finding in CT. Neurology consulted, recommended Keppra, carbamazepine and Vimpat, Ativan for the seizure breakthrough # GERD: Continue PPI # cerebral palsy, patient needs close care. # surgical history of cholecystectomy, hernia repair and pacemaker placement # baseline quadriplegia # high-grade intellectual disability: Needs higher level of attention and support round the clock for basic ADLs # baseline aphasia nonverbal likely due to above. Diet: Currently NPO GI prophylaxis: protonix 40mg/continue DVT prophylaxis: Lovenox 40mg/continue Bowel regimen: Colace as needed Barriers to discharge: Medical diagnosis and management in progress. Patient is taken care by her sister at home. Noted caregiver at bedside. Patient care and plan discussed with Dr. Marquez Disposition: Patient remains inpatient. Discussed the plan with the patient's caregiver/she started bedside Code status: DNR/DNI discussed over 27 minutes. Plan discussed with: Patient, Other Date of Service: Jul 24, 2024 Billing Provider: ODETTE PINTO MD Common Visit Codes: [id number] INP/OBS CARE(HIGH) TEODORO ALVAREZ RESIDENT Jul 23, 2024 09:59 ODETTE PINTO MD Jul 25, 2024 21:14
--- NOTE | 2024-07-23 17:59 | DVHPN2 ---
Progress Note Date Seen: Jul 23, 2024 Has the PT tested + for MRSA If YES, has PT been informed?: No Medical Necessity Reason Pt with a Central, PICC or Fol: No Objective vital signs Vital Sign Date Time Temp Pulse Resp B/P (MAP) Pulse Ox O2 Delivery O2 Flow Rate FiO2 07/23/24 16:10 97.9 96 18 102/55 (71) 95 97.9 07/23/24 10:00 Nasal Cannula 2.0 07/23/24 10:00 28 Total Intake and Output 07/22/24 07/22/24 07/23/24 15:00 23:00 07:00 Intake Total 983 ml 77 ml 0 ml Output Total 1 ml Balance 983 ml 77 ml -1 ml medications Current Medications Medications Dose Ordered Sig/Krysten Route Start Time Stop Time Status Last Admin Dose Admin Albuterol 2.5 mg Q6HR NEB 07/22/24 00:00 07/23/24 11:16 2.5 MG Ipratropium [place] 0.5 mg Q6HR NEB 07/22/24 00:00 07/23/24 11:16 0.5 MG Levetiracetam 100 ml @ 400 mls/hr BID IV 07/22/24 10:00 07/23/24 10:30 400 MLS/HR Pantoprazole Sodium 40 mg DAILY IV 07/22/24 10:00 07/23/24 10:30 40 MG Piperacillin Sod/ Tazobactam Sod 100 ml @ 25 mls/hr Q8HR IV 07/22/24 06:00 07/23/24 15:35 25 MLS/HR Lorazepam 1 mg Q6HP PRN IV 07/22/24 03:45 07/23/24 03:20 1 MG Lorazepam 1 mg Q5MINP PRN IV 07/22/24 03:45 Carbamazepine 600 mg BID PO 07/22/24 22:00 Lacosamide 50 mg BID GT 07/22/24 22:00 Enoxaparin Sodium 30 mg DAILY SC 07/23/24 10:00 laboratory and microbiology Laboratory Tests 07/23/24 05:00 Test 07/23/24 05:00 Range/Units Serum Glucose 82 74-106 mg/dL Problem List/Assessment/Plan Problem List/Assessment/Plan AFEBRILE VSS ABD SOFT PEG SITE OPENING SMALL FOR G TUBE PLACEMENT WAS ABLE TO ADVANCE 18 GAUGE CATH INTO PEG SITE ATTEMPT SMALLER G TUBE PLACEMENT AM BASED ON ONGOING EVAL NURSE AND FAMILY AT BEDSIDE Plan discussed with: Other Dietary Evaluation Review Recommendations by RD: PPN/TPN Comments: 1) After PEG tube replacement, consider Jevity 1.2 @ 45 mL/hr goal rate as tolerated. Flush 100 mL free H2O Q6. TF regimen will provide 1,296 kcal, 60g Pro, and 1,272 mL H2O daily (including flushes). TF regimen will meet ~95% daily estimated energy needs and exceeds daily estimated protein needs. 2) If patient remains NPO for more than 7 days, consider TPN to meet at least 75% of estimated needs 3) Advance patient diet to to regular diet when medically feasible, pending [employer]IENT [employer] approval. 4) Continue to monitor nutritional intake and skin integrity. Expected Outcomes/Goals: 1) patient labs and skin to improve 2) patient to receive nutrition support within 7 days of NPO status 3) f/u in 2-3 days LORENZO LOZA MD Jul 23, 2024 17:59
[2024-07-23] MEDS: D5W/SOD CHL 0.45% 1,000 ML IV SCH (20:39)
[2024-07-24] VITALS (18 sets, daily range): BP systolic 86–108; BP diastolic 45–57; PULSE 64–103; RESP 14–18; TEMP 98–99.6; O2SAT 92–100
--- NOTE | 2024-07-24 09:32 | DVHOP2 ---
Operative Report [id number] DISPLACED G TUBE G TUBE PLACEMENT DONE AT BEDSIDE NO DRAINS NO COMPLICATIONS CONNECT TO LIS IF GASTRIC FLUID DRAINED START TUBE FEEDS NURSE AND FAMILY AT BEDSIDE LORENZO LOZA MD Jul 24, 2024 09:32
--- NOTE | 2024-07-24 10:13 | DVHOP ---
DATE OF SURGERY: 07/24/2024 PREOPERATIVE DIAGNOSIS: Displaced G-tube. POSTOPERATIVE DIAGNOSIS: Displaced G-tube. PROCEDURE: Placement of an 18-[place] G-tube at the bedside, nurse was assisting. DESCRIPTION OF PROCEDURE: The patient was prepped and draped in the usual sterile fashion and the opening was identified. It had been cannulated previously and some dilation was done with a small 16 [place] NG tube and then allowed the opening to be cannulated with the 18-[place] G-tube and it was then positioned. The bulb was inflated to 10 mL and the G-tube was in place successfully, with the flange attached to the anterior wall of the abdomen and it was connected to suction to allow gastric juice to be identified and then she could be allowed to have a G-tube feedings done. The patient tolerated the procedure well with no complication. MD MIREYA Epps/LETTY/SANTOSH TID: [id number] RECEIPT: [id number] cc: Lenny Marquez
[2024-07-24] MEDS ORDERED: LACO50TA2 PO ×2 (13:16→13:17)
[2024-07-24] MEDS ORDERED: LACO1TAB PO (13:17)
--- NOTE | 2024-07-24 16:58 | DVHDSRES ---
Discharge Summary Date of Admission Resident Creating Document: ODETTE PINTO MD Jul 21, 2024 at 21:44 Date of Discharge: Jul 24, 2024 Admitting Diagnosis Seizure, acute hypoxic respiratory Labs/Diagnostic Data: Laboratory Results Test 07/23/24 05:00 07/22/24 04:10 07/22/24 02:05 07/21/24 20:51 White Blood Count 3.9 10^3/uL (4.4-10.8) Red Blood Count 3.08 10^6/uL (4.0-5.20) Hemoglobin 11.1 g/dL (12.2-16.2) Hematocrit 32.4 % (36.0-46.0) Mean Corpuscular Volume 105.2 fL (80.0-100.0) Mean Corpuscular Hemoglobin 36.0 pg (28.0-32.0) Mean Corpuscular Hemoglobin Concent 34.3 g/dL (32.0-36.0) Red Cell Distribution Width 12.9 % (11.8-14.3) Platelet Count 352 10^3/uL (140-450) Mean Platelet Volume 6.2 fL (6.9-10.8) Neutrophils (%) (Auto) % (37.0-80.0) Lymphocytes (%) (Auto) % (10.0-50.0) Monocytes (%) (Auto) % (0.0-12.0) Basophils (%) (Auto) % (0.0-2.0) Neutrophils # (Auto) 10 ^3/uL (1.6-8.6) Lymphocytes # (Auto) 10 ^3/uL (0.4-5.4) Monocytes # (Auto) 10 ^3/uL (0-1.3) Differential Total Cells Counted 100.0 (100) Neutrophils % (Manual) 28 (37.0-80.0) Band Neutrophils % (Manual) 1 Lymphocytes % (Manual) 49 (10.0-50.0) Monocytes % (Manual) 15 (0-12) Eosinophils % (Manual) 3 (0-7) Basophils % (Manual) 0 (0.0-2.0) Metamyelocytes % (manual) 0 Myelocytes % (Manual) 0 Promyelocytes % (Manual) 0 Blast Cells % (Manual) 0 Reactive Lymphocytes 4 Platelet Estimate [place] Large Platelets Few Macrocytosis Slight Sodium Level 140 mmol/L (136-145) Potassium Level 3.5 mmol/L (3.5-5.1) Chloride Level 106 mmol/L (98-107) Carbon Dioxide Level 27 mmol/L (20-31) Anion Gap 7 (5-15) Blood Urea Nitrogen 7 mg/dL (9-23) Creatinine 0.35 mg/dL (0.550-1.02) Glomerular Filtration Rate Calc 126 mL/min (>90) BUN/Creatinine Ratio 20.0 (10.0-20.0) Serum Glucose 82 mg/dL (74-106) Calcium Level 9.1 mg/dL (8.7-10.4) Total Bilirubin 0.4 mg/dL (0.2-1.0) Aspartate Amino Transferase (AST) 16 U/L (13-40) Alanine Aminotransferase (ALT) 14 U/L (7-40) Alkaline Phosphatase 93 U/L (46-116) Total Protein 5.9 g/dL (5.7-8.2) Albumin 3.5 g/dL (3.2-4.8) Prothrombin Time 11.0 sec (9.3-11.8) Prothrombin Time INR 1.04 (0.9-1.15) Activated Partial Thromboplast Time 30.3 SEC (24.5-34.5) Stomatocytes Moderate Thyroid Stimulating Hormone (TSH) 1.89 uIU/mL (0.55-4.78) Troponin I High Sensitivity < 3 ng/L (</=34) Test 07/21/24 19:43 07/21/24 19:00 07/21/24 16:59 Eosinophils (%) (Auto) 0.8 % (0.0-7.0) Eosinophils # (Auto) 0 10 ^3/uL (0-0.8) Basophils # (Auto) 0 10 ^3/uL (0-0.2) Nucleated Red Blood Cells 0.1 % Lactic Acid Level 0.8 mmol/L (0.4-2.0) Magnesium Level 2.0 mg/dL (1.6-2.6) Creatine Kinase 20 U/L (34-145) B-Type Natriuretic Peptide 23.21 pg/mL (0-100) Beta HCG, Quantitative 0.6 mIU/mL (1.5-4.2) Influenza Type A Antigen Negative (Negative) Influenza Type B Antigen Negative (Negative) SARS-CoV-2 Antigen (Rapid) Negative (NEGATIVE) Other Laboratory Tests 07/23/24 05:00 Brief Hx & Hospital Course: The patient is a 48-year-old female with a history of cerebral palsy, seizures, VSD, quadriplegia, and GERD, who was brought to the emergency department via EMS for G-tube dislodgement after a seizure witnessed by her sister, Pam. The patient is nonverbal, and the history is provided by Pam, who reports that the patient was recently discharged after being admitted for acute hypoxic respiratory failure, likely due to pneumonia, and was sent home on ciprofloxacin and azithromycin. Around 4:00 a.m. today, the patient had a seizure during which she pulled out her G-tube; no bleeding was noted from the G-tube site. The patient was sent home on oxygen at 2 L/min after the previous hospitalization, but her SpO2 was less than 86%, and she is currently requiring higher oxygen at 4-5 L/min. The patient is lying in bed in a flexed posture with flexion at the hip and knee joints, and with the hands in flexion and feet in plantar flexion. Her past surgical history includes cholecystectomy, hernia repair, and pacemaker insertion. She has no history of smoking, alcohol, or drug abuse and is cared for by her sister at home. Her home medications include Keppra 1000 mg b.i.d., carbamazepine 400 mg b.i.d., and omeprazole 40 mg q.d. via G-tube. Hospital course: head CT scan showed no acute intracranial abnormalities, CT scan showed, Bilateral medial posterior lower lobe consolidations, left side greater than right concerning for aspiration or pneumonia with dislodgement of G-tube. The patient was put on line of acute hypoxic respiratory failure due to aspiration pneumonia, and the patient was given empiric antibiotics of Zosyn, IV antibiotic normal saline, and breathing treatment. Home medicine for the seizure were discontinued, Urology was consulted for the seizure, recommended to continue carbamazepine, Keppra and Vimpat. For the G-tube displacement GI was consulted and put the tube back on the bedside. On 07/24, the patient was feeling better since admission. The patient could maintain oxygen saturation on room air. Discharge plan discussed with the patient's sister and the patient was discharged. Discharge plan: Follow up with the PCP within 1 week after discharge. Follow up with the discharge Clinic within 1 week of the discharge. Follow up with the Neurology on outpatient basis. Continue seizure medicine including Keppra, carbamazepine and Vimpat Operations or Procedures [address] [address] Ph: [phone] DIAGNOSTIC IMAGING Diagnostic Imaging Report : [id number] Signed PATIENT: PATY CALHOUN ACCT: [id number] UNIT: [id number] : 1975 LOC: ER ROOM / BED: / AGE / SEX: 48 / F ADM STATUS: REG ER SERVICE 10 ORDERING PHYSICIAN: BRITTANI TRAN DO PROCEDURE(s): ABPL - CT AB PEL WO CON-NO ORAL OR IV REASON: sz/ G tube dislodge traumatic ORDER NUMBER(s): [id number], ACCESSION NUMBER(s): [id number] Exam: CT CT AB PEL WO CON-NO ORAL OR IV History: sz/ G tube dislodge traumatic Comparison Study: None available at time of dictation. Technique: Multidetector spiral CT of the abdomen was performed from lung bases to pubic symphysis. Imaging was performed without IV contrast. Axial, coronal and sagittal multiplanar reformats were obtained from the axial data set by the technologist. Radiation Dose : 1. Abdomen/Pelvis: CTDIvol 5 mGy, DLP 251 mGy*cm. Findings: Evaluation of solid organs is limited due to lack of intravenous contrast use. Lung Bases: Small bilateral posterior lower lobe consolidations, left side greater than right Liver: The liver is normal in size. No focal lesions. Gallbladder and Biliary Tree: Cholecystectomy. Spleen: Unremarkable Pancreas: The pancreas is grossly normal in appearance. Adrenal Glands: Unremarkable Kidneys: Kidneys are grossly normal without calculi or hydronephrosis. Bladder: Grossly unremarkable for degree of distention. Bowel: The stomach is grossly normal in appearance. Small bowel and colon are normal in caliber and distribution. The appendix is not visualized; however, no secondary findings of acute appendicitis identified. Ascites: Absent Lymphadenopathy: No mesenteric, retroperitoneal or periportal lymphadenopathy. Abdominal Wall and Mesentery: Unremarkable. Vasculature: The visualized abdominal aorta is normal in size and caliber. Evaluation of abdominal and pelvic vessels is limited due to lack of intravenous contrast. Pelvic Organs: Unremarkable Musculoskeletal: No aggressive focal bony lesions, acute fractures or dislocation. Moderate degenerative changes of the right hip joint. Possible right-sided hip dysplasia. IMPRESSION: Bilateral medial posterior lower lobe consolidations, left side greater than right concerning for aspiration or pneumonia. No G-tube is visualized within the gastric lumen. Small tract visualized in the left paramedian anterior abdominal wall likely from prior g-tube placement. Ancillary findings as described above. END IMPRESSION: ATED BY: ALIX STREET DO DICTATED DATE/TIME: 07/21/241853 SIGNED BY: LAIX STREET DO SIGNED DATE/TIME: 07/21/241853 CC: Condition at Discharge: Good Final Diagnosis/Problems List Acute hypoxic respiratory failure likely due to pneumonia/aspiration Pneumonia, likely due to Gram-positive/Gram-negative/viral possible aspiration pneumonia- CT shows bilateral medial posterior lower lobe consolidations, left side greater than right concerning for aspiration Seizure disorder Grand mal seizure Partial complex seizure High-grade intellectual disability History of cerebral palsy History of seizure disorder G-tube dislodgement Moderate anemia, macrocytic Ruled out microcytic anemia History of cholecystectomy GERD Baseline quadriplegia Discharge Disposition: Home Discharge Instruct/Medications Diet: Regular Activity: No Restrictions, As Tolerated Follow Up/Referral: Follow up with the PCP within 1 week after discharge. Follow up with the discharge Clinic within 1 week after discharge. Follow up with the Neurology on outpatient basis Medications: Tablet Vimpat 50 mg b.i.d.. Continue home medicine Discharge Statement: "Patient was advised to return to the ER or call 911 if any headaches, dizziness, shortness of breath, chest pain, abdominal pain, bleeding, fevers, or worsening of medical condition. Patient was counseled about treatment plan, medications, possible side effects, patientverbalized understanding. All questions were answered to the best of my ability. This discharge took greater then 30 minutes in planning, reviewing documentation, counseling the patient, and discussing with other team members." ASSESSMENT ASSESSMENT Assessment G-tube displacement Seizure breakthrough Date of Service: Jul 24, 2024 Billing Provider: ODETTE PINTO MD Common Visit Codes: [id number]/OBS DISCH DAY >30CARMELINA Park Jul 24, 2024 16:58 ODETTE PINTO MD Jul 25, 2024 21:53
[2024-07-24] MEDS ORDERED: Jevity 1.2 Cal/Fiber 1 Liter GT SCH (18:45)
== END 2024-07-24 23:48 | disposition home or self-care (01) | DRG 813 ==
LOC: EDBD 16:44 → ER 16:44 → EDUNIT# 16:44 → TELE 21:44 → TELE-EAST 23:47
PROVIDERS: ADMIT Student in an Organized Health Care Education/Training Program; ATTEND Student in an Organized Health Care Education/Training Program
PROC: 0DH63UZ Insertion of Feeding Device into Stomach, Percutaneous Approach (ICD-10-PCS; principal; 2024-07-24)
DX: T85.528A Displacement of other gastrointestinal prosthetic devices, implants and grafts, initial encounter (principal); J96.01 Acute respiratory failure with hypoxia; J69.0 Pneumonitis due to inhalation of food and vomit; G82.50 Quadriplegia, unspecified; J15.69 Pneumonia due to other Gram-negative bacteria; G40.409 Other generalized epilepsy and epileptic syndromes, not intractable, without status epilepticus; F72 Severe intellectual disabilities; K21.9 Gastro-esophageal reflux disease without esophagitis; Z20.822 Contact with and (suspected) exposure to COVID-19; Y83.8 Other surgical procedures as the cause of abnormal reaction of the patient, or of later complication, without mention of misadventure at the time of the procedure; G40.209 Localization-related (focal) (partial) symptomatic epilepsy and epileptic syndromes with complex partial seizures, not intractable, without status epilepticus; D53.9 Nutritional anemia, unspecified; J15.9 Unspecified bacterial pneumonia; Z90.49 Acquired absence of other specified parts of digestive tract; Z95.0 Presence of cardiac pacemaker; Y92.89 Other specified places as the place of occurrence of the external cause
CPT/HCPCS: 36415; 43760; 70450; 71045; 74176; 80053; 82542; 82550; 83605; 83735; 83880; 84443; 84484; 84702; 85007; 85025; 85027; 85610; 85730; 87426; 87804; 93005; 94640; G0378; J2470; J2543

== ENCOUNTER → 2024-09-28 | Outpatient (CLI) | payer MEDICAID ==
[~2024-09-28] MED LIST changes: -CARB200T39 PO; -CARB400T3 PO; +LACO50TA2 PO; -LEVE5SOL PO
[2024-09-28 11:55] LABS: Basophils # (auto) 0 10 ^3/uL (0-0.2); Basophils % (auto) 0.2 % (0.0-2.0); Eosinophils # (auto) 0.1 10 ^3/uL (0-0.8); Eosinophils % (auto) 2.1 % (0.0-7.0); Lymphocytes # (auto) 1.6 10 ^3/uL (0.4-5.4); Lymphocytes % (auto) 36.6 % (10.0-50.0); Mean Corpuscular Hgb Conc. 34.1 g/dL (32.0-36.0); Mean Corpuscular Volume 102.6 fL (80.0-100.0); Monocytes # (auto) 0.5 10 ^3/uL (0-1.3); Monocytes % (auto) 11.4 % (0.0-12.0); Neutrophils # (auto) 2.2 10 ^3/uL (1.6-8.6); Neutrophils % (auto) 49.7 % (37.0-80.0); Platelet Count (auto) 307 10^3/uL (140-450); Red Cell Distribution Width 12.7 % (11.8-14.3); White Blood Cell 4.4 10^3/uL (4.4-10.8)
[2024-09-28 12:26] LABS: Alanine Aminotransferase 19 U/L (7-40); Albumin 4.3 g/dL (3.2-4.8); Anion Gap 5 (5-15); Aspartate Aminotransferase 18 U/L (13-40); BUN/Creatinine Ratio 28.9 (10.0-20.0); Blood Urea Nitrogen 13 mg/dL (9-23); Calcium 9.8 mg/dL (8.7-10.4); Carbon Dioxide 29 mmol/L (20-31); Chloride 105 mmol/L (98-107); Cholesterol 134 mg/dL (< 200); HDL Cholesterol 41 mg/dL (40-59); LDL Cholesterol 83 mg/dL (< 100); Potassium 4.2 mmol/L (3.5-5.1); Sodium 139 mmol/L (136-145); Triglycerides 59 mg/dL (< 150)
[2024-09-28 12:31] LABS: Alkaline Phosphatase 138 U/L (46-116); Bilirubin, Total 0.2 mg/dL (0.2-1.0); Glucose 114 mg/dL (74-106)
== END | disposition home or self-care (01) ==
LOC: LAB 11:22
PROVIDERS: ATTEND Licensed Practical Nurse
DX: G80.9 Cerebral palsy, unspecified (principal); G40.909 Epilepsy, unspecified, not intractable, without status epilepticus
CPT/HCPCS: 36415; 80053; 80061; 85025

== ENCOUNTER 2024-10-16 09:37 | Inpatient (IN) | payer MEDICAID ==
[~2024-10-16] VITALS: Ht 142.2 cm; Wt 34.7 kg
--- NOTE | 2024-10-16 09:52 | ECG ---
[facility] Test Date: 2024-10-16 Test Time: 09:45:33 Pat Name: PATY CALHOUN Department: ED Room: Gender: F Histopathologist: megan : 1975 Requested By: MARLYS EVANS Order Number: [id number] Reading MD: Mustapha Daniesl Measurements Intervals [place] Rate: 97 P: 65 WV: 141 QRS: 73 QRSD: 97 T: 42 QT: 360 QTc: 458 Interpretive Statements Sinus rhythm Probable left atrial enlargement Low voltage, precordial leads Minimal ST elevation, inferior leads Baseline wander in lead(s) V2,V3 Electronically Signed On 10-16-2024 15:14:22 PDT by Mustapha Daniels Please click the below link to view image of tracing.
--- NOTE | 2024-10-16 09:57 | ED.PDOC ---
HPI (NEURO) HPI Comments 48 y/o non-verbal F, BIBA with PMHx of cerebral palsy and seizures presents to the ED for CC of seizure. EMS reports, patient is coming home where family relays patient to have had a seizure in the upper half of her body, specifically her upper torso and face lasting approximately 30 seconds. EMS states, patient was non-verbal and in no distress upon arrival to scene. Upon arrival to the ED patient is visibly uncomfortable and irritable. No other associated symptoms, modifiers, recent injuries or sick contacts present at this time. Chief Complaint: Seizure Time Seen by MD: 09:47 Primary Care Provider: BRYON Bowman Notes: Nurses Notes, Project Coordinator Rn Notes, Medications, Allergies Mode of Arrival: EMS Severity: Moderate Headache Severity: None Timing: Days Duration: Since onset Prehospital treatment: None Seizure Quality: Mulitple Episodes Onset: At rest Circumstances: Spontaneous History of: Seizure Disorder Modifying factors: Nothing Associated Signs and Symptoms: None Past Medical History PAST MEDICAL HISTORY: GERD, Seizures Surgical History: Cholecystectomy, Hernia Repair, Pacemaker GLASS TUBE BENDER History: No Pertinent GLASS TUBE BENDER History Family History Family History: Unknown Social History Smoker: Non-Smoker Alcohol: Denies ETOH Use Drugs: Denies Drug Use Lives In: Home Unable to Obtain due to: Other (PT NON-VERBAL) Physical Exam General Appearance: No Apparent Distress, Normal, Other (NON-VERBAL, PEG TUBE) HEENT: Normal ENT Inspection, Pharynx Normal, TMs Normal Neck: Full Range of Motion, Non-Tender, Normal, Normal Inspection Respiratory: Chest Non-Tender, Lungs Clear, No Accessory Muscle Use, No Respiratory Distress, Normal Breath Sounds Cardiovascular: No Edema, No JVD, No Murmur, No Gallop, Normal Peripheral Pulses, Regular Rate/Rhythm Breast Exam: Deferred Gastrointestinal: No Organomegaly, Non Tender, No Pulsatile Mass, Normal Bowel Sounds, Soft Genitalia: Deferred Pelvic: Deferred Rectal: Deferred Extremities: No calf tenderness, Normal capillary refill, Normal inspection, Normal range of motion, Non-tender, No pedal edema, Other (RIGHT ARM CONTRACTION) Musculoskeletal : Apperance: Normal Neurologic: Alert, urogynaecologist II-XII nml as Tested, No Motor Deficits, Normal Affect, Normal Mood, No Sensory Deficits Cerebellar Function: Normal Reflexes: Normal Skin: Dry, Normal Color, Warm Lymphatic: No Adenopathy Was a procedure done? Was a procedure done?: No Differential Diagnosis (SZ) Seizure: Epilepsy-Break Through, Epilepsy-Status CVA: CVA, Encephalopathy General Weakness: N/A Headache: N/A X-Ray, Labs, Meds, VS Vital Signs Date Time Temp Pulse Resp B/P (MAP) Pulse Ox O2 Delivery O2 Flow Rate FiO2 10/16/24 09:45 97 10/16/24 09:41 87 20 101/72 (82) 100 Lab Test 10/16/24 09:56 Range/Units White Blood Count 3.5 L 4.4-10.8 10^3/uL Red Blood Count 4.00 4.0-5.20 10^6/uL Hemoglobin 13.9 12.2-16.2 g/dL Hematocrit 41.5 36.0-46.0 % Mean Corpuscular Volume 103.9 H 80.0-100.0 fL Mean Corpuscular Hemoglobin 34.8 H 28.0-32.0 pg Mean Corpuscular Hemoglobin Concent 33.5 32.0-36.0 g/dL Red Cell Distribution Width 12.6 11.8-14.3 % Platelet Count 299 140-450 10^3/uL Mean Platelet Volume 6.6 L 6.9-10.8 fL Neutrophils (%) (Auto) 56.0 37.0-80.0 % Lymphocytes (%) (Auto) 33.6 10.0-50.0 % Monocytes (%) (Auto) 7.9 0.0-12.0 % Eosinophils (%) (Auto) 2.2 0.0-7.0 % Basophils (%) (Auto) 0.3 0.0-2.0 % Neutrophils # (Auto) 2.0 1.6-8.6 10 ^3/uL Lymphocytes # (Auto) 1.2 0.4-5.4 10 ^3/uL Monocytes # (Auto) 0.3 0-1.3 10 ^3/uL Eosinophils # (Auto) 0.1 0-0.8 10 ^3/uL Basophils # (Auto) 0 0-0.2 10 ^3/uL Nucleated Red Blood Cells 0.1 % Sodium Level 138 136-145 mmol/L Potassium Level 4.0 3.5-5.1 mmol/L Chloride Level 106 98-107 mmol/L Carbon Dioxide Level 25 20-31 mmol/L Anion Gap 7 5-15 Blood Urea Nitrogen 10 9-23 mg/dL Creatinine 0.44 L 0.550-1.02 mg/dL Glomerular Filtration Rate Calc 119 >90 mL/min BUN/Creatinine Ratio 22.7 H 10.0-20.0 Serum Glucose 144 H 74-106 mg/dL Calcium Level 9.4 8.7-10.4 mg/dL Current Medications Medications (Trade) Dose Ordered Sig/Krysten Route Start Time Stop Time Status Last Admin Levetiracetam 100 ml @ 400 mls/hr ONCE ONCE IV 10/16/24 09:45 10/16/24 09:59 DC 10/16/24 10:02 Time of 1ST Reevaluation: 10:17 Reevaluation 1ST: Unchanged Patient Education/Counseling: Diagnosis, Treatment Family Education/Counseling: No Family Present Departure 1 Departure Time of Disposition: 11:03 (Patient with worsening seizure burden. We will admit patient for further workup.) Impression: Primary Impression: Breakthrough seizure Additional Impression: Acute metabolic encephalopathy Disposition: ADMITTED INPATIENT Admit to: Med Surg Condition: Serious Critical Care Note Critical Care Time?: No Stability Stability form required: No Heart Score Heart Score: Heart Score Response (Comments) Value History N/A 0 EKG N/A 0 Age N/A 0 Risk Factors N/A 0 Troponin N/A 0 Total 0 I personally scribed for MARLYS EVANS MD ([email or web address]) on 10/16/24 at 09:57. Electronically submitted by Chen Adams [email or web address]). MARLYS EVANS MD Oct 16, 2024 09:57
[2024-10-16] MEDS: levETIRAcetam 1000 mg/100ml 100 ML IV ONE (10:02)
[2024-10-16 10:09] LABS: Basophils # (auto) 0 10 ^3/uL (0-0.2); Basophils % (auto) 0.3 % (0.0-2.0); Eosinophils # (auto) 0.1 10 ^3/uL (0-0.8); Eosinophils % (auto) 2.2 % (0.0-7.0); Hematocrit 41.5 % (36.0-46.0); Hemoglobin 13.9 g/dL (12.2-16.2); Lymphocytes # (auto) 1.2 10 ^3/uL (0.4-5.4); Lymphocytes % (auto) 33.6 % (10.0-50.0); Mean Corpuscular Hemoglobin 34.8 pg (28.0-32.0); Mean Corpuscular Hgb Conc. 33.5 g/dL (32.0-36.0); Mean Corpuscular Volume 103.9 fL (80.0-100.0); Monocytes # (auto) 0.3 10 ^3/uL (0-1.3); Monocytes % (auto) 7.9 % (0.0-12.0); Nucleated Red Blood Cells % 0.1 %; Platelet Count (auto) 299 10^3/uL (140-450); Red Cell Distribution Width 12.6 % (11.8-14.3); White Blood Cell 3.5 10^3/uL (4.4-10.8)
[2024-10-16 10:17] LABS: Chloride 106 mmol/L (98-107); Sodium 138 mmol/L (136-145)
[2024-10-16 10:18] LABS: Anion Gap 7 (5-15); Carbon Dioxide 25 mmol/L (20-31)
[2024-10-16 10:19] LABS: Calcium 9.4 mg/dL (8.7-10.4)
[2024-10-16 10:24] LABS: BUN/Creatinine Ratio 22.7 (10.0-20.0); Blood Urea Nitrogen 10 mg/dL (9-23)
[2024-10-16 10:29] LABS: Glucose 144 mg/dL (74-106)
--- NOTE | 2024-10-16 10:47 | DVH ---
XY CHEST PORTABLE, HISTORY: worsening seizures COMPARISON: XY CHEST PORTABLE on DOS: 07/21/24, XY CHEST PORTABLE on DOS: 07/15/24, XY CHEST PORTABLE on DOS: 05/24/24 XY CHEST PORTABLE on DOS: 07/21/24, XY CHEST PORTABLE on DOS: 07/15/24, XY CHEST PORTABLE on DOS: 4 TECHNICAL DATA: 1 view of the chest was obtained. FINDINGS: Lines and tubes: None Cardiomediastinal silhouette: normal Pulmonary vasculature: normal Lung expansion: low Lung airspace: normal Lung interstitium: normal Pleura: normal Pneumothorax: no Bones: Old left shoulder dislocation. Other: no IMPRESSION: No acute intrathoracic abnormality.
--- NOTE | 2024-10-16 10:50 | DVH ---
EXAM: CT HEAD WITHOUT CONTRAST HISTORY: worsening seizures COMPARISON: CT HEAD WITHOUT CONTRAST on DOS: 07/21/24, CT HEAD WITHOUT CONTRAST on DOS: 07/16/24 TECHNIQUE: Axial images were obtained and reformatted in coronal and sagittal planes. All CT scans at this medical facility are performed using dose modulation techniques as appropriate t o a performed exam including the following: Automated exposure control was utilized; adjustment of th e MA and/or KV according to patient size; and use of iterative reconstruction technique. CT Dose: CTDI volume is 53 mGy. Dose-length product is 970 mGy*cm FINDINGS: Supratentorial Region: No evidence for large acute territorial ischemia. No intracranial hemorrhage is noted. Posterior Fossa: No acute abnormality. Brainstem: Unremarkable. Sellar/Suprasellar Region: Unremarkable. Ventricles, Cisterns, Sulci: Age-appropriate. Orbits: Unremarkable. Paranasal Sinuses: Unremarkable. Mastoid Air Cells: Unremarkable. Vasculature: Unremarkable. Bones/Soft Tissues: No acute abnormality. Other: None. IMPRESSION: 1. No CT evidence of acute intracranial abnormality.
[2024-10-16] MEDS ORDERED: CARB100S2 PO (16:21)
--- NOTE | 2024-10-16 16:28 | DVHHP2 ---
History of Present Illness Reason for Visit: Seizures History of Present Illness This 48-year-old nonverbal female with past medical history of cerebral palsy, seizures, presents in the ED via EMS with a chief complaint of seizures. Medical history obtained from nursing staff and record, states patient had seizure episodes today lasting 30 seconds. She is under the care of Dr. Orosco neurologist. Past Medical History As stated in HPI Past Surgical History Denies Family History Reviewed, non-contributory to the management of this case. Past Social History The patient lives at home, denies smoking, alcohol or illicit drugs abuse. Review of Systems Constitutional: Yes: Malaise; No: Fever, Chills, Sweats, Weakness, Other Eyes: No: Pain, Vision change, Conjunctivae inflammation, Eyelid inflammation, Other, Redness ENT: No: Ear pain, Ear discharge, Nose pain, Nose discharge, Nose congestion, Mouth pain, Mouth swelling, Throat pain, Throat swelling, Other Respiratory: No: Cough, Dry, Shortness of breath, SOB with excertion, Wheezing, Hemoptysis, Pleuritic Pain, Sputum, Wheezing, Other Cardiovascular: No: Chest Pain, Palpitations, Orthopnea, Paroxysmal Noc. Dyspnea, Edema, Lt Headedness, Other Gastrointestinal: No: Nausea, Vomiting, Abdominal Pain, Diarrhea, Constipation, Melena, Hematochezia, Other Genitourinary: No Dysuria, No Frequency, No Incontinence, No Hematuria, No Retention, No Other Musculoskeletal: No: other, neck pain, shoulder pain, arm pain, back pain, hand pain, leg pain, foot pain Skin: No: Rash, Lesions, Jaundice, Bruising, Other Neurological: Seizures; No: Weakness, Numbness, Incoordination, Change in speech, Confusion, Other Allergies: Coded Allergies: Vancomycin (Verified Adverse Reaction, Unknown, 05/01/24) fever, sweating, erythema from vanco infusion Exam Vital Signs Vital Signs Date Time Temp Pulse Resp B/P (MAP) Pulse Ox O2 Delivery O2 Flow Rate FiO2 10/16/24 14:00 92 26 94/56 (69) 94 10/16/24 10:00 Room Air* 0 21 General Appearance: Other (Nonverbal, cerebral palsy, mainly bed-bound) Respiratory: Clear to auscultation, Normal air movement Cardiovascular: Normal S1, Normal S2 Abdominal: Normal bowel sounds, Soft Extremities: No clubbing, No cyanosis Skin: No rashes Labs/Xrays Labs Test 10/16/24 09:56 Range/Units White Blood Count 3.5 L 4.4-10.8 10^3/uL Red Blood Count 4.00 4.0-5.20 10^6/uL Hemoglobin 13.9 12.2-16.2 g/dL Hematocrit 41.5 36.0-46.0 % Mean Corpuscular Volume 103.9 H 80.0-100.0 fL Mean Corpuscular Hemoglobin 34.8 H 28.0-32.0 pg Mean Corpuscular Hemoglobin Concent 33.5 32.0-36.0 g/dL Red Cell Distribution Width 12.6 11.8-14.3 % Platelet Count 299 140-450 10^3/uL Mean Platelet Volume 6.6 L 6.9-10.8 fL Neutrophils (%) (Auto) 56.0 37.0-80.0 % Lymphocytes (%) (Auto) 33.6 10.0-50.0 % Monocytes (%) (Auto) 7.9 0.0-12.0 % Eosinophils (%) (Auto) 2.2 0.0-7.0 % Basophils (%) (Auto) 0.3 0.0-2.0 % Neutrophils # (Auto) 2.0 1.6-8.6 10 ^3/uL Lymphocytes # (Auto) 1.2 0.4-5.4 10 ^3/uL Monocytes # (Auto) 0.3 0-1.3 10 ^3/uL Eosinophils # (Auto) 0.1 0-0.8 10 ^3/uL Basophils # (Auto) 0 0-0.2 10 ^3/uL Nucleated Red Blood Cells 0.1 % Sodium Level 138 136-145 mmol/L Potassium Level 4.0 3.5-5.1 mmol/L Chloride Level 106 98-107 mmol/L Carbon Dioxide Level 25 20-31 mmol/L Anion Gap 7 5-15 Blood Urea Nitrogen 10 9-23 mg/dL Creatinine 0.44 L 0.550-1.02 mg/dL Glomerular Filtration Rate Calc 119 >90 mL/min BUN/Creatinine Ratio 22.7 H 10.0-20.0 Serum Glucose 144 H 74-106 mg/dL Calcium Level 9.4 8.7-10.4 mg/dL ROCEDURE(s): HWOCT - HEAD WITHOUT CONTRAST REASON: worsening seizures ORDER NUMBER(s): [id number], ACCESSION NUMBER(s): [id number] EXAM: CT HEAD WITHOUT CONTRAST HISTORY: worsening seizures COMPARISON: CT HEAD WITHOUT CONTRAST on DOS: 07/21/24, CT HEAD WITHOUT CONTRAST on DOS: 07/16/24 TECHNIQUE: Axial images were obtained and reformatted in coronal and sagittal planes. All CT scans at this medical facility are performed using dose modulation techniques as appropriate to a performed exam including the following: Automated exposure control was utilized; adjustment of the MA and/or KV according to patient size; and use of iterative reconstruction technique. CT Dose: CTDI volume is 53 mGy. Dose-length product is 970 mGy*cm FINDINGS: Supratentorial Region: No evidence for large acute territorial ischemia. No intracranial hemorrhage is noted. Posterior Fossa: No acute abnormality. Brainstem: Unremarkable. Sellar/Suprasellar Region: Unremarkable. Ventricles, Cisterns, Sulci: Age-appropriate. Orbits: Unremarkable. Paranasal Sinuses: Unremarkable. Mastoid Air Cells: Unremarkable. Vasculature: Unremarkable. Bones/Soft Tissues: No acute abnormality. Other: None. IMPRESSION: 1. No CT evidence of acute intracranial abnormality. Assessment/Plan Assessment/Plan # Breakthrough seizures Admit to medical unit Keppra IV b.i.d. Carbamazepine Nephrology consult Seizure precaution # GERD PPI # cerebral palsy Medical plan discussed with patient and RN Plan discussed with: Patient My Orders Orders - LV BUCHANAN [employer] Procedure Category Date Status Time Levetiracetam 1000 PHA 10/16/24 In Process Mg/100ml (Levetiracet 22:00 Seizure Precautions TIFFANY 10/16/[address] 15:55 * Neurology Consult CONS 10/16/24 Transmitted 15:55 Urinalysis LAB 10/16/24 Logged 15:55 Lacosamide (Vimpat) PHA 10/16/24 In Process 22:00 Lorazepam Tablet PHA 10/16/24 In Process (Ativan Tablet) 22:00 Admit ADMIT 10/16/24 Verified 16:21 Code Status CODE 10/16/24 Verified 16:21 Ondansetron Hcl PHA 10/16/24 Verified (Zofran) 16:30 Fall Risk Precautions TIFFANY 10/16/[address] 16:21 Complete Blood Count LAB 10/17/24 Verified 04:00 Comprehensive LAB 10/17/24 Verified Metabolic Panel 04:00 Cardiac DIET 10/16/24 Verified Diet-2gna,Lofat,Lochol Dinner Condition: Fair TIFFANY 10/16/24 Verified 16:21 Date of Service: Oct 16, 2024 Billing Provider: LV BUCHANAN Common Visit Codes: [id number] INP/OBS CARE (HIGH) LV BUCHANAN Oct 16, 2024 16:28
[2024-10-16] MEDS ORDERED: ONDANSETRON HCL 4 MG/2 ML VIAL IV PRN (16:30)
[2024-10-16] MEDS: PANTOPRAZOLE 40 MG/10 ML VIAL INJ IV ONE (16:46)
[2024-10-16 21:38] VITALS: PULSE 105; RESP 18; O2SAT 97
[2024-10-16] MEDS ORDERED: LACOSAMIDE 50 MG TAB PO SCH (22:00)
[2024-10-16] MEDS ORDERED: LORazepam 0.5 MG TAB PO SCH (22:00)
[2024-10-16] MEDS ORDERED: LEVE100020 PO (22:02)
[2024-10-16] MEDS ORDERED: OMEP-335 PO (22:02)
[2024-10-16] MEDS ORDERED: [UNRECOGNIZED DRUG - CODE] GT (22:08)
[2024-10-16] MEDS: levETIRAcetam 1000 mg/100ml 100 ML IV SCH (22:24)
[2024-10-16] MEDS: LACOSAMIDE 50 MG TAB GT SCH (22:32)
[2024-10-17] VITALS (7 sets, daily range): BP systolic 89–116; BP diastolic 50–60; PULSE 89–105; RESP 14–18; TEMP 97.5–99.7; O2SAT 93–99
[2024-10-17] MEDS: LORazepam 2MG/ML-1ML VIAL IV PRN (00:46)
[2024-10-17 07:48] LABS: Alanine Aminotransferase 16 U/L (7-40); Albumin 3.9 g/dL (3.2-4.8); Anion Gap 9 (5-15); Aspartate Aminotransferase 18 U/L (13-40); BUN/Creatinine Ratio 32.5 (10.0-20.0); Blood Urea Nitrogen 13 mg/dL (9-23); Calcium 9.4 mg/dL (8.7-10.4); Carbon Dioxide 21 mmol/L (20-31); Glucose 91 mg/dL (74-106); Potassium 4.4 mmol/L (3.5-5.1); Sodium 139 mmol/L (136-145); Total Protein 6.2 g/dL (5.7-8.2)
[2024-10-17 07:50] LABS: Alkaline Phosphatase 117 U/L (46-116); Bilirubin, Total 0.3 mg/dL (0.2-1.0); Chloride 109 mmol/L (98-107)
[2024-10-17] MEDS: PANTOPRAZOLE 40 MG/10 ML VIAL INJ IV SCH (09:44)
[2024-10-17] MEDS: Jevity 1.2 Cal/Fiber 1 Liter GT SCH (09:44)
--- NOTE | 2024-10-17 14:17 | DVHPNRES ---
Progress Note Date Seen: Oct 17, 2024 Resident Creating Document: NISHA PERDOMO RESIDENT Medical Necessity Reason Pt with a Central, PICC or Fol: No Subjective Review of Systems Patient is 44 years old female, nonverbal past medical history of cerebral palsy, seizure disorder, on PEG tube for feeding since 2006 came with a complaint of seizure order. History was taken magnesium patient's sister. Patient was brought in by the EMS due to seizure-like activity at home. Patient was recently seen by Dr. Orosco at his clinic and EEG was done. CT HEAD negative for acute intracranial pathology. CXR no acute cardiopulmonary abnormality noted. PMH-cerebral palsy, seizure, GERD PSH- Cholecystectomy, Hernia Repair, Pacemaker Allergy- vancomycin, Personal History/ Social History- lives with sister, Patient was seen today at the bedside. Patient is nonverbal Patient is seen today for clinical evaluation. Less than chart reviewed. Levetiracetam, Vimpat, pending cardiology consult Objective vital signs Vital Sign Date Time Temp Pulse Resp B/P (MAP) Pulse Ox O2 Delivery O2 Flow Rate FiO2 10/17/24 12:30 99.6 94 14 91/55 (67) 93 99.6 10/17/24 08:00 Room Air* 0 21 Total Intake and Output 10/16/24 10/16/24 10/17/24 15:00 23:00 07:00 Intake Total 0 ml Balance 0 ml medications Current Medications Medications Dose Ordered Sig/Krysten Route Start Time Stop Time Status Last Admin Dose Admin Levetiracetam 100 ml @ 400 mls/hr BID IV 10/16/24 22:00 10/17/24 09:43 400 MLS/HR Ondansetron HCl 4 mg Q4HP PRN IV 10/16/24 16:30 Pantoprazole Sodium 40 mg DAILY IV 10/17/24 10:00 10/17/24 09:44 40 MG Lacosamide 50 mg BID GT 10/16/24 22:00 10/17/24 09:44 50 MG Lorazepam 1 mg Q5MINP PRN IV 10/16/24 21:15 10/17/24 00:46 1 MG Enteral Nutritional Formula 1,000 ml 30ML/HR GT 10/16/24 21:15 Examination General examination- nonverbal, quadriplegia HEENT- PEERLA, no acute nasal discharge Cardiovascular- S1-S2 audible, rate and rhythm regular, no murmur Respiratory- CTAB, no wheeze or rhonchi Gastrointestinal-nontender, bowel sound+. Nondistended Musculoskeletal-inability to move arms and legs due to quadriplegia Lower extremity- patient with quadriplegia, inability move legs Neurological- patient with cerebral palsy Skin- no acute rash or purpura laboratory and microbiology Laboratory Tests 10/17/24 07:00 10/16/24 09:56 Test 10/17/24 07:00 Range/Units Serum Glucose 91 74-106 mg/dL Problem List/Assessment/Plan Problem List/Assessment/Plan Assessment and plan # acute seizure -continue Keppra b.i.d. as prescribed -continue lacosamide 50 mg b.i.d. -CT HEAD negative for acute intracranial pathology. -CXR no acute cardiopulmonary abnormality noted. -pending neurology consult # cerebral palsy -continue current management # GERD -continue pantoprazole 40 mg IV daily # malnutrition Goals of care, Code status ; discussed with >15 minutes PUD prophylaxis: Pantoprazole DVT prophylaxis: Lovenox Plan discussed with Dr. Marquez , nursing staff, Total time spent on patient evaluation, chart review, assessment and plan, discussion discussion >35 minutes Plan discussed with: Other (SISTER, RN ) Date of Service: Oct 17, 2024 Billing Provider: ODETTE PINTO MD Common Visit Codes: [id number] INP/OBS CARE(HIGH) NISHA PERDOMO RESIDENT Oct 17, 2024 14:17 ODETTE PINTO MD Oct 24, 2024 09:33
[2024-10-17] MEDS: ENOXAPARIN SOD 30 MG/0.3 ML SYRINGE SC ONE (17:24)
[2024-10-17] MEDS: IBUPROFEN 100MG/5ML ORAL SUSP 100 MG/5 ML UD PEG ONE (18:15)
[2024-10-17] MEDS ORDERED: IBUPROFEN 100MG/5ML ORAL SUSP 100 MG/5 ML UD PO PRN (18:15)
--- NOTE | 2024-10-17 21:49 | DVHINCON2 ---
Date of service: Oct 17, 2024 Referring Physician Gerald Reason for Consultation Breakthrough seizure History of Present Illness Ms. Garland is a 48 years old female with a history of cerebral palsy, mental retardation, quadriplegia, GERD, seizure disorder, the patient was admitted to the [facility] on 07/21/24 with a chief complaint of G-tube dislodgement after a seizure attack. She was awake, she tracks, she was conjugated eye movement, but she does not vocalize or answer questions, the history is obtained from her family and chart review I saw her on 04/04/2024, 07/22/24 for seizure She has a history of cerebral palsy, mental retardation, quadriplegia, she was history of seizure, in that she has spells event with brief jerking in the arms, left leg lasting for about 30 seconds, she was seizure once or twice daily, she is on Keppra 1000 mg b.i.d., carbamazepine 400 mg b.i.d. Vimpat 50 mg b.i.d. She came to the hospital for seizure breakthrough, and she had one seizure so far on 10/17/2024 WBC/HB/PLT/MCV, 07/22/2024: 5.5/11.1/325/102.9 CMP, 07/22/2024: Unremarkable Vitamin B12, 04/05/24: 790 Folic acid, 04/05/2024: 18.4 TSH, 07/22/2024: 1.89 CT head, 07/21/2024: No acute intracranial findings Past Medical History Cerebral palsy, GERD, seizure Past Surgical History Cholecystectomy, hernia repair, pacemaker insertion, G-tube Family History: Patient reports no known family medical history. Family History Noncontributory Social History Smoker: Non-Smoker Alcohol: Denies ETOH Use Drugs: Denies Drug Use Lives In: Home Allergies: Coded Allergies: Vancomycin (Verified Adverse Reaction, Unknown, 05/01/24) fever, sweating, erythema from vanco infusion Home Meds Active Scripts Ciprofloxacin Hcl (Cipro) 500 Mg Tab, 1 TAB PO BID, #14 TAB Prov:GUERO ELDER MD 07/18/24 Azithromycin (Azithromycin) 500 Mg Tab, 1 TAB PO DAILY, #7 TAB Prov:GUERO ELDER MD 07/18/24 Levetiracetam (Keppra) 1,000 Mg Tab, 1 TAB PO BID, #180 TAB 5 Refills Prov:GUERO ELDER MD 07/18/24 Bisacodyl (Ex-Lax Ultra) 5 Mg Tab, 5 MG PO DAILY PRN, #60 TAB 2 Refills Take 2 tablets (10 mg) via G tube Daily Prov:JOHN BENAVIDEZ MD 03/26/24 Carbamazepine (CARBAMAZEPINE ER) 300 Mg Cap, 300 MG PO BID PRN, #120 CAP 2 Re fills Take 2 capsules (600 mg) BID (morning and night) via G tube Prov:JOHN BENAVIDEZ MD 03/26/24 Esomeprazole Magnesium (Esomeprazole Magnesium) 40 Mg Cap, 40 MG PO DAILY, #30 CAP 3 Refills Take 1 capsule via G tube every afternoon (3pm) Prov:JOHN BENAVIDEZ MD 03/26/24 Lorazepam (Ativan) 0.5 Mg Tab, 0.5 MG PO BID for 30 Days, #60 TAB Prov:LONG PALACIOS MD 02/27/24 Cefdinir (Cefdinir) 300 Mg Cap, 1 CAP PO BID for 7 Days, #14 CAP Prov:LONG PALACIOS MD 02/27/24 Reported Medications Nutritional Supplements (Peptamen 1 Félix/Prebio1) 1 Liq Liq, 1 LIQ GT Q4HR, LIQ 10/16/24 Omeprazole (Omeprazole) 20 Mg Tab, 40 MG PO DAILY, TAB 10/16/24 Levetiracetam (Levetiracetam) 1,000 Mg Tab, 1 TAB PO BID 10/16/24 Carbamazepine (Carbamazepine) 100 Mg/5 Ml Verito, 4 ML PO TID 10/16/24 Lacosamide (Vimpat) 50 Mg Tab, 50 MG PO BID for 30 Days, #60 TAB 1 Refill 07/24/24 Tramadol Hcl (Tramadol Hcl) 50 Mg Tab, 50 MG PO Q8HP PRN for PAIN SCALE 1 THRU 6, MG 01/30/24 Esomeprazole Magnesium Trihydr (Nexium) 40 Mg Cap, 40 MG PO, CAP 01/30/24 Folic Acid (Folic Acid) 1 Mg Tab, 1 MG PO DAILY for 30 Days, MG 7/20/24 Current Medications Current Medications Medications (Trade) Dose Ordered Sig/Krysten Route PRN Reason Start Time Stop Time Status Last Admin Levetiracetam 100 ml @ 400 mls/hr BID IV 10/16/24 22:00 10/17/24 09:43 Lacosamide (Vimpat) 50 mg BID PO 10/16/24 22:00 10/16/24 21:10 DC Lorazepam (Ativan Tablet) 0.5 mg BID PO 10/16/24 22:00 10/16/24 21:10 DC Pantoprazole Sodium (Protonix) 40 mg DAILY IV 10/17/24 10:00 10/17/24 09:44 Lacosamide (Vimpat) 50 mg BID GT 10/16/24 22:00 10/17/24 09:44 Enoxaparin Sodium (Lovenox) 30 mg DAILY SC 10/18/24 10:00 Ibuprofen (MOTRIN 100MG/5 mL ORAL SUSP) 200 mg Q6H PRN PO MODERATE PAIN (4-6 PAIN SCALE) 10/17/24 18:15 Review of Systems As above, the other systems are negative Vital Signs Vital Signs Date Time Temp Pulse Resp B/P (MAP) Pulse Ox O2 Delivery O2 Flow Rate FiO2 10/17/24 20:00 Room Air* 0 21 10/17/24 17:12 99.7 92 16 89/50 (63) 94 99.7 Physical Exam GENERAL EXAM: General: the patient is well developed and nourished. No acute distress. HEENT: Normocephalic, neck is supple, no carotid bruits. No mass. RESPIRATORY: Normal respiratory effort with symmetrical lung expansion. Lungs clear to auscultation. CARDIOVASCULAR: Regular rate and rhythm with no murmurs. S1, S2. ABDOMEN: Soft, nontender, normal bowel sound NEUROLOGICAL: MENTAL STATUS: Awake, she does not remember my verbal stimuli SPEECH, LANGUAGE, HIGHER CORTICAL FUNCTION: No vocalization CRANIAL NERVES: #2: Intact visual mcnair to confrontation (visual thread). #3,4,6: Pupils are equal, round and reactive. EOMs full and conjugate #5: Facial sensation intact in all three divisions bilaterally. Mandibular strength intact. #7: Facial muscles symmetrical and strength intact. #8: Deferred #9,10: Deferred #11: Deferred #12: Deferred SENSATION: Okay to touch and pinprick MOTOR: All extremities are under developed, no spontaneous movement REFLEXES: Deep tendon reflexes are symmetrical. No pathological reflexes. CEREBELLAR/COORDINATION: Deferred GAIT/STATION: deferred Labs/Diagnostic Data Labs Test 10/17/24 15:24 10/17/24 07:00 10/16/24 09:56 Range/Units Hemoglobin A1c 4.7 <5.7 % A1C Magnesium Level 2.1 1.6-2.6 mg/dL Thyroid Stimulating Hormone (TSH) 2.58 0.55-4.78 uIU/mL Sodium Level 139 136-145 mmol/L Potassium Level 4.4 3.5-5.1 mmol/L Chloride Level 109 H 98-107 mmol/L Carbon Dioxide Level 21 20-31 mmol/L Anion Gap 9 5-15 Blood Urea Nitrogen 13 9-23 mg/dL Creatinine 0.40 L 0.550-1.02 mg/dL Glomerular Filtration Rate Calc 122 >90 mL/min BUN/Creatinine Ratio 32.5 H 10.0-20.0 Serum Glucose 91 74-106 mg/dL Calcium Level 9.4 8.7-10.4 mg/dL Total Bilirubin 0.3 0.2-1.0 mg/dL Aspartate Amino Transferase (AST) 18 13-40 U/L Alanine Aminotransferase (ALT) 16 7-40 U/L Alkaline Phosphatase 117 H 46-116 U/L Total Protein 6.2 5.7-8.2 g/dL Albumin 3.9 3.2-4.8 g/dL White Blood Count 3.5 L 4.4-10.8 10^3/uL Red Blood Count 4.00 4.0-5.20 10^6/uL Hemoglobin 13.9 12.2-16.2 g/dL Hematocrit 41.5 36.0-46.0 % Mean Corpuscular Volume 103.9 H 80.0-100.0 fL Mean Corpuscular Hemoglobin 34.8 H 28.0-32.0 pg Mean Corpuscular Hemoglobin Concent 33.5 32.0-36.0 g/dL Red Cell Distribution Width 12.6 11.8-14.3 % Platelet Count 299 140-450 10^3/uL Mean Platelet Volume 6.6 L 6.9-10.8 fL Neutrophils (%) (Auto) 56.0 37.0-80.0 % Lymphocytes (%) (Auto) 33.6 10.0-50.0 % Monocytes (%) (Auto) 7.9 0.0-12.0 % Eosinophils (%) (Auto) 2.2 0.0-7.0 % Basophils (%) (Auto) 0.3 0.0-2.0 % Neutrophils # (Auto) 2.0 1.6-8.6 10 ^3/uL Lymphocytes # (Auto) 1.2 0.4-5.4 10 ^3/uL Monocytes # (Auto) 0.3 0-1.3 10 ^3/uL Eosinophils # (Auto) 0.1 0-0.8 10 ^3/uL Basophils # (Auto) 0 0-0.2 10 ^3/uL Nucleated Red Blood Cells 0.1 % Assessment Seizure disorder Grand mal seizure Severe mental retardation Quadriplegia Cerebral palsy Plan/Recommendation Monitoring Supportive treatment Telemetry Keppra 1000 mg b.i.d. Carbamazepine 600 mg b.i.d. Increase the Vimpat to 75 mg Bid Ativan for seizure breakthrough Vimpat 15 mg HS p.r.n. for insomnia More recommendation per clinical course Progress: Poor This medical document was created using an electronic medical record system with [employer] dictation system. Although this document has been carefully reviewed, there may still be some phonetic and typographical errors. These areas are purely typographical due to imperfections of the software programs, and do not reflect any compromise in the patient's medical care Plan discussed with: Other ENRIQUE LATHAM MD Oct 17, 2024 21:49
[2024-10-17] MEDS: LACOSAMIDE 50 MG TAB GT SCH (22:15)
[2024-10-17] MEDS: TEMAZEPAM 15 MG CAP PO PRN (22:32)
[2024-10-18] VITALS (7 sets, daily range): BP systolic 87–107; BP diastolic 52–61; PULSE 78–110; RESP 16–20; TEMP 96.9–98.9; O2SAT 95–98
[2024-10-18 00:46] LABS: Urine Bacteria MANY /hpf (None Seen); Urine Blood Negative /uL (Negative); Urine Clarity Turbid (Clear); Urine Color Yellow (Yellow); Urine Mucus FEW (None Seen); Urine Protein, UAD 1+ (Negative); Urine Specific Gravity 1.039 (1.001-1.035); Urine Squamous Epithelial Cell MANY /hpf (<5); Urine Urobilinogen 2 mg/dL (Negative); Urine WBC 198 /HPF (0-5)
[2024-10-18 06:09] LABS: Basophils # (auto) 0 10 ^3/uL (0-0.2); Basophils % (auto) 0.4 % (0.0-2.0); Eosinophils # (auto) 0.2 10 ^3/uL (0-0.8); Eosinophils % (auto) 3.3 % (0.0-7.0); Hematocrit 36.8 % (36.0-46.0); Lymphocytes # (auto) 2.8 10 ^3/uL (0.4-5.4); Lymphocytes % (auto) 54.2 % (10.0-50.0); Mean Corpuscular Hemoglobin 36.8 pg (28.0-32.0); Mean Corpuscular Hgb Conc. 35.4 g/dL (32.0-36.0); Mean Corpuscular Volume 104.2 fL (80.0-100.0); Monocytes # (auto) 0.5 10 ^3/uL (0-1.3); Monocytes % (auto) 10.2 % (0.0-12.0); Neutrophils # (auto) 1.6 10 ^3/uL (1.6-8.6); Neutrophils % (auto) 31.9 % (37.0-80.0); Nucleated Red Blood Cells % 0.3 %; Platelet Count (auto) 252 10^3/uL (140-450); Red Blood Cells 3.54 10^6/uL (4.0-5.20); Red Cell Distribution Width 12.5 % (11.8-14.3); White Blood Cell 5.1 10^3/uL (4.4-10.8)
[2024-10-18 06:32] LABS: Anion Gap 7 (5-15); Carbon Dioxide 26 mmol/L (20-31); Potassium 3.8 mmol/L (3.5-5.1); Sodium 142 mmol/L (136-145)
[2024-10-18 06:34] LABS: Calcium 9.4 mg/dL (8.7-10.4)
[2024-10-18 06:38] LABS: Chloride 109 mmol/L (98-107); Glucose 89 mg/dL (74-106)
[2024-10-18 06:39] LABS: Blood Urea Nitrogen 14 mg/dL (9-23); Magnesium 2.2 mg/dL (1.6-2.6)
[2024-10-18] MEDS: cefTRIAXone 1GM/50ML D5W 50 ML IV ONE (06:49)
[2024-10-18] MEDS: ENOXAPARIN SOD 30 MG/0.3 ML SYRINGE SC SCH (09:12)
[2024-10-18] MEDS: carBAMazepine 200 MG/10 ML Ud ORAL Susp GT SCH ×2 (10:15→21:46)
--- NOTE | 2024-10-18 15:17 | DVHPNRES ---
Progress Note Date Seen: Oct 18, 2024 Resident Creating Document: NISHA PERDOMO RESIDENT Medical Necessity Reason Pt with a Central, PICC or Fol: No Subjective Review of Systems Patient is 44 years old female, nonverbal past medical history of cerebral palsy, seizure disorder, on PEG tube for feeding since 2006 came with a complaint of seizure order. History was taken magnesium patient's sister. Patient was brought in by the EMS due to seizure-like activity at home. Patient was recently seen by Dr. Orosco at his clinic and EEG was done. CT HEAD negative for acute intracranial pathology. CXR no acute cardiopulmonary abnormality noted. PMH-cerebral palsy, seizure, GERD PSH- Cholecystectomy, Hernia Repair, Pacemaker Allergy- vancomycin, Personal History/ Social History- lives with sister, Patient was seen today at the bedside. Patient is nonverbal Patient is seen today for clinical evaluation. Labs and chart reviewed. Patient was seen by neurologist, recommendation reviewed and appreciated. Increase Vimpat from 50 mg b.i.d. to 75 mg b.i.d., carbamazepine from 400 to 600 mg b.i.d. uterine analysis significant for UTI, started on ceftriaxone 1 g IV daily, pending uterine culture sensitivity report. Objective vital signs Vital Sign Date Time Temp Pulse Resp B/P (MAP) Pulse Ox O2 Delivery O2 Flow Rate FiO2 10/18/24 12:27 96.9 110 16 98/57 (71) 95 96.9 10/18/24 08:00 Room Air* 0 21 Total Intake and Output 10/17/24 10/17/24 10/18/24 15:00 23:00 07:00 Intake Total 250 ml 0 ml Balance 250 ml 0 ml medications Current Medications Medications Dose Ordered Sig/Krysten Route Start Time Stop Time Status Last Admin Dose Admin Levetiracetam 100 ml @ 400 mls/hr BID IV 10/16/24 22:00 10/18/24 09:10 400 MLS/HR Ondansetron HCl 4 mg Q4HP PRN IV 10/16/24 16:30 Pantoprazole Sodium 40 mg DAILY IV 10/17/24 10:00 10/18/24 09:12 40 MG Lorazepam 1 mg Q5MINP PRN IV 10/16/24 21:15 10/18/24 07:00 1 MG Enteral Nutritional Formula 1,000 ml 30ML/HR GT 10/16/24 21:15 Enoxaparin Sodium 30 mg DAILY SC 10/18/24 10:00 10/18/24 09:12 30 MG Ibuprofen 200 mg Q6H PRN PO 10/17/24 18:15 Lacosamide 75 mg BID GT 10/17/24 22:15 10/18/24 09:11 75 MG Temazepam 15 mg HS PRN PO 10/17/24 22:15 10/17/24 22:32 15 MG Ceftriaxone Sodium 50 ml @ 100 mls/hr DAILY@0700 IV 10/19/24 07:00 Carbamazepine 600 mg BID GT 10/18/24 22:00 Examination General examination- nonverbal, quadriplegia HEENT- PEERLA, no acute nasal discharge Cardiovascular- S1-S2 audible, rate and rhythm regular, no murmur Respiratory- CTAB, no wheeze or rhonchi Gastrointestinal-nontender, bowel sound+. Nondistended Musculoskeletal-inability to move arms and legs due to quadriplegia Lower extremity- patient with quadriplegia, inability move legs Neurological- patient with cerebral palsy Skin- no acute rash or purpura laboratory and microbiology Laboratory Tests 10/18/24 05:30 Test 10/18/24 05:30 Range/Units Serum Glucose 89 74-106 mg/dL Problem List/Assessment/Plan Problem List/Assessment/Plan Assessment and plan # acute seizure, seizure disorder-grand mal seizure -continue Keppra b.i.d. as prescribed -continue lacosamide 75 mg b.i.d. -continue carbamazepine 600 mg b.i.d. -CT HEAD negative for acute intracranial pathology. -CXR no acute cardiopulmonary abnormality noted. -status post neurology consult # acute complicated cystitis with no end-organ damage -continue ceftriaxone 1 g IV daily -pending urine culture sensitivity # cerebral palsy -continue current management # quadriplegia -continue current management # severe mental retardation # GERD -continue pantoprazole 40 mg IV daily Goals of care, Code status ; discussed with >15 minutes PUD prophylaxis: Pantoprazole DVT prophylaxis: Lovenox Plan discussed with Dr. Marquez , nursing staff, Total time spent on patient evaluation, chart review, assessment and plan, discussion discussion >35 minutes Plan discussed with: Other (sister, RN ) My Orders My Orders Orders - NISHA PERDOMO RESIDENT Procedure Category Date Status Time Communication Order ORDERS 10/17/24 Transmitted 18:12 Ibuprofen 100mg/5 Ml PHA 10/17/24 In Process Oral Susp (Motrin 1 18:15 * Dietary Consult CONS 10/17/24 Transmitted 19:01 Urine Bacterial TREY 10/18/24 In Process Culture 06:36 Ceftriaxone 1gm/50ml PHA 10/19/24 In Process D5w (Rocephin) 07:00 Carbamazepine Oral PHA 10/18/24 In Process Suspension (Tegretol 22:00 Dietary Evaluation Review Comments: 1. Discontinue diet order, current TF regimen in EMR 2. Caregiver is providing cartons of home formula Peptamen 1.0 w/ soluble fiber to bedside, administering bolus feeds - offered most comparable formula, will defer unless pt to remain admitted (will FU in 24-48 hrs) 3. Should pt remain admitted, to preserve home-supply of tube feeding will provide Vital Af 1.2 pump-assisted bolus feeds of 195 ml per bolus 4x/day with free-water flushes of 30 ml before and after each bolus (poor tolerance to continuous feeds, causes vomiting) Expected Outcomes/Goals: Maintain adequate nutrition, maintain/regain weight. Date of Service: Oct 18, 2024 Billing Provider: ODETTE PINTO MD Common Visit Codes: [id number] INP/OBS CARE(HIGH) NISHA PERDOMO RESIDENT Oct 18, 2024 15:17 ODETTE PINTO MD Oct 24, 2024 09:34
--- NOTE | 2024-10-18 22:20 | DVHPN2 ---
Progress Note - Dictate Date Seen: Oct 18, 2024 Medical Necessity Reason Pt with a Central, PICC or Fol: No Subjective Ms. Garland is a 48 years old female with a history of cerebral palsy, mental retardation, quadriplegia, GERD, seizure disorder, the patient was admitted to the [facility] on 07/21/24 with a chief complaint of G-tube dislodgement after a seizure attack. I saw her on 04/04/2024, 07/22/24 for seizure I have seen and examined the patient, I have discussed with her nurse, I have also discussed with her sister, who is in the room with the patient was She was not sleeping, she was one seizure earlier today in that she was spacing out, eyes rolling back The patient was had a very good sleep last night, and this is the best sleep for a while WBC/HB/PLT/MCV, 07/22/2024: 5.5/11.1/325/102.9 CMP, 07/22/2024: Unremarkable Vitamin B12, 04/05/24: 790 Folic acid, 04/05/2024: 18.4 TSH, 07/22/2024: 1.89 CT head, 07/21/2024: No acute intracranial findings vital signs Vital Sign Date Time Temp Pulse Resp B/P (MAP) Pulse Ox O2 Delivery O2 Flow Rate FiO2 10/18/24 21:00 98.2 90 17 96/60 (72) 97 98.2 10/18/24 08:00 Room Air* 0 21 Total Intake and Output 10/17/24 10/17/24 10/18/24 15:00 23:00 07:00 Intake Total 250 ml 0 ml Balance 250 ml 0 ml medications Current Medications Medications Dose Ordered Sig/Krysten Route Start Time Stop Time Status Last Admin Dose Admin Levetiracetam 100 ml @ 400 mls/hr BID IV 10/16/24 22:00 10/18/24 09:10 400 MLS/HR Ondansetron HCl 4 mg Q4HP PRN IV 10/16/24 16:30 Pantoprazole Sodium 40 mg DAILY IV 10/17/24 10:00 10/18/24 09:12 40 MG Lorazepam 1 mg Q5MINP PRN IV 10/16/24 21:15 10/18/24 07:00 1 MG Enteral Nutritional Formula 1,000 ml 30ML/HR GT 10/16/24 21:15 Enoxaparin Sodium 30 mg DAILY SC 10/18/24 10:00 10/18/24 09:12 30 MG Ibuprofen 200 mg Q6H PRN PO 10/17/24 18:15 Lacosamide 75 mg BID GT 10/17/24 22:15 10/18/24 21:46 75 MG Temazepam 15 mg HS PRN PO 10/17/24 22:15 10/18/24 21:55 15 MG Ceftriaxone Sodium 50 ml @ 100 mls/hr DAILY@0700 IV 10/19/24 07:00 Carbamazepine 600 mg BID GT 10/18/24 22:00 10/18/24 21:46 600 MG objective General: the patient is well developed and nourished. No acute distress. MENTAL STATUS: Subjective SPEECH, LANGUAGE, HIGHER CORTICAL FUNCTION: No vocalization CRANIAL NERVES: Pupils are equal, round and reactive. EOMs full and conjugate Facial sensation intact in all three divisions bilaterally. Mandibular strength intact. Facial muscles symmetrical and strength intact. SENSATION: Okay to touch and pinprick MOTOR: All extremities are under developed, no spontaneous movement REFLEXES: Deep tendon reflexes are symmetrical. No pathological reflexes. CEREBELLAR/COORDINATION: Deferred GAIT/STATION: deferred laboratory and microbiology Laboratory Tests 10/18/24 05:30 Test 10/18/24 05:30 Range/Units Serum Glucose 89 74-106 mg/dL Problem List Seizure disorder Grand mal seizure Severe mental retardation Quadriplegia Cerebral palsy Assessment/Plan Monitoring Supportive treatment Telemetry Keppra 1000 mg b.i.d. Carbamazepine 600 mg b.i.d. Vimpat to 75 mg Bid Ativan for seizure breakthrough Reduce the Vimpat to 7.5 mg HS p.r.n. for insomnia More recommendation per clinical course This medical document was created using an electronic medical record system with [employer] dictation system. Although this document has been carefully reviewed, there may still be some phonetic and typographical errors. These areas are purely typographical due to imperfections of the software programs, and do not reflect any compromise in the patient's medical care Prognosis poor Dietary Evaluation Review Comments: 1. Discontinue diet order, current TF regimen in EMR 2. Caregiver is providing cartons of home formula Peptamen 1.0 w/ soluble fiber to bedside, administering bolus feeds - offered most comparable formula, will defer unless pt to remain admitted (will FU in 24-48 hrs) 3. Should pt remain admitted, to preserve home-supply of tube feeding will provide Vital Af 1.2 pump-assisted bolus feeds of 195 ml per bolus 4x/day with free-water flushes of 30 ml before and after each bolus (poor tolerance to continuous feeds, causes vomiting) Expected Outcomes/Goals: Maintain adequate nutrition, maintain/regain weight. Plan discussed with: Other ENRIQUE LATHAM MD Oct 18, 2024 22:20
[2024-10-18] MEDS ORDERED: TEMAZEPAM 15 MG CAP PO PRN (22:30)
[2024-10-19 01:00] VITALS: BP 90/53; PULSE 80; RESP 16; TEMP 97.6; O2SAT 99
[2024-10-19 05:00] VITALS: BP 90/53; PULSE 81; RESP 17; TEMP 98.2; O2SAT 95
[2024-10-19] MEDS: cefTRIAXone 1GM/50ML D5W 50 ML IV SCH (06:04)
[2024-10-19 06:17] LABS: Basophils # (auto) 0 10 ^3/uL (0-0.2); Basophils % (auto) 0.2 % (0.0-2.0); Eosinophils # (auto) 0.2 10 ^3/uL (0-0.8); Hemoglobin 12.9 g/dL (12.2-16.2); Monocytes # (auto) 0.5 10 ^3/uL (0-1.3); Neutrophils # (auto) 1.5 10 ^3/uL (1.6-8.6); Nucleated Red Blood Cells % 0.1 %; Red Cell Distribution Width 12.4 % (11.8-14.3)
[2024-10-19 06:19] LABS: Eosinophils % (auto) 4.1 % (0.0-7.0); Hematocrit 36.4 % (36.0-46.0); Lymphocytes # (auto) 2.3 10 ^3/uL (0.4-5.4); Lymphocytes % (auto) 51.6 % (10.0-50.0); Mean Corpuscular Hemoglobin 36.5 pg (28.0-32.0); Mean Corpuscular Hgb Conc. 35.3 g/dL (32.0-36.0); Mean Corpuscular Volume 103.5 fL (80.0-100.0); Monocytes % (auto) 11.8 % (0.0-12.0); Neutrophils % (auto) 32.3 % (37.0-80.0); Platelet Count (auto) 260 10^3/uL (140-450); Red Blood Cells 3.52 10^6/uL (4.0-5.20); White Blood Cell 4.5 10^3/uL (4.4-10.8)
[2024-10-19 06:28] LABS: Chloride 107 mmol/L (98-107); Potassium 3.9 mmol/L (3.5-5.1); Sodium 141 mmol/L (136-145)
[2024-10-19 06:29] LABS: Anion Gap 7 (5-15); Calcium 9.5 mg/dL (8.7-10.4); Carbon Dioxide 27 mmol/L (20-31)
[2024-10-19 06:34] LABS: BUN/Creatinine Ratio 33.3 (10.0-20.0); Blood Urea Nitrogen 13 mg/dL (9-23); Glucose 80 mg/dL (74-106)
[2024-10-19] MEDS ORDERED: SODIUM CHLORIDE 0.9% 250 ML IV ONE (06:45)
[2024-10-19 07:37] LABS: Folate (Folic Acid) 23.88 ng/mL (>5.38)
--- NOTE | 2024-10-19 07:40 | DVHDSRES ---
Discharge Summary Date of Admission Resident Creating Document: NISHA PERDOMO RESIDENT Oct 16, 2024 at 16:21 Date of Discharge: Oct 19, 2024 Admitting Diagnosis Breakthrough seizure Labs/Diagnostic Data: Laboratory Results Test 10/19/24 05:30 10/18/24 05:30 10/17/24 23:48 10/17/24 15:24 White Blood Count 4.5 10^3/uL (4.4-10.8) Red Blood Count 3.52 10^6/uL (4.0-5.20) Hemoglobin 12.9 g/dL (12.2-16.2) Hematocrit 36.4 % (36.0-46.0) Mean Corpuscular Volume 103.5 fL (80.0-100.0) Mean Corpuscular Hemoglobin 36.5 pg (28.0-32.0) Mean Corpuscular Hemoglobin Concent 35.3 g/dL (32.0-36.0) Red Cell Distribution Width 12.4 % (11.8-14.3) Platelet Count 260 10^3/uL (140-450) Mean Platelet Volume 6.6 fL (6.9-10.8) Neutrophils (%) (Auto) 32.3 % (37.0-80.0) Lymphocytes (%) (Auto) 51.6 % (10.0-50.0) Monocytes (%) (Auto) 11.8 % (0.0-12.0) Eosinophils (%) (Auto) 4.1 % (0.0-7.0) Basophils (%) (Auto) 0.2 % (0.0-2.0) Neutrophils # (Auto) 1.5 10 ^3/uL (1.6-8.6) Lymphocytes # (Auto) 2.3 10 ^3/uL (0.4-5.4) Monocytes # (Auto) 0.5 10 ^3/uL (0-1.3) Eosinophils # (Auto) 0.2 10 ^3/uL (0-0.8) Basophils # (Auto) 0 10 ^3/uL (0-0.2) Nucleated Red Blood Cells 0.1 % Sodium Level 141 mmol/L (136-145) Potassium Level 3.9 mmol/L (3.5-5.1) Chloride Level 107 mmol/L (98-107) Carbon Dioxide Level 27 mmol/L (20-31) Anion Gap 7 (5-15) Blood Urea Nitrogen 13 mg/dL (9-23) Creatinine 0.39 mg/dL (0.550-1.02) Glomerular Filtration Rate Calc 123 mL/min (>90) BUN/Creatinine Ratio 33.3 (10.0-20.0) Serum Glucose 80 mg/dL (74-106) Calcium Level 9.5 mg/dL (8.7-10.4) Magnesium Level 2.2 mg/dL (1.6-2.6) Urine Color Yellow (Yellow) Urine Clarity Turbid (Clear) Urine pH 6.0 (5.0-9.0) Urine Specific [place] 1.039 (1.001-1.035) Urine Protein 1+ (Negative) Urine Ketones Trace (Negative) Urine Blood Negative /uL (Negative) Urine Nitrite Negative (Negative) Urine Bilirubin Negative (Negative) Urine Urobilinogen 2 mg/dL (Negative) Urine Leukocyte Esterase 3+ /uL (Negative) Urine RBC 4 /hpf (0 - 4) Urine Microscopic WBC 198 /HPF (0-5) Urine Squamous Epithelial Cells Many /hpf (<5) Urine Calcium Oxalate Crystals Few (None Seen) Urine Bacteria Many /hpf (None Seen) Urine Mucus Few (None Seen) Urine Glucose Normal mg/dL (Normal) Hemoglobin A1c 4.7 % A1C (<5.7) Thyroid Stimulating Hormone (TSH) 2.58 uIU/mL (0.55-4.78) Test 10/17/24 07:00 Total Bilirubin 0.3 mg/dL (0.2-1.0) Aspartate Amino Transferase (AST) 18 U/L (13-40) Alanine Aminotransferase (ALT) 16 U/L (7-40) Alkaline Phosphatase 117 U/L (46-116) Total Protein 6.2 g/dL (5.7-8.2) Albumin 3.9 g/dL (3.2-4.8) Other Laboratory Tests 10/19/24 05:30 Brief Hx & Hospital Course: HPI- Patient is 44 years old female, nonverbal past medical history of cerebral palsy, seizure disorder, on PEG tube for feeding since 2006 came with a complaint of seizure order. History was taken magnesium patient's sister. Patient was brought in by the EMS due to seizure-like activity at home. Patient was recently seen by Dr. Orosco at his clinic and EEG was done. CT HEAD negative for acute intracranial pathology. CXR no acute cardiopulmonary abnormality noted. Vitals per- Patient is 44 years old female, nonverbal past medical history of cerebral palsy, seizure disorder, on PEG tube for feeding since 2006 came with a complaint of seizure order. . Patient was brought in by the EMS due to seizure-like activity at home. Patient was recently seen by Dr. Orosco at his clinic and EEG was done. CT HEAD negative for acute intracranial pathology. CXR no acute cardiopulmonary abnormality noted. Patient was seen by Neurology Dr. Orosco, recommendation reviewed and appreciated, Dr. Orosco interest carbamazepine from 400 b.i.d. to 600 b.i.d., BNP from 50 mg b.i.d. to 75 mg b.i.d.. Patient was also Found to have UTI and treated with a ceftriaxone IV. Patient has no seizure in the last 48 hours. Patient is being discharged home with antibiotics. Patient and family was advised to follow up with the primary care physician in 1 week, patient's meds were sent to the pharmacy electronically. Patient was hemodynamically stable on discharge. Assessment # acute seizure, seizure disorder-grand mal seizure # acute complicated cystitis with no end-organ damage # cerebral palsy # quadriplegia # severe mental retardation # GERD Discharge plan Please continue Keppra 100 mg b.i.d. through G-tube Please continue carbamazepine 600 mg b.i.d. Continue Vimpat 75 mg b.i.d. Resume other home medications Follow up with the primary care physician Please follow up with your neurologist in 2-3 weeks Total time spent in chart review, clinical evaluation, discharge planning > 30 minutes Operations or Procedures [place] [id number] Ph: [phone] DIAGNOSTIC IMAGING Diagnostic Imaging Report : [id number] Signed PATIENT: PATY CALHOUN ACCT: [id number] UNIT: [id number] : 1975 LOC: ER ROOM / BED: / AGE / SEX: 48 / F ADM STATUS: REG ER SERVICE [id number] ORDERING PHYSICIAN: MARLYS EVANS MD PROCEDURE(s): HWOCT - HEAD WITHOUT CONTRAST REASON: worsening seizures ORDER NUMBER(s): [id number], ACCESSION NUMBER(s): [id number] EXAM: CT HEAD WITHOUT CONTRAST HISTORY: worsening seizures COMPARISON: CT HEAD WITHOUT CONTRAST on DOS: 07/21/24, CT HEAD WITHOUT CONTRAST on DOS: 07/16/24 TECHNIQUE: Axial images were obtained and reformatted in coronal and sagittal planes. All CT scans at this medical facility are performed using dose modulation techniques as appropriate to a performed exam including the following: Automated exposure control was utilized; adjustment of the MA and/or KV according to patient size; and use of iterative reconstruction technique. CT Dose: CTDI volume is 53 mGy. Dose-length product is 970 mGy*cm FINDINGS: Supratentorial Region: No evidence for large acute territorial ischemia. No intracranial hemorrhage is noted. Posterior Fossa: No acute abnormality. Brainstem: Unremarkable. Sellar/Suprasellar Region: Unremarkable. Ventricles, Cisterns, Sulci: Age-appropriate. Orbits: Unremarkable. Paranasal Sinuses: Unremarkable. Mastoid Air Cells: Unremarkable. Vasculature: Unremarkable. Bones/Soft Tissues: No acute abnormality. Other: None. IMPRESSION: 1. No CT evidence of acute intracranial abnormality. ATED BY: GERMAINE EDEN MD DICTATED DATE/TIME: 10/16/241046 SIGNED BY: GERMAINE EDEN MD SIGNED DATE/TIME: 10/16/241046 CC: [place] [id number] Ph: [phone] DIAGNOSTIC IMAGING Diagnostic Imaging Report : [id number] Signed PATIENT: PATY CALHOUN ACCT: [id number] UNIT: [id number] : 1975 LOC: ER ROOM / BED: / AGE / SEX: 48 / F ADM STATUS: REG ER SERVICE [id number] ORDERING PHYSICIAN: MARLYS EVANS MD PROCEDURE(s): CXRP - CHEST PORTABLE REASON: worsening seizures ORDER NUMBER(s): [id number], ACCESSION NUMBER(s): [id number] XY CHEST PORTABLE, HISTORY: worsening seizures COMPARISON: XY CHEST PORTABLE on DOS: 07/21/24, XY CHEST PORTABLE on DOS: 07/15/24, XY CHEST PORTABLE on DOS: 05/24/24 XY CHEST PORTABLE on DOS: 07/21/24, XY CHEST PORTABLE on DOS: 07/15/24, XY CHEST PORTABLE on DOS: 05/24/24 TECHNICAL DATA: 1 view of the chest was obtained. FINDINGS: Lines and tubes: None Cardiomediastinal silhouette: normal Pulmonary vasculature: normal Lung expansion: low Lung airspace: normal Lung interstitium: normal Pleura: normal Pneumothorax: no Bones: Old left shoulder dislocation. Other: no IMPRESSION: No acute intrathoracic abnormality. ATED BY: HARVINDER OROSCO MD DICTATED DATE/TIME: 10/16/24 104 SIGNED BY: HARVINDER OROSCO MD SIGNED DATE/TIME: 10/16/24 104 CC: Condition at Discharge: Stable Final Diagnosis/Problems List # acute seizure, seizure disorder-grand mal seizure # acute complicated cystitis with no end-organ damage # cerebral palsy # quadriplegia # severe mental retardation # GERD Discharge Disposition: Home Discharge Instruct/Medications Follow Up/Referral: Resume other home medications Follow up with the primary care physician Please follow up with your neurologist in 2-3 weeks Medications: Please continue Keppra 100 mg b.i.d. through G-tube Please continue carbamazepine 600 mg b.i.d. Continue Vimpat 75 mg b.i.d. Resume other home medications Follow up with the primary care physician Please follow up with your neurologist in 2-3 weeks Discharge Statement: "Patient was advised to return to the ER or call 911 if any headaches, dizziness, shortness of breath, chest pain, abdominal pain, bleeding, fevers, or worsening of medical condition. Patient was counseled about treatment plan, medications, possible side effects, patientverbalized understanding. All questions were answered to the best of my ability. This discharge took greater then 30 minutes in planning, reviewing documentation, counseling the patient, and discussing with other team members." ASSESSMENT ASSESSMENT Assessment Date of Service: Oct 19, 2024 Billing Provider: ODETTE PINTO MD Common Visit Codes: [id number]/OBS DISCH DAY >30min NISHA PERDOMO Oct 19, 2024 07:40 ODETTE PINTO MD Oct 24, 2024 09:10
[2024-10-19 08:00] VITALS: PULSE 87; RESP 17; O2SAT 98
[2024-10-19 09:00] VITALS: BP 88/49; PULSE 87; RESP 17; TEMP 98.2; O2SAT 98
[2024-10-19] MEDS: SODIUM CHLORIDE 0.9% 250 ML IV ONE (10:03)
[2024-10-19] MEDS ORDERED: CARB200T4 PEG (10:56)
[2024-10-19] MEDS ORDERED: CEPH250S PEG (10:56)
[2024-10-19 12:29] VITALS: BP 101/60; PULSE 89; RESP 17; TEMP 98; O2SAT 95
[2024-10-19 12:54] VITALS: BP 101/60; PULSE 89; RESP 17; TEMP 98; O2SAT 95
[2024-10-19] MEDS ORDERED: LACO50TA2 PEG (14:01)
[2024-10-19] MEDS ORDERED: LACO1TAB PO (16:51)
[2024-10-19] MEDS ORDERED: LACO50TA2 PO (16:52)
== END 2024-10-19 18:24 | disposition home or self-care (01) | DRG 53 ==
LOC: EDBD 09:37 → ER 09:37 → OVERFLOW 16:21 → EAST 21:14
PROVIDERS: ADMIT Student in an Organized Health Care Education/Training Program; ATTEND Student in an Organized Health Care Education/Training Program
PROC: 05HC33Z Insertion of Infusion Device into Left Basilic Vein, Percutaneous Approach (ICD-10-PCS; principal; 2024-10-18)
PROC: B54NZZA Ultrasonography of Left Upper Extremity Veins, Guidance (ICD-10-PCS; 2024-10-18)
DX: G40.409 Other generalized epilepsy and epileptic syndromes, not intractable, without status epilepticus (principal); G82.50 Quadriplegia, unspecified; E44.0 Moderate protein-calorie malnutrition; F72 Severe intellectual disabilities; K21.9 Gastro-esophageal reflux disease without esophagitis; N30.00 Acute cystitis without hematuria; Z90.49 Acquired absence of other specified parts of digestive tract; Z88.1 Allergy status to other antibiotic agents; Z95.0 Presence of cardiac pacemaker; Z79.2 Long term (current) use of antibiotics; Z79.899 Other long term (current) drug therapy; Z68.1 Body mass index [BMI] 19.9 or less, adult
CPT/HCPCS: 36415; 70450; 71045; 80048; 80053; 81001; 82607; 82746; 83036; 83735; 84443; 85025; 87086; 93005; 96365; 96375; G0378; J2470

== ENCOUNTER 2024-11-09 15:15 | Emergency (ER) | payer MEDICAID ==
[~2024-11-09] VITALS: Ht 142.2 cm; Wt 44.5 kg
[~2024-11-09 15:15] MED LIST changes: -AZIT500T66 PO; +CARB100S2 PO; +CARB200T4 PEG; -CARB300C9 PO; -CEFD300C2 PO; +CEPH250S PEG; -CIPR-173 PO; -LEVE100012 PO; +LEVE100020 PO; +OMEP-335 PO; +[UNRECOGNIZED DRUG - CODE] GT
--- NOTE | 2024-11-09 15:26 | ED.PDOC ---
SOB-HPI HPI Comments THIS IS A 49-YEAR-OLD FEMALE HISTORY OF CEREBRAL PALSY BROUGHT IN BY CAREGIVER AND MOTHER CHIEF COMPLAINT WHEEZING. MOTHER STATES THAT PATIENT HAS BEEN WHEEZING OVER THE PAST TWO WEEKS HE WAS RECENTLY SEEN BY HER PRIMARY CARE PROVIDER IN [place] ON ANTIBIOTICS CURRENTLY COMPLETED THE ENTIRE COURSE CONTINUES WITH INTERMITTENT WHEEZING STATES PATIENT HAS LESS ENERGY. SHE WAS SO STATES HISTORY OF CHRONIC CONSTIPATION IN OF LATE DECREASE IN URINATION. CARE PROVIDER STATES THAT PATIENT WEARS A DIAPER HE WAS INCONTINENT. REPORTS MEASURED FEVERS AT HOME OF 101 SHE NOTES NO RECENT FEVERS LAST WAS PRIOR TO STARTING THE ANTIBIOTICS. DENIES DIFFICULTY BREATHING, CHEST PAIN, DIZZINESS, NAUSEA, VOMITING, DIARRHEA. Time Seen by MD: 15:21 Primary Care Provider: BRYON Reviewed notes: Nurses Notes, Medications, Allergies Information Source: Relative (Mother) Past Medical History PAST MEDICAL HISTORY: GERD, Seizures Surgical History: Cholecystectomy, Hernia Repair, Pacemaker GLASS BENDER History: No Pertinent GLASS BENDER History Family History Family History: Unknown Social History Smoker: Non-Smoker Alcohol: Denies ETOH Use Drugs: Denies Drug Use Lives In: Home Constitutional: reports: fever; denies: chills, diaphoresis, fatigue, malaise, sweats, weakness, others EENTM: denies: blurred vision, double vision, ear bleeding, ear discharge, ear drainage, ear pain, ear ringing, eye pain, eye redness, hearing loss, mouth pain, mouth swelling, nasal discharge, nose bleeding, nose congestion, nose pain, photophobia, tearing, throat pain, throat swelling, voice changes, others Respiratory: reports: wheezing; denies: cough, hemoptysis, orthopnea, SOB at rest, shortness of breath, SOB with excertion, stridor, others Cardiovascular: denies: chest pain, dizzy spells, diaphoresis, Dyspnea on exertion, edema, irregular heart beat, left arm pain, lightheadedness, palpitations, PND, syncope, others Gastrointestinal: reports: constipated; denies: abdomen distended, abdominal pain, blood streaked bowels, diarrhea, dysphagia, difficulty swallowing, hematemesis, melena, nausea, poor appetite, poor fluid intake, rectal bleeding, rectal pain, vomiting, others Genitourinary: reports: dysuria; denies: abnormal vagina bleeding, burning, dyspareunia, flank pain, frequency, hematuria, incontinence, pain, , vagina discharge, urgency, others Neurological: denies: dizziness, fainting, headache, left sided numbness, left sided weakness, numbness, paresthesia, pre-existing deficit, right sided numbness, right sided weakness, seizure, speech problems, tingling, tremors, weakness, others Musculoskeletal: denies: back pain, gout, joint pain, joint swelling, muscle pain, muscle stiffness, neck pain, others Integumetry: denies: bruises, change in color, change in hair/nails, dryness, laceration, lesions, lumps, rash, wounds, others Allergic/Immunocompromised: denies: Difficulty Healing, Frequent Infections, Hives, Itching, others Hematologic/Lymphatic: denies: anemia, blood clots, easy bleeding, easy bruising, swollen glands, others Endocrine: denies: excessive hunger, excessive sweating, excessive thirst, excessive urination, flushing, intolerance to cold, intolerance to heat, unexplained weight gain, unexplained weight loss, others Physical Exam General Appearance: No Apparent Distress, Normal HEENT: Normal ENT Inspection, Pharynx Normal, TMs Normal Neck: Full Range of Motion, Non-Tender Respiratory: Chest Non-Tender, Decreased Breath Sounds, No Accessory Muscle Use, No Respiratory Distress Cardiovascular: No Edema, No JVD, No Murmur, No Gallop, Normal Peripheral Pulses, Regular Rate/Rhythm Breast Exam: Deferred Gastrointestinal: Distended, No Organomegaly, Non Tender, No Pulsatile Mass, Normal Bowel Sounds, Soft Genitalia: Deferred Pelvic: Deferred Rectal: Deferred Extremities: Normal capillary refill, Normal inspection, Normal range of motion, Non-tender, No pedal edema Musculoskeletal : Apperance: Normal Neurologic: Alert, political anthropologist II-XII nml as Tested, No Motor Deficits, Normal Affect, Normal Mood, No Sensory Deficits Cerebellar Function: Normal Reflexes: Normal Skin: Dry, Normal Color, Warm Lymphatic: No Adenopathy Was a procedure done? Was a procedure done?: No Differential Dx Differential Diagnosis: Bronchitis, Pneumonia X-Ray, Labs, Meds, VS Vital Signs Date Time Temp Pulse Resp B/P (MAP) Pulse Ox O2 Delivery O2 Flow Rate FiO2 11/09/24 17:12 97.6 94 18 106/62 (77) 96 97.6 X-Ray, Labs, Meds, VS Comment Chest x-ray shows atelectasis she was likely chronic patient bed ridden patient without fevers chills. KUB does show constipation when she was chronic we will trial lactulose script to pharmacy via G-tube. Patient with history of chronic UTIs inability to obtain a urine patient went complete diaper mother requesting discharge at this time. Trial and script Bactrim twice daily x5 days via G- tube. Advised to increase her p.o. fluids increase her daily fiber. Advised to follow up with the PCP in two days good sedative repeat urine. Advised on ER return precautions mother and patient indicated understanding and agree with discharge plan of care. Time of 1ST Reevaluation: 15:26 Reevaluation 1ST: Unchanged Patient Education/Counseling: Diagnosis, Treatment, Prognosis, Need For Follow Up Family Education/Counseling: Diagnosis, Treatment, Prognosis, Need For Follow Up Departure 1 Departure Time of Disposition: 17:26 Impression: Primary Impression: Constipation Qualified Codes: K59.01 - Slow transit constipation Additional Impression: Chronic UTI (urinary tract infection) Disposition: HOME / SELF CARE / HOMELESS Condition: Stable e-Prescriptions Sulfamethoxazole-Trimethoprim (Sulfatrim Pediatric 200-40 mg/5Ml) 1 Verito Verito 20 ML GT BID for 5 Days, #200 ML Prov: GEETHA PETERSON 11/09/24 Lactulose (Lactulose) 10 Gm/15 Ml Estela 30 ML GT PRN PRN for 10 Days, #300 ML 30 mL via G-tube once daily as needed for constipation. Prov: GEETHA PETERSON 11/09/24 Discharged With: Relative (Mother) Critical Care Note Critical Care Time?: No Stability Stability form required: No Heart Score Heart Score: Heart Score Response (Comments) Value History N/A 0 EKG N/A 0 Age <45 0 Risk Factors N/A 0 Troponin N/A 0 Total 0 GEETHA PETERSON Nov 09, 2024 15:26
--- NOTE | 2024-11-09 15:59 | DVH ---
Date: 11/09/2024 03:50 PM Examination: XY KUB ABDOMEN SINGLE VIEW History: CONSTIPATION Comparison: XY KUB ABDOMEN SINGLE VIEW on DOS: 05/08/24, XY KUB ABDOMEN SINGLE VIEW on DOS: 04/03/24, XY KUB ABDOMEN SINGLE VIEW on DOS: 04/03/24 TECHNIQUE: Frontal views of the abdomen was obtained. FINDINGS: Bowel gas pattern is unremarkable. The lung bases are unremarkable. No acute osseous abnormality identified. IMPRESSION: 1. Nonobstructive bowel gas pattern. 2. Levoscoliosis of the lumbar spine may be positional. 3. Scattered stool no findings of obstruction may be consistent with constipation.
--- NOTE | 2024-11-09 16:00 | DVH ---
XY CHEST PORTABLE, HISTORY: WHEEZING COMPARISON: XY CHEST PORTABLE on DOS: 10/16/24, XY CHEST PORTABLE on DOS: 07/21/24, XY CHEST PORTABLE on DOS: 07/15/24 XY CHEST PORTABLE on DOS: 10/16/24, XY CHEST PORTABLE on DOS: 07/21/24, XY CHEST PORTABLE on DOS: 07/15/24 TECHNICAL DATA: 1 view of the chest was obtained. FINDINGS: Lines and tubes: A spinal stimulator is seen. Cardiomediastinal silhouette: normal Pulmonary vasculature: normal Lung expansion: low Lung airspace: Patchy left basilar opacities are noted. Lung interstitium: normal Pleura: normal Pneumothorax: no Bones: Unremarkable Other: no IMPRESSION: Pathcy left basilar airspace opacities could be atelectasis or scarring.
[2024-11-09] MEDS ORDERED: LACT10SO3 GT (17:35)
[2024-11-09] MEDS ORDERED: SULF1SUS3 GT (17:35)
[2024-11-09 19:50] VITALS: BP 111/72; PULSE 88; RESP 12; TEMP 98.6; O2SAT 95
== END 2024-11-09 20:03 | disposition home or self-care (01) ==
LOC: ER 15:26
DX: K59.00 Constipation, unspecified (principal); N39.0 Urinary tract infection, site not specified; G80.9 Cerebral palsy, unspecified; Z98.890 Other specified postprocedural states; Z95.0 Presence of cardiac pacemaker; Z90.49 Acquired absence of other specified parts of digestive tract
CPT/HCPCS: 71045; 74018

== ENCOUNTER 2024-12-27 07:10 | Emergency (ER) | payer MEDICAID ==
[~2024-12-27] VITALS: Ht 152.4 cm; Wt 45.6 kg
[2024-12-27 07:10] VITALS: TEMP 98.9
[2024-12-27 07:30] VITALS: PULSE 78; RESP 20; O2SAT 92
--- NOTE | 2024-12-27 08:34 | ED.PDOC ---
History of Present Illness HPI Comments 49 year old female with a Hx of Seizures and a G-Tube in place was BIBA for the c/c of a G-Tube replacement. Mother states that pt had a BUSINESS SYSTEMS ADVISOR appointment fo her G-Tube but it was not handled properly. Mother states that Pt started having a Seizure earlier today and was not able to Flush pts seizure medication due to the fatly tube. No other associated symptoms, modifiers, recent injuries or sick contacts present at this time. Chief Complaint: Tube Replacement Time Seen by MD: 08:30 Primary Care Provider: BRYON Reviewed Notes: Nurses Notes, Glass Cutter Notes, Medications, Allergies Allergies: Coded Allergies: Vancomycin (Verified Adverse Reaction, Unknown, 05/01/24) fever, sweating, erythema from vanco infusion Home Meds Active Scripts Carbamazepine (Carbamazepine) 200 Mg Tab, 600 MG PEG BID, #60 TAB Prov:NISHA PERDOMO RESIDENT 10/19/24 Cephalexin (Cephalexin) 250 Mg/5 Ml Verito, 5 ML PEG BID for 7 Days, #70 ML Prov:NISHA PERDOMO RESIDENT 10/19/24 Bisacodyl (Ex-Lax Ultra) 5 Mg Tab, 5 MG PO DAILY PRN, #60 TAB 2 Refills Take 2 tablets (10 mg) via G tube Daily Prov:JOHN BENAVIDEZ MD 03/26/24 Esomeprazole Magnesium (Esomeprazole Magnesium) 40 Mg Cap, 40 MG PO DAILY, #30 CAP 3 Refills Take 1 capsule via G tube every afternoon (3pm) Prov:JOHN BENAVIDEZ MD 03/26/24 Lorazepam (Ativan) 0.5 Mg Tab, 0.5 MG PO BID for 30 Days, #60 TAB Prov:LONG PALACIOS MD 02/27/24 Reported Medications Lacosamide (Vimpat) 50 Mg Tab, 75 MG PO DAILY for 30 Days, #45 TAB 1 Refill 10/19/24 Nutritional Supplements (Peptamen 1 Félix/Prebio1) 1 Liq Liq, 1 LIQ GT Q4HR, LIQ 10/16/24 Omeprazole (Omeprazole) 20 Mg Tab, 40 MG PO DAILY, TAB 10/16/24 Levetiracetam (Levetiracetam) 1,000 Mg Tab, 1 TAB PO BID 10/16/24 Carbamazepine (Carbamazepine) 100 Mg/5 Ml Verito, 4 ML PO TID 10/16/24 Tramadol Hcl (Tramadol Hcl) 50 Mg Tab, 50 MG PO Q8HP PRN for PAIN SCALE 1 THRU 6, MG 01/30/24 Esomeprazole Magnesium Trihydr (Nexium) 40 Mg Cap, 40 MG PO, CAP 01/30/24 Folic Acid (Folic Acid) 1 Mg Tab, 1 MG PO DAILY for 30 Days, MG 01/30/24 Information Source: Relative (Mother) Mode of Arrival: EMS Severity: Moderate Timing: Hours Duration: Since onset, Hours Prehospital treatment: None Past Medical History PAST MEDICAL HISTORY: GERD, Seizures Surgical History: Cholecystectomy, Hernia Repair, Pacemaker REMOTE SENSING TECHNICIAN History: No Pertinent REMOTE SENSING TECHNICIAN History Family History Family History: Unknown Social History Smoker: Non-Smoker Alcohol: Denies ETOH Use Drugs: Denies Drug Use Lives In: Home Constitutional: denies: chills, diaphoresis, fatigue, fever, malaise, sweats, weakness, others EENTM: denies: blurred vision, double vision, ear bleeding, ear discharge, ear drainage, ear pain, ear ringing, eye pain, eye redness, hearing loss, mouth pain, mouth swelling, nasal discharge, nose bleeding, nose congestion, nose pain, photophobia, tearing, throat pain, throat swelling, voice changes, others Respiratory: denies: cough, hemoptysis, orthopnea, SOB at rest, shortness of breath, SOB with excertion, stridor, wheezing, others Cardiovascular: denies: chest pain, dizzy spells, diaphoresis, Dyspnea on exertion, edema, irregular heart beat, left arm pain, lightheadedness, palpitations, PND, syncope, others Gastrointestinal: denies: abdomen distended, abdominal pain, blood streaked bowels, constipated, diarrhea, dysphagia, difficulty swallowing, hematemesis, melena, nausea, poor appetite, poor fluid intake, rectal bleeding, rectal pain, vomiting, others Genitourinary: denies: abnormal vagina bleeding, burning, dyspareunia, dysuria, flank pain, frequency, hematuria, incontinence, pain, , vagina discharge, urgency, others Neurological: denies: dizziness, fainting, headache, left sided numbness, left sided weakness, numbness, paresthesia, pre-existing deficit, right sided numbness, right sided weakness, seizure, speech problems, tingling, tremors, weakness, others Musculoskeletal: denies: back pain, gout, joint pain, joint swelling, muscle pain, muscle stiffness, neck pain, others Integumetry: denies: bruises, change in color, change in hair/nails, dryness, laceration, lesions, lumps, rash, wounds, others Allergic/Immunocompromised: denies: Difficulty Healing, Frequent Infections, Hives, Itching, others Hematologic/Lymphatic: denies: anemia, blood clots, easy bleeding, easy bruising, swollen glands, others Endocrine: denies: excessive hunger, excessive sweating, excessive thirst, excessive urination, flushing, intolerance to cold, intolerance to heat, unexplained weight gain, unexplained weight loss, others Psychiatric: denies: anxiety, bipolar disorder, depression, hopeless, panic disorder, schizophrenia, sleepless, suicidal, others All Other Systems: Reviewed and Negative Physical Exam General Appearance: No Apparent Distress, Normal, Other (Chronic ill appearing) HEENT: Normal ENT Inspection, Pharynx Normal, TMs Normal Neck: Full Range of Motion, Non-Tender, Normal Respiratory: Chest Non-Tender, Lungs Clear, No Accessory Muscle Use, No Respiratory Distress, Normal Breath Sounds Cardiovascular: No Edema, No JVD, No Murmur, Normal Peripheral Pulses, Regular Rate/Rhythm Breast Exam: Deferred Gastrointestinal: Non Tender, No Pulsatile Mass, Normal Bowel Sounds, Soft Genitalia: Deferred Pelvic: Deferred Rectal: Deferred Extremities: No calf tenderness, Normal range of motion, Non-tender, No pedal edema Musculoskeletal : Apperance: Normal Neurologic: Alert, No Motor Deficits, Normal Mood Cerebellar Function: Normal Reflexes: Normal Skin: Dry, Normal Color, Warm Lymphatic: No Adenopathy Was a procedure done? Was a procedure done?: No Differential Dx Considerations may include: G-tube complication X-Ray, Labs, Meds, VS Vital Signs Date Time Temp Pulse Resp B/P (MAP) Pulse Ox O2 Delivery O2 Flow Rate FiO2 12/27/24 10:00 83 21 93/59 (70) 94 12/27/24 08:00 59 12/27/24 07:30 78 20 94/60 (71) 92 12/27/24 07:30 78 20 92 Room Air* 0 21 12/27/24 07:10 98.9 87 16 98/60 (73) 98 98.9 Time of 1ST Reevaluation: 09:00 Reevaluation 1ST: Unchanged Patient Education/Counseling: Diagnosis, Treatment Family Education/Counseling: Diagnosis, Treatment SEPSIS Sepsis Screen Orders/Vitals/Labs Vital Signs Date Time Temp Pulse Resp B/P (MAP) Pulse Ox O2 Delivery O2 Flow Rate FiO2 12/27/24 10:00 83 21 93/59 (70) 94 12/27/24 08:00 59 12/27/24 07:30 78 20 94/60 (71) 92 12/27/24 07:30 78 20 92 Room Air* 0 21 12/27/24 07:10 98.9 87 16 98/60 (73) 98 98.9 Departure 1 Departure Time of Disposition: 10:24 (Your placed patient's G-tube at the bedside. You were placed with an 18 Egyptian 20 cc balloon. Patient will follow up with the malini doctor.) Impression: Primary Impression: Complication of gastrostomy tube Disposition: HOME / SELF CARE / HOMELESS Condition: Stable Additional Instructions: You were G-tube was replaced today with an 18 Egyptian 20 cc balloon tube. It is important to follow up with the regular doctor. Discharged With: Legal Guardian Critical Care Note Critical Care Time?: No Stability Stability form required: No Heart Score Heart Score: Heart Score Response (Comments) Value History N/A 0 EKG N/A 0 Age N/A 0 Risk Factors N/A 0 Troponin N/A 0 Total 0 I personally scribed for MARLYS EVANS MD ([email or web address]) on 12/27/24 at 08:34. Electronically submitted by Benny Davis ([email or web address]). MARLYS EVANS MD Dec 27, 2024 08:34
[2024-12-27 11:00] VITALS: BP 80/49; PULSE 87; RESP 18; O2SAT 94
== END 2024-12-27 11:30 | disposition home or self-care (01) ==
LOC: EDBD 07:10 → ER 07:10
DX: K94.20 Gastrostomy complication, unspecified (principal); R56.9 Unspecified convulsions; K21.9 Gastro-esophageal reflux disease without esophagitis; Z79.899 Other long term (current) drug therapy; Z90.49 Acquired absence of other specified parts of digestive tract; Z98.890 Other specified postprocedural states; Z95.0 Presence of cardiac pacemaker; Z88.1 Allergy status to other antibiotic agents
CPT/HCPCS: 82947

== ENCOUNTER 2025-01-11 20:02 | Emergency (ER) | payer MEDICAID ==
[~2025-01-11] VITALS: Ht 147.3 cm; Wt 38.6 kg
--- NOTE | 2025-01-11 20:49 | ED.PDOC ---
SOB-HPI HPI Comments 49y F who presents to the ED via EMS for chief complaint of shortness of breath. Per EMS, pt lives with caregiver who states she got concerned after who has history of cerebral palsy and on home 02, states pt was short of breath and got concerned and called EMS. EMS arrived on scene and pt was on 02 at 2 L and noted pt had 02 sat of 93% with all other vitals in normal range and pt was brought to the ED with no interventions performed. Pt family member states pt gets multiple lung infections and states she wanted pt evaluated for possible infection. Pt in the ED, otherwise stable. Sister at bedside, sister states that patient has had fever in the morning of 101, she was given Tylenol. She is concerned because O2 saturation dropped down to 88%. Was started on 2 L via nasal cannula. With no significant improvement she called 911. Chief Complaint: Shortness of Breath Time Seen by MD: 21:07 Primary Care Provider: ? Reviewed notes: Medications, Allergies Information Source: Patient, Emergency Med Personnel Mode of Arrival: EMS Brought in by: EMS Past Medical History PAST MEDICAL HISTORY: GERD, Seizures Surgical History: Cholecystectomy, Hernia Repair, Pacemaker BUDGET DIRECTOR History: No Pertinent BUDGET DIRECTOR History Family History Family History: Unknown Social History Smoker: Non-Smoker Alcohol: Denies ETOH Use Drugs: Denies Drug Use Lives In: Home Constitutional: denies: chills, diaphoresis, fatigue, fever, malaise, sweats, weakness, others EENTM: denies: blurred vision, double vision, ear bleeding, ear discharge, ear drainage, ear pain, ear ringing, eye pain, eye redness, hearing loss, mouth pain, mouth swelling, nasal discharge, nose bleeding, nose congestion, nose pain, photophobia, tearing, throat pain, throat swelling, voice changes, others Respiratory: denies: cough, hemoptysis, orthopnea, SOB at rest, shortness of breath, SOB with excertion, stridor, wheezing, others Cardiovascular: denies: chest pain, dizzy spells, diaphoresis, Dyspnea on exertion, edema, irregular heart beat, left arm pain, lightheadedness, palpitations, PND, syncope, others Gastrointestinal: denies: abdomen distended, abdominal pain, blood streaked bowels, constipated, diarrhea, dysphagia, difficulty swallowing, hematemesis, melena, nausea, poor appetite, poor fluid intake, rectal bleeding, rectal pain, vomiting, others Genitourinary: denies: abnormal vagina bleeding, burning, dyspareunia, dysuria, flank pain, frequency, hematuria, incontinence, pain, , vagina discharge, urgency, others Neurological: denies: dizziness, fainting, headache, left sided numbness, left sided weakness, numbness, paresthesia, pre-existing deficit, right sided numbness, right sided weakness, seizure, speech problems, tingling, tremors, weakness, others Musculoskeletal: denies: back pain, gout, joint pain, joint swelling, muscle pain, muscle stiffness, neck pain, others Integumetry: denies: bruises, change in color, change in hair/nails, dryness, laceration, lesions, lumps, rash, wounds, others Allergic/Immunocompromised: denies: Difficulty Healing, Frequent Infections, Hi ves, Itching, others Hematologic/Lymphatic: denies: anemia, blood clots, easy bleeding, easy bruising, swollen glands, others Endocrine: denies: excessive hunger, excessive sweating, excessive thirst, excessive urination, flushing, intolerance to cold, intolerance to heat, unexplained weight gain, unexplained weight loss, others Psychiatric: denies: anxiety, bipolar disorder, depression, hopeless, panic disorder, schizophrenia, sleepless, suicidal, others Unable to Obtain due to: Other (pt has cerebral palsy) All Other Systems: Reviewed and Negative Physical Exam General Appearance: No Apparent Distress, Normal HEENT: Normal ENT Inspection, Pharynx Normal, TMs Normal Neck: Full Range of Motion, Non-Tender, Normal, Normal Inspection Respiratory: Lungs Clear Cardiovascular: No Edema, No JVD, No Murmur, No Gallop, Normal Peripheral Pulses, Regular Rate/Rhythm Breast Exam: Deferred Gastrointestinal: No Organomegaly, Non Tender, No Pulsatile Mass, Normal Bowel Sounds, Soft Genitalia: Deferred Pelvic: Deferred Rectal: Deferred Extremities: No calf tenderness, Normal capillary refill, Normal inspection, Normal range of motion, Non-tender, No pedal edema Musculoskeletal : Apperance: Normal Neurologic: Alert, german instructor II-XII nml as Tested, No Motor Deficits, Normal Affect, Normal Mood, No Sensory Deficits Cerebellar Function: Normal Reflexes: Normal Skin: Dry, Normal Color, Warm Lymphatic: No Adenopathy Was a procedure done? Was a procedure done?: No Differential Dx Differential Diagnosis: Asthma, Bronchitis, Pneumonia, Respiratory Distress, Pharyngitis, URI X-Ray, Labs, Meds, VS Vital Signs Date Time Temp Pulse Resp B/P (MAP) Pulse Ox O2 Delivery O2 Flow Rate FiO2 01/11/25 20:15 98 Room Air* 0 21 01/11/25 20:15 99.8 113 24 90/40 (57) 94 99.8 X-Ray, Labs, Meds, VS Comment Imaging: X-rays and CT scans were reviewed and interpreted by this provider, imaging shows no fractures and no pathological disease. Pending radiology review. Laboratory: Labs reviewed and interpreted by this provider. No significant abn ormalities noted. Patient has prior medical visits reviewed. 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 Electronically submitted by Hattie CORLEY). I personally scribed for ALTA COOK ACTING TEACHER ([email or web address]) on 01/11/25 at 21:09. Electronically submitted by Hattie COLREY). ALTA COOK [facility] Jan 11, 2025 20:48
--- NOTE | 2025-01-11 21:06 | DVH ---
EXAM: XY CHEST XRAY 1 VIEW TECHNIQUE: Single frontal chest radiograph CLINICAL HISTORY: sob COMPARISON: XY CHEST PORTABLE on DOS: 11/09/24, XY CHEST PORTABLE on DOS: 10/16/24, XY CHEST PORTABLE on DOS: 07/21/24 Findings/Impression: Frontal chest radiograph demonstrates no acute osseous or superficial soft tissue abnormalities. Left chest wall generator. The trachea is midline. The cardiac silhouette and mediastinum are within normal limits. No pneumothorax, pleural effusions, or consolidations.
[2025-01-11 21:30] VITALS: PULSE 108; RESP 29; O2SAT 94
[2025-01-11] MEDS ORDERED: AZIT200S PO (21:52)
[2025-01-11 23:28] VITALS: BP 94/57; PULSE 107; RESP 22; TEMP 99.1; O2SAT 94
== END 2025-01-11 23:29 | disposition home or self-care (01) ==
LOC: ER 20:02 → EDBD 20:02 → ER 23:29
DX: G80.9 Cerebral palsy, unspecified (principal); J06.9 Acute upper respiratory infection, unspecified; Z90.49 Acquired absence of other specified parts of digestive tract; Z95.0 Presence of cardiac pacemaker; Z98.890 Other specified postprocedural states; Z99.81 Dependence on supplemental oxygen
CPT/HCPCS: 71045

== ENCOUNTER 2025-02-25 21:39 | Emergency (ER) | payer MEDICAID ==
[~2025-02-25] VITALS: Ht 152.4 cm; Wt 54.4 kg
[~2025-02-25 21:39] MED LIST changes: +AZIT200S PO
--- NOTE | 2025-02-25 21:49 | ED.PDOC ---
History of Present Illness HPI Comments 49 year old female who came to ER via EMS for shortness a breath. Per EMS, patient picked up at home, does have history of cerebral palsy and seizures, patient is non verbal and bed-bound. Was noted by caregiver earlier today, the patient had an apneic episode, lasting approximately 10 seconds. States this never happened before. Upon arrival paramedics patient is saturating 95% on room air Chief Complaint: Shortness of Breath Time Seen by MD: 21:48 Primary Care Provider: ? Reviewed Notes: Vocational Evaluator Notes Allergies: Coded Allergies: Vancomycin (Verified Adverse Reaction, Unknown, 05/01/24) fever, sweating, erythema from vanco infusion Home Meds Active Scripts Azithromycin (Azithromycin) 200 Mg/5 Ml Verito, 10 ML PEG DAILY for 5 Days, #50 ML Prov:VIOLETA GOOD MD 02/25/25 Azithromycin (Zithromax) 200 Mg/5 Ml Verito, 500 MG PO DAILY for 4 Days, #50 ML Prov:ALTA COOK 01/11/25 Carbamazepine (Carbamazepine) 200 Mg Tab, 600 MG PEG BID, #60 TAB Prov:NISHA PERDOMO RESIDENT 10/19/24 Cephalexin (Cephalexin) 250 Mg/5 Ml Verito, 5 ML PEG BID for 7 Days, #70 ML Prov:NISHA PERDOMO RESIDENT 10/19/24 Bisacodyl (Ex-Lax Ultra) 5 Mg Tab, 5 MG PO DAILY PRN, #60 TAB 2 Refills Take 2 tablets (10 mg) via G tube Daily Prov:JOHN BENAVIDEZ MD 03/26/24 Esomeprazole Magnesium (Esomeprazole Magnesium) 40 Mg Cap, 40 MG PO DAILY, #30 CAP 3 Refills Take 1 capsule via G tube every afternoon (3pm) Prov:JOHN BENAVIDEZ MD 03/26/24 Lorazepam (Ativan) 0.5 Mg Tab, 0.5 MG PO BID for 30 Days, #60 TAB Prov:LONG PALACIOS MD 02/27/24 Reported Medications Lacosamide (Vimpat) 50 Mg Tab, 75 MG PO DAILY for 30 Days, #45 TAB 1 Refill 10/19/24 Nutritional Supplements (Peptamen 1 Félix/Prebio1) 1 Liq Liq, 1 LIQ GT Q4HR, LIQ 10/16/24 Omeprazole (Omeprazole) 20 Mg Tab, 40 MG PO DAILY, TAB 10/16/24 Levetiracetam (Levetiracetam) 1,000 Mg Tab, 1 TAB PO BID 10/16/24 Carbamazepine (Carbamazepine) 100 Mg/5 Ml Verito, 4 ML PO TID 10/16/24 Tramadol Hcl (Tramadol Hcl) 50 Mg Tab, 50 MG PO Q8HP PRN for PAIN SCALE 1 THRU 6, MG 01/30/24 Esomeprazole Magnesium Trihydr (Nexium) 40 Mg Cap, 40 MG PO, CAP 01/30/24 Folic Acid (Folic Acid) 1 Mg Tab, 1 MG PO DAILY for 30 Days, MG 01/30/24 Information Source: Emergency Med Personnel Mode of Arrival: EMS Severity: Moderate Timing: Minutes Duration: Minutes Past Medical History PAST MEDICAL HISTORY: GERD, Seizures Past Medical History (Other): Cerebral palsy Surgical History: Cholecystectomy, Hernia Repair, Pacemaker Surgical History (Other): G-tube STEM TEACHER History: No Pertinent STEM TEACHER History Family History Family History: Unknown Social History Smoker: Non-Smoker Alcohol: Denies ETOH Use Drugs: Denies Drug Use Lives In: Home Unable to Obtain due to: Altered Mental Status, Other (Patient has cerebral palsy) Physical Exam General Appearance: No Apparent Distress, Normal HEENT: Normal ENT Inspection, Pharynx Normal, TMs Normal Neck: Full Range of Motion, Non-Tender, Normal, Normal Inspection Respiratory: Chest Non-Tender, Lungs Clear, No Accessory Muscle Use, No Respiratory Distress, Normal Breath Sounds Cardiovascular: No Edema, No JVD, No Murmur, No Gallop, Normal Peripheral Pulses, Regular Rate/Rhythm Breast Exam: Deferred Gastrointestinal: No Organomegaly, Non Tender, No Pulsatile Mass, Normal Bowel Sounds, Soft Genitalia: Deferred Pelvic: Deferred Rectal: Deferred Extremities: No calf tenderness, Normal capillary refill, Normal inspection, Normal range of motion, Non-tender, No pedal edema Musculoskeletal : Apperance: Normal Neurologic: Alert, center director II-XII nml as Tested, No Motor Deficits, Normal Affect, Normal Mood, No Sensory Deficits Cerebellar Function: Normal Reflexes: Normal Skin: Dry, Normal Color, Warm Lymphatic: No Adenopathy Was a procedure done? Was a procedure done?: No Differential Dx Considerations may include: Anemia, electrolyte imbalance, pneumonia, UTI, cerebral palsy, bed-bound, sepsis X-Ray, Labs, Meds, VS Vital Signs Date Time Temp Pulse Resp B/P (MAP) Pulse Ox O2 Delivery O2 Flow Rate FiO2 02/25/25 22:30 Room Air* 0 21 02/25/25 22:30 98.8 99 24 80/48 (59) 95 98.8 02/25/25 21:44 98.8 98 22 101/95 95 98.8 02/25/25 21:39 94 Lab Test 02/25/25 22:21 02/25/25 22:04 02/25/25 21:57 Range/Units POC Glucose 84 70-106 mg/dl White Blood Count 9.7 4.4-10.8 10^3/uL Red Blood Count 3.56 L 4.0-5.20 10^6/uL Hemoglobin 12.9 12.2-16.2 g/dL Hematocrit 36.1 36.0-46.0 % Mean Corpuscular Volume 101.2 H 80.0-100.0 fL Mean Corpuscular Hemoglobin 36.2 H 28.0-32.0 pg Mean Corpuscular Hemoglobin Concent 35.8 32.0-36.0 g/dL Red Cell Distribution Width 12.9 11.8-14.3 % Platelet Count 300 140-450 10^3/uL Mean Platelet Volume 6.1 L 6.9-10.8 fL Neutrophils (%) (Auto) 77.2 37.0-80.0 % Lymphocytes (%) (Auto) 14.6 10.0-50.0 % Monocytes (%) (Auto) 8.0 0.0-12.0 % Eosinophils (%) (Auto) 0.1 0.0-7.0 % Basophils (%) (Auto) 0.1 0.0-2.0 % Neutrophils # (Auto) 7.5 1.6-8.6 10 ^3/uL Lymphocytes # (Auto) 1.4 0.4-5.4 10 ^3/uL Monocytes # (Auto) 0.8 0-1.3 10 ^3/uL Eosinophils # (Auto) 0 0-0.8 10 ^3/uL Basophils # (Auto) 0 0-0.2 10 ^3/uL Nucleated Red Blood Cells 0.0 % Sodium Level 133 L 136-145 mmol/L Potassium Level 4.1 3.5-5.1 mmol/L Chloride Level 101 98-107 mmol/L Carbon Dioxide Level 26 20-31 mmol/L Anion Gap 6 5-15 Blood Urea Nitrogen 6 L 9-23 mg/dL Creatinine 0.31 L 0.550-1.02 mg/dL Glomerular Filtration Rate Calc 129 >90 mL/min BUN/Creatinine Ratio 19.4 10.0-20.0 Serum Glucose 72 L 74-106 mg/dL Lactic Acid Level 0.6 0.4-2.0 mmol/L Calcium Level 8.5 L 8.7-10.4 mg/dL Total Bilirubin 0.3 0.2-1.0 mg/dL Aspartate Amino Transferase (AST) 15 13-40 U/L Alanine Aminotransferase (ALT) 12 7-40 U/L Alkaline Phosphatase 107 46-116 U/L Total Protein 6.1 5.7-8.2 g/dL Albumin 3.9 3.2-4.8 g/dL Blood Gas Specimen Type Venous Blood Gas Sample Site Vbg - n/a Blood Gas Patient Temperature 37.0 Arterial Blood Date Drawn [id number] Manny Test N/a Venous Blood pH 7.451 H 7.320-7.430 Venous Blood pCO2 at Patient Temp 33.4 L 38.0-54.0 mmHg Venous Blood pO2 at Patient Temp 52.9 H 23.0-48.0 mmHg Venous Blood HCO3 22.7 22.0-29.0 mmol/L Venous Blood Base Excess -0.4 -2.0-3.0 mmol/L Blood Gas Modality Room air Blood Gas Spontaneous Rate 18 FiO2 % 21.0 Current Medications Medications (Trade) Dose Ordered Sig/Krysten Route Start Time Stop Time Status Last Admin Sodium Chloride 1,000 ml @ 1,000 mls/hr Q1H ONCE IV 02/25/25 22:30 02/25/25 23:29 DC 02/25/25 22:29 CHEST RADIOGRAPH REASON FOR EXAM: Shortness of breath COMPARISON: XY CHEST XRAY 1 VIEW on DOS: 01/11/25, XY CHEST PORTABLE on DOS: 11/09/24, XY CHEST PORTABLE on DOS: 10/16/24, XY CHEST PORTABLE on DOS: 07/21/24, XY CHEST PORTABLE on DOS: 07/15/24 TECHNIQUE: One view of the chest is provided FINDINGS: The cardiomediastinal silhouette is stable. There is a generator projecting over the left chest with leads ascending toward the left neck. There is no focal airspace disease. There is diffuse interstitial prominence, likely chronic changes. There is no significant pleural effusion. There is no pneumothorax. No acute osseous abnormality is identified. IMPRESSION: No radiographic evidence of acute cardiopulmonary process. Time of 1ST Reevaluation: 21:46 Reevaluation 1ST: Unchanged Patient Education/Counseling: Other (Patient has cerebral palsy) Family Education/Counseling: No Family Present SEPSIS Sepsis Screen Physician Orders Blood Culture (02/25/25 21:45) Chest Portable (02/25/25 21:45) Venous Blood Gas (02/25/25 21:45) Electrocardigram (02/25/25 22:43) Vital Signs Date Time Temp Pulse Resp B/P (MAP) Pulse Ox O2 Delivery O2 Flow Rate FiO2 02/25/25 22:30 Room Air* 0 21 02/25/25 22:30 98.8 99 24 80/48 (59) 95 98.8 02/25/25 21:44 98.8 98 22 101/95 95 98.8 02/25/25 21:39 94 Laboratory Tests Test 02/25/25 22:04 Lactic Acid Level 0.6 mmol/L (0.4-2.0) White Blood Count 9.7 10^3/uL (4.4-10.8) Medications Medications Dose Ordered Sig/Krysten Route Start Time Stop Time Status Last Admin Dose Admin Sodium Chloride 1,000 ml @ 1,000 mls/hr Q1H ONCE IV 02/25/25 22:30 02/25/25 23:29 DC 02/25/25 22:29 Departure 1 Departure Time of Disposition: 00:00 Impression: Primary Impression: Concern about respiratory disease without diagnosis Additional Impression: Cerebral palsy Disposition: HOME / SELF CARE / HOMELESS Admit to: Med Surg Condition: Guarded e-Prescriptions Azithromycin (Azithromycin) 200 Mg/5 Ml Verito 10 ML PEG DAILY for 5 Days, #50 ML Prov: VIOLETA GOOD MD 02/25/25 Discharged With: Self, Relative, Sports Management Intern Critical Care Note Critical Care Time?: No Stability Stability form required: No Heart Score Heart Score: Heart Score Response (Comments) Value History N/A 0 EKG N/A 0 Age N/A 0 Risk Factors N/A 0 Troponin N/A 0 Total 0 I personally scribed for VIOLETA GOOD MD ([email or web address]) on 02/25/25 at 21:49. Electronically submitted by Kale Monte ([facility]). I personally scribed for VIOLETA GOOD MD ([email or web address]) on 02/25/25 at 23:43. Electronically submitted by Kale Monte ([email or web address]). VIOLETA GOOD MD Feb 25, 2025 21:49
[2025-02-25 22:25] LABS: Hemoglobin 12.9 g/dL (12.2-16.2); Nucleated Red Blood Cells % 0.0 %
[2025-02-25 22:29] LABS: Hematocrit 36.1 % (36.0-46.0); Mean Corpuscular Hemoglobin 36.2 pg (28.0-32.0); Mean Corpuscular Volume 101.2 fL (80.0-100.0)
[2025-02-25] MEDS: SODIUM CHLORIDE 0.9% 1,000 ML IV ONE (22:29)
[2025-02-25 22:30] VITALS: BP 80/48; PULSE 99; RESP 24; TEMP 98.8; O2SAT 95
[2025-02-25 22:38] LABS: Alanine Aminotransferase 12 U/L (7-40); Alkaline Phosphatase 107 U/L (46-116); Anion Gap 6 (5-15); BUN/Creatinine Ratio 19.4 (10.0-20.0); Carbon Dioxide 26 mmol/L (20-31); Chloride 101 mmol/L (98-107); Potassium 4.1 mmol/L (3.5-5.1); Total Protein 6.1 g/dL (5.7-8.2)
[2025-02-25 22:39] LABS: Albumin 3.9 g/dL (3.2-4.8)
[2025-02-25 22:47] LABS: Bilirubin, Total 0.3 mg/dL (0.2-1.0); Blood Urea Nitrogen 6 mg/dL (9-23); Calcium 8.5 mg/dL (8.7-10.4); Glucose 72 mg/dL (74-106); Sodium 133 mmol/L (136-145)
--- NOTE | 2025-02-25 23:03 | DVH ---
CHEST RADIOGRAPH REASON FOR EXAM: Shortness of breath COMPARISON: XY CHEST XRAY 1 VIEW on DOS: 01/11/25, XY CHEST PORTABLE on DOS: 11/09/24, XY CHEST PORTABLE on DOS: 10/16/24, XY CHEST PORTABLE on DOS: 07/21/24, XY CHEST PORTABLE on DOS: 07/15/24 TECHNIQUE: One view of the chest is provided FINDINGS: The cardiomediastinal silhouette is stable. There is a generator projecting over the left c hest with leads ascending toward the left neck. There is no focal airspace disease. There is diffuse interstitial prominence, likely chronic changes. There is no significant pleural effusion. There is no pneumothorax. No acute osseous abnormality is identified. IMPRESSION: No radiographic evidence of acute cardiopulmonary process.
[2025-02-25] MEDS ORDERED: AZIT200S47 PEG (23:15)
--- NOTE | 2025-02-26 05:17 | ECG ---
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
== END 2025-02-25 23:45 | disposition home or self-care (01) ==
LOC: EDBD 21:39 → ER 21:39
DX: G80.9 Cerebral palsy, unspecified (principal); J98.9 Respiratory disorder, unspecified; K21.9 Gastro-esophageal reflux disease without esophagitis; Z98.890 Other specified postprocedural states; Z95.0 Presence of cardiac pacemaker; Z90.49 Acquired absence of other specified parts of digestive tract; Z88.1 Allergy status to other antibiotic agents; Z79.899 Other long term (current) drug therapy
CPT/HCPCS: 36415; 36600; 71045; 80053; 82805; 82947; 83605; 85025; 87040; 93005; 96360; 99285; J7030; 82962

== ENCOUNTER 2025-03-07 13:22 | Inpatient (IN) | payer MEDICAID ==
[~2025-03-07] VITALS: Ht 147.3 cm; Wt 35.5 kg
[~2025-03-07 13:22] MED LIST changes: +AZIT200S47 PEG
--- NOTE | 2025-03-07 13:44 | ED.PDOC ---
History of Present Illness HPI Comments This is a 49-year-old nonverbal female with past medical history of cerebral palsy, quadriplegia (bed-bound), seizure, GERD, brought to the hospital due to G-tube malfunctioning. Per patient's mother, she is being feed through the G- tube 4 times a day (giving nutritional drink and a liquid peptide based nutri tional complete formula) with syringe. Normally the fluids goes to stomach smoothly through G tube, but since 4 days she needs to push the fluid through the syringe to drain, and while she stops greenish gastric contents came back through the tube. She also has a chronic constipation, has been given laxative 2 times a week, last bowel movement was 4 days back. She denies fever, cough, pain, or any recent bladder habit changes. In ER, fluid given through syringe, which needed more force to push and upon stopping greenish fluid came out of stomach. CT abdominopelvic showed PEG-tube balloon in the duodenal bulb Chief Complaint: Tube Replacement Time Seen by MD: 13:42 Primary Care Provider: ? Allergies: Coded Allergies: Vancomycin (Verified Adverse Reaction, Unknown, 05/01/24) fever, sweating, erythema from vanco infusion Home Meds Active Scripts Azithromycin (Azithromycin) 200 Mg/5 Ml Verito, 10 ML PEG DAILY for 5 Days, #50 ML Prov:VIOLETA GOOD MD 02/25/25 Azithromycin (Zithromax) 200 Mg/5 Ml Verito, 500 MG PO DAILY for 4 Days, #50 ML Prov:ALTA COOK 01/11/25 Carbamazepine (Carbamazepine) 200 Mg Tab, 600 MG PEG BID, #60 TAB Prov:NISHA PERDOMO RESIDENT 10/19/24 Cephalexin (Cephalexin) 250 Mg/5 Ml Verito, 5 ML PEG BID for 7 Days, #70 ML Prov:NISHA PERDOMO 10/19/24 Bisacodyl (Ex-Lax Ultra) 5 Mg Tab, 5 MG PO DAILY PRN, #60 TAB 2 Refills Take 2 tablets (10 mg) via G tube Daily Prov:JOHN BENAVIDEZ MD 03/26/24 Esomeprazole Magnesium (Esomeprazole Magnesium) 40 Mg Cap, 40 MG PO DAILY, #30 CAP 3 Refills Take 1 capsule via G tube every afternoon (3pm) Prov:JOHN BENAVIDEZ MD 03/26/24 Lorazepam (Ativan) 0.5 Mg Tab, 0.5 MG PO BID for 30 Days, #60 TAB Prov:LONG PALACIOS MD 02/27/24 Reported Medications Lacosamide (Vimpat) 50 Mg Tab, 75 MG PO DAILY for 30 Days, #45 TAB 1 Refill 10/19/24 Nutritional Supplements (Peptamen 1 Félix/Prebio1) 1 Liq Liq, 1 LIQ GT Q4HR, LIQ 10/16/24 Omeprazole (Omeprazole) 20 Mg Tab, 40 MG PO DAILY, TAB 10/16/24 Levetiracetam (Levetiracetam) 1,000 Mg Tab, 1 TAB PO BID 10/16/24 Carbamazepine (Carbamazepine) 100 Mg/5 Ml Verito, 4 ML PO TID 10/16/24 Tramadol Hcl (Tramadol Hcl) 50 Mg Tab, 50 MG PO Q8HP PRN for PAIN SCALE 1 THRU 6, MG 01/30/24 Esomeprazole Magnesium Trihydr (Nexium) 40 Mg Cap, 40 MG PO, CAP 01/30/24 Folic Acid (Folic Acid) 1 Mg Tab, 1 MG PO DAILY for 30 Days, MG 01/30/24 Information Source: [employer] Ghost Writer (Mother) Mode of Arrival: Wheelchair Severity: Moderate Timing: Days Duration: Days Past Medical History PAST MEDICAL HISTORY: GERD, Seizures Surgical History: Cholecystectomy, Hernia Repair, Pacemaker PIPING ENGINEER History: No Pertinent PIPING ENGINEER History Family History Family History: Unknown Social History Smoker: Non-Smoker Alcohol: Denies ETOH Use Drugs: Denies Drug Use Lives In: Home Constitutional: denies: chills, diaphoresis, fatigue, fever, malaise, sweats, weakness, others EENTM: denies: blurred vision, double vision, ear bleeding, ear discharge, ear drainage, ear pain, ear ringing, eye pain, eye redness, hearing loss, mouth pain , mouth swelling, nasal discharge, nose bleeding, nose congestion, nose pain, photophobia, tearing, throat pain, throat swelling, voice changes, others Respiratory: denies: cough, hemoptysis, orthopnea, SOB at rest, shortness of breath, SOB with excertion, stridor, wheezing, others Cardiovascular: denies: chest pain, dizzy spells, diaphoresis, Dyspnea on exertion, edema, irregular heart beat, left arm pain, lightheadedness, palpitations, PND, syncope, others Gastrointestinal: reports: constipated; denies: abdomen distended, abdominal pain, blood streaked bowels, diarrhea, dysphagia, difficulty swallowing, hematemesis, melena, nausea, poor appetite, poor fluid intake, rectal bleeding, rectal pain, vomiting, others Genitourinary: denies: abnormal vagina bleeding, burning, dyspareunia, dysuria, flank pain, frequency, hematuria, incontinence, pain, , vagina discharge, urgency, others Neurological: denies: dizziness, fainting, headache, left sided numbness, left sided weakness, numbness, paresthesia, pre-existing deficit, right sided numbness, right sided weakness, seizure, speech problems, tingling, tremors, weakness, others Musculoskeletal: denies: back pain, gout, joint pain, joint swelling, muscle pain, muscle stiffness, neck pain, others Integumetry: denies: bruises, change in color, change in hair/nails, dryness, laceration, lesions, lumps, rash, wounds, others Allergic/Immunocompromised: denies: Difficulty Healing, Frequent Infections, Hives, Itching, others Hematologic/Lymphatic: denies: anemia, blood clots, easy bleeding, easy bruising, swollen glands, others Endocrine: denies: excessive hunger, excessive sweating, excessive thirst, excessive urination, flushing, intolerance to cold, intolerance to heat, unexplained weight gain, unexplained weight loss, others Psychiatric: denies: anxiety, bipolar disorder, depression, hopeless, panic disorder, schizophrenia, sleepless, suicidal, others Physical Exam General Appearance: No Apparent Distress, Normal HEENT: Normal ENT Inspection, Pharynx Normal, TMs Normal Neck: Full Range of Motion, Non-Tender, Normal, Normal Inspection Respiratory: Chest Non-Tender, Lungs Clear, No Accessory Muscle Use, No Respira tory Distress, Normal Breath Sounds Cardiovascular: No Edema, No JVD, No Murmur, No Gallop, Normal Peripheral Pulses, Regular Rate/Rhythm Breast Exam: Deferred Gastrointestinal: No Organomegaly, Non Tender, No Pulsatile Mass, Normal Bowel Sounds, Soft, Other (G-tube in place, with no sign of infection, or tube draina ge.) Genitalia: Deferred Pelvic: Deferred Rectal: Deferred Extremities: No calf tenderness, Normal capillary refill, Normal inspection, Normal range of motion, Non-tender, No pedal edema Neurologic: Alert, upholsterer assembly line II-XII nml as Tested, No Motor Deficits, Normal Affect, Normal Mood, No Sensory Deficits Cerebellar Function: Normal, NOT DONE Reflexes: NOT DONE Skin: Dry, Normal Color, Warm Lymphatic: No Adenopathy Was a procedure done? Was a procedure done?: No Differential Dx Considerations may include: G-tube displacement G-tube blockage X-Ray, Labs, Meds, VS Vital Signs Date Time Temp Pulse Resp B/P (MAP) Pulse Ox O2 Delivery O2 Flow Rate FiO2 03/07/25 13:23 98.9 109 20 91/54 96 98.9 Lab Test 03/07/25 14:56 Range/Units White Blood Count 3.4 L 4.4-10.8 10^3/uL Red Blood Count 4.04 4.0-5.20 10^6/uL Hemoglobin 14.1 12.2-16.2 g/dL Hematocrit 40.8 36.0-46.0 % Mean Corpuscular Volume 101.1 H 80.0-100.0 fL Mean Corpuscular Hemoglobin 34.9 H 28.0-32.0 pg Mean Corpuscular Hemoglobin Concent 34.5 32.0-36.0 g/dL Red Cell Distribution Width 12.4 11.8-14.3 % Platelet Count 355 140-450 10^3/uL Mean Platelet Volume 6.4 L 6.9-10.8 fL Neutrophils (%) (Auto) 43.7 37.0-80.0 % Lymphocytes (%) (Auto) 38.2 10.0-50.0 % Monocytes (%) (Auto) 15.1 H 0.0-12.0 % Eosinophils (%) (Auto) 2.5 0.0-7.0 % Basophils (%) (Auto) 0.5 0.0-2.0 % Neutrophils # (Auto) 1.5 L 1.6-8.6 10 ^3/uL Lymphocytes # (Auto) 1.3 0.4-5.4 10 ^3/uL Monocytes # (Auto) 0.5 0-1.3 10 ^3/uL Eosinophils # (Auto) 0.1 0-0.8 10 ^3/uL Basophils # (Auto) 0 0-0.2 10 ^3/uL Nucleated Red Blood Cells 0.2 % Sodium Level 138 136-145 mmol/L Potassium Level 4.2 3.5-5.1 mmol/L Chloride Level 104 98-107 mmol/L Carbon Dioxide Level 25 20-31 mmol/L Anion Gap 9 5-15 Blood Urea Nitrogen 9 9-23 mg/dL Creatinine 0.33 L 0.550-1.02 mg/dL Glomerular Filtration Rate Calc 127 >90 mL/min BUN/Creatinine Ratio 27.3 H 10.0-20.0 Serum Glucose 88 74-106 mg/dL Calcium Level 8.4 L 8.7-10.4 mg/dL Total Bilirubin 0.2 0.2-1.0 mg/dL Aspartate Amino Transferase (AST) 16 13-40 U/L Alanine Aminotransferase (ALT) 17 7-40 U/L Alkaline Phosphatase 106 46-116 U/L Total Protein 6.4 5.7-8.2 g/dL Albumin 4.0 3.2-4.8 g/dL Patient seen and examined at the bedside, patient is clinically and vitally stable. Patient is not in acute respiratory distress. Patient will be admitted for abdomino-pelvic CT scan to evaluate G-tube proper placement/displacement. Time of 1ST Reevaluation: 14:30 Reevaluation 1ST: Unchanged Patient Education/Counseling: Pt Unresponsive Family Education/Counseling: Diagnosis, Treatment, Prognosis, Need For Follow Up SEPSIS Sepsis Screen Date sepsis recognized/suspect: Mar 07, 2025 Time Sepsis recognized/suspect: 1323 Recent Procedure: No On Antibiotic Therapy: No Respiratory Rate >20: No Heart Rate >90: Yes Temp<36 C (96.8 F) or >38.3 C: No SBP <90 or MAP <65 mmHG: No New Acute Mental Status Change: No Is the patient on CPAP, BIPAP,: No Physician Orders Ct Ab Pel Wo Con-No Oral Or Iv (03/07/25 14:22) Vital Signs Date Time Temp Pulse Resp B/P (MAP) Pulse Ox O2 Delivery O2 Flow Rate FiO2 03/07/25 13:23 98.9 109 20 91/54 96 98.9 Laboratory Tests Test 03/07/25 14:56 White Blood Count 3.4 10^3/uL (4.4-10.8) L Departure 1 Departure Time of Disposition: 14:30 Impression: Primary Impression: PEG tube malfunction Disposition: 30 STILL A PATIENT Condition: Fair Critical Care Note Critical Care Time?: No Stability Stability form required: No Heart Score Heart Score: Heart Score Response (Comments) Value History N/A 0 EKG N/A 0 Age 45-64 1 Risk Factors No known risk factors 0 Troponin N/A 0 Total 1 CARMELINA BORREGO RESDIENT Mar 07, 2025 13:44
--- NOTE | 2025-03-07 15:14 | DVH ---
EXAM: CT CT AB PEL WO CON-NO ORAL OR IV HISTORY: Gastric tube malfunctioning COMPARISON: CT CT AB PEL WO CON-NO ORAL OR IV on DOS: 07/21/24, CT PELVIS WITH CONTRAST ONLY on DOS: , US PELVIC on DOS: 04/10/24, CT PELVIS WITH CONTRAST ONLY on DOS: 04/09/24, CT CT AB PEL WO CON- NO ORAL OR IV on DOS: 01/31/24 TECHNIQUE: Helical CT images of the abdomen and pelvis were performed without IV contrast. Sagittal a nd coronal reformatted images were obtained. This CT exam was performed using one or more of the foll owing dose reduction techniques: Automated exposure control, adjustment of the mA and/or kv according to patient size, or the use of iterative reconstruction techniques. Radiation Dose: Abdomen/Pelvis: CTDIvol 5.07 mGy, DLP 3.92 mGy*cm. FINDINGS: CT abdomen: There is a calcified granuloma in the right lower lobe. There is mild interstitial promin ence in the lower lobes. Consolidative infiltrates seen in the bilateral lower lobes in the previous CT scan have essentially resolved in the interim. The heart is not enlarged. There are postoperative changes of left chest implanted electrical device (Inspire), cholecystectomy, and PEG tube. The PEG tube balloon is in the duodenal bulb (image 25, series 2). The noncontrast liver, spleen, pancreas, k idneys, and adrenal glands are unremarkable. No abdominal aortic aneurysm. CT pelvis: No abnormal bowel dilatation, free air, or free fluid. There is fecal retention in the col on. No evidence of acute appendicitis. The urinary bladder and uterus are unremarkable. There is rot atory thoracolumbar levoscoliosis. There is severe right hip osteoarthritis and chronic superolateral subluxation. There is mild osteoarthritis of the left hip. IMPRESSION: 1. Mild interstitial prominence in the lower lobes may be due to interstitial pneumonia, scarring, or mild CHF. Consolidative infiltrates seen in the bilateral lower lobes on CT scan from July 2024 [address] resolved in the interim. 2. Postoperative changes of inspire implant, cholecystectomy, and PEG tube. The balloon of the PEG t ube is in the duodenal bulb. 3. Fecal retention in the colon suggestive of constipation. 4. Severe right hip osteoarthritis and chronic superolateral subluxation. 5. No evidence of bowel obstruction, acute appendicitis, or other acute process in the abdomen or pel vis.
[2025-03-07 15:48] LABS: Hematocrit 40.8 % (36.0-46.0); Hemoglobin 14.1 g/dL (12.2-16.2); Mean Corpuscular Hemoglobin 34.9 pg (28.0-32.0); Mean Corpuscular Volume 101.1 fL (80.0-100.0); Nucleated Red Blood Cells % 0.2 %
[2025-03-07 15:59] LABS: Alanine Aminotransferase 17 U/L (7-40); Albumin 4.0 g/dL (3.2-4.8); Alkaline Phosphatase 106 U/L (46-116); Anion Gap 9 (5-15); BUN/Creatinine Ratio 27.3 (10.0-20.0); Bilirubin, Total 0.2 mg/dL (0.2-1.0); Blood Urea Nitrogen 9 mg/dL (9-23); Calcium 8.4 mg/dL (8.7-10.4); Carbon Dioxide 25 mmol/L (20-31); Chloride 104 mmol/L (98-107); Glucose 88 mg/dL (74-106); Potassium 4.2 mmol/L (3.5-5.1); Sodium 138 mmol/L (136-145); Total Protein 6.4 g/dL (5.7-8.2)
[2025-03-07] MEDS: SODIUM CHLORIDE 0.9% 500 ML IV ONE (17:48)
[2025-03-07] MEDS: D5W/SOD CHLO 0.9% 1,000 ML IV ONE (20:33)
--- NOTE | 2025-03-07 22:48 | DVHHP2 ---
History of Present Illness Reason for Visit: Peg tube malfunction History of Present Illness 49-year-old female presents for evaluation of PEG tube malfunction. Patient is quadriplegic, bed ridden, nonverbal with cerebral palsy. Per patient's mother, she has been having difficulty flushing and providing nutrition through the G- tube. She states it is difficult to push the fluids through the tube. She also states having increased residuals which are green in color. Reports patient having last bowel movement four days ago. Past Medical History Cerebral palsy, seizure, GERD Past Surgical History Pacemaker, peg tube, hernia repair, cholecystectomy Family History Noncontributory Smoke: No ALCOHOL: none Drugs: None Lives: with Family Review of Systems Review of Systems Unable to complete review of systems patient is nonverbal Allergies: Coded Allergies: Vancomycin (Verified Adverse Reaction, Unknown, 05/01/24) fever, sweating, erythema from vanco infusion Medications Current Medications Medications Dose Ordered Sig/Krysten Route Start Time Stop Time Status Last Admin Dose Admin Lorazepam 1 mg Q5MINP PRN IV 03/07/25 19:45 Levetiracetam 100 ml @ 400 mls/hr BID IV 03/07/25 22:00 Exam Vital Signs Vital Signs Date Time Temp Pulse Resp B/P (MAP) Pulse Ox O2 Delivery O2 Flow Rate FiO2 03/07/25 13:23 98.9 109 20 91/54 96 98.9 Exam Gen: 49-year-old female in mild distress, nonverbal Skin: Warm, dry, normal color and texture, no rash. HEENT: Normocephalic atraumatic, mucous membranes moist and pink. Neck: Cervical and supraclavicular nodes normal without enlargement, trachea is midline, thyroid gland is normal without masses. Pulmonary: Clear to auscultation and percussion bilaterally. Cardiac: Regular rate and rhythm. No murmur Abdomen: Soft, nontender, nondistended, bowel sounds present all 4 quadrants, no guarding, no rigidity, no organomegaly. Extremities: No cyanosis, clubbing, no edema Neuro: Lethargic, nonverbal Labs/Xrays ORDERING PHYSICIAN: CARMELINA BORREGO PROCEDURE(s): ABPL - CT AB PEL WO CON-NO ORAL OR IV REASON: Gastric tube malfunctioning ORDER NUMBER(s): [id number], ACCESSION NUMBER(s): [id number] EXAM: CT CT AB PEL WO CON-NO ORAL OR IV HISTORY: Gastric tube malfunctioning COMPARISON: CT CT AB PEL WO CON-NO ORAL OR IV on DOS: 07/21/24, CT PELVIS WITH CONTRAST ONLY on DOS: 04/24/24, US PELVIC on DOS: 04/10/24, CT PELVIS WITH CONTRAST ONLY on DOS: 04/09/24, CT CT AB PEL WO CON-NO ORAL OR IV on DOS: 01/31/24 TECHNIQUE: Helical CT images of the abdomen and pelvis were performed without IV contrast. Sagittal and coronal reformatted images were obtained. This CT exam was performed using one or more of the following dose reduction techniques: Automated exposure control, adjustment of the mA and/or kv according to patient size, or the use of iterative reconstruction techniques. Radiation Dose: Abdomen/Pelvis: CTDIvol 5.07 mGy, DLP 3.92 mGy*cm. FINDINGS: CT abdomen: There is a calcified granuloma in the right lower lobe. There is mild interstitial prominence in the lower lobes. Consolidative infiltrates seen in the bilateral lower lobes in the previous CT scan have essentially resolved in the interim. The heart is not enlarged. There are postoperative changes of left chest implanted electrical device (Inspire), cholecystectomy, and PEG tube. The PEG tube balloon is in the duodenal bulb (image 25, series 2). The noncontrast liver, spleen, pancreas, kidneys, and adrenal glands are unremarkable. No abdominal aortic aneurysm. CT pelvis: No abnormal bowel dilatation, free air, or free fluid. There is fecal retention in the colon. No evidence of acute appendicitis. The urinary bladder and uterus are unremarkable. There is rotatory thoracolumbar levoscoliosis. There is severe right hip osteoarthritis and chronic superolateral subluxation. There is mild osteoarthritis of the left hip. IMPRESSION: 1. Mild interstitial prominence in the lower lobes may be due to interstitial pneumonia, scarring, or mild CHF. Consolidative infiltrates seen in the bilateral lower lobes on CT scan from July 2024 have resolved in the interim. 2. Postoperative changes of inspire implant, cholecystectomy, and PEG tube. The balloon of the PEG tube is in the duodenal bulb. 3. Fecal retention in the colon suggestive of constipation. 4. Severe right hip osteoarthritis and chronic superolateral subluxation. 5. No evidence of bowel obstruction, acute appendicitis, or other acute process in the abdomen or pelvis. Labs Test 03/07/25 14:56 Range/Units White Blood Count 3.4 L 4.4-10.8 10^3/uL Red Blood Count 4.04 4.0-5.20 10^6/uL Hemoglobin 14.1 12.2-16.2 g/dL Hematocrit 40.8 36.0-46.0 % Mean Corpuscular Volume 101.1 H 80.0-100.0 fL Mean Corpuscular Hemoglobin 34.9 H 28.0-32.0 pg Mean Corpuscular Hemoglobin Concent 34.5 32.0-36.0 g/dL Red Cell Distribution Width 12.4 11.8-14.3 % Platelet Count 355 140-450 10^3/uL Mean Platelet Volume 6.4 L 6.9-10.8 fL Neutrophils (%) (Auto) 43.7 37.0-80.0 % Lymphocytes (%) (Auto) 38.2 10.0-50.0 % Monocytes (%) (Auto) 15.1 H 0.0-12.0 % Eosinophils (%) (Auto) 2.5 0.0-7.0 % Basophils (%) (Auto) 0.5 0.0-2.0 % Neutrophils # (Auto) 1.5 L 1.6-8.6 10 ^3/uL Lymphocytes # (Auto) 1.3 0.4-5.4 10 ^3/uL Monocytes # (Auto) 0.5 0-1.3 10 ^3/uL Eosinophils # (Auto) 0.1 0-0.8 10 ^3/uL Basophils # (Auto) 0 0-0.2 10 ^3/uL Nucleated Red Blood Cells 0.2 % Sodium Level 138 136-145 mmol/L Potassium Level 4.2 3.5-5.1 mmol/L Chloride Level 104 98-107 mmol/L Carbon Dioxide Level 25 20-31 mmol/L Anion Gap 9 5-15 Blood Urea Nitrogen 9 9-23 mg/dL Creatinine 0.33 L 0.550-1.02 mg/dL Glomerular Filtration Rate Calc 127 >90 mL/min BUN/Creatinine Ratio 27.3 H 10.0-20.0 Serum Glucose 88 74-106 mg/dL Calcium Level 8.4 L 8.7-10.4 mg/dL Total Bilirubin 0.2 0.2-1.0 mg/dL Aspartate Amino Transferase (AST) 16 13-40 U/L Alanine Aminotransferase (ALT) 17 7-40 U/L Alkaline Phosphatase 106 46-116 U/L Total Protein 6.4 5.7-8.2 g/dL Albumin 4.0 3.2-4.8 g/dL SEPSIS Sepsis Screen Date sepsis recognized/suspect: Mar 07, 2025 Time Sepsis recognized/suspect: 1747 Recent Procedure: No On Antibiotic Therapy: No Respiratory Rate >20: No Heart Rate >90: No Temp<36 C (96.8 F) or >38.3 C: No SBP <90 or MAP <65 mmHG: No New Acute Mental Status Change: No Is the patient on CPAP, BIPAP,: No Physician Orders Admit (03/07/25 19:30) Lorazepam 2mg/Ml Inj (Ativan Inj) (03/07/25 19:45) Levetiracetam 500 Mg/100ml (Levetiraceta (03/07/25 22:00) D5w/Sod Chlo 0.9% (D5w Ns 0.9%) (03/07/25 19:45) * Radiologist Consult (03/07/25 19:32) Laboratory Tests Test 03/07/25 14:56 White Blood Count 3.4 10^3/uL (4.4-10.8) L Medications Medications Dose Ordered Sig/Krysten Route Start Time Stop Time Status Last Admin Dose Admin Sodium Chloride 500 ml @ 500 mls/hr Q1H ONCE IV 03/07/25 15:00 03/07/25 15:59 DC 03/07/25 17:48 500 MLS/HR Assessment/Plan Assessment/Plan Assessment Peg tube malfunction Cerebral palsy Nonverbal Bed ridden Plan Admit the patient to [facility] to the hospitalist Radiology consultation NPO Maintenance IV fluids Continue treatment per orders. Plan discussed with: Other My Orders Orders - RACHEL DEL VALLE Procedure Category Date Status Time Admit ADMIT 03/07/25 Transmitted 19:30 Lorazepam 2mg/Ml Inj PHA 03/07/25 In Process (Ativan Inj) 19:45 Levetiracetam 500 PHA 03/07/25 In Process Mg/100ml (Levetiraceta 22:00 D5w/Sod Chlo 0.9% PHA 03/07/25 In Process (D5w Ns 0.9%) 19:45 * Radiologist Consult CONS 03/07/25 Transmitted 19:32 Date of Service: Mar 07, 2025 Billing Provider: RACHEL DEL VALLE Common Visit Codes: [id number] INP/OBS CARE (MOD) RACHEL DEL VALLE Mar 07, 2025 22:48
[2025-03-07] MEDS: levETIRAcetam 500 mg/100ml 100 ML IV SCH (23:08)
[2025-03-08] VITALS (13 sets, daily range): BP systolic 81–134; BP diastolic 44–73; PULSE 59–95; RESP 14–21; TEMP 97.4–98.5; O2SAT 95–100
[2025-03-08] MEDS: LORazepam 2MG/ML-1ML VIAL IV ONE (02:56)
[2025-03-08] MEDS ORDERED: CARB200T4 GT (09:45)
[2025-03-08] MEDS ORDERED: MIDA5SPR (09:45)
[2025-03-08] MEDS ORDERED: TEMA30CA GT (09:45)
[2025-03-08] MEDS ORDERED: LEVE100012 GT (09:45)
[2025-03-08] MEDS: LORazepam 2MG/ML-1ML VIAL IV PRN (11:46)
--- NOTE | 2025-03-08 12:00 | DVHPN2 ---
Subjective The patient is seen and examined at bedside. The patient is nonverbal. Sister at bedside. The patient had three episode of seizure in the hospital. Ativan PRN has stopped the seizure. Per sister the patient take Keppra 1500 mg twice per day. Reviewed: Care Plan, H&P, Labs, Medications, Previous Orders Changes from previous H/P or p: No Changes Objective Vitals Vital Signs Date Time Temp Pulse Resp B/P (MAP) Pulse Ox O2 Delivery O2 Flow Rate FiO2 03/08/25 09:00 97.4 87 14 134/64 (87) 100 97.4 Intake/Output Intake and Output 03/08/25 07:00 Intake Total 500 ml Balance 500 ml Intake IV Total 500 ml General Appearance: Alert HEENT: Atraumatic, PERRLA, EOMI, Mucous membr. moist/pink Neck: Supple Lungs: Clear to auscultation, Normal air movement Cardiovascular: Regular rate, Normal S1, Normal S2, No murmurs, Gallops, Rubs Abdomen: Normal bowel sounds, Soft, No tenderness Neuro: Other (Bed-bound, contracted extremity) Medications Current Medications Medications Dose Ordered Sig/Krysten Route Start Time Stop Time Status Last Admin Dose Admin Lorazepam 1 mg Q5MINP PRN IV 03/07/25 19:45 03/08/25 11:46 1 MG Levetiracetam 100 ml @ 400 mls/hr BID IV 03/07/25 22:00 03/08/25 11:02 400 MLS/HR Laboratory Results Laboratory Tests 03/07/25 14:56 Chemistry Test 03/07/25 14:56 Albumin 4.0 g/dL (3.2-4.8) Calcium Level 8.4 mg/dL (8.7-10.4) L Total Protein 6.4 g/dL (5.7-8.2) LFT Test 03/07/25 14:56 Alanine Aminotransferase (ALT) 17 U/L (7-40) Alkaline Phosphatase 106 U/L (46-116) Aspartate Amino Transferase (AST) 16 U/L (13-40) Total Bilirubin 0.2 mg/dL (0.2-1.0) Labs and/or images reviewed: Labs reviewed by me Assessment/Plan Assessment/Plan Peg tube malfunction Cerebral palsy Nonverbal Bed ridden Continue current management. Continue IV antibiotic. Waiting for IR to change G tube. Patient has seizure today in the hospital x3. Given ativan, the seizure stop. Per sister, Patient keppra 1500 bid at home. Will change keppra to 1500mg IV bid Neurology consult Plan discussed with: Patient Date of Service: Mar 08, 2025 Billing Provider: CUAUHTEMOC MORRISON MD Common Visit Codes: [id number] INP/OBS CARE(HIGH) CUAUHTEMOC MORRISON MD Mar 08, 2025 12:00
[2025-03-08] MEDS: levETIRAcetam 1000 mg/100ml 100 ML IV ONE (12:58)
[2025-03-08] MEDS: LIDOCAINE 2%HCL (LOCAL ANESTH.) INJ 20ML MDV ONE (14:17)
[2025-03-08] MEDS: levETIRAcetam 1500 mg/100ml 100 ML IV SCH (21:45)
[2025-03-09] VITALS (8 sets, daily range): BP systolic 98–110; BP diastolic 57–67; PULSE 69–122; RESP 17–24; TEMP 97.1–99.5; O2SAT 96–97
--- NOTE | 2025-03-09 09:54 | DVH ---
PROCEDURE: G-tube check HISTORY: G-tube check DOCUMENTATION: Informed consent was obtained and a procedural time out was performed. FINDINGS: The risks and benefits of the procedure including bleeding, infection and pneumothorax were explained to the patient and written informed consent obtained. The indwelling G-tube was injected with contrast, imaging was obtained. The G-tube is in the duodenum which is in good position, I discussed this with the patient's family a nd told them that if they see green discharge from the G-tube that is normal because it is from bile from the gallbladder, the family felt comfortable. IMPRESSION: 1. G-tube check, G-tube is in the duodenum which is in good position.
--- NOTE | 2025-03-09 12:31 | DVHPN2 ---
Subjective The patient is seen and examined at bedside. The patient is nonverbal. Sister at bedside. Reviewed: Care Plan, H&P, Labs, Medications, Previous Orders Changes from previous H/P or p: No Changes Objective Vitals Vital Signs Date Time Temp Pulse Resp B/P (MAP) Pulse Ox O2 Delivery O2 Flow Rate FiO2 03/09/25 09:30 98.2 102 17 99/58 (72) 97 98.2 03/09/25 08:00 Room Air* 0 21 Intake/Output Intake and Output 03/09/25 07:00 Intake Total 100 ml Balance 100 ml Intake Oral 0 ml IV Total 100 ml # Voids 2 General Appearance: Alert HEENT: Atraumatic, PERRLA, EOMI, Mucous membr. moist/pink Neck: Supple Lungs: Clear to auscultation, Normal air movement Cardiovascular: Regular rate, Normal S1, Normal S2, No murmurs, Gallops, Rubs Abdomen: Normal bowel sounds, Soft, No tenderness Neuro: Other (Bed-bound, contracted extremity) Medications Current Medications Medications Dose Ordered Sig/Krysten Route Start Time Stop Time Status Last Admin Dose Admin Lorazepam 1 mg Q5MINP PRN IV 03/07/25 19:45 03/08/25 11:46 1 MG Levetiracetam 100 ml @ 400 mls/hr BID IV 03/08/25 22:00 03/09/25 10:20 400 MLS/HR Laboratory Results Laboratory Tests 03/07/25 14:56 Labs and/or images reviewed: Labs reviewed by me Assessment/Plan Assessment/Plan Peg tube malfunction status post investigation by IR, Peg tube functioning well. Cerebral palsy Nonverbal Bed ridden Continue current management. Continue IV antibiotic. Will restart PEG tube feeding per home dose. Continue seizure medication. Discharge planning This medical document was created using an electronic medical record system with [employer] direct computerized dictation system. Although this document has been carefully reviewed, there may still be some phonetic and typographical errors. These areas are purely typographical due to imperfections of the software programs, and do not reflect any compromise in the patient's medical care. Plan discussed with: Other (RN, sister) My Orders Orders - CUAUHTEMOC MORRISON MD Procedure Category Date Status Time * Neurology Consult CONS 03/08/25 Transmitted 12:[address] XY 03/08/25 Resulted 09:30 Date of Service: Mar 09, 2025 Billing Provider: CUAUHTEMOC MORRISON MD Common Visit Codes: [id number] INP/OBS CARE(HIGH) CUAUHTEMOC MORRISON MD Mar 09, 2025 12:31
[2025-03-09] MEDS: MUPIROCIN 2% OINT 15gm or 22gm FOR MRSA NARES EACHNOSTRI SCH (21:50)
--- NOTE | 2025-03-09 23:28 | DVHINCON2 ---
Date of service: Mar 09, [address] Meehan Reason for Consultation Seizure History of Present Illness Ms. Garland is a 49 years old female with a history of cerebral palsy, mental retardation, quadriplegia, GERD, seizure disorder, the patient was admitted to the [facility] on 03/07/25 with a chief complaint of G-tube dysfunction. She is awake, but she does not vocalize or answer questions, the history is obtained from her family, nurse and chart review. I saw him in my office I saw her on 04/04/2024, 07/22/24, 10/17/2024 for seizure Recently her seizure has been under good control, she only on one seizure in the ER during this hospital stay She has a history of cerebral palsy, mental retardation, quadriplegia, she was history of seizure, in that she has spells event with brief jerking in the arms, left leg lasting for about 30 seconds, she was seizure once or twice daily, she is on Keppra 1500 mg b.i.d., carbamazepine 600 mg b.i.d. She has insomnia, which was well controlled with restoring 7.5 mg p.r.n. She grinds her teeth, her family consents possible symptoms of pain, family gives her Tylenol on as-needed base WBC/HB/PLT/MCV, 07/22/2024: 5.5/11.1/325/102.9, 03/07/2025: 3.5/40.01/355/101.1 CMP, 07/22/2024: Unremarkable, 03/07/2025: Unremarkable Vitamin B12, 04/05/24: 790, 10/19/2024: 909 Folic acid, 04/05/2024: 18.4, : 23.8 TSH, 07/22/2024: 1.89, 10/17/2024: 2.58 CT head, 07/21/2024: No acute intracranial findings Past Medical History Cerebral palsy, GERD, seizure Past Surgical History Cholecystectomy, hernia repair, pacemaker insertion, G-tube Family History: Patient reports no known family medical history. Family History Patient reports no known family medical history. Social History Smoker: Non-Smoker Alcohol: Denies ETOH Use Drugs: Denies Drug Use Lives In: Home Allergies: Coded Allergies: Vancomycin (Verified Adverse Reaction, Unknown, 05/01/24) fever, sweating, erythema from vanco infusion Home Meds Active Scripts Azithromycin (Azithromycin) 200 Mg/5 Ml Verito, 10 ML PEG DAILY for 5 Days, #50 ML Prov:VIOLETA GOOD MD 02/25/25 Azithromycin (Zithromax) 200 Mg/5 Ml Verito, 500 MG PO DAILY for 4 Days, #50 ML Prov:ALTA COOK [employer]ER 01/11/25 Carbamazepine (Carbamazepine) 200 Mg Tab, 600 MG PEG BID, #60 TAB Prov:[facility] 10/19/24 Cephalexin (Cephalexin) 250 Mg/5 Ml Verito, 5 ML PEG BID for 7 Days, #70 ML Prov:[facility] RES[facility] 10/19/24 Bisacodyl (Ex-Lax Ultra) 5 Mg Tab, 5 MG PO DAILY PRN, #60 TAB 2 Refills Take 2 tablets (10 mg) via G tube Daily Prov:JOHN BENAVIDEZ MD 03/26/24 Esomeprazole Magnesium (Esomeprazole Magnesium) 40 Mg Cap, 40 MG PO DAILY, #30 CAP 3 Refills Take 1 capsule via G tube every afternoon (3pm) Prov:JOHN BENAVIDEZ MD 03/26/24 Lorazepam (Ativan) 0.5 Mg Tab, 0.5 MG PO BID for 30 Days, #60 TAB Prov:LONG PALACIOS MD 02/27/24 Reported Medications Midazolam (Anticonvulsant) (Nayzilam) 5 Mg/0.1 Ml Spr, 5 MG NA, SPRAY 03/08/25 Temazepam (Temazepam) 30 Mg Cap, 7.5 MG GT HS, CAP 03/08/25 Carbamazepine (Carbamazepine) 200 Mg Tab, 200 MG GT Q8HR for 30 Days, MG 03/08/25 Levetiracetam (Keppra) 1,000 Mg Tab, 1.5 TAB GT BID, #60 TAB 5 Refills 03/08/25 Omeprazole (Omeprazole) 20 Mg Tab, 40 MG PO DAILY, TAB 10/16/24 Levetiracetam (Levetiracetam) 1,000 Mg Tab, 1 TAB PO BID 10/16/24 Carbamazepine (Carbamazepine) 100 Mg/5 Ml Verito, 4 ML PO TID 10/16/24 Esomeprazole Magnesium Trihydr (Nexium) 40 Mg Cap, 40 MG PO, CAP 01/30/24 Folic Acid (Folic Acid) 1 Mg Tab, 1 MG PO DAILY for 30 Days, MG 01/30/24 Discontinued Reported Medications Lacosamide (Vimpat) 50 Mg Tab, 75 MG PO DAILY for 30 Days, #45 TAB 1 Refill 10/19/24 Nutritional Supplements (Peptamen 1 Félix/Prebio1) 1 Liq Liq, 1 LIQ GT Q4HR, LIQ 10/16/24 Tramadol Hcl (Tramadol Hcl) 50 Mg Tab, 50 MG PO Q8HP PRN for PAIN SCALE 1 THRU 6, MG 01/30/24 Current Medications Current Medications Medications (Trade) Dose Ordered Sig/Krysten Route PRN Reason Start Time Stop Time Status Last Admin Mupirocin (Bactroban 2% Ointment) 1 applic BID EACHNOSTRI 03/09/25 22:00 03/14/25 21:59 03/09/25 21:50 Review of Systems As above, the other systems are negative Vital Signs Vital Signs Date Time Temp Pulse Resp B/P (MAP) Pulse Ox O2 Delivery O2 Flow Rate FiO2 03/09/25 21:00 97.1 83 24 104/63 (77) 96 97.1 03/09/25 08:00 Room Air* 0 21 Physical Exam GENERAL EXAM: General: the patient is well developed and nourished. No acute distress. HEENT: Normocephalic, neck is supple, no carotid bruits. No mass. RESPIRATORY: Normal respiratory effort with symmetrical lung expansion. Lungs clear to auscultation. CARDIOVASCULAR: Regular rate and rhythm with no murmurs. S1, S2. ABDOMEN: Soft, nontender, normal bowel sound NEUROLOGICAL: MENTAL STATUS: Awake, she does not remember my verbal stimuli SPEECH, LANGUAGE, HIGHER CORTICAL FUNCTION: No vocalization CRANIAL NERVES: #2: Intact visual mcnair to confrontation (visual thread). #3,4,6: Pupils are equal, round and reactive. EOMs full and conjugate #5: Facial sensation intact in all three divisions bilaterally. Mandibular strength intact. #7: Facial muscles symmetrical and strength intact. #8: Deferred #9,10: Deferred #11: Deferred #12: Deferred SENSATION: Okay to touch and pinprick MOTOR: All extremities are under developed, no spontaneous movement REFLEXES: Deep tendon reflexes are symmetrical. No pathological reflexes. CEREBELLAR/COORDINATION: Deferred GAIT/STATION: deferred Labs/Diagnostic Data Labs Test 03/07/25 14:56 Range/Units White Blood Count 3.4 L 4.4-10.8 10^3/uL Red Blood Count 4.04 4.0-5.20 10^6/uL Hemoglobin 14.1 12.2-16.2 g/dL Hematocrit 40.8 36.0-46.0 % Mean Corpuscular Volume 101.1 H 80.0-100.0 fL Mean Corpuscular Hemoglobin 34.9 H 28.0-32.0 pg Mean Corpuscular Hemoglobin Concent 34.5 32.0-36.0 g/dL Red Cell Distribution Width 12.4 11.8-14.3 % Platelet Count 355 140-450 10^3/uL Mean Platelet Volume 6.4 L 6.9-10.8 fL Neutrophils (%) (Auto) 43.7 37.0-80.0 % Lymphocytes (%) (Auto) 38.2 10.0-50.0 % Monocytes (%) (Auto) 15.1 H 0.0-12.0 % Eosinophils (%) (Auto) 2.5 0.0-7.0 % Basophils (%) (Auto) 0.5 0.0-2.0 % Neutrophils # (Auto) 1.5 L 1.6-8.6 10 ^3/uL Lymphocytes # (Auto) 1.3 0.4-5.4 10 ^3/uL Monocytes # (Auto) 0.5 0-1.3 10 ^3/uL Eosinophils # (Auto) 0.1 0-0.8 10 ^3/uL Basophils # (Auto) 0 0-0.2 10 ^3/uL Nucleated Red Blood Cells 0.2 % Sodium Level 138 136-145 mmol/L Potassium Level 4.2 3.5-5.1 mmol/L Chloride Level 104 98-107 mmol/L Carbon Dioxide Level 25 20-31 mmol/L Anion Gap 9 5-15 Blood Urea Nitrogen 9 9-23 mg/dL Creatinine 0.33 L 0.550-1.02 mg/dL Glomerular Filtration Rate Calc 127 >90 mL/min BUN/Creatinine Ratio 27.3 H 10.0-20.0 Serum Glucose 88 74-106 mg/dL Calcium Level 8.4 L 8.7-10.4 mg/dL Total Bilirubin 0.2 0.2-1.0 mg/dL Aspartate Amino Transferase (AST) 16 13-40 U/L Alanine Aminotransferase (ALT) 17 7-40 U/L Alkaline Phosphatase 106 46-116 U/L Total Protein 6.4 5.7-8.2 g/dL Albumin 4.0 3.2-4.8 g/dL Microbiology Date/Time Source Procedure Growth Status 03/08/25 09:52 Nose MRSA Screen - Final Complete Assessment Seizure disorder Grand mal seizure Severe mental retardation Quadriplegia Cerebral palsy Insomnia Teeth grinding ? Pain syndrome, feels less likely Plan/Recommendation Monitoring Supportive treatment Telemetry Keppra 1500 mg IV b.i.d. Carbamazepine 600 mg b.i.d. Ativan for seizure breakthrough Ativan 0.5 mg IV HS p.r.n. for insomnia (Will use Restoril 7.5mg HS p.r.n. for insomnia once we can use the feeding tube) More recommendation per clinical course Progress: Poor This medical document was created using an electronic medical record system with [employer] dictation system. Although this document has been carefully reviewed, there may still be some phonetic and typographical errors. These areas are purely typographical due to imperfections of the software programs, and do not reflect any compromise in the patient's medical care Plan discussed with: Other ENRIQUE LATHAM MD Mar 09, 2025 23:28
[2025-03-10] VITALS (8 sets, daily range): BP systolic 94–119; BP diastolic 53–68; PULSE 52–106; RESP 15–24; TEMP 97–98.5; O2SAT 89–98
[2025-03-10] MEDS ORDERED: LORazepam 2MG/ML-1ML VIAL IM PRN (00:45)
[2025-03-10] MEDS: LORazepam 2MG/ML-1ML VIAL IV PRN (02:39)
[2025-03-10] MEDS: carBAMazepine 200 MG/10 ML Ud ORAL Susp PO SCH (10:00)
--- NOTE | 2025-03-10 12:15 | DVHPN2 ---
Subjective The patient is seen and examined at bedside. The patient is nonverbal. Sister at bedside. Feeding was started yesterday after the interventional radiologists checked the tube and stated is function well. However the patient is vomited today. The nurse had checked residual and patient had no residual. Per sister she thinks the tube is longer than her old two. She said when the patient is in the ER they do not have the short tube like what the patient used to have. They replace with a long feeding tube. Reviewed: Care Plan, H&P, Labs, Medications, Previous Orders Changes from previous H/P or p: No Changes Objective Vitals Vital Signs Date Time Temp Pulse Resp B/P (MAP) Pulse Ox O2 Delivery O2 Flow Rate FiO2 03/10/25 08: 97.9 87 15 95/61 (72) 98 97.9 03/09/25 20:00 Room Air* 0 21 Intake/Output Intake and Output 03/10/25 07:00 Intake Total 200 ml Balance 200 ml Intake Oral 0 ml IV Total 200 ml # Voids 5 # Bowel Movements 1 General Appearance: Alert HEENT: Atraumatic, PERRLA, EOMI, Mucous membr. moist/pink Neck: Supple Lungs: Clear to auscultation, Normal air movement Cardiovascular: Regular rate, Normal S1, Normal S2, No murmurs, Gallops, Rubs Abdomen: Normal bowel sounds, Soft, No tenderness Neuro: Other (Bed-bound, contracted extremity) Medications Current Medications Medications Dose Ordered Sig/Krystne Route Start Time Stop Time Status Last Admin Dose Admin Lorazepam 1 mg Q5MINP PRN IV 03/07/25 19:45 03/08/25 11:46 1 MG Levetiracetam 100 ml @ 400 mls/hr BID IV 03/08/25 22:00 03/10/25 10:00 400 MLS/HR Mupirocin 1 applic BID EACHNOSTRI 03/09/25 22:00 03/14/25 21:59 03/10/25 10:01 1 APPLIC Carbamazepine 600 mg BID PO 03/10/25 10:00 03/10/25 10:00 600 MG Lorazepam 0.5 mg QHSP PRN IV 03/10/25 02:45 03/10/25 02:39 0.5 MG Laboratory Results Laboratory Tests 03/07/25 14:56 Microbiology Microbiology Date/Time Source Procedure Growth Status 03/08/25 09:52 Nose MRSA Screen - Final Complete Labs and/or images reviewed: Labs reviewed by me Assessment/Plan Assessment/Plan Peg tube malfunction status post investigation by IR, Peg tube functioning well. Cerebral palsy Nonverbal Bed ridden Continue current management. Continue IV antibiotic. Continuing tube feeding per home dose. We will give reglan 5 mg IV prior to meals We will get a KUB to monitor the tube feeding. Also get chest x-ray to rule out aspirate pneumonia after vomiting Continue seizure medication. Discharge planning This medical document was created using an electronic medical record system with [employer] computerized dictation system. Although this document has been carefully reviewed, there may still be some phonetic and typographical errors. These areas are purely typographical due to imperfections of the software programs, and do not reflect any compromise in the patient's medical care. Plan discussed with: Other (sister, RN) My Orders Orders - CUAUHTEMOC MORRISON MD Procedure Category Date Status Time Mupirocin 2% Oint PHA 03/09/25 In Process Mrsa Nares (Bactroban 22:00 Apply Z-Guard TIFFANY 03/09/25 In Process 10:36 * Dietary Consult CONS 03/09/25 Transmitted 18:30 * Wound Consult CONS 03/09/25 Transmitted Date of Service: Mar 10, 2025 Billing Provider: CUAUHTEMOC MORRISON MD Common Visit Codes: [id number] INP/OBS CARE(HIGH) CUAUHTEMOC MORRISON MD Mar 10, 2025 12:15
[2025-03-10] MEDS: GASTROGRAFIN 30 ML SOL ONE (12:44)
--- NOTE | 2025-03-10 13:12 | DVH ---
Procedure: XY POST PROCEDURE ABD/PEL XRAY Exam Date: 03/10/2025 12:48 PM History: EVALUATE PEG TUBE PLACEMENT Comparison Study: CT CT AB PEL WO CON-NO ORAL OR IV on DOS: 03/07/25, XY KUB ABDOMEN SINGLE VIEW on DO S: 11/09/24, CT CT AB PEL WO CON-NO ORAL OR IV on DOS: 07/21/24, XY KUB ABDOMEN SINGLE VIEW on DOS: 04/13 02/02, CT PELVIS WITH CONTRAST ONLY on DOS: 04/24/24 Technique: AP of the chest AP upright of the abdomen AP supine of the abdomen FINDINGS: No focal evidence of airspace disease. The cardiomediastinal silhouette is within normal limits. No acute osseous lesions. Gastrostomy tube overlies the left upper quadrant Nonobstructive bowel gas pattern noted. There is no evidence for pneumoperitoneum. No abnormal calcifications noted. IMPRESSION: Non-specific gas-filled loops of bowel. END IMPRESSION:
[2025-03-10] MEDS: METOCLOPRAMIDE HCL 5MG/ml INJ 2ml VIAL IV SCH (13:17)
--- NOTE | 2025-03-10 19:25 | DVHPN2 ---
Progress Note - Dictate Date Seen: Mar 10, 2025 Medical Necessity Reason Pt with a Central, PICC or Fol: No Subjective Ms. Garland is a 49 years old female with a history of cerebral palsy, mental retardation, quadriplegia, GERD, seizure disorder, the patient was admitted to the [facility] on 03/07/25 with a chief complaint of G-tube dysfunction. I saw her on 04/04/2024, 07/22/24, 10/17/2024 for seizure I have seen and examined the patient, I have talked to her sister, and her nurse, she is doing fine, no seizure activity, awake, she tracks She has a good sleep last night after Ativan Nurse uses feeding tube for medication, family feed her with feeding tube WBC/HB/PLT/MCV, 07/22/2024: 5.5/11.1/325/102.9, 03/07/2025: 3.5/40.01/355/101.1 CMP, 07/22/2024: Unremarkable, 03/07/2025: Unremarkable Vitamin B12, 04/05/24: 790, 10/19/2024: 909 Folic acid, 04/05/2024: 18.4, : 23.8 TSH, 07/22/2024: 1.89, 10/17/2024: 2.58 vital signs Vital Sign Date Time Temp Pulse Resp B/P (MAP) Pulse Ox O2 Delivery O2 Flow Rate FiO2 03/10/25 17:00 98.2 52 15 119/68 (85) 89 98.2 03/10/25 08:00 Room Air* 0 21 Total Intake and Output 03/09/25 03/09/25 03/10/25 15:00 23:00 07:00 Intake Total 100 ml 100 ml 0 ml Balance 100 ml 100 ml 0 ml medications Current Medications Medications Dose Ordered Sig/Krysten Route Start Time Stop Time Status Last Admin Dose Admin Lorazepam 1 mg Q5MINP PRN IV 03/07/25 19:45 03/08/25 11:46 1 MG Levetiracetam 100 ml @ 400 mls/hr BID IV 03/08/25 22:00 03/10/25 10:00 400 MLS/HR Mupirocin 1 applic BID EACHNOSTRI 03/09/25 22:00 925 21:59 03/10/25 10:01 1 APPLIC Carbamazepine 600 mg BID PO 03/10/25 10:00 03/10/25 10:00 600 MG Lorazepam 0.5 mg QHSP PRN IV 03/10/25 02:45 03/10/25 02:39 0.5 MG Metoclopramide HCl 5 mg QID IV 03/10/25 12:00 03/10/25 18:13 5 MG objective General: the patient is well developed and nourished. No acute distress. MENTAL STATUS: Awake, she does not remember my verbal stimuli SPEECH, LANGUAGE, HIGHER CORTICAL FUNCTION: No vocalization CRANIAL NERVES: Intact visual mcnair to confrontation (visual thread). Pupils are equal, round and reactive. EOMs full and conjugate Facial sensation intact in all three divisions bilaterally. Mandibular strength intact. Facial muscles symmetrical and strength intact. SENSATION: Okay to touch and pinprick MOTOR: All extremities are under developed, no spontaneous movement REFLEXES: Deep tendon reflexes are symmetrical. No pathological reflexes. CEREBELLAR/COORDINATION: Deferred GAIT/STATION: deferred laboratory and microbiology Laboratory Tests 03/07/25 14:56 Test 03/07/25 14:56 Range/Units Serum Glucose 88 74-106 mg/dL Problem List Seizure disorder Grand mal seizure Severe mental retardation Quadriplegia Cerebral palsy Insomnia Assessment/Plan Monitoring Supportive treatment Telemetry Keppra 1500 mg IV b.i.d. Carbamazepine 600 mg b.i.d. Ativan for seizure breakthrough D/C Ativan 0.5 mg IV HS p.r.n. for insomnia Restoril 7.5mg HS p.r.n. for insomnia More recommendation per clinical course This medical document was created using an electronic medical record system with [employer] dictation system. Although this document has been carefully reviewed, there may still be some phonetic and typographical errors. These areas are purely typographical due to imperfections of the software programs, and do not reflect any compromise in the patient's medical care Prognosis poor Dietary Evaluation Review Comments: Resume Tf when G-tube or peg tube becomes available. Recommend Jevity 1.2 @35ml/hr provididng 1008kcal 47g Protein 678ml free water supporting 100% of pt's protein and energy needs. Expected Outcomes/Goals: maintian wt and meeting pt's daily nutrition needs Plan discussed with: Other ENRIQUE LATHAM MD Mar 10, 2025 19:25
[2025-03-10] MEDS: TEMAZEPAM 15 MG CAP PO PRN (22:58)
[2025-03-10] MEDS: carBAMazepine 200 MG/10 ML Ud ORAL Susp PEG SCH (22:58)
[2025-03-11 00:59] VITALS: BP 92/57; PULSE 85; RESP 16; TEMP 96.6; O2SAT 97
[2025-03-11 05:00] VITALS: BP 99/59; PULSE 95; RESP 14; TEMP 98; O2SAT 96
[2025-03-11 08:00] VITALS: PULSE 88; RESP 16; O2SAT 96
[2025-03-11 08:39] VITALS: BP 99/62; PULSE 88; RESP 16; TEMP 97.8; O2SAT 97
--- NOTE | 2025-03-11 09:50 | DVHPN2 ---
Subjective The patient is seen and examined at bedside. The patient is nonverbal. Sister at bedside. Feeding was started yesterday after the interventional radiologists checked the tube and stated is function well. However the patient is vomited today. The nurse had checked residual and patient had no residual. Per sister she thinks the tube is longer than her old two. She said when the patient is in the ER they do not have the short tube like what the patient used to have. They replace with a long feeding tube. Reviewed: Care Plan, H&P, Labs, Medications, Previous Orders Objective Vitals Vital Signs Date Time Temp Pulse Resp B/P (MAP) Pulse Ox O2 Delivery O2 Flow Rate FiO2 03/11/25 08:39 97.8 88 16 99/62 (74) 97 97.8 03/10/25 20:00 Room Air* 0 21 Intake/Output Intake and Output 03/11/25 07:00 Intake Total 200 ml Output Total 0 ml Balance 200 ml Intake Oral 0 ml IV Total 200 ml Output Urine Total 0 ml # Voids 5 # Bowel Movements 1 General Appearance: Alert HEENT: Atraumatic, PERRLA, EOMI, Mucous membr. moist/pink Neck: Supple Lungs: Clear to auscultation, Normal air movement Cardiovascular: Regular rate, Normal S1, Normal S2, No murmurs, Gallops, Rubs Abdomen: Normal bowel sounds, Soft, No tenderness Neuro: Other (Bed-bound, contracted extremity) Medications Current Medications Medications Dose Ordered Sig/Krysten Route Start Time Stop Time Status Last Admin Dose Admin Lorazepam 1 mg Q5MINP PRN IV 03/07/25 19:45 03/08/25 11:46 1 MG Levetiracetam 100 ml @ 400 mls/hr BID IV 03/08/25 22:00 03/10/25 22:56 400 MLS/HR Mupirocin 1 applic BID EACHNOSTRI 03/09/25 22:00 03/14/25 21:59 03/10/25 22:56 1 APPLIC Metoclopramide HCl 5 mg QID IV 03/10/25 12:00 03/11/25 06:48 5 MG Temazepam 7.5 mg HS PRN PO 03/10/25 19:45 03/10/25 22:58 7.5 MG Carbamazepine 600 mg BID PEG 03/10/25 22:00 03/10/25 22:58 600 MG Laboratory Results Laboratory Tests 03/07/25 14:56 Microbiology Microbiology Date/Time Source Procedure Growth Status 03/08/25 09:52 Nose MRSA Screen - Final Complete Assessment/Plan Assessment/Plan Peg tube malfunction status post investigation by IR, Peg tube functioning well. Cerebral palsy Nonverbal Bed ridden Continue current management. Continue IV antibiotic. Continuing tube feeding per home dose. We will give reglan 5 mg IV prior to meals We will get a KUB to monitor the tube feeding. Also get chest x-ray to rule out aspirate pneumonia after vomiting Continue seizure medication. Discharge planning This medical document was created using an electronic medical record system with [employer] direct computerized dictation system. Although this document has been carefully reviewed, there may still be some phonetic and typographical errors. These areas are purely typographical due to imperfections of the software programs, and do not reflect any compromise in the patient's medical care. My Orders Orders - CUAUHTEMOC MORRISON MD Procedure Category Date Status Time Metoclopramide PHA 03/10/25 In Process Injection (Reglan 12:00 Post Procedure XY 03/10/25 Resulted Abd/Pel Xray 12:40 CUAUHTEMOC MORRISON MD Mar 11, 2025 09:50
--- NOTE | 2025-03-11 10:38 | DVHDS2 ---
Discharge Summary Date of Admission Mar 07, 2025 at 19:30 Date of Discharge: Mar 11, 2025 Admitting Diagnosis Peg tube malfunction Cerebral palsy Nonverbal Bed ridden Labs/Diagnostic Data: Laboratory Results Test 03/07/25 14:56 White Blood Count 3.4 10^3/uL (4.4-10.8) Red Blood Count 4.04 10^6/uL (4.0-5.20) Hemoglobin 14.1 g/dL (12.2-16.2) Hematocrit 40.8 % (36.0-46.0) Mean Corpuscular Volume 101.1 fL (80.0-100.0) Mean Corpuscular Hemoglobin 34.9 pg (28.0-32.0) Mean Corpuscular Hemoglobin Concent 34.5 g/dL (32.0-36.0) Red Cell Distribution Width 12.4 % (11.8-14.3) Platelet Count 355 10^3/uL (140-450) Mean Platelet Volume 6.4 fL (6.9-10.8) Neutrophils (%) (Auto) 43.7 % (37.0-80.0) Lymphocytes (%) (Auto) 38.2 % (10.0-50.0) Monocytes (%) (Auto) 15.1 % (0.0-12.0) Eosinophils (%) (Auto) 2.5 % (0.0-7.0) Basophils (%) (Auto) 0.5 % (0.0-2.0) Neutrophils # (Auto) 1.5 10 ^3/uL (1.6-8.6) Lymphocytes # (Auto) 1.3 10 ^3/uL (0.4-5.4) Monocytes # (Auto) 0.5 10 ^3/uL (0-1.3) Eosinophils # (Auto) 0.1 10 ^3/uL (0-0.8) Basophils # (Auto) 0 10 ^3/uL (0-0.2) Nucleated Red Blood Cells 0.2 % Sodium Level 138 mmol/L (136-145) Potassium Level 4.2 mmol/L (3.5-5.1) Chloride Level 104 mmol/L (98-107) Carbon Dioxide Level 25 mmol/L (20-31) Anion Gap 9 (5-15) Blood Urea Nitrogen 9 mg/dL (9-23) Creatinine 0.33 mg/dL (0.550-1.02) Glomerular Filtration Rate Calc 127 mL/min (>90) BUN/Creatinine Ratio 27.3 (10.0-20.0) Serum Glucose 88 mg/dL (74-106) Calcium Level 8.4 mg/dL (8.7-10.4) Total Bilirubin 0.2 mg/dL (0.2-1.0) Aspartate Amino Transferase (AST) 16 U/L (13-40) Alanine Aminotransferase (ALT) 17 U/L (7-40) Alkaline Phosphatase 106 U/L (46-116) Total Protein 6.4 g/dL (5.7-8.2) Albumin 4.0 g/dL (3.2-4.8) Other Laboratory Tests 03/07/25 14:56 Brief Hx & Hospital Course: This is a 49 years old female come to emergency department to evaluate the PEG tube malfunction. The patient was brought in by her sister. The patient is quadriplegic, bedridden, nonverbal with cerebral palsy. Caregivers is her sister. Per sister patient had difficulty of flushing in providing nutrition through G-tube. She said that is also increase the residual which is green in color. The patient subsequently had the PEG-tube replacement procedure done. However when the interventional radiologists checked her G-tube was just recently placed he see is function well. No malfunction. He explained to the family that the increase greenish discharge is a normal process of bile through the stomach. PEG-tube is in right position. Tube feeding was restarted per home regimen. The next day the patient vomited. X-ray done showed no acute process terminal KUB done showed no change. I give the patient Reglan 5 mg IV push prior to feeding then today she no longer vomiting. She tolerated feeding well. No residual So I am going to discharge her home today. Advised to follow up with primary care physician 1-2 weeks. Activity as tolerated. Physical exam: HEENT: Normocephalic atraumatic pupils equal react to light and accommodation. Extraocular muscles intact, conjunctiva pink, oropharynx moist, no thrush, no exudate. Lymphatic: No lymphadenopathy Cardiovascular exam: S1, S2 was heard. No murmurs, rubs, gallops Lung: Clear on auscultation bilaterally, no wheeze, rale, rhonchi. GI: Abdominal soft, nondistended, nontenderness, positive bowel sounds. Extremity: No crepitus, cyanosis, edema. Pedal pulses present bilateral. Full range of motion. Skin: Normal turgor, no rash. Psych: Alert, awake. Neurology: Functional quadriplegic This medical document was created using an electronic medical record system with [employer] direct computerized dictation system. Although this document has been carefully reviewed, there may still be some phonetic and typographical errors. These areas are purely typographical due to imperfections of the software programs, and do not reflect any compromise in the patient's medical care. Condition at Discharge: Stable Final Diagnosis/Problems List Peg tube malfunction status post investigation by IR, Peg tube now functioning well. Cerebral palsy Nonverbal Bed ridden Discharge Disposition: Home Discharge Instruct/Medications Scheduled Carbamazepine (Carbamazepine), 4 ML PO TID, (Reported) Carbamazepine (Carbamazepine), 600 MG PEG BID Carbamazepine (Carbamazepine), 200 MG GT Q8HR, (Reported) Esomeprazole Magnesium (Esomeprazole Magnesium), 40 MG PO DAILY Folic Acid (Folic Acid), 1 MG PO DAILY, (Reported) Levetiracetam (Levetiracetam), 1 TAB PO BID, (Reported) Levetiracetam (Keppra), 1.5 TAB GT BID, (Reported) Lorazepam (Ativan), 0.5 MG PO BID Omeprazole (Omeprazole), 40 MG PO DAILY, (Reported) Temazepam (Temazepam), 7.5 MG GT HS, (Reported) Scheduled PRN Bisacodyl (Ex-Lax Ultra), 5 MG PO DAILY PRN Metoclopramide Hcl (Reglan), 5 MG PO AC PRN Miscellaneous Medications Esomeprazole Magnesium Trihydr (Nexium), 40 MG PO, (Reported) Midazolam (Anticonvulsant) (Nayzilam), 5 MG NA, (Reported) Discontinued Medications Azithromycin (Zithromax), 500 MG PO DAILY Azithromycin (Azithromycin), 10 ML PEG DAILY Cephalexin (Cephalexin), 5 ML PEG BID Lacosamide (Vimpat), 75 MG PO DAILY, (Reported) Nutritional Supplements (Peptamen 1 Félix/Prebio1), 1 LIQ GT Q4HR, (Reported) Tramadol Hcl (Tramadol Hcl), 50 MG PO Q8HP PRN for PAIN SCALE 1 THRU 6, (Reported) Discharge Statement: "Patient was advised to return to the ER or call 911 if any headaches, dizziness, shortness of breath, chest pain, abdominal pain, bleeding, fevers, or worsening of medical condition. Patient was counseled about treatment plan, medications, possible side effects, patientverbalized understanding. All questions were answered to the best of my ability. This discharge took greater then 30 minutes in planning, reviewing documentation, counseling the patient, and discussing with other team members." ASSESSMENT ASSESSMENT Assessment Date of Service: Mar 11, 2025 Billing Provider: CUAUHTEMOC MORRISON MD Common Visit Codes: [id number] DISCH DAY >30min CUAUHTEMOC MORRISON MD Mar 11, 2025 10:38
[2025-03-11] MEDS ORDERED: METO5TAB67 PO (10:39)
[2025-03-11 12:30] VITALS: BP 99/57; PULSE 92; RESP 14; TEMP 98; O2SAT 96
[2025-03-11 12:39] VITALS: BP 99/57; PULSE 92; RESP 14; TEMP 98; O2SAT 96
== END 2025-03-11 13:34 | disposition home or self-care (01) | DRG 252 ==
LOC: ER 13:22 → OVERFLOW 19:30 → EAST 03-08 15:50
PROVIDERS: ADMIT Internal Medicine; ATTEND Internal Medicine
DX: K94.23 Gastrostomy malfunction (principal); F72 Severe intellectual disabilities; R53.2 Functional quadriplegia; G40.409 Other generalized epilepsy and epileptic syndromes, not intractable, without status epilepticus; G80.9 Cerebral palsy, unspecified; K59.09 Other constipation; G47.00 Insomnia, unspecified; K21.9 Gastro-esophageal reflux disease without esophagitis; Z95.0 Presence of cardiac pacemaker; Z79.899 Other long term (current) drug therapy; Z74.01 Bed confinement status; Z88.8 Allergy status to other drugs, medicaments and biological substances; Y83.8 Other surgical procedures as the cause of abnormal reaction of the patient, or of later complication, without mention of misadventure at the time of the procedure
CPT/HCPCS: 36415; 74018; 74176; 80053; 85025; 87081; G0378

== ENCOUNTER → 2025-05-04 | Outpatient (CLI) | payer MEDICAID ==
[~2025-05-04] MED LIST changes: -AZIT200S PO; -AZIT200S47 PEG; +CARB200T4 GT; -CEPH250S PEG; -LACO50TA2 PO; +LEVE100012 GT; +METO5TAB67 PO; +MIDA5SPR; +TEMA30CA GT; -TRAM50TA2 PO; -[UNRECOGNIZED DRUG - CODE] GT
[2025-05-04 12:59] LABS: Hemoglobin 14.5 g/dL (12.2-16.2); Nucleated Red Blood Cells % 0.1 %
[2025-05-04 13:02] LABS: Hematocrit 41.9 % (36.0-46.0); Mean Corpuscular Hemoglobin 35.9 pg (28.0-32.0); Mean Corpuscular Volume 104.1 fL (80.0-100.0)
[2025-05-04 13:28] LABS: Alanine Aminotransferase 16 U/L (7-40); Albumin 3.9 g/dL (3.2-4.8); Alkaline Phosphatase 114 U/L (46-116); Anion Gap 8 (5-15); BUN/Creatinine Ratio 30.3 (10.0-20.0); Blood Urea Nitrogen 10 mg/dL (9-23); Calcium 8.7 mg/dL (8.7-10.4); Carbon Dioxide 26 mmol/L (20-31); Chloride 101 mmol/L (98-107); Glucose 79 mg/dL (74-106); Potassium 4.6 mmol/L (3.5-5.1); Total Protein 6.7 g/dL (5.7-8.2)
[2025-05-04 13:43] LABS: Bilirubin, Total 0.2 mg/dL (0.2-1.0); Sodium 135 mmol/L (136-145)
== END | disposition home or self-care (01) ==
LOC: LAB 11:50
PROVIDERS: ATTEND Internal Medicine
DX: K59.00 Constipation, unspecified (principal); Z79.899 Other long term (current) drug therapy
CPT/HCPCS: 36415; 80053; 82306; 82542; 82607; 82746; 84443; 85025